=== PATIENT | male | born 1935 ===

== ENCOUNTER 2018-05-23 10:27 | Emergency (ER) | payer OTHER ==
--- NOTE | 2018-05-23 10:58 | ED PDOC ---
Arrival/HPI - General Time Seen by Provider: 05/23/18 10:41 Historian: Patient, Family - History of Present Illness Narrative History of Present Illness (Text): 05/23/18 10:50 82 year old male, whose PMH is HTN, HCL, Thyroid Disease, (medications include a water pill), who presents to the emergency department complaining of b/l hip and back side of head pain s/p mechanical fall x2. Family member reports patient uses walker for assistance and tripped while on the street one week ago , injuring the back of his head. The second time patient fell was one day ago, also a mechanical fall, also injuring the back of his head. Patient states s/p fall he felt mildly dizzy and weak, which has resolved. Currently he has no pain. Patient denies LOC, chest pain, rib pain, shortness of breath, nausea, vomiting, diarrhea, abdominal pain, dysuria, fever, or other complaints. PMD: Dr. Solo Time/Duration: 1 week Symptom Onset: Sudden Symptom Course: Unchanged Context: Tripped Past Medical History - Provider Review Nursing Documentation Reviewed: Yes Family/Social History - Physician Review Nursing Documentation Reviewed: Yes Family/Social History: Unknown Family HX Allergies/Home Meds Allergies/Adverse Reactions: Allergies No Known Allergies Allergy (Verified 05/23/18 10:40) Home Medications: Home Meds Medication Instructions Recorded Confirmed Acetaminophen [Non-Aspirin Pain 500 mg PO BID 05/23/18 05/23/18 Relief] Aspirin [Adult Low Dose Aspirin EC] 81 mg PO DAILY 05/23/18 05/23/18 Carvedilol [Coreg] 12.5 mg PO BID 05/23/18 05/23/18 Furosemide [Lasix] 40 mg PO DAILY 05/23/18 05/23/18 Glimepiride [amaRYL] 4 mg PO QAM 05/23/18 05/23/18 Levothyroxine [Synthroid] 25 mcg PO DAILY 05/23/18 05/23/18 Nateglinide [Starlix] 120 mg PO BID 05/23/18 05/23/18 Ramipril [Altace] 10 mg PO DAILY 05/23/18 05/23/18 Simvastatin 10 mg PO DAILY 05/23/18 05/23/18 Review of Systems - Review of Systems Constitutional: absent: Fevers ENT: absent: Sinus Congestion Respiratory: absent: SOB Cardiovascular: absent: Chest Pain Gastrointestinal: absent: Abdominal Pain Genitourinary Male: absent: Frequency Musculoskeletal: Back Pain (lower back ), Other (b/l hip pain ) Skin: absent: Rash Neurological: Headache, Dizziness Endocrine: absent: Diaphoresis Physical Exam Vital Signs Temp Pulse Resp BP Pulse Ox 05/23/18 13:22 67 22 96 05/23/18 10:40 98.1 F 84 24 154/92 H 97 Temperature: Afebrile Blood Pressure: Normal Pulse: Regular Respiratory Rate: Normal Appearance: Positive for: Well-Appearing, Non-Toxic, Comfortable Pain Distress: None Mental Status: Positive for: Alert and Oriented X 3 - Systems Exam Head: Present: Atraumatic, Normocephalic Pupils: Present: PERRL Extroacular Muscles: Present: EOMI Conjunctiva: Present: Normal Mouth: Present: Moist Mucous Membranes Neck: Present: Normal Range of Motion. No: MIDLINE TENDERNESS, Paraspinal Tenderness Respiratory/Chest: Present: Clear to Auscultation, Good Air Exchange. No: Respiratory Distress, Accessory Muscle Use Cardiovascular: Present: Regular Rate and Rhythm, Normal S1, S2. No: Murmurs Abdomen: Present: Normal Bowel Sounds. No: Tenderness, Distention, Peritoneal Signs, Rebound, Guarding Back: Present: Paraspinal Tenderness (lower lumbar paraspinal tenderness). No: CVA Tenderness, Midline Tenderness, Pain with Leg Raise Lower Extremity: Present: Normal Inspection, NORMAL PULSES, Normal ROM, Neurovascularly Intact, Capillary Refill < 2 s, Other (good hip rotation). No: Edema, Cyanosis, Tenderness, Swelling, Erythema, Deformity Neurological: Present: GCS=15, CN II-XII Intact, Speech Normal, Motor Func Grossly Intact, Normal Sensory Function, Normal Cerebellar Funct Skin: Present: Warm, Dry, Normal Color. No: Rashes Psychiatric: Present: Alert, Oriented x 3, Normal Insight, Normal Concentration Medical Decision Making ED Course and Treatment: 05/23/18 Impression: 82 year old male with lower lumbar paraspinal tenderness complaining of left sided hip pain and head trauma s/p mechanical fall. Differential Diagnosis included but are not limited to: Mechanical fall w/ head injury Plan: -- CT head -- LS spine x-ray -- Pelvis x-ray -- Tylenol -- Reassess and disposition Progress Notes: 05/23/18 12:10 Creator: Jimbo Mccormack Lumbar Spine x-ray Impressions: Severe degenration at L1-2 and L3-4 Pelvis x-ray: Impressions: Unremarkable radiographs of the pelvis. 05/23/18 12:15 CT head Impressions: No acute disease 05/23/18 13:[address] are with no fracture or ICH. Patient is comfortable and has no pain. He is able to walk with walker at baseline. Case discussed with patient and his family. He will go home and f/u with his PMD. He was advised to return to the ED if symptoms worsen or any other concern. - RAD Interpretation Radiology Orders: 05/23/18 10:48 HEAD W/O CONTRAST [CT] Stat LS SPINE WITH OBL > 18 YRS OLD [RAD] Stat PELVIS ONE VIEW [RAD] Stat Adding Machine Mechanic: Radiologist - Medication Orders Current Medication Orders: Discontinued Medications Acetaminophen (Tylenol 325mg Tab) 650 mg PO STAT STA Stop: 05/23/18 10:50 - Scribe Statement The provider has reviewed the documentation as recorded by the Anilibe Sara Marte Provider Scribe Attestation: All medical record entries made by the Scribe were at my direction and personally dictated by me. I have reviewed the chart and agree that the record accurately reflects my personal performance of the history, physical exam, medical decision making, and the department course for this patient. I have also personally directed, reviewed, and agree with the discharge instructions and disposition. Disposition/Present on Arrival - Present on Arrival Any Indicators Present on Arrival: No - Disposition Have Diagnosis and Disposition been Completed?: Yes Diagnosis: Fall, Head injury, Hip pain, bilateral Disposition: HOME/ ROUTINE Disposition Time: 13:22 Patient Plan: Discharge Condition: IMPROVED Discharge Instructions (ExitCare): Closed Head Injury Additional Instructions: STEPHANI VENCES, thank you for letting us take care of you today. Your provider was Bennie Bruno DO and you were treated for Mechanical Fall, Hip Pain , Head Injury. The emergency medical care you received today was directed at your acute symptoms. If you were prescribed any medication, please fill it and take as directed. It may take several days for your symptoms to resolve. Return to the Emergency Department if your symptoms worsen, do not improve, or if you have any other problems. Please contact your doctor or call one of the physicians/clinics you have been referred to that are listed on the Patient Visit Information form that is included in your discharge packet. Bring any paperwork you were given at discharge with you along with any medications you are taking to your follow up visit. Our treatment cannot replace ongoing medical care by a primary care provider outside of the emergency department. Thank you for allowing the [facility] team to be part of your care today. If you had an X-Ray or CT scan: A Radiologist will review the ED reading if any change in treatment is needed we will contact you. If you had a blood, urine, or wound culture: It will take several days for the results, if any change in treatment is needed we will contact you. If you had an STI test: It will take 48 hours for the results. Please call after 1 week if you have not heard back. Referrals: Non [facility] Provider, [Non-Staff] - Follow up with primary Forms: [employer] (Romansh)
--- NOTE | 2018-05-23 12:07 | RAD ---
Date of service: 05/23/2018 PROCEDURE: Radiographs of the pelvis. HISTORY: fall r/o fx COMPARISON: None. FINDINGS: BONES: Pelvic Bones: Unremarkable. Hips: Grossly unremarkable. JOINTS: Sacroiliac Joints: Unremarkable. Pubic Symphysis: Unremarkable. OTHER FINDINGS: None. IMPRESSION: Unremarkable radiographs of the pelvis.
--- NOTE | 2018-05-23 12:08 | RAD ---
Date of service: 05/23/2018 PROCEDURE: Radiographs of the Lumbar Spine. HISTORY: fall r/o fx COMPARISON: No prior. FINDINGS: BONES: Normal alignment. No listhesis. No fracture. DISC SPACES: Severe disc degeneration at L1-2 and L3-4 OTHER FINDINGS: None. 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
--- NOTE | 2018-05-23 12:14 | CT ---
Date of service: 05/23/2018 PROCEDURE: CT HEAD WITHOUT CONTRAST. HISTORY: head injury r/o ICH COMPARISON: None available. TECHNIQUE: Axial computed tomography images were obtained through the head/brain without intravenous contrast. Radiation dose: Total exam DLP = 889 mGy-cm. This CT exam was performed using one or more of the following dose reduction techniques: Automated exposure control, adjustment of the mA and/or kV according to patient size, and/or use of iterative reconstruction technique. FINDINGS: HEMORRHAGE: No intracranial hemorrhage. BRAIN: No mass effect or edema. No atrophy or chronic microvascular ischemic changes. VENTRICLES: Unremarkable. No hydrocephalus. CALVARIUM: Unremarkable. PARANASAL SINUSES: Unremarkable as visualized. No significant inflammatory changes. MASTOID AIR CELLS: Unremarkable as visualized. No inflammatory changes. OTHER FINDINGS: None. IMPRESSION: No acute findings
[2018-05-23 13:16] VITALS: BP 154/92; TEMP 98.1
[2018-05-23 13:23] VITALS: PULSE 67; RESP 22; O2SAT 96
== END 2018-05-23 13:22 | disposition home or self-care (01) ==
LOC: ED 10:27
DX: S09.90XA Unspecified injury of head, initial encounter (principal); W19.XXXA Unspecified fall, initial encounter; I10 Essential (primary) hypertension; M25.552 Pain in left hip; M25.551 Pain in right hip

== ENCOUNTER 2018-08-09 08:54 | Emergency (ER) | payer OTHER ==
[2018-08-09 09:19] VITALS: RESP 18; O2SAT 99
--- NOTE | 2018-08-09 09:30 | ED PDOC ---
Arrival/HPI - General Chief Complaint: Male Genitourinary Time Seen by Provider: 08/09/18 09:16 Historian: Patient, Family (Nephew) - History of Present Illness Time/Duration: Other (3 months) Symptom Onset: Gradual Symptom Course: Unchanged Quality: Aching Severity Level: Mild Activities at Onset: Rest Associated Symptoms (Text): 08/09/18 09:27 Nephew reports a 3 month history of right-sided abdominal pain with urinary frequency and urgency. He was seen at another hospital in [place] for similar complaints and the nephew is not aware of the diagnosis. No nausea or vomiting or diarrhea. No hematuria. No back pain. No fever or chills. No injury or trauma. Past Medical History - Cardiac Hx Cardiac Disorders: Yes Hx NM: Yes Hx Hypertension: Yes - Pulmonary Hx Respiratory Disorders: No - Neurological Hx Neurological Disorder: No - HEENT Hx HEENT Disorder: Yes Hx Cataracts: Yes - Renal Hx Renal Disorder: No - Endocrine/Metabolic Hx Endocrine Disorders: Yes Hx Diabetes Mellitus Type 2: Yes Hx Hypothyroidism: Yes - Hematological/Oncological Hx Blood Disorders: No - Integumentary Hx Dermatological Disorder: No - Musculoskeletal/Rheumatological Hx Musculoskeletal Disorders: No - Gastrointestinal Hx Gastrointestinal Disorders: No - Genitourinary/Gynecological Hx Genitourinary Disorders: No - Psychiatric Hx Psychophysiologic Disorder: No Hx Substance Use: No - Surgical History Hx Open Heart Surgery: Yes Family/Social History - Physician Review Nursing Documentation Reviewed: Yes Family/Social History: Unknown Family HX Smoking Status: Never Smoked Hx Alcohol Use: No Hx Substance Use: No Allergies/Home Meds Allergies/Adverse Reactions: Allergies No Known Allergies Allergy (Verified 08/09/18 09:18) Home Medications: Home Meds Medication Instructions Recorded Confirmed Aspirin [Adult Low Dose Aspirin EC] 81 mg PO DAILY 05/23/18 08/09/18 Carvedilol [Coreg] 12.5 mg PO BID 05/23/18 08/09/18 Furosemide [Lasix] 40 mg PO DAILY 05/23/18 08/09/18 Glimepiride [amaRYL] 4 mg PO QAM 05/23/18 08/09/18 Levothyroxine [Synthroid] 25 mcg PO DAILY 05/23/18 08/09/18 Nateglinide [Starlix] 120 mg PO BID 05/23/18 08/09/18 Ramipril [Altace] 10 mg PO DAILY 05/23/18 08/09/18 Simvastatin 10 mg PO DAILY 05/23/18 08/09/18 Review of Systems - Physician Review All systems were reviewed & negative as marked: Yes - Review of Systems Constitutional: Fatigue. absent: Fevers Respiratory: absent: SOB, Cough, Wheezing Cardiovascular: absent: Chest Pain, Palpitations, Syncope Gastrointestinal: Abdominal Pain, Anorexia. absent: Constipation, Diarrhea, Nausea, Vomiting Genitourinary Male: Dysuria, Frequency. absent: Hematuria Musculoskeletal: absent: Back Pain Neurological: absent: Headache, Dizziness, Focal Weakness Physical Exam Vital Signs Temp Pulse Resp BP Pulse Ox 08/09/18 09:15 98.1 F 69 18 153/87 H 99 Temperature: Afebrile Blood Pressure: Hypertensive Pulse: Regular Respiratory Rate: Normal Appearance: Positive for: Well-Appearing, Non-Toxic, Comfortable, Other (pale) Pain Distress: None Mental Status: Positive for: other (awake and alert) - Systems Exam Head: Present: Atraumatic, Normocephalic Pupils: Present: PERRL Extroacular Muscles: Present: EOMI Conjunctiva: Present: Normal Mouth: Present: Moist Mucous Membranes Pharnyx: No: ERYTHEMA, EXUDATE, TONSILS ENLARGED Neck: Present: Normal Range of Motion Respiratory/Chest: Present: Clear to Auscultation, Good Air Exchange, Decreased Breath Sounds. No: Respiratory Distress, Accessory Muscle Use Cardiovascular: Present: Regular Rate and Rhythm, Normal S1, S2. No: Murmurs Abdomen: Present: Tenderness (+/- right lower quadrant tenderness). No: Distention, Peritoneal Signs, Rebound, Guarding Genitourinary Male: Present: Normal External Genitalia Back: Present: Normal Inspection. No: CVA Tenderness, Midline Tenderness, Paraspinal Tenderness Upper Extremity: Present: Normal Inspection. No: Cyanosis, Edema Lower Extremity: Present: Normal Inspection. No: Edema Neurological: Present: GCS=15, CN II-XII Intact, Speech Normal, Motor Func Grossly Intact Skin: Present: Warm, Dry, Pale. No: Rashes Psychiatric: Present: Alert, Oriented x 3, Normal Insight, Normal Concentration Medical Decision Making ED Course and Treatment: 08/09/18 11:25 EKG shows normal sinus rhythm with a sinus bradycardia rate approximately 55 with PACs, LVH, nonspecific intraventricular conduction delay and nonspecific ST and T-wave changes laterally PROCEDURE: CT Abdomen and Pelvis without intravenous contrast Dictator : Lex Connor MD Report Date : 08/09/2018 12:07:13 IMPRESSION: Cholelithiasis without CT evidence of acute cholecystitis. Additional benign and/or incidental findings described above. Findings in the spinal canal which would benefit from additional clinical information and possible elective follow-up. 08/09/18 12:15 Discussed in detail with the patient and nephew. Will provide a primary caregiver in this area, as he is from [place]. No acute findings on his workup. Follow up in the ER as needed. - RAD Interpretation Radiology Orders: 08/09/18 09:25 ABD & PELVIS W/O PO OR IV CONT [CT] Stat CT scan of the abdomen and pelvis is read by the radiologist is positive for cholelithiasis without cholecystitis and a right inguinal hernia. No acute findings. Special Forces Specialist: Radiologist Disposition/Present on Arrival - Present on Arrival Any Indicators Present on Arrival: No History of DVT/PE: No History of Uncontrolled Diabetes: No Urinary Catheter: No History of Decub. Ulcer: No History Surgical Site Infection Following: None - Disposition Have Diagnosis and Disposition been Completed?: Yes Diagnosis: Dysuria, Abdominal pain, Cholelithiasis, Right inguinal hernia Disposition: HOME/ ROUTINE Disposition Time: 12:17 Patient Plan: Discharge Condition: GOOD Discharge Instructions (ExitCare): Inguinal and Femoral (Groin) Hernias, Chronic Pain (DC), Dysuria, Adult (DC), Gallstones Prescriptions: Tramadol HCl [Ultram] 50 mg PO Q6 PRN #10 tab PRN Reason: Pain Referrals: Lex Willams DO [Staff Provider] - Follow up with primary Forms: [employer] (Lao)
[2018-08-09 09:56] LABS: EOS # 0.1 (0.0-0.7); GRAN # 5.05 (1.4-6.5); GRAN % 80.2 % (50.0-68.0); HEMOGLOBIN 14.1 g/dL (14.0-18.0); LYMPH # 0.7 (1.2-3.4); LYMPH % 11.3 % (22.0-35.0); MEAN CELL VOLUME 97.7 fl (80.0-105.0); MEAN CORPUSCULAR HEMOGLOBIN 32.5 pg (25.0-35.0); MEAN CORPUSCULAR HGB CONC 33.3 g/dl (31.0-37.0); MEAN PLATELET VOLUME 10.2 fl (7.0-11.0); MONO # 0.5 (0.1-0.6); MONO % 7.5 % (1.0-6.0); RBC 4.34 10^6/uL (3.5-6.1); RED CELL DISTRIBUTION WIDTH 13.2 % (11.5-14.5); WHITE BLOOD COUNT 6.3 10^3/ul (4.5-11.0)
[2018-08-09 09:57] LABS: URINE BILIRUBIN NEGATIVE (NEGATIVE); URINE BLOOD NEGATIVE (NEGATIVE); URINE GLUCOSE (UA) 100 mg/dL (NEGATIVE); URINE LEUKOCYTE ESTERASE TRACE Leu/uL (NEGATIVE); URINE PROTEIN TRACE mg/dL (<30 mg/dL)
[2018-08-09 09:58] LABS: URINE APPEARANCE CLEAR (CLEAR); URINE COLOR YELLOW (YELLOW)
[2018-08-09 10:02] LABS: URINE BACTERIA FEW (NEG); URINE RBC 0 - 2 /hpf (0-2)
[2018-08-09 10:23] LABS: ALB/GLOB RATIO 1.4 (1.1-1.8); ALBUMIN 3.8 g/dL (3.0-4.8); ALT/SGPT 35 U/L (7-56); AMYLASE 67 U/L (35-125); AST/SGOT 29 U/L (17-59); BLOOD UREA NITROGEN 24 mg/dL (7-21); CALCIUM 9.3 mg/dL (8.4-10.5); GFR NON-AFRICAN AMERICAN > 60; LIPASE 100 U/L (23-300)
[2018-08-09 10:34] LABS: TROPONIN I 0.04 ng/mL
--- NOTE | 2018-08-09 12:08 | CT ---
Date of service: 08/09/2018 PROCEDURE: CT Abdomen and Pelvis without intravenous contrast HISTORY: right sided pain COMPARISON: None. TECHNIQUE: Unenhanced. Neither IV nor oral contrast administered Radiation dose: Total exam DLP = 338.56 mGy-cm. This CT exam was performed using one or more of the following dose reduction techniques: Automated exposure control, adjustment of the mA and/or kV according to patient size, and/or use of iterative reconstruction technique. FINDINGS: LOWER THORAX: Trace bilateral pleural effusions. LIVER: Unremarkable. No gross lesion or ductal dilatation. GALLBLADDER AND BILE DUCTS: Cholelithiasis without CT evidence of acute cholecystitis. PANCREAS: Unremarkable. No gross lesion or ductal dilatation. SPLEEN: Unremarkable. ADRENALS: Unremarkable. No mass. KIDNEYS AND URETERS: Unremarkable. No hydronephrosis. No solid mass. VASCULATURE: Unremarkable. No aortic aneurysm. BOWEL: Unremarkable. No obstruction. No gross mural thickening. APPENDIX: No abnormalities to suggest acute appendicitis. No right lower quadrant inflammatory processes identified. PERITONEUM: Unremarkable. No free fluid. No free air. LYMPH NODES: Unremarkable. No enlarged lymph nodes. BLADDER: Bladder wall thickening likely relates to underfilling rather than cystitis. REPRODUCTIVE: Unremarkable. BONES: No acute fracture. Intradural calcifications at the level of lower lumbar and upper sacral region. The etiology, significance is uncertain. These findings are usually seen in the setting parathyroid or renal disease common nephrogenic fibrosis. This sequela of prior hemorrhage or trauma could also assume this appearance. Elective follow-up recommended. OTHER FINDINGS: Right inguinal hernia containing distal small bowel and possibly cecum. IMPRESSION: Cholelithiasis without CT evidence of acute cholecystitis. Additional benign and/or incidental findings described above. Findings in the spinal canal which would benefit from additional clinical information and possible elective follow-up.
[2018-08-09 12:37] VITALS: BP 140/80; PULSE 71; TEMP 98
--- NOTE | 2018-08-10 08:53 | CARD ---
APPROVED REPORT Date of service: 08/09/2018 EKG Measurement Heart [id number] <Conclusion> Sinus bradycardia with premature supraventricular complexes Incomplete left bundle branch block Left ventricular hypertrophy with repolarization abnormality STTW changes c/w ischemia
== END 2018-08-09 12:37 | disposition home or self-care (01) ==
LOC: ED 08:54
DX: R30.0 Dysuria (principal); K80.20 Calculus of gallbladder without cholecystitis without obstruction; K40.90 Unilateral inguinal hernia, without obstruction or gangrene, not specified as recurrent; R10.9 Unspecified abdominal pain; I10 Essential (primary) hypertension; I25.2 Old myocardial infarction; E11.9 Type 2 diabetes mellitus without complications

== ENCOUNTER 2018-12-22 20:07 | Inpatient (IN) | payer MEDICARE, OTHER ==
[2018-12-22 20:46] LABS: VENOUS BLOOD GAS BASE EXCESS 1.3 mmol/L (0.0-2.0); VENOUS BLOOD GAS PO2 18 mm/Hg (30-55); VENOUS BLOOD PH 7.37 (7.32-7.43)
[2018-12-22 20:54] LABS: BASO # 0.01 K/mm3 (0.0-2.0); BASO % 0.2 % (0.0-3.0); EOS # 0.1 (0.0-0.7); EOS % 2.4 % (1.5-5.0); HEMOGLOBIN 13.7 g/dL (14.0-18.0); LYMPH # 0.6 (1.2-3.4); LYMPH % 11.2 % (22.0-35.0); MEAN CELL VOLUME 97.2 fl (80.0-105.0); MEAN CORPUSCULAR HEMOGLOBIN 31.8 pg (25.0-35.0); MEAN CORPUSCULAR HGB CONC 32.7 g/dl (31.0-37.0); MEAN PLATELET VOLUME 9.9 fl (7.0-11.0); MONO # 0.5 (0.1-0.6); MONO % 8.4 % (1.0-6.0); RBC 4.31 10^6/uL (3.5-6.1); RED CELL DISTRIBUTION WIDTH 13.7 % (11.5-14.5); WHITE BLOOD COUNT 5.3 10^3/uL (4.5-11.0)
[2018-12-22 20:59] LABS: ALB/GLOB RATIO 1.3 (1.1-1.8); ALBUMIN 3.9 g/dL (3.0-4.8); AST/SGOT 29 U/L (17-59); BLOOD UREA NITROGEN 27 mg/dL (7-21); CALCIUM 9.3 mg/dL (8.4-10.5); GFR NON-AFRICAN AMERICAN 52; INR 1.52; PARTIAL THROMBOPLASTIN TIME 32.2 Seconds (26.9-38.3); PROTHROMBIN TIME 16.9 SECONDS (9.4-12.5)
[2018-12-22 21:03] LABS: ALT/SGPT < 6 U/L (7-56)
--- NOTE | 2018-12-22 21:12 | ED PDOC ---
Arrival/HPI - General Chief Complaint: Shortness Of Breath Time Seen by Provider: 12/22/18 20:11 Historian: Patient - History of Present Illness Narrative History of Present Illness (Text): 12/22/18 20:53 83 year old male, whose past medical history includes asthma, hypertension, hypercholesterolemia, thyroid Disease, and non-insulin dependent diabetes, presents to the emergency department complaining of shortness of breath, for 3 days. The patient is accompanied by his grandson, who explains that patient has no PMD in the area, and is mostly residing in [place]. He states that patient has a hernia, with no surgical intervention. Patient states he has no pain, just feels ill and short of breath. Patient denies any chest pain, fevers, chills, headache, dizziness, abdominal pain, nausea, vomiting, diarrhea, back pain, neck pain, or any other complaint. Time/Duration: < week (3 days) Symptom Onset: Gradual Symptom Course: Unchanged Quality: Unable to Describe Severity Level: Moderate Activities at Onset: Rest Context: Home Past Medical History - Provider Review Nursing Documentation Reviewed: Yes - Infectious Disease Hx of Infectious Diseases: None - Cardiac Hx Cardiac Disorders: Yes Hx LA: Yes Hx Hypertension: Yes - Pulmonary Hx Respiratory Disorders: No - Neurological Hx Neurological Disorder: No - HEENT Hx HEENT Disorder: Yes Hx Cataracts: Yes - Renal Hx Renal Disorder: No - Endocrine/Metabolic Hx Endocrine Disorders: Yes Hx Diabetes Mellitus Type 2: Yes Hx Hypothyroidism: Yes - Hematological/Oncological Hx Blood Disorders: No - Integumentary Hx Dermatological Disorder: No - Musculoskeletal/Rheumatological Hx Musculoskeletal Disorders: No - Gastrointestinal Hx Gastrointestinal Disorders: No - Genitourinary/Gynecological Hx Genitourinary Disorders: No - Psychiatric Hx Psychophysiologic Disorder: No Hx Substance Use: No - Surgical History Hx Open Heart Surgery: Yes Family/Social History - Physician Review Nursing Documentation Reviewed: Yes Family/Social History: No Known Family HX Smoking Status: Never Smoked Hx Alcohol Use: No Hx Substance Use: No Allergies/Home Meds Allergies/Adverse Reactions: Allergies No Known Allergies Allergy (Verified 08/09/18 09:18) Home Medications: Home Meds Medication Instructions Recorded Confirmed Aspirin [Adult Low Dose Aspirin EC] 81 mg PO DAILY 05/23/18 12/22/18 Carvedilol [Coreg] 12.5 mg PO BID 05/23/18 12/22/18 Furosemide [Lasix] 40 mg PO DAILY 05/23/18 12/22/18 Glimepiride [amaRYL] 4 mg PO QAM 05/23/18 12/22/18 Levothyroxine [Synthroid] 25 mcg PO DAILY 05/23/18 12/22/18 Nateglinide [Starlix] 120 mg PO BID 05/23/18 12/22/18 RX: Ramipril [Altace] 10 mg PO DAILY 05/23/18 12/22/18 RX: Simvastatin 10 mg PO DAILY 05/23/18 12/22/18 Review of Systems - Physician Review All systems were reviewed & negative as marked: Yes - Review of Systems Constitutional: absent: Fevers, Night Sweats Respiratory: SOB Cardiovascular: absent: Chest Pain Gastrointestinal: absent: Abdominal Pain, Diarrhea, Nausea, Vomiting Musculoskeletal: absent: Back Pain, Neck Pain Neurological: absent: Headache, Dizziness Physical Exam Vital Signs Reviewed: Yes Vital Signs Pulse Resp BP Pulse Ox 12/22/18 20:21 67 18 126/65 90 L Blood Pressure: Normal Pulse: Regular Respiratory Rate: Normal Appearance: Positive for: Well-Appearing, Non-Toxic, Comfortable Pain Distress: None Mental Status: Positive for: Alert and Oriented X 3 - Systems Exam Head: Present: Atraumatic, Normocephalic Pupils: Present: PERRL Extroacular Muscles: Present: EOMI Conjunctiva: Present: Normal Mouth: Present: Moist Mucous Membranes Neck: Present: Normal Range of Motion Respiratory/Chest: Present: Clear to Auscultation, Good Air Exchange. No: Respiratory Distress, Accessory Muscle Use Cardiovascular: Present: Regular Rate and Rhythm, Normal S1, S2. No: Murmurs Abdomen: Present: Tenderness (LLQ tenderness), Distention. No: Rebound, Guarding Back: Present: Normal Inspection Upper Extremity: Present: Normal Inspection. No: Cyanosis, Edema Lower Extremity: Present: Edema (Piting edema) Neurological: Present: GCS=15, Speech Normal Skin: Present: Warm, Dry, Normal Color. No: Rashes Psychiatric: Present: Alert, Oriented x 3, Normal Insight, Normal Concentration Medical Decision Making ED Course and Treatment: 12/22/18 21:21 Impression: 83 year old male presents with shortness of breath Plan: -- VBG --Labs -- EKG -- Chest X-ray -- Urinalysis --Aspirin --Lasix -- Reassess and disposition Prior Visits: Notes and results from previous visits were reviewed. Progress Notes: 12/22/18 21:37 Labs reviewed with elevated troponin of 0.46 and BNP of 13,700. Rectal aspirin ordered. 12/22/18 21:47 Spoke to medical office administrator. Page placed to Dr. Nani Charles(house staff). Lasix ordered. - Lab Interpretations Lab Results: pO2 18 mm/Hg (30-55) L 12/22/18 20:35 VBG pH 7.37 (7.32-7.43) 12/22/18 20:35 VBG pCO2 47.0 (40-60) 12/22/18 20:35 VBG HCO3 27.2 mmol/l (21-28) 12/22/18 20:35 VBG Total CO2 28.6 mmol.L (22-28) H 12/22/18 20:35 VBG O2 Sat (Calc) 35.0 % (40-65) L 12/22/18 20:35 VBG Base Excess 1.3 mmol/L (0.0-2.0) 12/22/18 20:35 VBG Potassium 3.6 mmol/L (3.6-5.2) 12/22/18 20:35 Sodium 140.0 mmol/L (132-148) 12/22/18 20:35 Chloride 105.0 mmol/L (98-107) 12/22/18 20:35 Glucose 227 mg/dl (75-110) H 12/22/18 20:35 Lactate 3.3 mmol/L (0.7-2.1) H 12/22/18 20:35 FiO2 21.0 % 12/22/18 20:35 Crit Value Called To Eleni correa 12/22/18 20:35 Crit Value Called By Ronnie 12/22/18 20:35 Blood Gas Notified Time 204512/22/18 20:35 12/22/18 20:41 12/22/18 20:41 Lab Results 12/22/18 20:41: Sodium 139, Chloride 103, Potassium 4.0, Carbon Dioxide 27, Anion Gap 13, BUN 27 H, Creatinine 1.3, Est GFR ( Amer) > 60, Est GFR (Non-Af Amer) 52, Random Glucose 221 H, Calcium 9.3, Magnesium 2.0, Total Bilirubin 2.0 H, AST 29, ALT < 6 L, Alkaline Phosphatase 68, Troponin I 0.46 H* D, NT-Pro-B Natriuret Pep 80652 H, Total Protein 6.8, Albumin 3.9, Globulin 3.0, Albumin/Globulin Ratio 1.3 12/22/18 20:41: PT 16.9 H, INR 1.52, APTT 32.2 12/22/18 20:41: WBC 5.3, RBC 4.31, Hgb 13.7 L, Hct 41.9 L, MCV 97.2, MCH 31.8, MCHC 32.7, RDW 13.7, Plt Count 175, MPV 9.9, Neut % (Auto) 77.8 H, Lymph % (Auto) 11.2 L, [place] % (Auto) 8.4 H, Eos % (Auto) 2.4, Baso % (Auto) 0.2, Lymph # (Auto) 0.6 L, [place] # (Auto) 0.5, Eos # (Auto) 0.1, Baso # (Auto) 0.01, Absolute Neuts (auto) 4.15 12/22/18 20:35: pO2 18 L, VBG pH 7.37, VBG pCO2 47.0, VBG HCO3 27.2, VBG Total CO2 28.6 H, VBG O2 Sat (Calc) 35.0 L, VBG Base Excess 1.3, VBG Potassium 3.6, Sodium 140.0, Chloride 105.0, Glucose 227 H, Lactate 3.3 H, FiO2 21.0, Crit Value Called To Eleni correa, Crit Value Called By Ronnie, Blood Gas Notified Time 2045, Venous Blood Potassium 3.6 I have reviewed the lab results: Yes - RAD Interpretation Radiology Orders: 12/22/18 20:22 CHEST PORTABLE [RAD] Stat - EKG Interpretation EKG Interpretation (Text): 12/22/18 21:39 NSR @ 68bpm LVH w/ inverted T waves in V4-V6 LBBB Prolonged QT interval Interpreted by ED Physician: Yes Type: 12 lead EKG - Medication Orders Current Medication Orders: 12/26/18 07:46 Acetaminophen (Tylenol 325mg Tab) 650 mg PO Q6 PRN PRN Reason: TEMP>=99.5F Acetaminophen (Tylenol 650 Mg Supp) 650 mg RC Q6H PRN PRN Reason: TEMP>=99.5F Acetylcysteine (Acetylcysteine 20%) 4 ml IH Q8 [facility] Last Admin: 12/26/18 07:32 Dose: Not Given Non-Admin Reason: not available Atorvastatin Calcium (Lipitor) 40 mg PO DIN [facility] Last Admin: 12/25/18 16:50 Dose: Not Given Non-Admin Reason: bleeding Carvedilol (Coreg) 12.5 mg PO BID [facility] Last Admin: 12/25/18 11:11 Dose: 12.5 mg MAR Pulse and Blood Pressure Document 12/25/18 11:11 ALFREDA (Rec: 12/25/18 11:12 ALFREDA [id number]) Pulse Pulse Rate (60-90 beats/min) 65 Dextrose (Dextrose 50% Inj) 0 ml IV STAT PRN; Protocol PRN Reason: Hypoglycemia Protocol Last Admin: 12/25/18 21:52 Dose: 50 ml eMAR Start Stop Document 12/25/18 21:52 MHA (Rec: 12/25/18 21:53 MHA [id number]) Intravenous Solution Start Date 12/25/18 Start Time 21:53 Docusate Sodium (Colace) 100 mg PO TID [facility] Last Admin: 12/25/18 16:43 Dose: Not Given Non-Admin Reason: bleeding Last Bowel Movement Document 12/25/18 16:43 ALFREDA (Rec: 12/25/18 16:44 ALFREDA [id number]) Last Bowel Movement Last Bowel Movement 12/25/18 Famotidine (Pepcid) 40 mg PO HS [facility] Last Admin: 12/25/18 21:36 Dose: 40 mg Furosemide (Lasix) 40 mg IVP DAILY [facility] Last Admin: 12/25/18 11:12 Dose: 40 mg MAR Blood Pressure Document 12/25/18 11:12 ALFREDA (Rec: 12/25/18 11:13 ALFREDA [id number]) Blood Pressure Blood Pressure (100/60-150/90 mm Hg) 138/68 IVP Administration Document 12/25/18 11:12 ALFREDA (Rec: 12/25/18 11:13 ALFREDA [id number]) Charges for Administration # of IVP Administrations 7 Doxycycline Hyclate 100 mg/ (Sodium Chloride) 100 mls @ 100 mls/hr IVPB Q12 [facility]; Protocol Last Admin: 12/25/18 21:36 Dose: 100 mls/hr eMAR Start Stop Document 12/25/18 21:36 MHA (Rec: 12/25/18 21:37 MHA [id number]) Intravenous Solution Start Date 12/25/18 Start Time 21:36 End Date 12/25/18 End time 22:36 Total Infusion Time 60 Ceftriaxone Sodium (Rocephin 1 Gram Ivpb) 1 gm in 100 mls @ 100 mls/hr IVPB DAILY [facility]; Protocol Last Admin: 12/25/18 11:25 Dose: 100 mls/hr eMAR Start Stop Document 12/25/18 11:25 ALFREDA (Rec: 12/25/18 11:26 ALFREDA [id number]) Intravenous Solution Start Date 12/25/18 Start Time 11:25 End Date 12/25/18 End time 12:25 Total Infusion Time 60 Dextrose (Dextrose 5% In Water 1000 Ml) 1,000 mls @ 0 mls/hr IV .Q0M PRN; Protocol PRN Reason: Hypoglycemia Protocol Metronidazole (Flagyl) 500 mg in 100 mls @ 100 mls/hr IVPB Q8 [facility]; Protocol Last Admin: 12/26/18 05:20 Dose: 100 mls/hr eMAR Start Stop Document 12/26/18 05:20 MHA (Rec: 12/26/18 05:21 MHA [id number]) Intravenous Solution Start Date 12/26/18 Start Time 05:21 End Date 12/26/18 End time 06:21 Total Infusion Time 60 Milrinone Lactate/Dextrose (Primacor 20mg/100ml D5w) 100 mls @ 8.93 mls/hr IV .[id number] PRN; Protocol PRN Reason: TITRATE PER MD ORDER Last Admin: 12/26/18 05:21 Dose: 0.375 mcg/kg/min, 8.93 mls/hr eMAR Start Stop Document 12/26/18 05:21 MHA (Rec: 12/26/18 05:22 MHA [id number]) Intravenous Solution Start Date 12/26/18 Start Time 05:00 Titration Intervention Document 12/26/18 05:21 MHA (Rec: 12/26/18 05:22 [id number] Titration Intake Cumulative Intake (Rx) 200 Waste Amount 0 Container Volume 100 Titration Dosing Titration Dose 0.375 IV Rate 8.93 Intake/Decrease Started/Running Cumulative Dose 40 Insulin Human Regular (Humulin R Med) 0 units SC ACHS [facility]; Protocol Last Admin: 12/25/18 21:46 Dose: Not Given Non-Admin Reason: Blood Sugar Parameter MAR Blood Glucose Document 12/25/18 21:46 [facility] (Rec: 12/25/18 21:46 [place] [id number]) Blood Glucose Finger Stick Blood Glucose (70-120) 57 Levalbuterol HCl (Xopenex) 0.63 mg IH [id number] PRN PRN Reason: Shortness of Breath Levalbuterol HCl (Xopenex) 0.63 mg IH Q8 [facility] Last Admin: 12/26/18 07:32 Dose: Not Given Non-Admin Reason: not available Levothyroxine Sodium (Synthroid) 25 mcg PO 0600 [facility] Last Admin: 12/26/18 05:23 Dose: 25 mcg Magnesium Oxide (Mag-Ox) 400 mg PO BID [facility] Last Admin: 12/25/18 17:11 Dose: 400 mg Ondansetron HCl (Zofran Inj) 4 mg IVP Q4H PRN PRN Reason: Nausea/Vomiting Pantoprazole Sodium (Protonix Inj) 40 mg IVP Q12 [facility] Last Admin: 12/25/18 21:36 Dose: 40 mg IVP Administration Document 12/25/18 21:36 [facility] (Rec: 12/25/18 21:36 [id number] Charges for Administration # of IVP Administrations 1 Potassium Chloride (Klor-Con 10) 10 meq PO BRK [facility] Ramipril (Altace) 10 mg PO DAILY [facility] Last Admin: 12/25/18 11:32 Dose: 10 mg Tramadol HCl (Ultram) 50 mg PO Q6 PRN PRN Reason: Pain, moderate (4-7) Discontinued Medications Aspirin (Aspirin Supp) 300 mg STAT STA Stop: 12/22/18 21:36 Last Admin: 12/22/18 22:04 Dose: 300 mg Aspirin (Ecotrin) 81 mg PO DAILY [facility] Last Admin: 12/24/18 09:54 Dose: 81 mg Bisacodyl (Dulcolax) 10 mg RC ONCE ONE Stop: 12/23/18 10:34 Last Admin: 12/23/18 11:26 Dose: 10 mg Clopidogrel Bisulfate (Plavix) 300 mg PO STAT STA Stop: 12/22/18 23:28 Last Admin: 12/23/18 03:32 Dose: 300 mg Clopidogrel Bisulfate (Plavix) 75 mg PO DAILY [facility] Last Admin: 12/24/18 09:55 Dose: 75 mg Clopidogrel Bisulfate (Plavix) 300 mg PO STAT STA Stop: 12/23/18 12:14 Last Admin: 12/23/18 14:01 Dose: 300 mg Dextrose (Dextrose 50% Inj) 50 ml IVP ONCE ONE Stop: 12/25/18 21:51 Furosemide (Lasix) 40 mg IVP STAT STA Stop: 12/22/18 22:42 Last Admin: 12/22/18 22:49 Dose: 40 mg MAR Blood Pressure Document 12/22/18 22:49 CNR (Rec: 12/22/18 22:50 CNR [id number]) Blood Pressure Blood Pressure (100/60-150/90 mm Hg) 130/81 IVP Administration Document 12/22/18 22:49 CNR (Rec: 12/22/18 22:50 CNR [id number]) Charges for Administration # of IVP Administrations 1 Furosemide (Lasix) 40 mg IVP BID [facility] Last Admin: 12/24/18 09:55 Dose: 40 mg MAR Blood Pressure Document 12/24/18 09:55 LMN (Rec: 12/24/18 09:55 LMN [facility]-[id number]) Blood Pressure Blood Pressure (100/60-150/90 mm Hg) 119/69 IVP Administration Document 12/24/18 09:55 LMN (Rec: 12/24/18 09:55 LMN [id number]) Charges for Administration # of IVP Administrations 1 Furosemide (Lasix) 20 mg IVP ONCE ONE Stop: 12/25/18 19:05 Last Admin: 12/25/18 20:23 Dose: 20 mg MAR Blood Pressure Document 12/25/18 20:23 MHA (Rec: 12/25/18 20:33 [facility] [id number]) Blood Pressure Blood Pressure (100/60-150/90 mm Hg) 123/72 IVP Administration Document 12/25/18 20:23 MHA (Rec: 12/25/18 20:33 [facility] [id number]) Charges for Administration # of IVP Administrations 1 Heparin Sodium/Sodium Chloride (Heparin 42755 Units/250ml 1/2 Normal Saline) 25,000 units in 250 mls @ 9.525 mls/hr IV .Q24H [facility]; Protocol Last Admin: 12/23/18 03:28 Dose: 12 units/kg/hr, 9.525 mls/hr eMAR Start Stop Document 12/23/18 03:28 CDE (Rec: 12/23/18 03:31 CDE [facility]-[id number]) Intravenous Solution Start Date 12/23/18 Start Time 03:31 Titration Intervention Document 12/23/18 03:28 CDE (Rec: 12/23/18 03:31 CDE [facility]-[id number]) Titration Intake Waste Amount 0 Container Volume 250 Titration Dosing Titration Dose 12 IV Rate 9.525 Intake/Decrease Started Sodium Chloride (Sodium Chloride 0.9%) 1,000 mls @ 75 mls/hr IV .[id number] STA Stop: 12/24/18 01:40 Last Admin: 12/23/18 15:51 Dose: 75 mls/hr eMAR Start Stop Document 12/23/18 15:51 DC (Rec: 12/23/18 15:52 DC [facility]-[id number]) Intravenous Solution Start Date 12/23/18 Start Time 15:51 Sodium Chloride (Sodium Chloride 0.9%) 1,000 mls @ 100 mls/hr IV .Q10H [facility] Stop: 12/24/18 18:00 Last Admin: 12/24/18 14:55 Dose: 100 mls/hr eMAR Start Stop Document 12/24/18 14:55 LMN (Rec: 12/24/18 15:56 LMN [id number]) Intravenous Solution Start Date 12/24/18 Start Time 14:55 Magnesium Sulfate (Magnesium Sulfate 2 Gm/50 Ml Water) 2 gm in 50 mls @ 50 mls/hr IVPB ONCE ONE Stop: 12/25/18 09:00 Last Admin: 12/25/18 14:12 Dose: 50 mls/hr eMAR Start Stop Document 12/25/18 14:12 ALFREDA (Rec: 12/25/18 17:13 ALFREDA [id number]) Intravenous Solution Start Date 12/25/18 Start Time 14:05 End Date 12/25/18 End time 15:05 Total Infusion Time 60 Potassium Chloride (Potassium Chloride 10 Meq/100 Ml) 10 meq in 100 mls @ 50 mls/hr IVPB Q2H [facility] Stop: 12/25/18 16:14 Last Admin: 12/25/18 16:58 Dose: 50 mls/hr eMAR Start Stop Document 12/25/18 16:58 ALFREDA (Rec: 12/25/18 16:58 ALFREDA [id number]) Intravenous Solution Start Date 12/25/18 Start Time 16:58 End Date 12/25/18 End time 17:55 Total Infusion Time 57 Magnesium Sulfate (Magnesium Sulfate 2 Gm/50 Ml Water) 2 gm in 50 mls @ 50 mls/hr IVPB ONCE ONE Stop: 12/25/18 10:59 Phytonadione 10 mg/ Sodium (Chloride) 51 mls @ 100 mls/hr IV ONCE ONE Stop: 12/25/18 10:01 Last Admin: 12/25/18 12:14 Dose: 100 mls/hr eMAR Start Stop Document 12/25/18 12:14 ALFREDA (Rec: 12/25/18 12:14 ALFREDA [id number]) Intravenous Solution Start Date 12/25/18 Start Time 12:14 End Date 12/25/18 End time 13:15 Total Infusion Time 61 Magnesium Citrate (Citrate Of Mag) 300 ml PO ONCE ONE Stop: 12/25/18 16:01 Last Admin: 12/25/18 17:00 Dose: 300 ml Re-Assess: DANE Preperation Tolerance Document 12/25/18 21:00 MHA (Rec: 12/26/18 05:20 [facility] [id number]) Is this medication being administered in Yes preparation for a colonoscopy procedure ? Was the patient able to tolerate the Yes dose ordered? RICH/ notified that patient was unable N/A to tolerate: Milrinone Lactate/Dextrose (Primacor 1mg/Ml Inj (10ml)) 4 mg 0.05 mg/kg (4 mg) IVP ONCE ONE Stop: 12/24/18 14:34 Last Admin: 12/24/18 15:42 Dose: 4 mg IVP Administration Document 12/24/18 15:42 LMN (Rec: 12/24/18 15:42 LMN [id number]) Charges for Administration # of IVP Administrations 1 Polyethylene Glycol (Miralax) 17 gm PO ONCE ONE Stop: 12/23/18 10:34 Last Admin: 12/23/18 12:22 Dose: 17 gm Potassium Chloride (K-Dur 20 Meq Er Tab) 40 meq PO BID [facility] Stop: 12/23/18 18:01 Last Admin: 12/23/18 17:48 Dose: 40 meq - Scribe Statement The provider has reviewed the documentation as recorded by the Pebbles Brower Provider Scribe Attestation: All medical record entries made by the Aniliblowell were at my direction and personally dictated by me. I have reviewed the chart and agree that the record accurately reflects my personal performance of the history, physical exam, medical decision making, and the department course for this patient. I have also personally directed, reviewed, and agree with the discharge instructions and disposition. Disposition/Present on Arrival - Present on Arrival Any Indicators Present on Arrival: No History of DVT/PE: No History of Uncontrolled Diabetes: No Urinary Catheter: No History of Decub. Ulcer: No History Surgical Site Infection Following: None - Disposition Have Diagnosis and Disposition been Completed?: Yes Diagnosis: NSTEMI (non-ST elevated myocardial infarction), CHF (congestive heart failure) Disposition: HOSPITALIZED Disposition Time: 21:47 Patient Plan: Admission, Telemetry Patient Problems: Current Active Problems Problem Status Onset CHF (congestive heart failure) Acute NSTEMI (non-ST elevated myocardial infarction) Acute Condition: GUARDED
[2018-12-22 21:23] LABS: B-TYPE NATRIURETIC PEPTIDE 13700 pg/mL (0-450); TROPONIN I 0.46 ng/mL
--- NOTE | 2018-12-22 22:08 | CP.PCM.HP ---
History of Present Illness - History of Present Illness History of Present Illness: Resident H&P for Hospitalist Service Patient is an 83 year old male with past medical history of HTN, CAD s/p CABG, T2DM, hyperlipidemia, asthma presenting with chief complaint of chest pain and shortness of breath which began about 3 days ago. Chest pain is localized to the left anterior chest wall and described as a sharp sensation that is reproducible with palpation. Patient had associated nausea, vomiting, and diaphoresis prior to the onset of chest pain. Patient has not followed up with a primary medical doctor in the past few years. Patient's nephew at bedsides states that he helps take care of the patient at home. Admits to constipation. Denies fevers, chills, diarrhea, dysuria. PMH: HTN, CAD, T2DM, hyperlipidemia, asthma PSH: CABG (1989) SHx: denies alcohol, tobacco, illicit drug use FHx: denies Allergies: NKDA PMD: none Present on Admission - Present on Admission Any Indicators Present on Admission: No Review of Systems - Review of Systems All systems: reviewed and no additional remarkable complaints except (as stated in HPI) Past Patient History - Infectious Disease Hx of Infectious Diseases: None - Past Social History Smoking Status: Never Smoked - CARDIAC Hx Cardiac Disorders: Yes Hx Heart Attack: Yes Hx Hypertension: Yes - PULMONARY Hx Respiratory Disorders: No - NEUROLOGICAL Hx Neurological Disorder: No - HEENT Hx HEENT Problems: Yes Hx Cataracts: Yes - RENAL Hx Chronic Kidney Disease: No - ENDOCRINE/METABOLIC Hx Endocrine Disorders: Yes Hx Diabetes Mellitus Type 2: Yes Hx Hypothyroidism: Yes - HEMATOLOGICAL/ONCOLOGICAL Hx Blood Disorders: No - INTEGUMENTARY Hx Dermatological Problems: No - MUSCULOSKELETAL/RHEUMATOLOGICAL Hx Musculoskeletal Disorders: No - GASTROINTESTINAL Hx Gastrointestinal Disorders: No - GENITOURINARY/GYNECOLOGICAL Hx Genitourinary Disorders: No - PSYCHIATRIC Hx Psychophysiologic Disorder: No Hx Substance Use: No - SURGICAL HISTORY Hx Open Heart Surgery: Yes Meds Allergies/Adverse Reactions: Allergies Allergy/AdvReac Type Severity Reaction Status Date / Time No Known Allergies Allergy Verified 08/09/18 09:18 Physical Exam - Constitutional Appears: Non-toxic, No Acute Distress - Head Exam Head Exam: ATRAUMATIC, NORMOCEPHALIC - Eye Exam Eye Exam: EOMI, Normal appearance, PERRL - ENT Exam ENT Exam: Mucous Membranes Moist - Neck Exam Neck exam: Negative for: Lymphadenopathy - Respiratory Exam Respiratory Exam: Chest Wall Tenderness, Decreased Breath Sounds (on the left), Rales. absent: Accessory Muscle Use, Rhonchi, Wheezes, Respiratory Distress - Cardiovascular Exam Cardiovascular Exam: REGULAR RHYTHM, JVD, +S1, +S2. absent: Systolic Murmur - GI/Abdominal Exam GI & Abdominal Exam: Soft, Tenderness. absent: Distended, Firm, Guarding, Re bound, Rigid - Extremities Exam Extremities exam: Positive for: normal capillary refill, pedal pulses present. Negative for: tenderness Additional comments: +2 pitting edema on RLE +1 pitting edema on LLE - Neurological Exam Neurological exam: Alert, CN II-XII Intact, Oriented x3 - Skin Skin Exam: Dry, Intact Results - Vital Signs Recent Vital Signs: Last Vital Signs Temp Pulse 67 12/22/18 20:21 Resp 18 12/22/18 20:21 BP 126/65 12/22/18 20:21 Pulse Ox 90 L 12/22/18 20:21 - Labs Result Diagrams: 12/23/18 00:45 12/23/18 00:45 Labs: Laboratory Results - last 24 hr 12/22/18 12/22/18 12/22/18 20:35 20:41 20:41 WBC 5.3 RBC 4.31 Hgb 13.7 L Hct 41.9 L MCV 97.2 MCH 31.8 MCHC 32.7 RDW 13.7 Plt Count 175 MPV 9.9 Neut % (Auto) 77.8 H Lymph % (Auto) 11.2 L [place] % (Auto) 8.4 H Eos % (Auto) 2.4 Baso % (Auto) 0.2 Lymph # (Auto) 0.6 L [place] # (Auto) 0.5 Eos # (Auto) 0.1 Baso # (Auto) 0.01 Absolute Neuts (auto) 4.15 PT 16.9 H INR 1.52 APTT 32.2 pO2 18 L VBG pH 7.37 VBG pCO2 47.0 VBG HCO3 27.2 VBG Total CO2 28.6 H VBG O2 Sat (Calc) 35.0 L VBG Base Excess 1.3 VBG Potassium 3.6 Sodium 140.0 Chloride 105.0 Glucose 227 H Lactate 3.3 H FiO2 21.0 Crit Value Called To Rn rachell sunny Crit Value Called By Jj Blood Gas Notified Time 2045 Potassium Carbon Dioxide Anion Gap BUN Creatinine Est GFR ( Amer) Est GFR (Non-Af Amer) Random Glucose Calcium Magnesium Total Bilirubin AST ALT Alkaline Phosphatase Troponin I NT-Pro-B Natriuret Pep Total Protein Albumin Globulin Albumin/Globulin Ratio Venous Blood Potassium 3.6 12/22/18 20:41 WBC RBC Hgb Hct MCV MCH MCHC RDW Plt Count MPV Neut % (Auto) Lymph % (Auto) [place] % (Auto) Eos % (Auto) Baso % (Auto) Lymph # (Auto) [place] # (Auto) Eos # (Auto) Baso # (Auto) Absolute Neuts (auto) PT INR APTT pO2 VBG pH VBG pCO2 VBG HCO3 VBG Total CO2 VBG O2 Sat (Calc) VBG Base Excess VBG Potassium Sodium 139 Chloride 103 Glucose Lactate FiO2 Crit Value Called To Crit Value Called By Blood Gas Notified Time Potassium 4.0 Carbon Dioxide 27 Anion Gap 13 BUN 27 H Creatinine 1.3 Est GFR ( Amer) > 60 Est GFR (Non-Af Amer) 52 Random Glucose 221 H Calcium 9.3 Magnesium 2.0 Total Bilirubin 2.0 H AST 29 ALT < 6 L Alkaline Phosphatase 68 Troponin I 0.46 H* D NT-Pro-B Natriuret Pep 28155 H Total Protein 6.8 Albumin 3.9 Globulin 3.0 Albumin/Globulin Ratio 1.3 Venous Blood Potassium Assessment & Plan - Assessment and Plan (Free Text) Assessment: Patient is an 83 year old male with past medical history of HTN, CAD s/p CABG, T2DM, hyperlipidemia, asthma presenting with NSTEMI. Plan: NSTEMI - Troponin 0.46 - Aspirin 300 mg given - Cardiology consulted. Appreciate recs. - Troponins - EKG in AM - TSH, lipid panel - Aspirin 81 mg PO daily - Lipitor 40 mg PO daily - continue home Coreg - Plavix 75 mg PO daily - Ramipril 10 mg PO daily - Lasix 40 mg IVP BID - Heparin drip Shortness of breath - BNP elevated - followup ECHO - Xopenex PRN Abdominal pain - followup CT abd/pelvis - afebrile, no leukocytosis T2DM - Hgba1c - ISS, Accuchecks Hypothyroidism - continue home Synthroid Case discussed with Dr. Melvin Estrada PGY-1 - Date & Time Date: 12/23/18 Time: 22:08
[2018-12-22 23:17] LABS: URINE BILIRUBIN NEGATIVE (NEGATIVE); URINE BLOOD NEGATIVE (NEGATIVE); URINE GLUCOSE (UA) NEGATIVE (NEGATIVE); URINE LEUKOCYTE ESTERASE TRACE Leu/uL (NEGATIVE); URINE PROTEIN NEGATIVE mg/dL (<30 mg/dL)
[2018-12-22 23:21] LABS: URINE APPEARANCE CLEAR (CLEAR); URINE COLOR YELLOW (YELLOW)
[2018-12-22] MEDS ORDERED: Levalbuterol 0.63 MG/3 ML Inhal Soln UD IH PRN (23:24)
[2018-12-22] MEDS ORDERED: Heparin25000 units/250ml 1/2NS 25,000 UNITS/250 ML BAG IV SCH (23:30)
[2018-12-22 23:31] LABS: URINE EPITHELIAL CELLS 0 - 2 /hpf (0-5); URINE RBC 0 - 2 /hpf (0-2); URINE WBC 0 - 2 /hpf (0-6)
[2018-12-23 00:11] LABS: ARTERIAL BLOOD GAS HCO3 25.3 mmol/L (21-28); ARTERIAL BLOOD GAS O2 SAT 99.1 % (95-98); ARTERIAL BLOOD GAS PCO2 39 mm/Hg (35-45); ARTERIAL BLOOD GAS PH 7.42 (7.35-7.45); ARTERIAL BLOOD GAS TCO2 26.5 mmol.L (22-28)
[2018-12-23 01:05] LABS: BASO # 0.01 K/mm3 (0.0-2.0); BASO % 0.2 % (0.0-3.0); EOS # 0.1 (0.0-0.7); EOS % 1.4 % (1.5-5.0); HEMOGLOBIN 14.4 g/dL (14.0-18.0); LYMPH # 0.7 (1.2-3.4); LYMPH % 15.8 % (22.0-35.0); MEAN CELL VOLUME 96.6 fl (80.0-105.0); MEAN CORPUSCULAR HEMOGLOBIN 32.2 pg (25.0-35.0); MEAN CORPUSCULAR HGB CONC 33.3 g/dl (31.0-37.0); MONO # 0.4 (0.1-0.6); MONO % 8.4 % (1.0-6.0); RBC 4.47 10^6/uL (3.5-6.1); RED CELL DISTRIBUTION WIDTH 13.5 % (11.5-14.5); WHITE BLOOD COUNT 4.3 10^3/uL (4.5-11.0)
[2018-12-23 01:35] LABS: ALB/GLOB RATIO 1.2 (1.1-1.8); ALBUMIN 3.7 g/dL (3.0-4.8); ALT/SGPT 12 U/L (7-56); AST/SGOT 25 U/L (17-59); BLOOD UREA NITROGEN 27 mg/dL (7-21); CALCIUM 9.1 mg/dL (8.4-10.5); GFR NON-AFRICAN AMERICAN 58
[2018-12-23 01:37] LABS: VENOUS BLOOD GAS PO2 36 mm/Hg (30-55); VENOUS BLOOD PH 7.36 (7.32-7.43)
[2018-12-23 02:50] LABS: TROPONIN I 0.41 ng/mL
[2018-12-23] MEDS: Levothyroxine 25 MCG TAB PO SCH (06:08)
[2018-12-23 07:08] LABS: VENOUS BLOOD GAS BASE EXCESS 2.8 mmol/L (0.0-2.0); VENOUS BLOOD GAS PO2 36 mm/Hg (30-55); VENOUS BLOOD PH 7.39 (7.32-7.43)
[2018-12-23 07:47] LABS: TROPONIN I 0.35 ng/mL
[2018-12-23] MEDS: Insulin Reg-MEDIUM-Coverage SC SCH ×4 (08:26→21:40)
--- NOTE | 2018-12-23 08:28 | RAD ---
Date of service: 12/22/2018 HISTORY: shortness of breath COMPARISON: No prior. FINDINGS: LUNGS: There is an infiltrate at the left lung base which obscures the diaphragm. PLEURA: No significant pleural effusion identified, no pneumothorax apparent. CARDIOVASCULAR: Aortic calcification and tortuosity Moderate cardiomegaly no pulmonary vascular congestion. OSSEOUS STRUCTURES: No significant abnormalities. VISUALIZED UPPER ABDOMEN: Normal. OTHER FINDINGS: None. IMPRESSION: There is an infiltrate at the left lung base which obscures the diaphragm
--- NOTE | 2018-12-23 08:30 | CT ---
Date of service: 12/23/2018 PROCEDURE: CT HEAD WITHOUT CONTRAST. HISTORY: ams COMPARISON: None available. TECHNIQUE: Axial computed tomography images were obtained through the head/brain without intravenous contrast. Radiation dose: Total exam DLP = 986.7 mGy-cm. This CT exam was performed using one or more of the following dose reduction techniques: Automated exposure control, adjustment of the mA and/or kV according to patient size, and/or use of iterative reconstruction technique. Examination technically limited due to patient's inability to fully cooperate. FINDINGS: HEMORRHAGE: No intracranial hemorrhage. BRAIN: No mass effect or edema. Mild diffuse age-appropriate atrophy. Mild to moderate periventricular white matter lucency consistent with microvascular white matter ischemic change. No evidence of acute infarct. VENTRICLES: Unremarkable. No hydrocephalus. CALVARIUM: Unremarkable. PARANASAL SINUSES: Unremarkable as visualized. No significant inflammatory changes. MASTOID AIR CELLS: Unremarkable as visualized. No inflammatory changes. OTHER FINDINGS: None. IMPRESSION: No intracranial mass, hemorrhage or evidence of acute infarct. Age related atrophy and chronic white matter ischemic change. The preliminary findings for this examination were reported by [facility] at 1:34 a.m. on 12/23/2018. There is concurrence of this report with the preliminary findings.
[2018-12-23 09:20] LABS: BASO # 0.01 K/mm3 (0.0-2.0); BASO % 0.2 % (0.0-3.0); EOS # 0.2 (0.0-0.7); EOS % 3.6 % (1.5-5.0); HEMOGLOBIN 14.6 g/dL (14.0-18.0); LYMPH % 24.2 % (22.0-35.0); MEAN CELL VOLUME 97.2 fl (80.0-105.0); MEAN CORPUSCULAR HEMOGLOBIN 31.5 pg (25.0-35.0); MEAN CORPUSCULAR HGB CONC 32.4 g/dl (31.0-37.0); MEAN PLATELET VOLUME 10.4 fl (7.0-11.0); MONO # 0.3 (0.1-0.6); MONO % 6.5 % (1.0-6.0); RBC 4.63 10^6/uL (3.5-6.1); RED CELL DISTRIBUTION WIDTH 13.6 % (11.5-14.5); WHITE BLOOD COUNT 4.2 10^3/uL (4.5-11.0)
[2018-12-23 09:43] LABS: ALB/GLOB RATIO 1.2 (1.1-1.8); ALBUMIN 3.8 g/dL (3.0-4.8); ALT/SGPT 17 U/L (7-56); AST/SGOT 28 U/L (17-59); BLOOD UREA NITROGEN 27 mg/dL (7-21); CALCIUM 9.2 mg/dL (8.4-10.5); GFR NON-AFRICAN AMERICAN 58
[2018-12-23] MEDS ORDERED: Non Formulary Medication (Simvastatin [Simvastatin] 10 MG) PO SCH (10:00)
--- NOTE | 2018-12-23 10:13 | CT ---
Date of service: 12/23/2018 PROCEDURE: CT Abdomen and Pelvis without intravenous contrast HISTORY: abd tenderness COMPARISON: 08/09/2018 TECHNIQUE: Without contrast.. Contrast dose: Radiation dose: Total exam DLP = 492.32 mGy-cm. This CT exam was performed using one or more of the following dose reduction techniques: Automated exposure control, adjustment of the mA and/or kV according to patient size, and/or use of iterative reconstruction technique. FINDINGS: LOWER THORAX: Moderate bilateral pleural effusions left greater than right. Moderate cardiomegaly. There is coronary artery calcification and aortic calcification. LIVER: Unremarkable. No gross lesion or ductal dilatation. GALLBLADDER AND BILE DUCTS: Unremarkable. PANCREAS: Unremarkable. No gross lesion or ductal dilatation. SPLEEN: Unremarkable. ADRENALS: Unremarkable. No mass. KIDNEYS AND URETERS: Unremarkable. No hydronephrosis. No solid mass. VASCULATURE: Unremarkable. No aortic aneurysm. BOWEL: Unremarkable. No obstruction. No gross mural thickening. There is a right-sided inguinal hernia the contains a loop of bowel. This measures 3.4 x 5.2 cm there is no associated obstruction APPENDIX: Unremarkable. Normal appendix. PERITONEUM: Unremarkable. No free fluid. No free air. LYMPH NODES: Unremarkable. No enlarged lymph nodes. BLADDER: Unremarkable. REPRODUCTIVE: The prostate is enlarged and partially calcified BONES: No acute fracture. There is calcification within the spinal canal at the L5-S1 level. OTHER FINDINGS: The report concurs with the preliminary [facility] report IMPRESSION: There is a right-sided inguinal hernia that contains a loop of bowel. This measures 3.4 x 5.2 cm. There is no associated obstruction
--- NOTE | 2018-12-23 10:19 | CARD ---
APPROVED REPORT Date of service: 12/22/2018 EKG Measurement Heart [id number] <Conclusion> Normal sinus rhythm Left ventricular hypertrophy with QRS widening and repolarization abnormality Prolonged QT Abnormal ECG
--- NOTE | 2018-12-23 10:28 | CP.PCM.CON ---
History of Present Illness - History of Present Illness History of Present Illness: Kenji Faulkner, PGY-[address] Watt Mr. Alfaro is a pleasant, Mohawk-speaking 83 year old male with past medical history of HTN, CAD s/p CABG in 1989 on DAPT, T2DM controlled on oral medications, hyperlipidemia, and asthma who presented overnight with chief complaint of chest pain and shortness of breath. 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 Chest pain is localized to the left anterior chest wall and described as a sharp sensation that is reproducible with palpation. Patient has experienced associated nausea, vomiting, and diaphoresis that began on Saturday. Patient admits to constipation, with last bowel movement 6 days ago producing 1 small fecal ball. Patient has had urge to defecate since but states that it feels tight. Patient currently tolerating diet, having just finished his breakfast without feeling nauseous. Patient further denies fevers, chills, nausea, vomiting, dysuria, melena, hematochezia. Patient has not followed up with a primary medical doctor in the past few years, as he has traveled from [place]. In the ED, patient received a CT abdomen/pelvis to r/o obstruction. PMH: HTN, CAD, T2DM, hyperlipidemia, asthma PSH: CABG (1989) SHx: denies alcohol, tobacco, illicit drug use FHx: denies Allergies: NKDA PMD: none, although transitioning to be under Dr. Dorsey's service Review of Systems - Review of Systems Review of Systems: 12 point ROS completed and negative except as described in HPI. Past Patient History - Infectious Disease Hx of Infectious Diseases: None - Past Social History Smoking Status: Never Smoked - CARDIAC Hx Cardiac Disorders: Yes Hx Heart Attack: Yes Hx Hypertension: Yes - PULMONARY Hx Respiratory Disorders: No - NEUROLOGICAL Hx Neurological Disorder: No - HEENT Hx HEENT Problems: Yes Hx Cataracts: Yes - RENAL Hx Chronic Kidney Disease: No - ENDOCRINE/METABOLIC Hx Endocrine Disorders: Yes Hx Diabetes Mellitus Type 2: Yes Hx Hypothyroidism: Yes - HEMATOLOGICAL/ONCOLOGICAL Hx Blood Disorders: No - INTEGUMENTARY Hx Dermatological Problems: No - MUSCULOSKELETAL/RHEUMATOLOGICAL Hx Musculoskeletal Disorders: No - GASTROINTESTINAL Hx Gastrointestinal Disorders: No - GENITOURINARY/GYNECOLOGICAL Hx Genitourinary Disorders: No - PSYCHIATRIC Hx Psychophysiologic Disorder: No Hx Substance Use: No - SURGICAL HISTORY Hx Open Heart Surgery: Yes Meds Allergies/Adverse Reactions: Allergies Allergy/AdvReac Type Severity Reaction Status Date / Time No Known Allergies Allergy Verified 08/09/18 09:18 - Medications Medications: Current Medications Acetylcysteine (Acetylcysteine 20%) 4 ml IH Q8 [facility] Aspirin (Ecotrin) 81 mg PO DAILY [facility] Atorvastatin Calcium (Lipitor) 40 mg PO DIN [facility] Carvedilol (Coreg) 12.5 mg PO BID [facility] Clopidogrel Bisulfate (Plavix) 75 mg PO DAILY [facility] Famotidine (Pepcid) 40 mg PO HS [facility] Furosemide (Lasix) 40 mg IVP BID [facility] Heparin Sodium/Sodium Chloride (Heparin 19710 Units/250ml 1/2 Normal Saline) 25,000 units in 250 mls @ 9.525 mls/hr IV .Q24H [facility]; Protocol Last Admin: 12/23/18 03:28 Dose: 12 units/kg/hr, 9.525 mls/hr Doxycycline Hyclate 100 mg/ (Sodium Chloride) 100 mls @ 100 mls/hr IVPB Q12 [facility]; Protocol Ceftriaxone Sodium (Rocephin 1 Gram Ivpb) 1 gm in 100 mls @ 100 mls/hr IVPB DAILY [facility]; Protocol Insulin Human Regular (Humulin R Med) 0 units SC ACHS [facility]; Protocol Last Admin: 12/23/18 08:26 Dose: Not Given Levalbuterol HCl (Xopenex) 0.63 mg IH [id number] PRN PRN Reason: Shortness of Breath Levalbuterol HCl (Xopenex) 0.63 mg IH Q8 [facility] Levothyroxine Sodium (Synthroid) 25 mcg PO 0600 [facility] Last Admin: 12/23/18 06:08 Dose: 25 mcg Potassium Chloride (K-Dur 20 Meq Er Tab) 40 meq PO BID [facility] Stop: 12/23/18 18:01 Ramipril (Altace) 10 mg PO DAILY [facility] Tramadol HCl (Ultram) 50 mg PO Q6 PRN PRN Reason: Pain, moderate (4-7) Physical Exam - Additional Findings Additional findings: - Constitutional Appears: Non-toxic, No Acute Distress - Head Exam Head Exam: ATRAUMATIC, NORMOCEPHALIC - Eye Exam Eye Exam: EOMI, Normal appearance, PERRL - ENT Exam ENT Exam: Mucous Membranes Moist - Neck Exam Neck exam: Negative for: Lymphadenopathy - Respiratory Exam Respiratory Exam: Chest Wall Tenderness, Decreased Breath Sounds (on the left), Rales. absent: Accessory Muscle Use, Rhonchi, Wheezes, Respiratory Distress - Cardiovascular Exam Cardiovascular Exam: REGULAR RHYTHM, JVD, +S1, +S2. absent: Systolic Murmur - GI/Abdominal Exam GI & Abdominal Exam: Soft, Tenderness. absent: Distended, Firm, Guarding, Rebound, Rigid Indirect inguinal hernia, nontender, reduced, nonbulging clinically - Extremities Exam Extremities exam: Positive for: normal capillary refill, pedal pulses present. Negative for: tenderness Additional comments: +1 pitting edema on LE b/l - Neurological Exam Neurological exam: Alert, CN II-XII Intact, Oriented x3 - Skin Skin Exam: Dry, Intact Results - Vital Signs Recent Vital Signs: Last Vital Signs Temp 98.4 F 12/23/18 06:00 Pulse 70 12/23/18 06:00 Resp 20 12/23/18 06:00 BP 157/93 H 12/23/18 06:00 Pulse Ox 95 12/23/18 06:00 - Labs Result Diagrams: 12/23/18 09:10 12/23/18 09:10 Labs: Laboratory Results - last 24 hr 12/22/18 12/22/18 12/22/18 20:35 20:41 20:41 WBC 5.3 RBC 4.31 Hgb 13.7 L Hct 41.9 L MCV 97.2 MCH 31.8 MCHC 32.7 RDW 13.7 Plt Count 175 MPV 9.9 Neut % (Auto) 77.8 H Lymph % (Auto) 11.2 L [place] % (Auto) 8.4 H Eos % (Auto) 2.4 Baso % (Auto) 0.2 Lymph # (Auto) 0.6 L [place] # (Auto) 0.5 Eos # (Auto) 0.1 Baso # (Auto) 0.01 Absolute Neuts (auto) 4.15 PT 16.9 H INR 1.52 APTT 32.2 pCO2 pO2 18 L HCO3 ABG pH ABG Total CO2 ABG O2 Saturation ABG Base Excess ABG Potassium VBG pH 7.37 VBG pCO2 47.0 VBG HCO3 27.2 VBG Total CO2 28.6 H VBG O2 Sat (Calc) 35.0 L VBG Base Excess 1.3 VBG Potassium 3.6 Sodium 140.0 Chloride 105.0 Glucose 227 H Lactate 3.3 H FiO2 21.0 Crit Value Called To Eleni correa Crit Value Called By Ronnie Blood Gas Notified Time 2045 Potassium Carbon Dioxide Anion Gap BUN Creatinine Est GFR ( Amer) Est GFR (Non-Af Amer) POC Glucose (mg/dL) Random Glucose Calcium Phosphorus Magnesium Total Bilirubin AST ALT Alkaline Phosphatase Troponin I NT-Pro-B Natriuret Pep Total Protein Albumin Globulin Albumin/Globulin Ratio Triglycerides Cholesterol LDL Cholesterol Direct HDL Cholesterol TSH 3rd Generation Arterial Blood Potassium Venous Blood Potassium 3.6 Urine Color Urine Appearance Urine pH Ur Specific [place] Urine Protein Urine Glucose (UA) Urine Ketones Urine Blood Urine Nitrate Urine Bilirubin Urine Urobilinogen Ur Leukocyte Esterase Urine RBC Urine WBC Ur Epithelial Cells Urine Bacteria 12/22/18 12/22/18 12/22/18 20:41 23:04 23:59 WBC RBC Hgb Hct MCV MCH MCHC RDW Plt Count MPV Neut % (Auto) Lymph % (Auto) [place] % (Auto) Eos % (Auto) Baso % (Auto) Lymph # (Auto) [place] # (Auto) Eos # (Auto) Baso # (Auto) Absolute Neuts (auto) PT INR APTT pCO2 39 pO2 97.0 HCO3 25.3 ABG pH 7.42 ABG Total CO2 26.5 ABG O2 Saturation 99.1 H ABG Base Excess 0.8 ABG Potassium 2.6 L VBG pH VBG pCO2 VBG HCO3 VBG Total CO2 VBG O2 Sat (Calc) VBG Base Excess VBG Potassium Sodium 139 142.0 Chloride 103 110.0 H Glucose 157 H Lactate 1.0 FiO2 28.0 Crit Value Called To Crit Value Called By Blood Gas Notified Time Potassium 4.0 Carbon Dioxide 27 Anion Gap 13 BUN 27 H Creatinine 1.3 Est GFR ( Amer) > 60 Est GFR (Non-Af Amer) 52 POC Glucose (mg/dL) Random Glucose 221 H Calcium 9.3 Phosphorus Magnesium 2.0 Total Bilirubin 2.0 H AST 29 ALT < 6 L Alkaline Phosphatase 68 Troponin I 0.46 H* D NT-Pro-B Natriuret Pep 00610 H Total Protein 6.8 Albumin 3.9 Globulin 3.0 Albumin/Globulin Ratio 1.3 Triglycerides Cholesterol LDL Cholesterol Direct HDL Cholesterol TSH 3rd Generation Arterial Blood Potassium 2.6 L Venous Blood Potassium Urine Color Yellow Urine Appearance Clear Urine pH 6.0 Ur Specific [place] 1.020 Urine Protein Negative Urine Glucose (UA) Negative Urine Ketones Negative Urine Blood Negative Urine Nitrate Negative Urine Bilirubin Negative Urine Urobilinogen 1.0 H Ur Leukocyte Esterase Trace H Urine RBC 0 - 2 Urine WBC 0 - 2 Ur Epithelial Cells 0 - 2 Urine Bacteria None 12/23/18 12/23/18 12/23/18 00:45 00:45 00:45 WBC 4.3 L RBC 4.47 Hgb 14.4 Hct 43.2 MCV 96.6 MCH 32.2 MCHC 33.3 RDW 13.5 Plt Count 148 MPV 10.0 Neut % (Auto) 74.2 H Lymph % (Auto) 15.8 L [place] % (Auto) 8.4 H Eos % (Auto) 1.4 L Baso % (Auto) 0.2 Lymph # (Auto) 0.7 L [place] # (Auto) 0.4 Eos # (Auto) 0.1 Baso # (Auto) 0.01 Absolute Neuts (auto) 3.19 PT INR APTT pCO2 pO2 36 HCO3 ABG pH ABG Total CO2 ABG O2 Saturation ABG Base Excess ABG Potassium VBG pH 7.36 VBG pCO2 48.0 VBG HCO3 27.1 VBG Total CO2 28.6 H VBG O2 Sat (Calc) 71.1 H VBG Base Excess 1.0 VBG Potassium 3.2 L Sodium 140 141.0 Chloride 104 104.0 Glucose 163 H Lactate 2.3 H FiO2 21.0 Crit Value Called To Kamila benavides rn 2rso Crit Value Called By [facility] Blood Gas Notified Time 137 Potassium 3.2 L Carbon Dioxide 26 Anion Gap 13 BUN 27 H Creatinine 1.2 Est GFR ( Amer) > 60 Est GFR (Non-Af Amer) 58 POC Glucose (mg/dL) Random Glucose 162 H Calcium 9.1 Phosphorus 3.7 Magnesium 2.0 Total Bilirubin 1.6 H AST 25 ALT 12 Alkaline Phosphatase 65 Troponin I 0.41 H* NT-Pro-B Natriuret Pep Total Protein 6.7 Albumin 3.7 Globulin 3.0 Albumin/Globulin Ratio 1.2 Triglycerides Cholesterol LDL Cholesterol Direct HDL Cholesterol TSH 3rd Generation Arterial Blood Potassium Venous Blood Potassium 3.2 L Urine Color Urine Appearance Urine pH Ur Specific [place] Urine Protein Urine Glucose (UA) Urine Ketones Urine Blood Urine Nitrate Urine Bilirubin Urine Urobilinogen Ur Leukocyte Esterase Urine RBC Urine WBC Ur Epithelial Cells Urine Bacteria 12/23/18 12/23/18 12/23/18 06:50 06:50 06:50 WBC RBC Hgb Hct MCV MCH MCHC RDW Plt Count MPV Neut % (Auto) Lymph % (Auto) [place] % (Auto) Eos % (Auto) Baso % (Auto) Lymph # (Auto) [place] # (Auto) Eos # (Auto) Baso # (Auto) Absolute Neuts (auto) PT INR APTT pCO2 pO2 36 HCO3 ABG pH ABG Total CO2 ABG O2 Saturation ABG Base Excess ABG Potassium VBG pH 7.39 VBG pCO2 47.0 VBG HCO3 28.5 H VBG Total CO2 29.9 H VBG O2 Sat (Calc) 72.5 H VBG Base Excess 2.8 H VBG Potassium 2.9 L Sodium 142.0 Chloride 105.0 Glucose 130 H Lactate 2.2 H FiO2 21.0 Crit Value Called To Betsy Crit Value Called By Ab Blood Gas Notified Time 708 Potassium Carbon Dioxide Anion Gap BUN Creatinine Est GFR ( Amer) Est GFR (Non-Af Amer) POC Glucose (mg/dL) Random Glucose Calcium Phosphorus Magnesium Total Bilirubin AST ALT Alkaline Phosphatase Troponin I 0.35 H* NT-Pro-B Natriuret Pep Total Protein Albumin Globulin Albumin/Globulin Ratio Triglycerides 69 Cholesterol 93 L LDL Cholesterol Direct 49 HDL Cholesterol 33 TSH 3rd Generation 3.04 Arterial Blood Potassium Venous Blood Potassium 2.9 L Urine Color Urine Appearance Urine pH Ur Specific [place] Urine Protein Urine Glucose (UA) Urine Ketones Urine Blood Urine Nitrate Urine Bilirubin Urine Urobilinogen Ur Leukocyte Esterase Urine RBC Urine WBC Ur Epithelial Cells Urine Bacteria 12/23/18 12/23/18 12/23/18 07:23 09:10 09:10 WBC 4.2 L RBC 4.63 Hgb 14.6 Hct 45.0 MCV 97.2 MCH 31.5 MCHC 32.4 RDW 13.6 Plt Count 161 MPV 10.4 Neut % (Auto) 65.5 Lymph % (Auto) 24.2 [place] % (Auto) 6.5 H Eos % (Auto) 3.6 Baso % (Auto) 0.2 Lymph # (Auto) 1.0 L [place] # (Auto) 0.3 Eos # (Auto) 0.2 Baso # (Auto) 0.01 Absolute Neuts (auto) 2.73 PT INR APTT pCO2 pO2 HCO3 ABG pH ABG Total CO2 ABG O2 Saturation ABG Base Excess ABG Potassium VBG pH VBG pCO2 VBG HCO3 VBG Total CO2 VBG O2 Sat (Calc) VBG Base Excess VBG Potassium Sodium 142 Chloride 105 Glucose Lactate FiO2 Crit Value Called To Crit Value Called By Blood Gas Notified Time Potassium 3.2 L Carbon Dioxide 28 Anion Gap 13 BUN 27 H Creatinine 1.2 Est GFR ( Amer) > 60 Est GFR (Non-Af Amer) 58 POC Glucose (mg/dL) 118 H Random Glucose 115 H Calcium 9.2 Phosphorus Magnesium 2.1 Total Bilirubin 1.7 H AST 28 ALT 17 Alkaline Phosphatase 68 Troponin I NT-Pro-B Natriuret Pep Total Protein 6.9 Albumin 3.8 Globulin 3.2 Albumin/Globulin Ratio 1.2 Triglycerides Cholesterol LDL Cholesterol Direct HDL Cholesterol TSH 3rd Generation Arterial Blood Potassium Venous Blood Potassium Urine Color Urine Appearance Urine pH Ur Specific [place] Urine Protein Urine Glucose (UA) Urine Ketones Urine Blood Urine Nitrate Urine Bilirubin Urine Urobilinogen Ur Leukocyte Esterase Urine RBC Urine WBC Ur Epithelial Cells Urine Bacteria Assessment & Plan - Assessment and Plan (Free Text) Assessment: 83 M with PMHx CAD s/p CABG 1989, asthma, who presented with NSTEMI. Presently, doubt small bowel obstruction in light of tolerance of diet. 12/23/18 CT abd/pelvis: There is a right-sided inguinal hernia that contains a l oop of bowel. This measures 3.4 x 5.2 cm. There is no associated obstruction. Plan: For likely constipation, Miralax with food. Stool softeners - Colace TID, Dulcolax suppository No evidence of obstruction or bowel incarceration, not a surgical candidate at this time Will continue to follow as needed. Further recs per Dr. Shukri Faulkner, PGY-1
[2018-12-23] MEDS ORDERED: POLYETHYLENE GLYCOL 3350 17 GM/Dose PACKET PO ONE (10:33)
[2018-12-23 10:44] LABS: VENOUS BLOOD GAS BASE EXCESS 3.5 mmol/L (0.0-2.0); VENOUS BLOOD GAS PO2 155 mm/Hg (30-55); VENOUS BLOOD PH 7.45 (7.32-7.43)
[2018-12-23] MEDS: Potassium Chloride 20 mEq ER Tab PO SCH ×2 (11:24→17:48)
[2018-12-23] MEDS ORDERED: Insulin Reg-LOW-Coverage SC SCH (11:30)
[2018-12-23] MEDS: Levalbuterol 0.63 MG/3 ML Inhal Soln UD IH SCH ×3 (11:40→21:35)
[2018-12-23] MEDS: Acetylcysteine 20% Inhal Soln (4ml) IH SCH ×3 (11:40→22:26)
[2018-12-23] MEDS ORDERED: Sodium Chloride 0.9% 1,000 ML IV STA (12:21)
[2018-12-23] MEDS: cefTRIAXone 1 gm 1 GM/100 ML BAG IVPB SCH (12:22)
--- NOTE | 2018-12-23 12:44 | CP.PCM.PCO ---
Physician Communication Note - Physician Communication Note Physician Communication Note: NSTEMI hep drip, LLL infilt. antibiotic, pleural eff L>R, diurese,echo pend
--- NOTE | 2018-12-23 13:04 | CP.PCM.PN ---
Subjective - Date & Time of Evaluation Date of Evaluation: 12/23/18 Time of Evaluation: 12:58 - Subjective Subjective: PGY-[address] Dorsey No more chest pain. Cough when eating. No sick contact. No acute complaint per 12-pt ros Objective - Vital Signs/Intake and Output Vital Signs (last 24 hours): Temp Pulse Resp BP Pulse Ox 98.4 F 62 20 135/87 95 12/23/18 06:00 12/23/18 12:25 12/23/18 06:00 12/23/18 12:25 12/23/18 06:00 Intake and Output: 12/23/18 12/23/18 06:59 18:59 Intake Total 1000 Output Total 1001 Balance -1 - Medications Medications: Current Medications Acetaminophen (Tylenol 325mg Tab) 650 mg PO Q6 PRN PRN Reason: TEMP>=99.5F Acetaminophen (Tylenol 650 Mg Supp) 650 mg RC Q6H PRN PRN Reason: TEMP>=99.5F Acetylcysteine (Acetylcysteine 20%) 4 ml IH Q8 [facility] Last Admin: 12/23/18 11:40 Dose: 4 ml Aspirin (Ecotrin) 81 mg PO DAILY [facility] Last Admin: 12/23/18 11:23 Dose: 81 mg Atorvastatin Calcium (Lipitor) 40 mg PO DIN [facility] Carvedilol (Coreg) 12.5 mg PO BID [facility] Last Admin: 12/23/18 12:25 Dose: 12.5 mg Clopidogrel Bisulfate (Plavix) 75 mg PO DAILY [facility] Last Admin: 12/23/18 12:25 Dose: Not Given Dextrose (Dextrose 50% Inj) 0 ml IV STAT PRN; Protocol PRN Reason: Hypoglycemia Protocol Docusate Sodium (Colace) 100 mg PO TID [facility] Famotidine (Pepcid) 40 mg PO HS [facility] Furosemide (Lasix) 40 mg IVP BID [facility] Last Admin: 12/23/18 12:23 Dose: 40 mg Heparin Sodium/Sodium Chloride (Heparin 72732 Units/250ml 1/2 Normal Saline) 25,000 units in 250 mls @ 9.525 mls/hr IV .Q24H [facility]; Protocol Last Admin: 12/23/18 03:28 Dose: 12 units/kg/hr, 9.525 mls/hr Doxycycline Hyclate 100 mg/ (Sodium Chloride) 100 mls @ 100 mls/hr IVPB Q12 [facility]; Protocol Ceftriaxone Sodium (Rocephin 1 Gram Ivpb) 1 gm in 100 mls @ 100 mls/hr IVPB DAILY [facility]; Protocol Last Admin: 12/23/18 12:22 Dose: 100 mls/hr Dextrose (Dextrose 5% In Water 1000 Ml) 1,000 mls @ 0 mls/hr IV .Q0M PRN; Protocol PRN Reason: Hypoglycemia Protocol Sodium Chloride (Sodium Chloride 0.9%) 1,000 mls @ 75 mls/hr IV .[id number] [facility] Stop: 12/24/18 01:40 Insulin Human Regular (Humulin R Med) 0 units SC ACHS [facility]; Protocol Last Admin: 12/23/18 08:26 Dose: Not Given Levalbuterol HCl (Xopenex) 0.63 mg IH [id number] PRN PRN Reason: Shortness of Breath Levalbuterol HCl (Xopenex) 0.63 mg IH Q8 [facility] Last Admin: 12/23/18 11:40 Dose: 0.63 mg Levothyroxine Sodium (Synthroid) 25 mcg PO 0600 [facility] Last Admin: 12/23/18 06:08 Dose: 25 mcg Ondansetron HCl (Zofran Inj) 4 mg IVP Q4H PRN PRN Reason: Nausea/Vomiting Potassium Chloride (K-Dur 20 Meq Er Tab) 40 meq PO BID [facility] Stop: 12/23/18 18:01 Last Admin: 12/23/18 11:24 Dose: 40 meq Ramipril (Altace) 10 mg PO DAILY [facility] Last Admin: 12/23/18 11:24 Dose: 10 mg Tramadol HCl (Ultram) 50 mg PO Q6 PRN PRN Reason: Pain, moderate (4-7) - Labs Labs: 12/23/18 09:10 12/23/18 09:10 PT 16.9 SECONDS (9.4-12.5) H 12/22/18 20:41 INR 1.52 12/22/18 20:41 APTT 70.0 Seconds (26.9-38.3) H 12/23/18 10:30 - Constitutional Appears: No Acute Distress - Head Exam Head Exam: ATRAUMATIC, NORMAL INSPECTION, NORMOCEPHALIC - Eye Exam Eye Exam: EOMI, Normal appearance, PERRL Pupil Exam: NORMAL ACCOMODATION - ENT Exam ENT Exam: Mucous Membranes Dry - Neck Exam Additional comments: supple - Respiratory Exam Respiratory Exam: Decreased Breath Sounds (b/l lung bases), Clear to Ausculation Bilateral. absent: Rales, Rhonchi, Wheezes - Cardiovascular Exam Cardiovascular Exam: REGULAR RHYTHM, +S1, +S2. absent: Murmur - GI/Abdominal Exam GI & Abdominal Exam: Soft, Normal Bowel Sounds. absent: Guarding, Rigid, Tenderness, Rebound - Extremities Exam Extremities Exam: Normal Capillary Refill, Pedal Edema (slight) - Neurological Exam Neurological Exam: Alert, Awake, Oriented x3 Neuro motor strength exam: Left Upper Extremity: 5, Right Upper Extremity: 5, Left Lower Extremity: 5, Right Lower Extremity: 5 - Psychiatric Exam Psychiatric exam: Normal Affect, Normal Mood - Skin Skin Exam: Dry, Warm Assessment and Plan - Assessment and Plan (Free Text) Plan: Mr Alfaro, 83M, with PMHx CAD s/p CABG in 1989 on ASA/Plavix, HTN/HLD, DM2, asthma c/o Chest pain onset at rest associated with nausea, vomiting, diaphoresis. Last bowel movement 6 days ago. He was found to have NSTEMI NSTEMI Chest Pain - Cardiac cath tomorrow 12pm - trops 0.46, 0.41, 0.35, 0.37 - heparin gtt - ASA/Plavix/lipitor/coreg/ramipril. zofran prn - NS@75 per cardio CHF acute on chronic Pleural effusion - lasix 40 iv bid [ ] Echo CAP vs Aspiration pnemonitis Hx Asthma - Procalc is low 0.06 - Rocephin, doxy, flagyl (day 1) - Mucomyst/Xopenex [facility] [ ] CT chest Dysphagia - [ ] swallow study/barium swallow. Aspiration precaution. pepsid DM, A1C 7.1 - ISSS hypothyrodism - synthroid Constipation - Colace TID, Dulcolax suppository. Surgery had ruled out obstruction or bowel incarceration. no plan for surgery Pain - tramadol PRN Imagin12/23/18 CT abd/pelvis: There is a right-sided inguinal hernia that contains a loop of bowel. This measures 3.4 x 5.2 cm. There is no associated obstruction. POA: Mr Jia Lugo [phone] s/r/d/w Dr Dorsey
[2018-12-23 14:07] LABS: URINE BILIRUBIN NEGATIVE (NEGATIVE); URINE BLOOD LARGE (NEGATIVE); URINE GLUCOSE (UA) NEGATIVE (NEGATIVE); URINE LEUKOCYTE ESTERASE NEGATIVE Leu/uL (NEGATIVE); URINE PROTEIN NEGATIVE mg/dL (<30 mg/dL)
[2018-12-23 14:20] LABS: URINE APPEARANCE CLEAR (CLEAR); URINE COLOR YELLOW (YELLOW)
[2018-12-23 14:45] LABS: URINE BACTERIA FEW /hpf; URINE WBC 0 - 2 /hpf (0-6)
--- NOTE | 2018-12-23 15:05 | CON ---
DATE OF CONSULTATION: 12/23/2018 CARDIOLOGY CONSULTATION HISTORY: The patient is an 83-year-old male who is from [place], who presents with several days of progressive angina. The patient had bypass surgery 35 years ago. He apparently suffers from hypertension, diabetes mellitus and hypercholesterolemia. Workup for his heart is unknown. He denies shortness of breath. SOCIAL HISTORY: The patient does not smoke now. REVIEW OF SYSTEMS: He is free of bleeding history and/or history of peptic ulcer disease. He is on aspirin daily. PHYSICAL EXAMINATION: VITAL SIGNS: Blood pressure is 157/93, the heart rate is in the 70s, atrial fibrillation. NECK: Negative JVD. LUNGS: Without rales. CARDIAC: Heart rate S1, S2. EXTREMITIES: Without edema. EKG is atrial fibrillation with nonspecific ST-T changes. Troponins of 0.37. BUN and creatinine are 27 and 1.2, potassium is 3.2. The hemoglobin is 14.6. IMPRESSION: 1. Non-ST elevation myocardial infarction 2. Unstable angina. 3. History of coronary bypass surgery. 4. Coronary artery disease. 5. Anemia. 6. Diabetes mellitus. 7. Hypercholesterolemia. 8. Hypertension. PLAN: Given these findings, we will start the patient on aspirin. We will give a loading dose of Plavix 300 mg today. IV heparin has already been started. I have discussed cardiac catheterization with the patient and his family in detail. They understand and agree. We will schedule for catheterization in the morning. Curtis Mckeon MD
--- NOTE | 2018-12-23 15:20 | CT ---
Date of service: 12/23/2018 PROCEDURE: CT Chest without contrast HISTORY: suspected aspiration pneumonitis, ? pneumonia COMPARISON: None available. TECHNIQUE: Contiguous axial images were obtained through the chest without intravenous contrast enhancement. Sagittal and coronal reconstructions were performed. Radiation dose: Total exam DLP = 275.87 mGy-cm. This CT exam was performed using one or more of the following dose reduction techniques: Automated exposure control, adjustment of the mA and/or kV according to patient size, and/or use of iterative reconstruction technique. FINDINGS: LUNGS: Patchy infiltrate in the anterior left upper lobe. Focal consolidation at the left lung base adjacent to the effusion MEDIASTINUM: Unremarkable thoracic aorta. No aneurysm. Mild cardiomegaly. Coronary artery calcification main pulmonary artery unremarkable. No vascular congestion. No lymphadenopathy. Aortic calcification PLEURA: Moderate size left pleural effusion. Small right effusion. BONES: Degenerative changes with ossification of the anterior longitudinal ligament. No evidence of compression fracture UPPER ABDOMEN: Grossly unremarkable. OTHER FINDINGS: None. IMPRESSION: Patchy infiltrate in the anterior left upper lobe. Focal consolidation at the left lung base adjacent to the effusion. Moderate size left pleural effusion. Small right effusion
[2018-12-23] MEDS: metroNIDAZOLE IV 500 mg/100 ml 500 MG/100 ML BAG IVPB SCH (22:48)
--- NOTE | 2018-12-23 23:34 | PN ---
DATE: 12/23/2018 SUBJECTIVE: The patient is now transferred under my service. The patient was admitted to hospitalist service by mistake. I was it communications manager yesterday for medical service, but the patient was admitted by hospitalist service and the patient is now transferred to my service. The patient is seen and examined with the patient's nephew Shena, at bedside. The patient is seen and examined in room 277, bed 2. The patient is lying in the bed. The patient appears to be alert, awake, responsive. At present, the patient does not appear to be any distress. The patient's ER evaluation, triage notes, physician notes, history and physical examination, ER evaluation, diagnostic test reviewed. PHYSICAL EXAMINATION GENERAL: The patient is seen sitting up in the bed. VITAL SIGNS: T-max 98.4. Telemetry shows sinus rhythm, PAC, PVCs. Heart rate 62, 64, 55, blood pressure in the last 12 to 24 hours 118/69, 135/87, 157/93, 131/89, 130/81, respiration 20, O2 sat is averaging around mid to high 90s to 100%. INTAKE AND OUTPUT: Intake is 1000 mL and output is 1001 mL. HEENT: Head is normocephalic, atraumatic. HEENT examination shows pink conjunctivae. Anicteric sclerae. No oropharyngeal lesion. Pinkish pale conjunctivae. NECK: No neck rigidity. Questionable soft carotid bruit. CHEST: Kyphosis. LUNGS: Shows positive rhonchi, creps bilaterally with decreased breath sound at the bases. CARDIOVASCULAR: S1, S2, regular rhythm. Positive systolic murmur at left sternal border, right second intercostal space, left second intercostal space. ABDOMEN: Soft. Positive bowel sounds. Unable to appreciate any organomegaly. GENITALIA: Male. RECTAL: Deferred. EXTREMITY: Shows positive pitting edema of the lower extremity, right more than the left. MUSCULOSKELETAL: Shows a body mass index of 25. NEUROLOGIC: The patient is alert, awake, responsive. He is able to move upper and lower extremity without assistance. Gait examination is not tested. PSYCHIATRIC: Negative for anxiety, depression. Negative for auditory or visual hallucination. Negative for suicidal or homicidal ideation. DIAGNOSTICS: On 12/23/2018, WBC count is 4.2 and 4.3, hemoglobin/hematocrit 14.4, 43.2 and 14.6, 45.0, platelet 161, 148, 175. Granulocytes 77% segs. PTT 79. Patient had a VBG done. Initial lactate was 3.3 down to 2.3, down to 2.2, down to 1.2. Troponin is abnormal and elevated, peak troponin is 0.46 down to 0.33. Hemoglobin A1c 7.1. Potassium 3.2, BUN 27, creatinine 1.2. Vitamin D 28. Urinalysis, large blood, few bacteria. Legionella negative. Influenza titer negative. The patient had a CT of the chest, CT head, CT abdomen, pelvis reviewed. IMPRESSION: 1. Acute non-ST elevation myocardial infarction with elevated troponin. 2. Uncontrolled noninsulin-requiring diabetes mellitus with hyperglycemia and hemoglobin A1c of 7.1. 3. Hypovitaminosis D. 4. Congestive heart failure. 5. History of hypertension, history of coronary artery disease, history of coronary artery bypass graft. 6. Chest pain. 7. Shortness of breath. 8. Congestive heart failure whether systolic, diastolic unclear. 9. Abdominal pain. 10. Hypothyroidism. 11. Leukopenia. 12. Granulocytosis. 13. Lactic acidosis. 14. Hypokalemia. 15. Uncontrolled non-insulin requiring diabetes mellitus with hemoglobin A1c of 7.1. 16. Microscopic hematuria. 17. Pyuria, bacteriuria. 18. Gait dysfunction. 19. Deconditioning. 20. Multilobar left upper and left lower lobe pneumonia and community-acquired pneumonia. 21. Cardiomegaly. 22. Coronary artery calcification. 23. Moderate left pleural effusion and small right pleural effusion. 24. 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 25. Bilateral lower extremity venous stasis. 26. Unstable angina. 27. Constipation with fecal stasis. 28. Moderate bilateral pleural effusion. 29. Right inguinal hernia with a small bowel loop. 30. L5, S1 calcification within the spinal canal. 31. 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 32. Left ventricular hypertrophy with ST-T changes. 33. Multilobar left upper and lower lobe pneumonia. 34. Questionable aspiration pneumonia versus with possible oropharyngeal dysphagia. PLAN: At this time, the patient has been ordered serial labs. The patient is to be continued on nebulizer treatment with Mucomyst. The patient is to be continued on Altace 10 mg, aspirin, Colace, Coreg 12.5 twice a day, doxycycline 100 mg IV every 12, aspirin 81 daily, Flagyl 500 IV every 8, heparin drip has been ordered by Cardiology. The patient has been scheduled for cardiac catheterization today. Cardiology has already discussed the patient's condition with the patient's next of kin and power of real estate attorney. The patient is to be continued on IV heparin drip, insulin sliding scale coverage, Lasix 40 IV twice a day, Lipitor 40 mg daily MiraLax 17 g once, Pepcid 40 mg at bedtime. In addition, the patient received Plavix. The patient received Plavix, aspirin, Flagyl, Lipitor 40 daily, Pepcid 40 mg daily, Plavix. The patient received the loading dose of Plavix 300. The patient is on Rocephin 1 g IV daily. The patient is on Tylenol p.r.n., Ultram 50 every 6, p.r.n., Xopenex nebulizer, Zofran 4 mg IV every 4 p.r.n.. The patient's further management will be dependent upon the patient's clinical condition, hemodynamic status and as per the patient response to therapeutic intervention, as per the patient's diagnostic test results, and as per recommendation by all the physician involved in the care of the patient. The patient's condition, diagnosis, need for further diagnostic therapeutic intervention, need for further evaluation by multiple subspecialty was discussed and explained to the patient's next of kin 1 who is the power of real estate attorney. Dictated and electronically signed, not read. Jameson Dorsey MD
[2018-12-24 05:25] LABS: FRUCTOSAMINE 290 umol/L (190-270)
[2018-12-24] MEDS: metroNIDAZOLE IV 500 mg/100 ml 500 MG/100 ML BAG IVPB SCH ×2 (05:35→18:29)
[2018-12-24] MEDS: Levothyroxine 25 MCG TAB PO SCH (05:36)
[2018-12-24] MEDS: Acetylcysteine 20% Inhal Soln (4ml) IH SCH ×2 (07:15→13:51)
[2018-12-24] MEDS: Levalbuterol 0.63 MG/3 ML Inhal Soln UD IH SCH ×2 (07:16→13:51)
[2018-12-24 08:32] LABS: BASO # 0.01 K/mm3 (0.0-2.0); BASO % 0.2 % (0.0-3.0); EOS # 0.2 (0.0-0.7); EOS % 4.1 % (1.5-5.0); HEMOGLOBIN 13.3 g/dL (14.0-18.0); LYMPH # 0.9 (1.2-3.4); LYMPH % 19.6 % (22.0-35.0); MEAN CELL VOLUME 96.5 fl (80.0-105.0); MEAN CORPUSCULAR HEMOGLOBIN 31.1 pg (25.0-35.0); MEAN CORPUSCULAR HGB CONC 32.3 g/dl (31.0-37.0); MEAN PLATELET VOLUME 9.9 fl (7.0-11.0); MONO # 0.4 (0.1-0.6); MONO % 8.9 % (1.0-6.0); RBC 4.27 10^6/uL (3.5-6.1); RED CELL DISTRIBUTION WIDTH 13.8 % (11.5-14.5); WHITE BLOOD COUNT 4.6 10^3/uL (4.5-11.0)
[2018-12-24 08:40] LABS: ALB/GLOB RATIO 1.2 (1.1-1.8); ALBUMIN 3.3 g/dL (3.0-4.8); ALT/SGPT 17 U/L (7-56); AST/SGOT 20 U/L (17-59); BLOOD UREA NITROGEN 26 mg/dL (7-21); CALCIUM 8.7 mg/dL (8.4-10.5); GFR NON-AFRICAN AMERICAN 58
--- NOTE | 2018-12-24 08:56 | CP.PCM.PN ---
Subjective - Date & Time of Evaluation Date of Evaluation: 12/24/18 Time of Evaluation: 08:54 - Subjective Subjective: PGY-[address] Willian Neal IV site ozzing. RN reported a drop of dark-red urine on diaper No dizziness, palpitation, CP, SOB, nausea, vomiting. No acute complaint per 12 pt ROS. (+) BM Objective - Vital Signs/Intake and Output Vital Signs (last 24 hours): Temp Pulse Resp BP Pulse Ox 97.8 F 61 20 117/58 L 95 12/24/18 05:46 12/24/18 05:46 12/24/18 05:46 12/24/18 05:46 12/24/18 05:46 Intake and Output: 12/24/18 12/24/18 06:59 18:59 Intake Total 1014 Output Total 1000 Balance 14 - Medications Medications: Current Medications Acetaminophen (Tylenol 325mg Tab) 650 mg PO Q6 PRN PRN Reason: TEMP>=99.5F Acetaminophen (Tylenol 650 Mg Supp) 650 mg RC Q6H PRN PRN Reason: TEMP>=99.5F Acetylcysteine (Acetylcysteine 20%) 4 ml IH Q8 [facility] Last Admin: 12/24/18 07:15 Dose: 4 ml Aspirin (Ecotrin) 81 mg PO DAILY [facility] Last Admin: 12/23/18 11:23 Dose: 81 mg Atorvastatin Calcium (Lipitor) 40 mg PO DIN [facility] Last Admin: 12/23/18 17:49 Dose: 40 mg Carvedilol (Coreg) 12.5 mg PO BID [facility] Last Admin: 12/23/18 17:48 Dose: 12.5 mg Clopidogrel Bisulfate (Plavix) 75 mg PO DAILY [facility] Last Admin: 12/23/18 12:25 Dose: Not Given Dextrose (Dextrose 50% Inj) 0 ml IV STAT PRN; Protocol PRN Reason: Hypoglycemia Protocol Docusate Sodium (Colace) 100 mg PO TID [facility] Last Admin: 12/23/18 19:03 Dose: 100 mg Famotidine (Pepcid) 40 mg PO HS [facility] Last Admin: 12/23/18 22:49 Dose: Not Given Furosemide (Lasix) 40 mg IVP BID [facility] Last Admin: 12/23/18 17:47 Dose: 40 mg Heparin Sodium/Sodium Chloride (Heparin 14730 Units/250ml 1/2 Normal Saline) 25,000 units in 250 mls @ 9.525 mls/hr IV .Q24H [facility]; Protocol Last Admin: 12/23/18 03:28 Dose: 12 units/kg/hr, 9.525 mls/hr Doxycycline Hyclate 100 mg/ (Sodium Chloride) 100 mls @ 100 mls/hr IVPB Q12 [facility]; Protocol Last Admin: 12/23/18 22:48 Dose: 100 mls/hr Ceftriaxone Sodium (Rocephin 1 Gram Ivpb) 1 gm in 100 mls @ 100 mls/hr IVPB DAILY [facility]; Protocol Last Admin: 12/23/18 12:22 Dose: 100 mls/hr Dextrose (Dextrose 5% In Water 1000 Ml) 1,000 mls @ 0 mls/hr IV .Q0M PRN; Protocol PRN Reason: Hypoglycemia Protocol Metronidazole (Flagyl) 500 mg in 100 mls @ 100 mls/hr IVPB Q8 [facility]; Protocol Last Admin: 12/24/18 05:35 Dose: 100 mls/hr Insulin Human Regular (Humulin R Med) 0 units SC ACHS [facility]; Protocol Last Admin: 12/23/18 21:40 Dose: Not Given Levalbuterol HCl (Xopenex) 0.63 mg IH [id number] PRN PRN Reason: Shortness of Breath Levalbuterol HCl (Xopenex) 0.63 mg IH Q8 [facility] Last Admin: 12/24/18 07:16 Dose: 0.63 mg Levothyroxine Sodium (Synthroid) 25 mcg PO 0600 [facility] Last Admin: 12/24/18 05:36 Dose: 25 mcg Ondansetron HCl (Zofran Inj) 4 mg IVP Q4H PRN PRN Reason: Nausea/Vomiting Ramipril (Altace) 10 mg PO DAILY [facility] Last Admin: 12/23/18 11:24 Dose: 10 mg Tramadol HCl (Ultram) 50 mg PO Q6 PRN PRN Reason: Pain, moderate (4-7) - Labs Labs: 12/24/18 08:15 12/24/18 08:15 PT 16.9 SECONDS (9.4-12.5) H 12/22/18 20:41 INR 1.52 12/22/18 20:41 APTT 79.7 Seconds (26.9-38.3) H 12/23/18 16:22 - Constitutional Appears: No Acute Distress - Head Exam Head Exam: ATRAUMATIC, NORMAL INSPECTION, NORMOCEPHALIC - Eye Exam Eye Exam: EOMI, Normal appearance, PERRL. absent: Scleral icterus Pupil Exam: NORMAL ACCOMODATION - ENT Exam ENT Exam: Mucous Membranes Moist - Neck Exam Additional comments: supple - Respiratory Exam Respiratory Exam: Decreased Breath Sounds (JAGDISH), Rhonchi, NORMAL BREATHING PA TTERN. absent: Rales, Wheezes - Cardiovascular Exam Cardiovascular Exam: REGULAR RHYTHM, +S1, +S2 - GI/Abdominal Exam GI & Abdominal Exam: Soft, Normal Bowel Sounds. absent: Guarding, Rigid, Tenderness Additional comments: (+) suprapubic tenderness - Extremities Exam Extremities Exam: Normal Capillary Refill. absent: Calf Tenderness, Pedal Edema - Back Exam Back Exam: absent: CVA tenderness (L), CVA tenderness (R) - Neurological Exam Neurological Exam: Alert, Awake, Oriented x3 - Psychiatric Exam Psychiatric exam: Normal Affect, Normal Mood - Skin Skin Exam: Normal Color Assessment and Plan - Assessment and Plan (Free Text) Plan: Mr Alfaro, 83M, with PMHx CAD s/p CABG in 1989 on ASA/Plavix, HTN/HLD, DM2 (A1C 7.1), asthma c/o Chest pain onset at rest associated with nausea, vomiting, diaphoresis. Last bowel movement 6 days ago. He was found to have NSTEMI. Cath today revealed EF 20-25. Triple vessel disease (1) HANDY to LAD patent. (2) L Cir closed (3) RCA 99% block (4) bypass graft to RCA close. He receive PCI with 3 bare metal stent in RCA and started milrinone gtt. NSTEMI, Unstable angina Chest Pain - resolved Triple vessel disease s/p CABG, s/p PCI with 3 bare metal stents - ASA/Plavix/lipitor/coreg/ramipril. zofran prn - Milrinone gtt [ ] If senior living milrinone, need access CHF acute on chronic Pleural effusion b/l (L > R) Hx CABG - lasix 40 iv bid. [ ] Will plan to decrease lasix to 40 daily pending CXR and BNP [ ] CXR to eval pleural effusion Aspiration pnemonitis vs CAP Hx Asthma - Procalc is low 0.06 - Rocephin, doxy, flagyl (day 1) - Mucomyst/Xopenex [facility] Had ruled out UTI - Antibiotics covers possible UTI; urine cx negative Constipation - Colace TID, Dulcolax suppository. Surgery had ruled out obstruction or bowel incarceration. no plan for surgery Dysphagia - [ ] swallow study/barium swallow. Aspiration precaution. pepsid Anemia - stable. work up outpatient DM, A1C 7.1 - ISSS hypothyrodism - synthroid Pain - tramadol PRN Imaging: CT abd/pelvis (12/23): There is a right-sided inguinal hernia that contains a loop of bowel. This measures 3.4 x 5.2 cm. There is no associated obstruction. CT chest (12/23): JAGDISH infiltrate, patchy POA: Mr Shoemaker Jia Cuadra [phone] Dispo: [ ] PT eval s/r/d/w Dr Dorsey
[2018-12-24] MEDS: Insulin Reg-MEDIUM-Coverage SC SCH ×4 (09:54→21:35)
[2018-12-24] MEDS: cefTRIAXone 1 gm 1 GM/100 ML BAG IVPB SCH ×3 (09:55→20:25)
--- NOTE | 2018-12-24 10:02 | CARD ---
APPROVED REPORT Date of service: 12/24/2018 EKG Measurement Heart [id number] [place] [id number] <Conclusion> Sinus bradycardia Baseline artifact Left ventricular hypertrophy with QRS widening ST & T wave abnormality, consider lateral ischemia Abnormal ECG
--- NOTE | 2018-12-24 10:46 | CP.PCM.PN ---
Subjective - Date & Time of Evaluation Date of Evaluation: 12/24/18 Time of Evaluation: 10:42 - Subjective Subjective: Surgery Progress Note for Dr. Watt's service S/E at bedside. Nephew at bedside. Patient had bowel movement as per nephew. No acute complaints from patient. For cardiac cath with primary medical team today. Objective - Vital Signs/Intake and Output Vital Signs (last 24 hours): Temp Pulse Resp BP Pulse Ox 97.8 F 56 L 20 119/69 95 12/24/18 05:46 12/24/18 09:46 12/24/18 05:46 12/24/18 09:55 12/24/18 05:46 Intake and Output: 12/24/18 12/24/18 06:59 18:59 Intake Total 1014 Output Total 1000 Balance 14 - Medications Medications: Current Medications Acetaminophen (Tylenol 325mg Tab) 650 mg PO Q6 PRN PRN Reason: TEMP>=99.5F Acetaminophen (Tylenol 650 Mg Supp) 650 mg RC Q6H PRN PRN Reason: TEMP>=99.5F Acetylcysteine (Acetylcysteine 20%) 4 ml IH Q8 [facility] Last Admin: 12/24/18 07:15 Dose: 4 ml Aspirin (Ecotrin) 81 mg PO DAILY [facility] Last Admin: 12/24/18 09:54 Dose: 81 mg Atorvastatin Calcium (Lipitor) 40 mg PO DIN [facility] Last Admin: 12/23/18 17:49 Dose: 40 mg Carvedilol (Coreg) 12.5 mg PO BID [facility] Last Admin: 12/24/18 09:46 Dose: 12.5 mg Clopidogrel Bisulfate (Plavix) 75 mg PO DAILY [facility] Last Admin: 12/24/18 09:55 Dose: 75 mg Dextrose (Dextrose 50% Inj) 0 ml IV STAT PRN; Protocol PRN Reason: Hypoglycemia Protocol Docusate Sodium (Colace) 100 mg PO TID [facility] Last Admin: 12/24/18 09:46 Dose: 100 mg Famotidine (Pepcid) 40 mg PO HS [facility] Last Admin: 12/23/18 22:49 Dose: Not Given Furosemide (Lasix) 40 mg IVP BID [facility] Last Admin: 12/24/18 09:55 Dose: 40 mg Heparin Sodium/Sodium Chloride (Heparin 13174 Units/250ml 1/2 Normal Saline) 25,000 units in 250 mls @ 9.525 mls/hr IV .Q24H [facility]; Protocol Last Admin: 12/23/18 03:28 Dose: 12 units/kg/hr, 9.525 mls/hr Doxycycline Hyclate 100 mg/ (Sodium Chloride) 100 mls @ 100 mls/hr IVPB Q12 [facility]; Protocol Last Admin: 12/24/18 09:56 Dose: 100 mls/hr Ceftriaxone Sodium (Rocephin 1 Gram Ivpb) 1 gm in 100 mls @ 100 mls/hr IVPB DAILY [facility]; Protocol Last Admin: 12/24/18 09:55 Dose: 100 mls/hr Dextrose (Dextrose 5% In Water 1000 Ml) 1,000 mls @ 0 mls/hr IV .Q0M PRN; Protocol PRN Reason: Hypoglycemia Protocol Metronidazole (Flagyl) 500 mg in 100 mls @ 100 mls/hr IVPB Q8 [facility]; Protocol Last Admin: 12/24/18 05:35 Dose: 100 mls/hr Insulin Human Regular (Humulin R Med) 0 units SC ACHS [facility]; Protocol Last Admin: 12/24/18 09:54 Dose: Not Given Levalbuterol HCl (Xopenex) 0.63 mg IH [id number] PRN PRN Reason: Shortness of Breath Levalbuterol HCl (Xopenex) 0.63 mg IH Q8 [facility] Last Admin: 12/24/18 07:16 Dose: 0.63 mg Levothyroxine Sodium (Synthroid) 25 mcg PO 0600 [facility] Last Admin: 12/24/18 05:36 Dose: 25 mcg Ondansetron HCl (Zofran Inj) 4 mg IVP Q4H PRN PRN Reason: Nausea/Vomiting Ramipril (Altace) 10 mg PO DAILY [facility] Last Admin: 12/24/18 09:46 Dose: 10 mg Tramadol HCl (Ultram) 50 mg PO Q6 PRN PRN Reason: Pain, moderate (4-7) - Labs Labs: 12/24/18 08:15 12/24/18 08:15 PT 16.9 SECONDS (9.4-12.5) H 12/22/18 20:41 INR 1.52 12/22/18 20:41 APTT 79.7 Seconds (26.9-38.3) H 12/23/18 16:22 - Additional Findings Additional findings: - Constitutional Appears: Non-toxic, No Acute Distress - Head Exam Head Exam: ATRAUMATIC, NORMOCEPHALIC - Eye Exam Eye Exam: EOMI, Normal appearance, PERRL - ENT Exam ENT Exam: Mucous Membranes Moist - Neck Exam Neck exam: Negative for: Lymphadenopathy - Respiratory Exam Respiratory Exam: Decreased Breath Sounds (on the left), Rales. absent: Accessory Muscle Use, Rhonchi, Wheezes, Respiratory Distress - Cardiovascular Exam Cardiovascular Exam: REGULAR RHYTHM, +S1, +S2. absent: Systolic Murmur - GI/Abdominal Exam GI & Abdominal Exam: Soft, Tenderness. absent: Distended, Firm, Guarding, Rebound, Rigid Indirect inguinal hernia, nontender, reduced, nonbulging clinically - Extremities Exam Extremities exam: Positive for: normal capillary refill, pedal pulses present. Negative for: tenderness Additional comments: +1 pitting edema on LE b/l - Neurological Exam Neurological exam: Alert, CN II-XII Intact, Oriented x3 - Skin Skin Exam: Dry, Intact, noted midline incision on chest wall Assessment and Plan - Assessment and Plan (Free Text) Assessment: 83 M with PMHx CAD s/p CABG 1989, asthma, who presented with NSTEMI. Presently, doubt small bowel obstruction in light of tolerance of diet. 12/23/18 CT abd/pelvis: There is a right-sided inguinal hernia that contains a loop of bowel. This measures 3.4 x 5.2 cm. There is no associated obstruction. Plan: Vomiting likely related to NSTEMI No episodes since yesterday at 8 AM; patient tolerateing oral intake No evidence of obstruction or bowel incarceration, not a surgical candidate at this time likely constipated, had bowel movement today as per nephew s/p colace tid, miralax and dulcolax suppository Will continue to follow as needed. Further recs per Dr. Shukri Guidry PGY-1
[2018-12-24] MEDS ORDERED: Lidocaine 2% Inj (20ml) ONE (13:09)
[2018-12-24] MEDS ORDERED: Iodixanol 320 MG/ML 100 ML BOTTLE IV ONE (13:10)
[2018-12-24] MEDS ORDERED: Iohexol 350mgl/ml 50 ML ONE (13:10)
[2018-12-24] MEDS ORDERED: Nitroglycerin 50mg in D5W 0 MG/0 ML BOTTLE IV ONE (13:10)
[2018-12-24] MEDS ORDERED: Iodixanol 320 MG/ML 200 ML BOTTLE IV ONE (13:10)
[2018-12-24] MEDS ORDERED: Midazolam 2 MG/2 ML VIAL ONE ×2 (13:23→13:30)
[2018-12-24] MEDS ORDERED: Primacor 1 mg/ml Inj (10 ml) IVP ONE (14:33)
--- NOTE | 2018-12-24 14:36 | CP.PCM.PCO ---
Physician Communication Note - Physician Communication Note Physician Communication Note: decreased EF milrinone initiated as per cardiology
[2018-12-24] MEDS ORDERED: Sodium Chloride 0.9% 1,000 ML IV SCH (14:45)
[2018-12-24] MEDS: Milrinone 20mg/100ml D5W 100 ML IV PRN (15:44)
--- NOTE | 2018-12-24 18:37 | CARDCATH ---
PROCEDURE DATE: 12/24/2018 CARDIAC CATHETERIZATION HISTORY: The patient is an 83-year-old male who presents with progressive angina and lethargy. According to the patient's nephew, the patient had coronary bypass surgery remotely in which nobody is clear when that was done. He has not been followed by a lithographic etcher, the patient is from [place]. Because of this, as well as his progressive anginal symptoms as well as elevated troponins consistent with a non-STEMI, a cardiac catheterization was recommended. PROCEDURE: Left heart catheterization with coronary arteriography, left ventriculogram, supra-aortic valvular injection, left internal mammary artery angiogram, saphenous vein graft angiogram followed by percutaneous transluminal coronary angioplasty and stent of a diffusely diseased right coronary artery was performed. I performed moderate sedation, which included the presence of an independent trained observer that assisted in monitoring the patient's level of consciousness and physiologic status. After administration of Versed and fentanyl, my intra service time was 45 minutes. The right femoral artery was cannulated with 6-Upper Sorbian sheath. There were no complications. The findings on catheterization revealed a left ventricle that was diffusely dilated and diffusely hypokinetic with an estimated ejection fraction of 25%. The findings on catheterization revealed a right dominant circulation. The RCA revealed diffuse 70% to 80% stenosis in the proximal portion of the RCA extending into the midportion. In addition, there was a discrete area of 99% stenosis in the mid RCA. The PDA was diffusely diseased with a long critical 80% to 90% stenosis. The left main artery revealed intimal irregularities without critical lesions. The LAD was occluded in its proximal portion. The circumflex artery was subtotally occluded in its proximal portion. The HANDY to the LAD was found to be patent and provided good antegrade flow to the mid and distal LAD. In the midportion of the LAD after the anastomotic site, there was diffuse atherosclerosis with a long 50% to 60% stenosis noted. The saphenous vein graft to the RCA was occluded. No other saphenous vein grafts could be found on supra-aortic valvular injection. The patient was started on intravenous Angiomax on the fluoroscopic guide, the guiding catheter was placed in the ostium of the RCA. An 0.014 ATW wire was used to cross all the critical lesions. A 2.5 balloon was utilized to predilate the discrete 90% stenosis as well as the proximal RCA and mid lesions. This was followed by implantation of three bare-metal stents in the mid RCA and proximal RCA. The last stent with a 4.0 stent that covered the proximal portion of the RCA. Repeat coronary arteriography revealed an excellent result with no residual stenosis and ANGEL-3 flow. Angio-Seal was used to close the femoral artery site. The patient tolerated the procedure well. In summary, the procedure was successful PTCA and stent of multiple lesions in the RCA using bare-metal stents. Cardiac catheterization revealed severe triple-vessel CAD. Patent HANDY to the LAD including disease in the LAD distal to the HANDY. Occluded SVG to the RCA. An occluded circumflex artery. As well as an abnormal LV with an EF of 25%. Given these findings, the patient will go back to the recovery area on aspirin and Plavix. We will start the patient on intravenous Primacor to help his low cardiac output symptoms as well as CHF symptoms. Curtis Mckeon MD
[2018-12-24 21:51] LABS: EOS # 0.1 (0.0-0.7); EOS % 2.3 % (1.5-5.0); HEMOGLOBIN 11.5 g/dL (14.0-18.0); LYMPH # 0.5 (1.2-3.4); LYMPH % 11.4 % (22.0-35.0); MEAN CELL VOLUME 95.9 fl (80.0-105.0); MEAN CORPUSCULAR HEMOGLOBIN 31.8 pg (25.0-35.0); MEAN CORPUSCULAR HGB CONC 33.1 g/dl (31.0-37.0); MEAN PLATELET VOLUME 9.4 fl (7.0-11.0); MONO # 0.3 (0.1-0.6); MONO % 6.6 % (1.0-6.0); RBC 3.62 10^6/uL (3.5-6.1); RED CELL DISTRIBUTION WIDTH 13.5 % (11.5-14.5); WHITE BLOOD COUNT 4.4 10^3/uL (4.5-11.0)
[2018-12-24 22:00] LABS: INR 1.55; PARTIAL THROMBOPLASTIN TIME 37.8 Seconds (26.9-38.3); PROTHROMBIN TIME 17.2 SECONDS (9.4-12.5)
--- NOTE | 2018-12-24 22:12 | PN ---
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 The patient is sitting up in the stretcher. The patient does not appear to be in any distress. The patient is alert, awake, responsive. The patient denies any chest pain or shortness of breath today. Overnight, nurse's notes were reviewed. The patient slept well. PHYSICAL EXAMINATION: VITAL SIGNS: T-max 97.8. Telemetry shows sinus rhythm, sinus bradycardia, PACs, PVCs. Blood pressure in the last 24 hours 118/69, 117/58, 119/69, 107/64, 128/57. Respiration is 28. O2 sat is 95% to 97%. HEAD: Normocephalic, atraumatic. HEENT: Shows pinkish conjunctivae. Anicteric sclerae. No oropharyngeal lesion. NECK: No neck rigidity. CHEST: Kyphosis. LUNGS: Show decreased breath sounds, left more than right. Positive rhonchi, left more than the right. CARDIOVASCULAR: S1 and S2. Regular rhythm. Questionable soft systolic murmur in left sternal border, right second intercostal space, left second intercostal space. ABDOMEN: Soft. Positive bowel sounds. GENITALIA: Male. RECTAL: Deferred. EXTREMITIES: Show almost complete resolution of the pitting edema and the swelling. MUSCULOSKELETAL: Shows a body mass index of 25.1. CENTRAL NERVOUS SYSTEM: Cranial nerves II through XII limited. Gait examination is not tested. DIAGNOSTIC DATA: On 12/24/2018, WBC of 4.6, hemoglobin and hematocrit of 13.3 and 41.2, and platelet 156. Sodium 141, potassium 3.8, chloride 106, CO2 of 28, anion gap 10, BUN has been 26 to 27, creatinine 1.2, GFR greater than 60, glucose 134, fructosamine 290, and hemoglobin A1c is 7.1. LFTs are normal. ProBNP is down from 13,700 to 5050. Peak troponin is 0.46 down to 0.33. Vitamin D 25-hydroxy is 28. TSH is 3.04. Lipid panel is within normal limit. HIV, influenza, and Legionella serologies are all negative. The patient underwent a cardiac catheterization. IMPRESSION AND PLAN: 1. Acute non-ST elevation myocardial infarction with elevated troponin. 2. Dilated ischemic cardiomyopathy with left ventricular ejection fraction of 25% to 29%. 3. Left internal mammary artery to left anterior descending artery patent. 4. Left circumflex occluded. 5. A 99% stenosis of the right coronary artery. 6. Bypass graft to right coronary artery is occluded. 7. Status post angioplasty and bare-metal stent placement of the right coronary artery. 8. Hypertension. 9. Episodic sinus bradycardia. 10. Transient hypoxemia. 11. Leukopenia and anemia. 12. Transient granulocytosis. 13. Lactic acidosis (resolved). 14. Prerenal kidney injury. 15. Uncontrolled non-insulin requiring diabetes mellitus with hemoglobin A1c of 7.1 and fructosamine of 290. 16. Hyperbilirubinemia. 17. Hypovitaminosis D. 18. Hypokalemia. 19. Hyperglycemia. 20. Microscopic hematuria, pyuria, bacteriuria. 21. Left upper lobe and left lower lobe pneumonia and consolidation. 22. Cardiomegaly. 23. Coronary artery calcification and aortic calcification. 24. Moderate left pleural effusion and small right pleural effusion. 25. 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 26. History of coronary artery disease and coronary artery bypass graft. 27. Gait dysfunction. 28. Deconditioning. 29. History of hypothyroidism. 30. Bilateral moderate pleural effusion. 31. Bibasilar airspace atelectasis. 32. Hiatal hernia. 33. Prostatomegaly with prostatic calcification. 34. Urinary bladder wall thickening. 35. Non-incarcerated cecum in the right inguinal hernia. 36. Colonic ileus. 37. Cholelithiasis. 38. Diffuse spondylosis. 39. Cerebral and cerebellar cortical atrophy and ventriculomegaly. 40. Chronic microvascular ischemic disease of the brain. 41. Multilobar healthcare-associated versus community-acquired pneumonia. 42. Right-sided inguinal hernia with bowel loop. 43. L5-S1 spinal canal calcification. 44. Left ventricular hypertrophy. 45. Lateral wall ischemic changes. 46. Pulmonary hypertension with tricuspid regurgitation and right ventricular systolic pressure of 70 mmHg. 47. Unstable angina, acute non-ST elevation myocardial infarction with elevated troponin and acute coronary syndrome. 48. Questionable aspiration pneumonia. 49. Constipation. 50. Questionable oropharyngeal dysphagia. 51. Questionable early sacral decubitus ulceration with erythema. 52. Episodic disorientation. Plan at this time, the patient has been ordered repeat labs for the morning. The patient's blood and urine cultures are negative. Current consultation, Cardiology. Next referral to diabetic education and TCU evaluation ordered. Mucomyst 20% 4 mL every 8 hours, Altace 10 mg daily, Colace 100 mg three times a day, Coreg 12.5 mg twice a day, doxycycline 100 mg IV every 12 hours, Ecotrin 81 mg daily, Flagyl 500 mg IV every 8 hours, regular insulin medium-dose sliding scale coverage, Lasix decreased to 40 mg IV daily, Lipitor 40 mg daily, MiraLax 17 g was given once, Pepcid 40 mg at bedtime, Plavix 75 mg daily, IV milrinone drip at 0.375 mcg/kg per minute, Rocephin 1 g IV daily, Synthroid 25 mcg p.o. daily, Tylenol p.o. or suppository every 6 hours p.r.n., Ultram 50 mg every 6 hours p.r.n., Xopenex 0.63 mg every 6 hours p.r.n. and every 8 hours [id number], Zofran 4 mg IV every 4 hours p.r.n. The patient is being on chest PT, incentive spirometer, oxygen 2 L. Repeat EKG ordered for the morning. Liquid diet ordered. At this time, the patient has been ordered repeat chest x-ray. Bedrest. Post cardiac catheterization. Occupational therapy and physical therapy will start tomorrow after the patient has been cleared by Cardiology post cardiac catheterization. Dictated and electronically signed, not read. Jameson Dorsey MD
[2018-12-25] MEDS: Levalbuterol 0.63 MG/3 ML Inhal Soln UD IH SCH ×3 (00:30→21:03)
[2018-12-25] MEDS: Acetylcysteine 20% Inhal Soln (4ml) IH SCH ×3 (00:30→21:03)
[2018-12-25] MEDS: metroNIDAZOLE IV 500 mg/100 ml 500 MG/100 ML BAG IVPB SCH ×4 (00:46→21:35)
[2018-12-25] MEDS: Milrinone 20mg/100ml D5W 100 ML IV PRN (03:12)
[2018-12-25] MEDS: Levothyroxine 25 MCG TAB PO SCH (05:13)
[2018-12-25] MEDS: Insulin Reg-MEDIUM-Coverage SC SCH ×4 (07:30→21:46)
[2018-12-25 07:34] LABS: BASO # 0.01 K/mm3 (0.0-2.0); BASO % 0.2 % (0.0-3.0); EOS # 0.1 (0.0-0.7); EOS % 2.5 % (1.5-5.0); HEMOGLOBIN 11.8 g/dL (14.0-18.0); LYMPH # 0.5 (1.2-3.4); LYMPH % 10.8 % (22.0-35.0); MEAN CELL VOLUME 95.9 fl (80.0-105.0); MEAN CORPUSCULAR HEMOGLOBIN 31.9 pg (25.0-35.0); MEAN CORPUSCULAR HGB CONC 33.2 g/dl (31.0-37.0); MONO # 0.3 (0.1-0.6); MONO % 7.1 % (1.0-6.0); RBC 3.7 10^6/uL (3.5-6.1); RED CELL DISTRIBUTION WIDTH 13.6 % (11.5-14.5); WHITE BLOOD COUNT 4.8 10^3/uL (4.5-11.0)
[2018-12-25 07:52] LABS: ALB/GLOB RATIO 1.1 (1.1-1.8); ALBUMIN 2.9 g/dL (3.0-4.8); ALT/SGPT 21 U/L (7-56); AST/SGOT 26 U/L (17-59); BILIRUBIN,DIRECT 0.5 mg/dL (0.0-0.4); BLOOD UREA NITROGEN 23 mg/dL (7-21); CALCIUM 8.4 mg/dL (8.4-10.5); GFR NON-AFRICAN AMERICAN > 60
[2018-12-25 07:55] LABS: B-TYPE NATRIURETIC PEPTIDE 3320 pg/mL (0-450)
--- NOTE | 2018-12-25 08:04 | CP.PCM.PCO ---
Physician Communication Note - Physician Communication Note Physician Communication Note: s/p cardiac stent x 3, EF 20-25% milrinone, GIB GI rec, continue antibiotic
--- NOTE | 2018-12-25 08:14 | CARD ---
APPROVED REPORT Date of service: 12/24/2018 EKG Measurement Heart [id number] <Conclusion> Sinus bradycardia Left ventricular hypertrophy with QRS widening T wave abnormality, consider lateral ischemia Prolonged QT Abnormal ECG
--- NOTE | 2018-12-25 09:11 | CARD ---
APPROVED REPORT Date of service: 12/24/2018 EXAM: Two-dimensional and M-mode echocardiogram with Doppler and color Doppler. INDICATION ACUTE CHF,NSTEMI 2D DIMENSIONS Left Atrium (2D)5.2 (1.6-4.0cm)IVSd1.3 (0.7-1.1cm) LVDd5.2 (3.9-5.9cm)PWd1.2 (0.7-1.1cm) LVDs4.6 (2.5-4.0cm)FS (%) 10.7 % LVEF (%)23.4 (>50%) M-Mode DIMENSIONS Aortic Root4.00 (2.2-3.7cm)Aortic Cusp Exc.1.80 (1.5-2.0cm) Aortic Valve AoV Peak Hjljxwqk873.0cm/Mark Peak GR.9mmHgAI P 1/2 Urqh124in Mitral Valve MV E Twyvvkfa18.4cm/sMV A Ejgotrqd86.0cm/sE/A ratio2.4 TDI E/Lateral E'0.0E/Medial E'0.0 Pulmonary Valve PV Peak Xmsqotrd64.4cm/sPV Peak Grad.1mmHg Tricuspid Valve TR Peak Qswenvlm235fd/sRAP [id number] Peak Gr.60mmHg [id number] LEFT VENTRICLE The left ventricle is normal size. There is mild concentric left ventricular hypertrophy. The ejection fraction is severely impaired. There is global hypokinesis of the left ventricle. RIGHT VENTRICLE The right ventricle is mildly dilated. ATRIA The left atrium is severely dilated. The right atrium is severely dilated. AORTIC VALVE The aortic valve is mildly sclerotic. There is moderate aortic regurgitation. There is no aortic valvular stenosis. MITRAL VALVE The reduced mitral leaflet separation suggests decreased flow through the mitral valve and poor cardiac output. The mitral valve is mildly thickened. Mitral regurgitation is severe. TRICUSPID VALVE The tricuspid valve is normal in structure. There is severe tricuspid regurgitation. There is severe pulmonary hypertension. PULMONIC VALVE The pulmonary valve is normal in structure. There is mild pulmonic valvular regurgitation. GREAT VESSELS The aortic root is normal in size. Dilated IVC with poor inspiration collapse is consistent with elevated right atrial pressure. PERICARDIAL EFFUSION There is large left pleural effusion. There is no pericardial effusion. <Conclusion> Four chamber enlargement. Severe LV systolic dysfunction with global hypokinesis. Mild concentric LVH. Moderate AI. Severe MR. Severe TR. Severe pulmonary HTN. Left pleural effusion present.
[2018-12-25] MEDS ORDERED: Phytonadione 10 MG in Sodium Chloride 0.9% 50 ML IV ONE (09:31)
[2018-12-25 09:35] LABS: BASO # 0.01 K/mm3 (0.0-2.0); BASO % 0.2 % (0.0-3.0); EOS # 0.1 (0.0-0.7); EOS % 2.3 % (1.5-5.0); HEMOGLOBIN 11.4 g/dL (14.0-18.0); LYMPH # 0.5 (1.2-3.4); LYMPH % 9.9 % (22.0-35.0); MEAN CELL VOLUME 95.3 fl (80.0-105.0); MEAN CORPUSCULAR HEMOGLOBIN 31.8 pg (25.0-35.0); MEAN CORPUSCULAR HGB CONC 33.3 g/dl (31.0-37.0); MEAN PLATELET VOLUME 9.8 fl (7.0-11.0); MONO # 0.5 (0.1-0.6); MONO % 9.9 % (1.0-6.0); RBC 3.59 10^6/uL (3.5-6.1); RED CELL DISTRIBUTION WIDTH 13.3 % (11.5-14.5); WHITE BLOOD COUNT 4.7 10^3/uL (4.5-11.0)
[2018-12-25] MEDS ORDERED: Magnesium Sulfate 2 gm/50 ml 2 GM/50 ML BAG IVPB ONE (10:00)
--- NOTE | 2018-12-25 10:07 | CON ---
DATE OF CONSULTATION: 12/25/2018 GASTROENTEROLOGY CONSULTATION REQUESTING PHYSICIAN: Dr. Jameson Dorsey. REASON FOR CONSULTATION: I have been asked to see this 83-year-old male with a history of coronary artery disease status post coronary artery bypass surgery, hypertension, diabetes mellitus, hyperlipidemia, asthma, who comes to the hospital with chest pain and shortness of breath. This was associated with nausea, vomiting and diaphoresis. Routine blood work in the emergency room showed the patient to have elevated troponins. The patient underwent a cardiac catheterization yesterday, which revealed a critical RCA lesion with subsequent bare metal stent placement. I have been asked to see this patient for rectal bleeding, which began yesterday, but bleeding scan shows activity in the pelvic area. He denies any abdominal pain or currently with hematemesis, nausea, vomiting. PAST MEDICAL HISTORY: As above. Again, he has a history of coronary artery disease, hypertension, type 2 diabetes mellitus, hyperlipidemia, asthma. PAST SURGICAL HISTORY: Coronary artery bypass surgery. SOCIAL HISTORY: Denies cigarette smoking or alcohol use. FAMILY HISTORY: Noncontributory. REVIEW OF SYSTEMS: Fourteen-point review of systems is notable for rectal bleeding. MEDICATIONS AT HOME: Include tramadol, simvastatin, Starlix, ramipril, Synthroid, glimepiride, Lasix, Plavix and baby aspirin. PHYSICAL EXAMINATION: GENERAL: Elderly male, lying in bed, in no acute distress. VITAL SIGNS: Reveal a temperature of 97.8, blood pressure of 146/74, heart rate is 67. HEENT: Revealed sclerae to be white. Conjunctivae pink. NECK: Supple. CHEST: Lungs are clear. CARDIAC: Heart exam reveals a regular rate and rhythm. ABDOMEN: Soft, nontender. He has a right inguinal hernia. EXTREMITIES: Showed no edema. LABORATORY DATA: Revealed white blood cell count 4.8, hemoglobin 11.8 which has been stable over the last 24 hours. Chemistries reveal a potassium of 3.4, chloride of 109, BUN 23, creatinine 1. BNP 3320. PT/INR reveal 17.2 and 1.55 with a PTT of 37.8. IMPRESSION: An 83-year-old male with recent acute on [id number]-smjmxvkdi myocardial infarction, status post cardiac catheterization with placement of a bare-metal stent in his right coronary artery now with lower gastrointestinal bleeding. Bleeding scan shows activity in the pelvis. RECOMMENDATIONS: 1. We will hold aspirin and Plavix for now. 2. Give vitamin K to correct coagulopathy. 3. Follow serial hematocrits. 4. I will schedule the patient for a colonoscopy for the morning. Aguilar Ortega MD MTDD
--- NOTE | 2018-12-25 10:33 | CP.PCM.CON ---
<Harshil Saxena - Last Filed: 12/25/18 10:21> History of Present Illness - History of Present Illness History of Present Illness: ICU Consult Note for Dr. Ontiveros Reason for Consultation: GI Bleed Patient is an 83 yo M with PMH of HTN, CAD s/p CABG, T2DM, HLD, and asthma presented to [facility] originally with CP and dyspnea on exertion. Patient was found to have an NSTEMI and underwent cardiac catherization which revealed severe triple vessel diseas with placement of three bare-metal stent placed in the mid- and proximal RCA. Patient's EF during catherization of 20-25%. Patient was started on dual antiplatelet therapy and milrinone after catherization. ICU was consulted due to rectal bleeding noted by nurse this morning. Currently, the patient is awake, alert and oriented x3. Patient is hemodynamically stable and denies CP, SOB, n/v/d, abdominal pain, fever, chills, AKHTAR, fatigue, or dizziness. PMH: HTN, CAD, T2DM, hyperlipidemia, asthma PSH: CABG (1989) SHx: denies alcohol, tobacco, illicit drug use FHx: denies Allergies: NKDA PMD: none Review of Systems - Review of Systems All systems: reviewed and no additional remarkable complaints except (12 point ROS reviewed and is negative other than what is stated in HPI.) Past Patient History - Infectious Disease Hx of Infectious Diseases: None - Past Social History Smoking Status: Never Smoked - CARDIAC Hx Cardiac Disorders: Yes Hx Heart Attack: Yes Hx Hypertension: Yes - PULMONARY Hx Respiratory Disorders: No - NEUROLOGICAL Hx Neurological Disorder: No - HEENT Hx HEENT Problems: Yes Hx Cataracts: Yes - RENAL Hx Chronic Kidney Disease: No - ENDOCRINE/METABOLIC Hx Endocrine Disorders: Yes Hx Diabetes Mellitus Type 2: Yes Hx Hypothyroidism: Yes - HEMATOLOGICAL/ONCOLOGICAL Hx Blood Disorders: No - INTEGUMENTARY Hx Dermatological Problems: No - MUSCULOSKELETAL/RHEUMATOLOGICAL Hx Musculoskeletal Disorders: No - GASTROINTESTINAL Hx Gastrointestinal Disorders: No - GENITOURINARY/GYNECOLOGICAL Hx Genitourinary Disorders: No - PSYCHIATRIC Hx Psychophysiologic Disorder: No Hx Substance Use: No - SURGICAL HISTORY Hx Open Heart Surgery: Yes Meds Allergies/Adverse Reactions: Allergies Allergy/AdvReac Type Severity Reaction Status Date / Time No Known Allergies Allergy Verified 08/09/18 09:18 - Medications Medications: Current Medications Acetaminophen (Tylenol 325mg Tab) 650 mg PO Q6 PRN PRN Reason: TEMP>=99.5F Acetaminophen (Tylenol 650 Mg Supp) 650 mg RC Q6H PRN PRN Reason: TEMP>=99.5F Acetylcysteine (Acetylcysteine 20%) 4 ml IH Q8 [facility] Last Admin: 12/25/18 08:21 Dose: 4 ml Atorvastatin Calcium (Lipitor) 40 mg PO DIN [facility] Last Admin: 12/24/18 16:15 Dose: Not Given Carvedilol (Coreg) 12.5 mg PO BID [facility] Last Admin: 12/24/18 17:35 Dose: Not Given Dextrose (Dextrose 50% Inj) 0 ml IV STAT PRN; Protocol PRN Reason: Hypoglycemia Protocol Docusate Sodium (Colace) 100 mg PO TID [facility] Last Admin: 12/24/18 17:35 Dose: Not Given Famotidine (Pepcid) 40 mg PO HS [facility] Last Admin: 12/25/18 00:46 Dose: 40 mg Furosemide (Lasix) 40 mg IVP DAILY [facility] Doxycycline Hyclate 100 mg/ (Sodium Chloride) 100 mls @ 100 mls/hr IVPB Q12 [facility]; Protocol Last Admin: 12/25/18 00:45 Dose: 100 mls/hr Ceftriaxone Sodium (Rocephin 1 Gram Ivpb) 1 gm in 100 mls @ 100 mls/hr IVPB DAILY [facility]; Protocol Last Admin: 12/24/18 20:25 Dose: 100 mls/hr Dextrose (Dextrose 5% In Water 1000 Ml) 1,000 mls @ 0 mls/hr IV .Q0M PRN; Protocol PRN Reason: Hypoglycemia Protocol Metronidazole (Flagyl) 500 mg in 100 mls @ 100 mls/hr IVPB Q8 [facility]; Protocol Last Admin: 12/25/18 05:13 Dose: 100 mls/hr Milrinone Lactate/Dextrose (Primacor 20mg/100ml D5w) 100 mls @ 8.93 mls/hr IV .[id number] PRN; Protocol PRN Reason: TITRATE PER MD ORDER Last Admin: 12/25/18 03:12 Dose: 0.375 mcg/kg/min, 8.93 mls/hr Potassium Chloride (Potassium Chloride 10 Meq/100 Ml) 10 meq in 100 mls @ 50 mls/hr IVPB Q2H [facility] Stop: 12/25/18 12:14 Magnesium Sulfate (Magnesium Sulfate 2 Gm/50 Ml Water) 2 gm in 50 mls @ 50 mls/hr IVPB ONCE ONE Stop: 12/25/18 10:59 Potassium Chloride (Potassium Chloride 20 Meq/100 Ml) 20 meq in 100 mls @ 50 mls/hr IVPB ONCE ONE Stop: 12/25/18 12:59 Insulin Human Regular (Humulin R Med) 0 units SC ACHS [facility]; Protocol Last Admin: 12/25/18 07:30 Dose: Not Given Levalbuterol HCl (Xopenex) 0.63 mg IH [id number] PRN PRN Reason: Shortness of Breath Levalbuterol HCl (Xopenex) 0.63 mg IH Q8 [facility] Last Admin: 12/25/18 08:21 Dose: 0.63 mg Levothyroxine Sodium (Synthroid) 25 mcg PO 0600 [facility] Last Admin: 12/25/18 05:13 Dose: 25 mcg Magnesium Citrate (Citrate Of Mag) 300 ml PO ONCE ONE Stop: 12/25/18 16:01 Magnesium Oxide (Mag-Ox) 400 mg PO BID [facility] Ondansetron HCl (Zofran Inj) 4 mg IVP Q4H PRN PRN Reason: Nausea/Vomiting Pantoprazole Sodium (Protonix Inj) 40 mg IVP Q12 [facility] Potassium Chloride (Klor-Con 10) 10 meq PO BRK [facility] Ramipril (Altace) 10 mg PO DAILY [facility] Last Admin: 12/24/18 09:46 Dose: 10 mg Tramadol HCl (Ultram) 50 mg PO Q6 PRN PRN Reason: Pain, moderate (4-7) Physical Exam - Constitutional Appears: No Acute Distress - Head Exam Head Exam: NORMAL INSPECTION - Eye Exam Eye Exam: Normal appearance - ENT Exam ENT Exam: Mucous Membranes Moist - Respiratory Exam Respiratory Exam: Clear to Auscultation Bilateral. absent: Rales, Rhonchi, Wheezes - Cardiovascular Exam Cardiovascular Exam: RRR, +S1, +S2. absent: Diastolic murmur, Gallop, Rubs, Systolic Murmur - GI/Abdominal Exam GI & Abdominal Exam: Soft. absent: Distended, Guarding, Rigid, Tenderness - Rectal Exam Additional comments: bloody clots and slow ooze noted, no masses or lesions appreciated - Extremities Exam Extremities exam: Positive for: normal inspection - Back Exam Back exam: NORMAL INSPECTION - Neurological Exam Neurological exam: Alert, Oriented x3 - Skin Skin Exam: Normal Color, Warm Results - Vital Signs Recent Vital Signs: Last Vital Signs Temp 97.9 F 12/25/18 09:00 Pulse 68 12/25/18 09:00 Resp 18 12/25/18 09:00 BP 137/85 12/25/18 09:00 Pulse Ox 98 12/25/18 05:40 - Labs Result Diagrams: 12/25/18 09:25 12/25/18 07:25 Labs: Laboratory Results - last 24 hr 12/23/18 12/24/18 12/24/18 10:30 08:15 15:56 WBC RBC Hgb Hct MCV MCH MCHC RDW Plt Count MPV Neut % (Auto) Lymph % (Auto) [place] % (Auto) Eos % (Auto) Baso % (Auto) Lymph # (Auto) [place] # (Auto) Eos # (Auto) Baso # (Auto) Absolute Neuts (auto) PT INR APTT Sodium Potassium Chloride Carbon Dioxide Anion Gap BUN Creatinine Est GFR ( Amer) Est GFR (Non-Af Amer) POC Glucose (mg/dL) 213 H Random Glucose Uric Acid Calcium Phosphorus Magnesium Total Bilirubin Direct Bilirubin AST ALT Alkaline Phosphatase NT-Pro-B Natriuret Pep 5050 H Total Protein Albumin Globulin Albumin/Globulin Ratio HIV 1&2 Ag/Ab, 4th Gen Nonreactive Blood Type Blood Type Confirm Antibody Screen Crossmatch BBK History Checked 12/24/18 12/24/18 12/24/18 21:14 21:45 21:45 WBC 4.4 L RBC 3.62 Hgb 11.5 L Hct 34.7 L MCV 95.9 MCH 31.8 MCHC 33.1 RDW 13.5 Plt Count 128 MPV 9.4 Neut % (Auto) 79.7 H Lymph % (Auto) 11.4 L [place] % (Auto) 6.6 H Eos % (Auto) 2.3 Baso % (Auto) 0.0 Lymph # (Auto) 0.5 L [place] # (Auto) 0.3 Eos # (Auto) 0.1 Baso # (Auto) 0.00 Absolute Neuts (auto) 3.49 PT 17.2 H INR 1.55 APTT 37.8 Sodium Potassium Chloride Carbon Dioxide Anion Gap BUN Creatinine Est GFR ( Amer) Est GFR (Non-Af Amer) POC Glucose (mg/dL) 248 H Random Glucose Uric Acid Calcium Phosphorus Magnesium Total Bilirubin Direct Bilirubin AST ALT Alkaline Phosphatase NT-Pro-B Natriuret Pep Total Protein Albumin Globulin Albumin/Globulin Ratio HIV 1&2 Ag/Ab, 4th Gen Blood Type Blood Type Confirm Antibody Screen Crossmatch BBK History Checked 12/24/18 12/24/18 12/25/18 21:45 22:17 07:23 WBC RBC Hgb Hct MCV MCH MCHC RDW Plt Count MPV Neut % (Auto) Lymph % (Auto) [place] % (Auto) Eos % (Auto) Baso % (Auto) Lymph # (Auto) [place] # (Auto) Eos # (Auto) Baso # (Auto) Absolute Neuts (auto) PT INR APTT Sodium Potassium Chloride Carbon Dioxide Anion Gap BUN Creatinine Est GFR ( Amer) Est GFR (Non-Af Amer) POC Glucose (mg/dL) 183 H Random Glucose Uric Acid Calcium Phosphorus Magnesium Total Bilirubin Direct Bilirubin AST ALT Alkaline Phosphatase NT-Pro-B Natriuret Pep Total Protein Albumin Globulin Albumin/Globulin Ratio HIV 1&2 Ag/Ab, 4th Gen Blood Type B POSITIVE Blood Type Confirm B POSITIVE Antibody Screen Negative Crossmatch See Detail BBK History Checked No verified bt 12/25/18 12/25/18 12/25/18 07:25 07:25 09:25 WBC 4.8 4.7 RBC 3.70 3.59 Hgb 11.8 L 11.4 L Hct 35.5 L 34.2 L MCV 95.9 95.3 MCH 31.9 31.8 MCHC 33.2 33.3 RDW 13.6 13.3 Plt Count 148 147 MPV 10.0 9.8 Neut % (Auto) 79.4 H 77.7 H Lymph % (Auto) 10.8 L 9.9 L [place] % (Auto) 7.1 H 9.9 H Eos % (Auto) 2.5 2.3 Baso % (Auto) 0.2 0.2 Lymph # (Auto) 0.5 L 0.5 L [place] # (Auto) 0.3 0.5 Eos # (Auto) 0.1 0.1 Baso # (Auto) 0.01 0.01 Absolute Neuts (auto) 3.82 3.67 PT INR APTT Sodium 140 Potassium 3.4 L Chloride 109 H Carbon Dioxide 25 Anion Gap 10 BUN 23 H Creatinine 1.0 Est GFR ( Amer) > 60 Est GFR (Non-Af Amer) > 60 POC Glucose (mg/dL) Random Glucose 167 H Uric Acid 7.0 Calcium 8.4 Phosphorus 2.6 Magnesium 1.6 L Total Bilirubin 0.9 Direct Bilirubin 0.5 H AST 26 ALT 21 Alkaline Phosphatase 59 NT-Pro-B Natriuret Pep 3320 H Total Protein 5.5 L Albumin 2.9 L Globulin 2.6 Albumin/Globulin Ratio 1.1 HIV 1&2 Ag/Ab, 4th Gen Blood Type Blood Type Confirm Antibody Screen Crossmatch BBK History Checked Assessment & Plan - Assessment and Plan (Free Text) Assessment: 83 yo M with PMH of HTN, CAD s/p CABG, T2DM, HLD, and asthma admitted to [facility] for NSTEMI and underwent cardiac catherization with 3 BMS placed in the mid and proximal RCA. Patient is transferred to the ICU due to active GI bleed. Patient currently hemodynamically stable, will continue to monitor. Plan: Neuro - AOx3 - Maintain normothermia CV - EF noted to be 20-25% during cath - Milrinone gtt - Cont ACEi, BB, and statin - Hold DAPT due to GI bleed - Maintain MAP > 65 - Cardiology following Pulm - Maintain O2 sat > 92% GI - Bleeding scan report pending - Protonix BID - NPO - Bowel prep - GI consulted: plan for c-scope tomorrow Renal - Potassium and Magnesium repleted - Cont to monitor electrolytes replete as needed - Maintain euvolemia Heme - CBC q4h - Type and crossmatch - If Hgb continues to decrease will transfuse - Overall, recommend transfuse to maintain Hgb > 9 - Vitamin K per GI - Recheck INR in morning, goal INR < 1.5 for procedure ID - IV abx per primary Endo - ISS - Accuchecks - Maintain euglycemia Patient seen and discussed in detail with Dr. Ontiveros. Blayne Saxena, DO PGY2 <Aldo Ontiveros - Last Filed: 12/25/18 13:12> Meds - Medications Medications: Current Medications Acetaminophen (Tylenol 325mg Tab) 650 mg PO Q6 PRN PRN Reason: TEMP>=99.5F Acetaminophen (Tylenol 650 Mg Supp) 650 mg RC Q6H PRN PRN Reason: TEMP>=99.5F Acetylcysteine (Acetylcysteine 20%) 4 ml IH Q8 [facility] Last Admin: 12/25/18 08:21 Dose: 4 ml Atorvastatin Calcium (Lipitor) 40 mg PO DIN [facility] Last Admin: 12/24/18 16:15 Dose: Not Given Carvedilol (Coreg) 12.5 mg PO BID [facility] Last Admin: 12/25/18 11:11 Dose: 12.5 mg Dextrose (Dextrose 50% Inj) 0 ml IV STAT PRN; Protocol PRN Reason: Hypoglycemia Protocol Docusate Sodium (Colace) 100 mg PO TID [facility] Last Admin: 12/25/18 10:58 Dose: 100 mg Famotidine (Pepcid) 40 mg PO HS [facility] Last Admin: 12/25/18 00:46 Dose: 40 mg Furosemide (Lasix) 40 mg IVP DAILY [facility] Last Admin: 12/25/18 11:12 Dose: 40 mg Doxycycline Hyclate 100 mg/ (Sodium Chloride) 100 mls @ 100 mls/hr IVPB Q12 [facility]; Protocol Last Admin: 12/25/18 12:41 Dose: 100 mls/hr Ceftriaxone Sodium (Rocephin 1 Gram Ivpb) 1 gm in 100 mls @ 100 mls/hr IVPB DAILY [facility]; Protocol Last Admin: 12/25/18 11:25 Dose: 100 mls/hr Dextrose (Dextrose 5% In Water 1000 Ml) 1,000 mls @ 0 mls/hr IV .Q0M PRN; Protocol PRN Reason: Hypoglycemia Protocol Metronidazole (Flagyl) 500 mg in 100 mls @ 100 mls/hr IVPB Q8 [facility]; Protocol Last Admin: 12/25/18 05:13 Dose: 100 mls/hr Milrinone Lactate/Dextrose (Primacor 20mg/100ml D5w) 100 mls @ 8.93 mls/hr IV .[id number] PRN; Protocol PRN Reason: TITRATE PER MD ORDER Last Admin: 12/25/18 03:12 Dose: 0.375 mcg/kg/min, 8.93 mls/hr Potassium Chloride (Potassium Chloride 10 Meq/100 Ml) 10 meq in 100 mls @ 50 mls/hr IVPB Q2H [facility] Stop: 12/25/18 16:14 Last Admin: 12/25/18 12:54 Dose: 50 mls/hr Insulin Human Regular (Humulin R Med) 0 units SC ACHS [facility]; Protocol Last Admin: 12/25/18 07:30 Dose: Not Given Levalbuterol HCl (Xopenex) 0.63 mg IH [id number] PRN PRN Reason: Shortness of Breath Levalbuterol HCl (Xopenex) 0.63 mg IH Q8 [facility] Last Admin: 12/25/18 08:21 Dose: 0.63 mg Levothyroxine Sodium (Synthroid) 25 mcg PO 0600 [facility] Last Admin: 12/25/18 05:13 Dose: 25 mcg Magnesium Citrate (Citrate Of Mag) 300 ml PO ONCE ONE Stop: 12/25/18 16:01 Magnesium Oxide (Mag-Ox) 400 mg PO BID [facility] Last Admin: 12/25/18 10:58 Dose: 400 mg Ondansetron HCl (Zofran Inj) 4 mg IVP Q4H PRN PRN Reason: Nausea/Vomiting Pantoprazole Sodium (Protonix Inj) 40 mg IVP Q12 [facility] Last Admin: 12/25/18 11:24 Dose: 40 mg Potassium Chloride (Klor-Con 10) 10 meq PO BRK [facility] Ramipril (Altace) 10 mg PO DAILY [facility] Last Admin: 12/25/18 11:32 Dose: 10 mg Tramadol HCl (Ultram) 50 mg PO Q6 PRN PRN Reason: Pain, moderate (4-7) Results - Vital Signs Recent Vital Signs: Last Vital Signs Temp 97.9 F 12/25/18 09:00 Pulse 65 12/25/18 11:11 Resp 18 12/25/18 09:00 BP 138/68 12/25/18 11:12 Pulse Ox 98 12/25/18 05:40 - Labs Result Diagrams: 12/25/18 11:10 12/25/18 07:25 Labs: Laboratory Results - last 24 hr 12/24/18 12/24/18 12/24/18 08:15 15:56 21:14 WBC RBC Hgb Hct MCV MCH MCHC RDW Plt Count MPV Neut % (Auto) Lymph % (Auto) [place] % (Auto) Eos % (Auto) Baso % (Auto) Lymph # (Auto) [place] # (Auto) Eos # (Auto) Baso # (Auto) Absolute Neuts (auto) PT INR APTT Sodium Potassium Chloride Carbon Dioxide Anion Gap BUN Creatinine Est GFR ( Amer) Est GFR (Non-Af Amer) POC Glucose (mg/dL) 213 H 248 H Random Glucose Uric Acid Calcium Phosphorus Magnesium Total Bilirubin Direct Bilirubin AST ALT Alkaline Phosphatase NT-Pro-B Natriuret Pep 5050 H Total Protein Albumin Globulin Albumin/Globulin Ratio Blood Type Blood Type Confirm Antibody Screen Crossmatch BBK History Checked 12/24/18 12/24/18 12/24/18 21:45 21:45 21:45 WBC 4.4 L RBC 3.62 Hgb 11.5 L Hct 34.7 L MCV 95.9 MCH 31.8 MCHC 33.1 RDW 13.5 Plt Count 128 MPV 9.4 Neut % (Auto) 79.7 H Lymph % (Auto) 11.4 L [place] % (Auto) 6.6 H Eos % (Auto) 2.3 Baso % (Auto) 0.0 Lymph # (Auto) 0.5 L [place] # (Auto) 0.3 Eos # (Auto) 0.1 Baso # (Auto) 0.00 Absolute Neuts (auto) 3.49 PT 17.2 H INR 1.55 APTT 37.8 Sodium Potassium Chloride Carbon Dioxide Anion Gap BUN Creatinine Est GFR ( Amer) Est GFR (Non-Af Amer) POC Glucose (mg/dL) Random Glucose Uric Acid Calcium Phosphorus Magnesium Total Bilirubin Direct Bilirubin AST ALT Alkaline Phosphatase NT-Pro-B Natriuret Pep Total Protein Albumin Globulin Albumin/Globulin Ratio Blood Type B POSITIVE Blood Type Confirm Antibody Screen Negative Crossmatch See Detail BBK History Checked No verified bt 12/24/18 12/25/18 12/25/18 22:17 07:23 07:25 WBC RBC Hgb Hct MCV MCH MCHC RDW Plt Count MPV Neut % (Auto) Lymph % (Auto) [place] % (Auto) Eos % (Auto) Baso % (Auto) Lymph # (Auto) [place] # (Auto) Eos # (Auto) Baso # (Auto) Absolute Neuts (auto) PT INR APTT Sodium 140 Potassium 3.4 L Chloride 109 H Carbon Dioxide 25 Anion Gap 10 BUN 23 H Creatinine 1.0 Est GFR ( Amer) > 60 Est GFR (Non-Af Amer) > 60 POC Glucose (mg/dL) 183 H Random Glucose 167 H Uric Acid 7.0 Calcium 8.4 Phosphorus 2.6 Magnesium 1.6 L Total Bilirubin 0.9 Direct Bilirubin 0.5 H AST 26 ALT 21 Alkaline Phosphatase 59 NT-Pro-B Natriuret Pep 3320 H Total Protein 5.5 L Albumin 2.9 L Globulin 2.6 Albumin/Globulin Ratio 1.1 Blood Type Blood Type Confirm B POSITIVE Antibody Screen Crossmatch BBK History Checked 12/25/18 12/25/18 12/25/18 07:25 09:25 11:10 WBC 4.8 4.7 RBC 3.70 3.59 Hgb 11.8 L 11.4 L 10.9 L Hct 35.5 L 34.2 L 33.0 L MCV 95.9 95.3 MCH 31.9 31.8 MCHC 33.2 33.3 RDW 13.6 13.3 Plt Count 148 147 MPV 10.0 9.8 Neut % (Auto) 79.4 H 77.7 H Lymph % (Auto) 10.8 L 9.9 L [place] % (Auto) 7.1 H 9.9 H Eos % (Auto) 2.5 2.3 Baso % (Auto) 0.2 0.2 Lymph # (Auto) 0.5 L 0.5 L [place] # (Auto) 0.3 0.5 Eos # (Auto) 0.1 0.1 Baso # (Auto) 0.01 0.01 Absolute Neuts (auto) 3.82 3.67 PT INR APTT Sodium Potassium Chloride Carbon Dioxide Anion Gap BUN Creatinine Est GFR ( Amer) Est GFR (Non-Af Amer) POC Glucose (mg/dL) Random Glucose Uric Acid Calcium Phosphorus Magnesium Total Bilirubin Direct Bilirubin AST ALT Alkaline Phosphatase NT-Pro-B Natriuret Pep Total Protein Albumin Globulin Albumin/Globulin Ratio Blood Type Blood Type Confirm Antibody Screen Crossmatch BBK History Checked Assessment & Plan - Assessment and Plan (Free Text) Plan: Patient seen and examined on rounds with resident, agree with note with following additions/exceptions: Patient is 83yo male with PMHx HTN, CAD s/p CABG, T2DM, HLD, and asthma initially admitted with CP and dyspnea on exertion, found to have an NSTEMI and underwent cardiac catherization which revealed severe triple vessel diseas with placement of three bare-metal stent placed in the mid- and proximal RCA This morning had BRBPR, bleeding scan obtained. Currently afebrile, SBP 130s, HD stable, comfortable, sleeping, in NAD HH noted, 11.4-->10.9, HR 80s ASA, Plavix held GI consulted, Dr Villasenor Cardiology follow up CAD CABG s/p PCI DMII HLD Acute GIB, likely Lower Recommend: - supp o2 as needed, duonebs PRN - NO ID issues - Hold BP meds - Hold ASA, plavix , transfuse goal HH>9 - CBC q4hr - Follow up GI, plan for colonoscopy tomorrow - Follow up cardio, Dr Mckeon - Vit K, FFP as needed - maintain 2 large bore PIVs - PPI - DVT ppx, SCDs - Monitor in MICU Critical care time 35 minutes
--- NOTE | 2018-12-25 10:34 | CP.PCM.PN ---
Subjective - Date & Time of Evaluation Date of Evaluation: 12/25/18 Time of Evaluation: 10:13 - Subjective Subjective: Surgery Progress Note for Dr. Watt S/E at bedside. No acute complaints as per patient. As per nursing and primary team patient started to have bright red blood per rectum in diaper. Most recent diaper had notice blood clots and moderate amount of blood in diaper. Denies fevers, chills, abd pain, palpitations, n/v, constipation and dysuria. Objective - Vital Signs/Intake and Output Vital Signs (last 24 hours): Temp Pulse Resp BP Pulse Ox 97.9 F 68 18 137/85 98 12/25/18 09:00 12/25/18 09:00 12/25/18 09:00 12/25/18 09:00 12/25/18 05:40 Intake and Output: 12/25/18 12/25/18 06:59 18:59 Intake Total 1506 Balance 1506 - Medications Medications: Current Medications Acetaminophen (Tylenol 325mg Tab) 650 mg PO Q6 PRN PRN Reason: TEMP>=99.5F Acetaminophen (Tylenol 650 Mg Supp) 650 mg RC Q6H PRN PRN Reason: TEMP>=99.5F Acetylcysteine (Acetylcysteine 20%) 4 ml IH Q8 [facility] Last Admin: 12/25/18 08:21 Dose: 4 ml Atorvastatin Calcium (Lipitor) 40 mg PO DIN [facility] Last Admin: 12/24/18 16:15 Dose: Not Given Carvedilol (Coreg) 12.5 mg PO BID [facility] Last Admin: 12/24/18 17:35 Dose: Not Given Dextrose (Dextrose 50% Inj) 0 ml IV STAT PRN; Protocol PRN Reason: Hypoglycemia Protocol Docusate Sodium (Colace) 100 mg PO TID [facility] Last Admin: 12/24/18 17:35 Dose: Not Given Famotidine (Pepcid) 40 mg PO HS [facility] Last Admin: 12/25/18 00:46 Dose: 40 mg Furosemide (Lasix) 40 mg IVP DAILY [facility] Doxycycline Hyclate 100 mg/ (Sodium Chloride) 100 mls @ 100 mls/hr IVPB Q12 [facility]; Protocol Last Admin: 12/25/18 00:45 Dose: 100 mls/hr Ceftriaxone Sodium (Rocephin 1 Gram Ivpb) 1 gm in 100 mls @ 100 mls/hr IVPB DAILY [facility]; Protocol Last Admin: 12/24/18 20:25 Dose: 100 mls/hr Dextrose (Dextrose 5% In Water 1000 Ml) 1,000 mls @ 0 mls/hr IV .Q0M PRN; Protocol PRN Reason: Hypoglycemia Protocol Metronidazole (Flagyl) 500 mg in 100 mls @ 100 mls/hr IVPB Q8 [facility]; Protocol Last Admin: 12/25/18 05:13 Dose: 100 mls/hr Milrinone Lactate/Dextrose (Primacor 20mg/100ml D5w) 100 mls @ 8.93 mls/hr IV .[id number] PRN; Protocol PRN Reason: TITRATE PER MD ORDER Last Admin: 12/25/18 03:12 Dose: 0.375 mcg/kg/min, 8.93 mls/hr Potassium Chloride (Potassium Chloride 10 Meq/100 Ml) 10 meq in 100 mls @ 50 mls/hr IVPB Q2H [facility] Stop: 12/25/18 12:14 Magnesium Sulfate (Magnesium Sulfate 2 Gm/50 Ml Water) 2 gm in 50 mls @ 50 mls/hr IVPB ONCE ONE Stop: 12/25/18 10:59 Potassium Chloride (Potassium Chloride 20 Meq/100 Ml) 20 meq in 100 mls @ 50 mls/hr IVPB ONCE ONE Stop: 12/25/18 12:59 Insulin Human Regular (Humulin R Med) 0 units SC ACHS [facility]; Protocol Last Admin: 12/25/18 07:30 Dose: Not Given Levalbuterol HCl (Xopenex) 0.63 mg IH [id number] PRN PRN Reason: Shortness of Breath Levalbuterol HCl (Xopenex) 0.63 mg IH Q8 [facility] Last Admin: 12/25/18 08:21 Dose: 0.63 mg Levothyroxine Sodium (Synthroid) 25 mcg PO 0600 [facility] Last Admin: 12/25/18 05:13 Dose: 25 mcg Magnesium Citrate (Citrate Of Mag) 300 ml PO ONCE ONE Stop: 12/25/18 16:01 Magnesium Oxide (Mag-Ox) 400 mg PO BID [facility] Ondansetron HCl (Zofran Inj) 4 mg IVP Q4H PRN PRN Reason: Nausea/Vomiting Pantoprazole Sodium (Protonix Inj) 40 mg IVP Q12 [facility] Potassium Chloride (Klor-Con 10) 10 meq PO BRK [facility] Ramipril (Altace) 10 mg PO DAILY [facility] Last Admin: 12/24/18 09:46 Dose: 10 mg Tramadol HCl (Ultram) 50 mg PO Q6 PRN PRN Reason: Pain, moderate (4-7) - Labs Labs: 12/25/18 09:25 12/25/18 07:25 PT 17.2 SECONDS (9.4-12.5) H 12/24/18 21:45 INR 1.55 12/24/18 21:45 APTT 37.8 Seconds (26.9-38.3) 12/24/18 21:45 - Additional Findings Additional findings: - Constitutional Appears: Non-toxic, No Acute Distress - Head Exam Head Exam: ATRAUMATIC, NORMOCEPHALIC - Eye Exam Eye Exam: EOMI, Normal appearance, PERRL - ENT Exam ENT Exam: Mucous Membranes Moist - Neck Exam Neck exam: Negative for: Lymphadenopathy - Respiratory Exam Respiratory Exam: Decreased Breath Sounds (on the left), Rales. absent: Accessory Muscle Use, Rhonchi, Wheezes, Respiratory Distress - Cardiovascular Exam Cardiovascular Exam: REGULAR RHYTHM, +S1, +S2. absent: Systolic Murmur - GI/Abdominal Exam GI & Abdominal Exam: Soft, Tenderness. absent: Distended, Firm, Guarding, Rebound, Rigid Indirect inguinal hernia, nontender, reduced, nonbulging clinically - Extremities Exam Extremities exam: Positive for: normal capillary refill, pedal pulses present. Negative for: tenderness Additional comments: +1 pitting edema on LE b/l - Neurological Exam Neurological exam: Alert, CN II-XII Intact, Oriented x3 - Skin Skin Exam: Dry, Intact, noted midline incision on chest wall Assessment and Plan - Assessment and Plan (Free Text) Assessment: 83 M with PMHx CAD s/p CABG 1989, asthma, who presented with NSTEMI. Presently, doubt small bowel obstruction in light of tolerance of diet. 12/23/18 CT abd/pelvis: There is a right-sided inguinal hernia that contains a loop of bowel. This measures 3.4 x 5.2 cm. There is no associated obstruction. Re-evaluated patient for GI bleed. Transfer to ICU as per primary team. PLAN: Agree with Transfer to ICU Colonsocopy planned for 12/26 per GI team Patient VSS stable, no acute surgical intervention warranted currently On recent labs hgb stable; s/p cardiac cath on 12/24 with insertion of 3 bare metal stents (refer to EMR for full report) Continue IV protonix All other medical management as per ICU and primary team All further recs as per Dr. Watt PGY-1 Delma Guidry
[2018-12-25] MEDS: Magnesium Oxide 400 mg Tab UD PO SCH ×2 (10:58→17:11)
--- NOTE | 2018-12-25 11:08 | CP.PCM.PN ---
Subjective - Date & Time of Evaluation Date of Evaluation: 12/25/18 Time of Evaluation: 11:03 - Subjective Subjective: PGY-[address] Dorsey Pt has a daughter, pending brother to get more info. Require ativan x 1 last night. OFf Levo. Only on dubutamin and prexedex Objective - Vital Signs/Intake and Output Vital Signs (last 24 hours): Temp Pulse Resp BP Pulse Ox 97.9 F 68 18 137/85 98 12/25/18 09:00 12/25/18 09:00 12/25/18 09:00 12/25/18 09:00 12/25/18 05:40 Intake and Output: 12/25/18 12/25/18 06:59 18:59 Intake Total 1506 Balance 1506 - Medications Medications: Current Medications Acetaminophen (Tylenol 325mg Tab) 650 mg PO Q6 PRN PRN Reason: TEMP>=99.5F Acetaminophen (Tylenol 650 Mg Supp) 650 mg RC Q6H PRN PRN Reason: TEMP>=99.5F Acetylcysteine (Acetylcysteine 20%) 4 ml IH Q8 [facility] Last Admin: 12/25/18 08:21 Dose: 4 ml Atorvastatin Calcium (Lipitor) 40 mg PO DIN [facility] Last Admin: 12/24/18 16:15 Dose: Not Given Carvedilol (Coreg) 12.5 mg PO BID [facility] Last Admin: 12/24/18 17:35 Dose: Not Given Dextrose (Dextrose 50% Inj) 0 ml IV STAT PRN; Protocol PRN Reason: Hypoglycemia Protocol Docusate Sodium (Colace) 100 mg PO TID [facility] Last Admin: 12/24/18 17:35 Dose: Not Given Famotidine (Pepcid) 40 mg PO HS [facility] Last Admin: 12/25/18 00:46 Dose: 40 mg Furosemide (Lasix) 40 mg IVP DAILY [facility] Doxycycline Hyclate 100 mg/ (Sodium Chloride) 100 mls @ 100 mls/hr IVPB Q12 [facility]; Protocol Last Admin: 12/25/18 00:45 Dose: 100 mls/hr Ceftriaxone Sodium (Rocephin 1 Gram Ivpb) 1 gm in 100 mls @ 100 mls/hr IVPB DAILY [facility]; Protocol Last Admin: 12/24/18 20:25 Dose: 100 mls/hr Dextrose (Dextrose 5% In Water 1000 Ml) 1,000 mls @ 0 mls/hr IV .Q0M PRN; Protocol PRN Reason: Hypoglycemia Protocol Metronidazole (Flagyl) 500 mg in 100 mls @ 100 mls/hr IVPB Q8 [facility]; Protocol Last Admin: 12/25/18 05:13 Dose: 100 mls/hr Milrinone Lactate/Dextrose (Primacor 20mg/100ml D5w) 100 mls @ 8.93 mls/hr IV .[id number] PRN; Protocol PRN Reason: TITRATE PER MD ORDER Last Admin: 12/25/18 03:12 Dose: 0.375 mcg/kg/min, 8.93 mls/hr Potassium Chloride (Potassium Chloride 10 Meq/100 Ml) 10 meq in 100 mls @ 50 mls/hr IVPB Q2H [facility] Stop: 12/25/18 12:14 Potassium Chloride (Potassium Chloride 20 Meq/100 Ml) 20 meq in 100 mls @ 50 mls/hr IVPB ONCE ONE Stop: 12/25/18 12:59 Insulin Human Regular (Humulin R Med) 0 units SC ACHS [facility]; Protocol Last Admin: 12/25/18 07:30 Dose: Not Given Levalbuterol HCl (Xopenex) 0.63 mg IH [id number] PRN PRN Reason: Shortness of Breath Levalbuterol HCl (Xopenex) 0.63 mg IH Q8 [facility] Last Admin: 12/25/18 08:21 Dose: 0.63 mg Levothyroxine Sodium (Synthroid) 25 mcg PO 0600 [facility] Last Admin: 12/25/18 05:13 Dose: 25 mcg Magnesium Citrate (Citrate Of Mag) 300 ml PO ONCE ONE Stop: 12/25/18 16:01 Magnesium Oxide (Mag-Ox) 400 mg PO BID [facility] Ondansetron HCl (Zofran Inj) 4 mg IVP Q4H PRN PRN Reason: Nausea/Vomiting Pantoprazole Sodium (Protonix Inj) 40 mg IVP Q12 [facility] Potassium Chloride (Klor-Con 10) 10 meq PO BRK [facility] Ramipril (Altace) 10 mg PO DAILY [facility] Last Admin: 12/24/18 09:46 Dose: 10 mg Tramadol HCl (Ultram) 50 mg PO Q6 PRN PRN Reason: Pain, moderate (4-7) - Labs Labs: 12/25/18 09:25 12/25/18 07:25 PT 17.2 SECONDS (9.4-12.5) H 12/24/18 21:45 INR 1.55 12/24/18 21:45 APTT 37.8 Seconds (26.9-38.3) 12/24/18 21:45 - Constitutional Appears: Other (intubated) - Head Exam Head Exam: ATRAUMATIC, NORMAL INSPECTION, NORMOCEPHALIC - Eye Exam Eye Exam: EOMI, Normal appearance, PERRL. absent: Scleral icterus Pupil Exam: NORMAL ACCOMODATION - ENT Exam ENT Exam: Mucous Membranes Moist - Neck Exam Additional comments: No JVD - Respiratory Exam Respiratory Exam: Decreased Breath Sounds - Cardiovascular Exam Cardiovascular Exam: REGULAR RHYTHM, +S1, +S2 - GI/Abdominal Exam GI & Abdominal Exam: Soft, Hypoactive Bowel Sounds - Extremities Exam Extremities Exam: Pedal Edema - Neurological Exam Additional comments: intubated - Psychiatric Exam Psychiatric exam: Flat Affect - Skin Skin Exam: Dry, Warm Assessment and Plan - Assessment and Plan (Free Text) Plan: Mr Hernandez, 68M, with PMhx penicillin allergy, chronic back pain and vertebral disc disease admitted for b/l foot cellulitis r/o osteomyelitis and L thigh dec ubitus. During the hospital stay, he developes hypoxemic hypercapnic respiratory distress requiring high flow and BIPAP. He deveople acute CHF complicated by large b/l pleural effusion and suspected pneumonia with sepsis and high procalcitonin. He refused thoracentesis (12/22) He is upgrades to ICU on 11/01 for AMS with increased lethargy and low BP requirng levophed and dobutamin. He received thoracentesis by bedside (12/23) 1700cc drained from R side. He was intubated on 12/23 for Hypercapnic hypoxemic respiratory distress. He had oliguria from low BP, now U/O improves on pressor, but developed JERRY. His pulm status improves on lasix Hypercapnic hypoxemic respiratory distress, intubated day 3 - decreased FIO2 requirment to 60% Cardiogenic Shock dobutamin gtt - Septic vs cardiogenic. Had rule out obstructive from PE (negative CTA-chest) Possible Septic shock due to HAP with b/l foot cellulitis which grew MRSA. PLUS multiple decubitus ulcers - Linezolid/Merem (day 4) - Taper stress dose steroid - CAMILLA was only mildly abnormal at rest, possible PAD. - For sacral decubitus stage 3, L thigh, he is on santyl and local wound care. No osteomyelitis - pt refuses MRI to r/o osteomyelitis. - ESR 105 CHF, b/l pleural effusion large, s/p R thoracentesis (POD #2) RBBB (questionable new onset vs chronic) with prolong Qtc 496 - Echo (12/23): EF 50s (on pressor). RVSP 62. RV hypokinetic/dilated - Questionable RHF - Hold beta ernestina due to acute heart failure JERRY, likely ATN from hypoperfusion/low BP - strict i/o. trend cre/bun He is anemic with Hb 8.4 on 12/17. He got 1u pRBC, s/p 5 days of Fe IV Hyponatermia, mild, asymptomatci, s/p NS@50. Stop IVF for now due to deSat. For anxiety, he is on ativan PRN For tobacco addition, general counselor for cessation and he is on nicoderm dispo plan: PT recommends SNOW. [ ] Antibiotics. [ ] cytology from pleural effusion [ ] pending daughter contact. Now brother is main contact and consent s/r/d/w Dr Dorsey
[2018-12-25 11:17] LABS: HEMOGLOBIN 10.9 g/dL (14.0-18.0)
[2018-12-25] MEDS: Magnesium Sulfate 2 gm/50 ml 2 GM/50 ML BAG IVPB ONE ×3 (11:20→14:12)
[2018-12-25] MEDS: cefTRIAXone 1 gm 1 GM/100 ML BAG IVPB SCH (11:25)
--- NOTE | 2018-12-25 11:58 | NM ---
Date of service: 12/24/2018 PROCEDURE: Nuclear medicine gastrointestinal bleeding scan. HISTORY: rectal bleeding COMPARISON: None available. TECHNIQUE: 4ccof patient blood was withdrawn and mixed with 33.0 mCi of technetium ultra tagged. Images of the abdomen and pelvis were obtained in the anterior and posterior projection at 1 min intervals over a period of 45 min. FINDINGS: Extravasation of contrast was observed at the level of the rectosigmoid junction. Physiologic activity was seen in the heart, liver, spleen and blood vessels. IMPRESSION: Positive examination for active gastrointestinal bleeding. The origin of the bleeding is in the rectosigmoid region.
--- NOTE | 2018-12-25 12:18 | CP.PCM.PN ---
Objective - Vital Signs/Intake and Output Vital Signs (last 24 hours): Temp Pulse Resp BP Pulse Ox 97.9 F 65 18 138/68 98 12/25/18 09:00 12/25/18 11:11 12/25/18 09:00 12/25/18 11:12 12/25/18 05:40 Intake and Output: 12/25/18 12/25/18 06:59 18:59 Intake Total 1506 Balance 1506 - Medications Medications: Current Medications Acetaminophen (Tylenol 325mg Tab) 650 mg PO Q6 PRN PRN Reason: TEMP>=99.5F Acetaminophen (Tylenol 650 Mg Supp) 650 mg RC Q6H PRN PRN Reason: TEMP>=99.5F Acetylcysteine (Acetylcysteine 20%) 4 ml IH Q8 [facility] Last Admin: 12/25/18 08:21 Dose: 4 ml Atorvastatin Calcium (Lipitor) 40 mg PO DIN [facility] Last Admin: 12/24/18 16:15 Dose: Not Given Carvedilol (Coreg) 12.5 mg PO BID [facility] Last Admin: 12/25/18 11:11 Dose: 12.5 mg Dextrose (Dextrose 50% Inj) 0 ml IV STAT PRN; Protocol PRN Reason: Hypoglycemia Protocol Docusate Sodium (Colace) 100 mg PO TID [facility] Last Admin: 12/25/18 10:58 Dose: 100 mg Famotidine (Pepcid) 40 mg PO HS [facility] Last Admin: 12/25/18 00:46 Dose: 40 mg Furosemide (Lasix) 40 mg IVP DAILY [facility] Last Admin: 12/25/18 11:12 Dose: 40 mg Doxycycline Hyclate 100 mg/ (Sodium Chloride) 100 mls @ 100 mls/hr IVPB Q12 [facility]; Protocol Last Admin: 12/25/18 00:45 Dose: 100 mls/hr Ceftriaxone Sodium (Rocephin 1 Gram Ivpb) 1 gm in 100 mls @ 100 mls/hr IVPB DAILY [facility]; Protocol Last Admin: 12/25/18 11:25 Dose: 100 mls/hr Dextrose (Dextrose 5% In Water 1000 Ml) 1,000 mls @ 0 mls/hr IV .Q0M PRN; Protocol PRN Reason: Hypoglycemia Protocol Metronidazole (Flagyl) 500 mg in 100 mls @ 100 mls/hr IVPB Q8 [facility]; Protocol Last Admin: 12/25/18 05:13 Dose: 100 mls/hr Milrinone Lactate/Dextrose (Primacor 20mg/100ml D5w) 100 mls @ 8.93 mls/hr IV .[id number] PRN; Protocol PRN Reason: TITRATE PER MD ORDER Last Admin: 12/25/18 03:12 Dose: 0.375 mcg/kg/min, 8.93 mls/hr Potassium Chloride (Potassium Chloride 10 Meq/100 Ml) 10 meq in 100 mls @ 50 mls/hr IVPB Q2H [facility] Stop: 12/25/18 16:14 Last Admin: 12/25/18 10:56 Dose: 50 mls/hr Insulin Human Regular (Humulin R Med) 0 units SC ACHS [facility]; Protocol Last Admin: 12/25/18 07:30 Dose: Not Given Levalbuterol HCl (Xopenex) 0.63 mg IH [id number] PRN PRN Reason: Shortness of Breath Levalbuterol HCl (Xopenex) 0.63 mg IH Q8 [facility] Last Admin: 12/25/18 08:21 Dose: 0.63 mg Levothyroxine Sodium (Synthroid) 25 mcg PO 0600 [facility] Last Admin: 12/25/18 05:13 Dose: 25 mcg Magnesium Citrate (Citrate Of Mag) 300 ml PO ONCE ONE Stop: 12/25/18 16:01 Magnesium Oxide (Mag-Ox) 400 mg PO BID [facility] Last Admin: 12/25/18 10:58 Dose: 400 mg Ondansetron HCl (Zofran Inj) 4 mg IVP Q4H PRN PRN Reason: Nausea/Vomiting Pantoprazole Sodium (Protonix Inj) 40 mg IVP Q12 [facility] Last Admin: 12/25/18 11:24 Dose: 40 mg Potassium Chloride (Klor-Con 10) 10 meq PO BRK [facility] Ramipril (Altace) 10 mg PO DAILY [facility] Last Admin: 12/25/18 11:32 Dose: 10 mg Tramadol HCl (Ultram) 50 mg PO Q6 PRN PRN Reason: Pain, moderate (4-7) - Labs Labs: 12/25/18 11:10 12/25/18 07:25 PT 17.2 SECONDS (9.4-12.5) H 12/24/18 21:45 INR 1.55 12/24/18 21:45 APTT 37.8 Seconds (26.9-38.3) 12/24/18 21:45
--- NOTE | 2018-12-25 15:22 | PN ---
DATE: 12/25/2018 SUBJECTIVE: The patient is awake without complaints in bed. PHYSICAL EXAMINATION: VITAL SIGNS: Blood pressure 137/85, heart rates in the 60s. NECK: Negative JVD. LUNGS: Without rales. HEART: Reveals S1, S2. EXTREMITIES: Without edema. LABORATORY DATA: Hemoglobin is 11.4 this morning and 10.9 in the afternoon. BUN and creatinine is unremarkable. Glucose 167. IMPRESSION: 1. Status post percutaneous transluminal coronary angioplasty and stent of a critically stenosed right coronary artery with bare-metal stents. 2. Gastrointestinal bleed once the patient was placed on aspirin and Plavix. 3. 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 4. History of coronary bypass surgery. 5. Diabetes mellitus. Given these findings, aspirin and Plavix has been on hold. The patient scheduled for endoscopy tomorrow to see if we can identify the source of his bleeding. We will not give platelet transfusions at this time. We will give packed red blood cells if necessary. Curtis Mckeon MD
[2018-12-25] MEDS ORDERED: Magnesium Citrate Oral SOL (300 ml) PO ONE (16:00)
[2018-12-25 19:42] LABS: HEMOGLOBIN 12.1 g/dL (14.0-18.0)
--- NOTE | 2018-12-25 20:48 | PN ---
DATE: 12/25/2018 SUBJECTIVE: The patient is seen lying in the bed in room 277, bed 2. Overnight nurse's notes and events were reviewed. The patient had rectal bleeding early this morning. The patient underwent a stat bleeding scan, lab work were done. The bleeding scan shows active bleeding site in the rectosigmoid area. The patient is now at present examined in room 277, bed 2. At present, the patient does not have any rectal bleeding. PHYSICAL EXAMINATION: GENERAL: The patient is seen lying in the bed. VITAL SIGNS: T-max, the patient is afebrile. Telemetry shows sinus rhythm, heart rate 84, 76, 68, respirations 20, O2 sat in mid to high 90%, blood pressure is 128/78 and 130/84. HEENT: Head: Normocephalic, atraumatic. HEENT examination shows pinkish pale conjunctivae. Anicteric sclerae. No oropharyngeal lesion. NECK: No neck rigidity. CHEST: Shows median sternotomy surgical scar. LUNGS: Does not reveal any crackles, rales or wheezing. Questionable decreased breath sounds at the left base and positive rhonchi, left more than the right. CARDIOVASCULAR: S1, S2, regular rhythm. Questionable soft systolic murmur, left sternal border, right second intercostal space, left second intercostal space. ABDOMEN: Soft. Positive bowel sounds. GENITALIA: Male. RECTAL: Guaiac positive. EXTREMITIES: Shows no pitting edema, no calf tenderness, no swelling. The swelling and edema of the lower extremity has resolved. NEUROLOGIC: Gait examination, not tested. MUSCULOSKELETAL: As per the body mass index. DIAGNOSTIC DATA: Labs from today. The patient's baseline hemoglobin on admission was 13-14 g. A repeat hemoglobin this morning is 11.3 and 11.4, hematocrit 33. The patient's PT is slightly elevated at 17. Chemistry; CMP and LFTs were reviewed which show potassium was low at 3.2, magnesium was 1.6. The patient's bleeding scan report preliminary shows active bleeding from the rectosigmoid area. The patient has been consulted with Gastroenterology. IMPRESSION: 1. Lower gastrointestinal bleeding with positive bleeding scan showing active rectosigmoid bleeding. 2. Acute blood loss anemia with decreasing hemoglobin and hematocrit. 3. Mild coagulopathy with prothrombin time of 17.2. 4. Acute ifn-EC-oollsshfo myocardial function with elevated troponin. 5. Status post angioplasty and stent placement of right coronary artery with multiple bare-metal stents. 6. Congestive heart failure with elevated pro b-type natriuretic peptide. 7. Left sided multilobar pneumonia. 8. Anemia with decreasing hemoglobin and hematocrit secondary to acute blood loss anemia secondary to more gastrointestinal bleeding. 9. Hypokalemia. 10. Hypomagnesemia. 11. Ischemic dilated cardiomyopathy. 12. Systolic congestive heart failure with elevated pro b-type natriuretic peptide. 13. Hypothyroidism. 14. History of hypertension. PLAN: At this time while I finished examining the patient, the patient had a recurrent lower gastrointestinal bleeding with passing of bright red blood per rectum. At this time, a stat ICU consult was requested. The patient had a repeat lab work ordered again. GI was notified. Cardiology evaluation was requested right away. Lead Technical Writer consults were ordered. While all this was going on, the patient was evaluated by the clean up person. The patient has been accepted to ICU. The patient will be transferred to ICU for further management. Later on, I have seen the patient in ICU with the patient's next of kin, Navid at bedside. I have explained to the patient's next of kin and the family about the patient's condition, diagnosis, changes in the patient's clinical condition. All the above details and recommendation by all the physicians involved in the care of the patient were explained to the patient's family and the next of kin, Navid which he acknowledged and understood. All risks and consequences were explained to the patient's next of kin and the family at length. The patient will be continued on the therapeutic intervention as per the MAR of today. The patient may need packed red blood cell transfusion depending upon serial monitoring of the hemoglobin and hematocrit. The patient has been ordered potassium supplementation and magnesium supplementation. The patient will be continued on non-pharmacological DVT prophylaxis. The patient will be continued on high-dose proton pump inhibitor. The patient will be monitored in ICU until the patient is stabilized and the rectal bleeding has stopped. Depending upon the patient's GI evaluation, the patient may need colonoscopy and probably endoscopy. At present, the patient will be transferred and admitted to ICU. The patient's medications will be as per the MAR of today. The patient's Lasix is decreased to 40 mg IV daily. The patient is also started on maintenance potassium, 10 mEq K-Dur daily from tomorrow. The patient will be continued on non-pharmacological DVT prophylaxis and pharmacological GI prophylaxis. Time spent is more than 35 minutes. Dictated and electronically signed, not read. Jameson Dorsey MD
[2018-12-25] MEDS ORDERED: Dextrose 50% SYRINGE Inj (50 ml) IVP ONE (21:50)
[2018-12-25] MEDS: Dextrose 50% SYRINGE Inj (50 ml) IV PRN (21:52)
--- NOTE | 2018-12-26 00:05 | CP.PCM.PN ---
Subjective - Date & Time of Evaluation Date of Evaluation: 12/26/18 Time of Evaluation: 00:04 - Subjective Subjective: # 22 angiocath was inserted in left hand. Objective - Vital Signs/Intake and Output Vital Signs (last 24 hours): Temp Pulse Resp BP Pulse Ox 97.8 F 59 L 20 80/40 L 99 12/25/18 20:00 12/25/18 21:20 12/25/18 21:20 12/25/18 21:00 12/25/18 21:20 Intake and Output: 12/25/18 12/26/18 18:59 06:59 Intake Total 1875 Output Total 500 Balance 1375 - Medications Medications: Current Medications Acetaminophen (Tylenol 325mg Tab) 650 mg PO Q6 PRN PRN Reason: TEMP>=99.5F Acetaminophen (Tylenol 650 Mg Supp) 650 mg RC Q6H PRN PRN Reason: TEMP>=99.5F Acetylcysteine (Acetylcysteine 20%) 4 ml IH Q8 [facility] Last Admin: 12/25/18 21:03 Dose: 4 ml Atorvastatin Calcium (Lipitor) 40 mg PO DIN [facility] Last Admin: 12/25/18 16:50 Dose: Not Given Carvedilol (Coreg) 12.5 mg PO BID [facility] Last Admin: 12/25/18 11:11 Dose: 12.5 mg Dextrose (Dextrose 50% Inj) 0 ml IV STAT PRN; Protocol PRN Reason: Hypoglycemia Protocol Last Admin: 12/25/18 21:52 Dose: 50 ml Diltiazem HCl (Cardizem) 15 mg IVP ONCE ONE Stop: 12/26/18 00:05 Docusate Sodium (Colace) 100 mg PO TID [facility] Last Admin: 12/25/18 16:43 Dose: Not Given Famotidine (Pepcid) 40 mg PO HS [facility] Last Admin: 12/25/18 21:36 Dose: 40 mg Furosemide (Lasix) 40 mg IVP DAILY [facility] Last Admin: 12/25/18 11:12 Dose: 40 mg Doxycycline Hyclate 100 mg/ (Sodium Chloride) 100 mls @ 100 mls/hr IVPB Q12 [facility]; Protocol Last Admin: 12/25/18 21:36 Dose: 100 mls/hr Ceftriaxone Sodium (Rocephin 1 Gram Ivpb) 1 gm in 100 mls @ 100 mls/hr IVPB DAILY [facility]; Protocol Last Admin: 12/25/18 11:25 Dose: 100 mls/hr Dextrose (Dextrose 5% In Water 1000 Ml) 1,000 mls @ 0 mls/hr IV .Q0M PRN; Protocol PRN Reason: Hypoglycemia Protocol Metronidazole (Flagyl) 500 mg in 100 mls @ 100 mls/hr IVPB Q8 [facility]; Protocol Last Admin: 12/25/18 21:35 Dose: 100 mls/hr Milrinone Lactate/Dextrose (Primacor 20mg/100ml D5w) 100 mls @ 8.93 mls/hr IV .[id number] PRN; Protocol PRN Reason: TITRATE PER MD ORDER Last Titration: 12/25/18 14:28 Dose: 0.375 mcg/kg/min, 8.93 mls/hr Insulin Human Regular (Humulin R Med) 0 units SC ACHS [facility]; Protocol Last Admin: 12/25/18 21:46 Dose: Not Given Levalbuterol HCl (Xopenex) 0.63 mg IH [id number] PRN PRN Reason: Shortness of Breath Levalbuterol HCl (Xopenex) 0.63 mg IH Q8 [facility] Last Admin: 12/25/18 21:03 Dose: 0.63 mg Levothyroxine Sodium (Synthroid) 25 mcg PO 0600 [facility] Last Admin: 12/25/18 05:13 Dose: 25 mcg Magnesium Oxide (Mag-Ox) 400 mg PO BID [facility] Last Admin: 12/25/18 17:11 Dose: 400 mg Ondansetron HCl (Zofran Inj) 4 mg IVP Q4H PRN PRN Reason: Nausea/Vomiting Pantoprazole Sodium (Protonix Inj) 40 mg IVP Q12 [facility] Last Admin: 12/25/18 21:36 Dose: 40 mg Potassium Chloride (Klor-Con 10) 10 meq PO BRK [facility] Ramipril (Altace) 10 mg PO DAILY [facility] Last Admin: 12/25/18 11:32 Dose: 10 mg Tramadol HCl (Ultram) 50 mg PO Q6 PRN PRN Reason: Pain, moderate (4-7) - Labs Labs: 12/25/18 19:11 12/25/18 07:25 PT 17.2 SECONDS (9.4-12.5) H 12/24/18 21:45 INR 1.55 12/24/18 21:45 APTT 37.8 Seconds (26.9-38.3) 12/24/18 21:45
[2018-12-26] MEDS ORDERED: Morphine 2 mg/ml ISec IVP STA (00:07)
[2018-12-26 00:13] LABS: HEMOGLOBIN 11.6 g/dL (14.0-18.0)
[2018-12-26] MEDS: metroNIDAZOLE IV 500 mg/100 ml 500 MG/100 ML BAG IVPB SCH ×4 (05:20→21:14)
[2018-12-26] MEDS: Milrinone 20mg/100ml D5W 100 ML IV PRN (05:21)
[2018-12-26] MEDS: Levothyroxine 25 MCG TAB PO SCH (05:23)
[2018-12-26 06:51] LABS: BASO # 0.01 K/mm3 (0.0-2.0); BASO % 0.2 % (0.0-3.0); EOS # 0.2 (0.0-0.7); EOS % 4.6 % (1.5-5.0); HEMOGLOBIN 11.9 g/dL (14.0-18.0); LYMPH # 0.7 (1.2-3.4); LYMPH % 15.7 % (22.0-35.0); MEAN CORPUSCULAR HEMOGLOBIN 30.7 pg (25.0-35.0); MEAN CORPUSCULAR HGB CONC 33.1 g/dl (31.0-37.0); MONO # 0.4 (0.1-0.6); MONO % 8.3 % (1.0-6.0); RBC 3.87 10^6/uL (3.5-6.1); RED CELL DISTRIBUTION WIDTH 14.8 % (11.5-14.5); WHITE BLOOD COUNT 4.3 10^3/uL (4.5-11.0)
[2018-12-26 07:12] LABS: B-TYPE NATRIURETIC PEPTIDE 2330 pg/mL (0-450)
[2018-12-26 07:26] LABS: ALB/GLOB RATIO 1.1 (1.1-1.8); ALBUMIN 2.9 g/dL (3.0-4.8); ALT/SGPT 23 U/L (7-56); AST/SGOT 23 U/L (17-59); BILIRUBIN,DIRECT 0.4 mg/dL (0.0-0.4); BLOOD UREA NITROGEN 21 mg/dL (7-21); CALCIUM 8.4 mg/dL (8.4-10.5); GFR NON-AFRICAN AMERICAN 58
[2018-12-26] MEDS: Levalbuterol 0.63 MG/3 ML Inhal Soln UD IH SCH ×3 (07:32→21:14)
[2018-12-26] MEDS: Acetylcysteine 20% Inhal Soln (4ml) IH SCH ×3 (07:32→21:14)
[2018-12-26] MEDS ORDERED: Midazolam 2 MG/2 ML VIAL ONE (08:05)
--- NOTE | 2018-12-26 08:08 | CP.PCM.PN ---
Subjective - Date & Time of Evaluation Date of Evaluation: 12/26/18 Time of Evaluation: 08:05 - Subjective Subjective: Surgery Progress Note for Dr. Watt S/E at bedside with nephew in room. As per nursing pt had multiple dark loose stools, no bright red blood noted. Pending colonoscopy today. Denies abdominal pain, fevers, chills, chest pain, sob, n/v, constipation or diarrhea, and dysuria. Objective - Vital Signs/Intake and Output Vital Signs (last 24 hours): Temp Pulse Resp BP Pulse Ox 97.4 F L 64 14 135/79 100 12/26/18 04:00 12/26/18 05:40 12/26/18 05:40 12/26/18 05:01 12/26/18 05:40 Intake and Output: 12/26/18 12/26/18 06:59 18:59 Intake Total 390 Output Total 750 Balance -360 - Medications Medications: Current Medications Acetaminophen (Tylenol 325mg Tab) 650 mg PO Q6 PRN PRN Reason: TEMP>=99.5F Acetaminophen (Tylenol 650 Mg Supp) 650 mg RC Q6H PRN PRN Reason: TEMP>=99.5F Acetylcysteine (Acetylcysteine 20%) 4 ml IH Q8 [facility] Last Admin: 12/26/18 07:32 Dose: Not Given Atorvastatin Calcium (Lipitor) 40 mg PO DIN [facility] Last Admin: 12/25/18 16:50 Dose: Not Given Carvedilol (Coreg) 12.5 mg PO BID [facility] Last Admin: 12/25/18 11:11 Dose: 12.5 mg Dextrose (Dextrose 50% Inj) 0 ml IV STAT PRN; Protocol PRN Reason: Hypoglycemia Protocol Last Admin: 12/25/18 21:52 Dose: 50 ml Docusate Sodium (Colace) 100 mg PO TID [facility] Last Admin: 12/25/18 16:43 Dose: Not Given Famotidine (Pepcid) 40 mg PO HS [facility] Last Admin: 12/25/18 21:36 Dose: 40 mg Furosemide (Lasix) 40 mg IVP DAILY [facility] Last Admin: 12/25/18 11:12 Dose: 40 mg Doxycycline Hyclate 100 mg/ (Sodium Chloride) 100 mls @ 100 mls/hr IVPB Q12 [facility]; Protocol Last Admin: 12/25/18 21:36 Dose: 100 mls/hr Ceftriaxone Sodium (Rocephin 1 Gram Ivpb) 1 gm in 100 mls @ 100 mls/hr IVPB DAILY [facility]; Protocol Last Admin: 12/25/18 11:25 Dose: 100 mls/hr Dextrose (Dextrose 5% In Water 1000 Ml) 1,000 mls @ 0 mls/hr IV .Q0M PRN; Protocol PRN Reason: Hypoglycemia Protocol Metronidazole (Flagyl) 500 mg in 100 mls @ 100 mls/hr IVPB Q8 [facility]; Protocol Last Admin: 12/26/18 05:20 Dose: 100 mls/hr Milrinone Lactate/Dextrose (Primacor 20mg/100ml D5w) 100 mls @ 8.93 mls/hr IV .[id number] PRN; Protocol PRN Reason: TITRATE PER MD ORDER Last Admin: 12/26/18 05:21 Dose: 0.375 mcg/kg/min, 8.93 mls/hr Insulin Human Regular (Humulin R Med) 0 units SC ACHS [facility]; Protocol Last Admin: 12/25/18 21:46 Dose: Not Given Levalbuterol HCl (Xopenex) 0.63 mg IH [id number] PRN PRN Reason: Shortness of Breath Levalbuterol HCl (Xopenex) 0.63 mg IH Q8 [facility] Last Admin: 12/26/18 07:32 Dose: Not Given Levothyroxine Sodium (Synthroid) 25 mcg PO 0600 [facility] Last Admin: 12/26/18 05:23 Dose: 25 mcg Magnesium Oxide (Mag-Ox) 400 mg PO BID [facility] Last Admin: 12/25/18 17:11 Dose: 400 mg Ondansetron HCl (Zofran Inj) 4 mg IVP Q4H PRN PRN Reason: Nausea/Vomiting Pantoprazole Sodium (Protonix Inj) 40 mg IVP Q12 [facility] Last Admin: 12/25/18 21:36 Dose: 40 mg Potassium Chloride (Klor-Con 10) 10 meq PO BRK [facility] Ramipril (Altace) 10 mg PO DAILY [facility] Last Admin: 12/25/18 11:32 Dose: 10 mg Tramadol HCl (Ultram) 50 mg PO Q6 PRN PRN Reason: Pain, moderate (4-7) - Labs Labs: 12/26/18 05:40 12/26/18 05:40 PT 17.2 SECONDS (9.4-12.5) H 12/24/18 21:45 INR 1.55 12/24/18 21:45 APTT 37.8 Seconds (26.9-38.3) 12/24/18 21:45 - Additional Findings Additional findings: - Constitutional Appears: Non-toxic, No Acute Distress - Head Exam Head Exam: ATRAUMATIC, NORMOCEPHALIC - Eye Exam Eye Exam: EOMI, Normal appearance, PERRL - ENT Exam ENT Exam: Mucous Membranes Moist - Neck Exam Neck exam: Negative for: Lymphadenopathy - Respiratory Exam Respiratory Exam: Decreased Breath Sounds (on the left) . absent: Accessory Muscle Use, Rhonchi, Wheezes, Respiratory Distress - Cardiovascular Exam Cardiovascular Exam: REGULAR RHYTHM, +S1, +S2. absent: Systolic Murmur - GI/Abdominal Exam GI & Abdominal Exam: Soft, Tenderness. absent: Distended, Firm, Guarding, Rebound, Rigid Indirect inguinal hernia, nontender, reduced, nonbulging clinically - Extremities Exam Extremities exam: Positive for: normal capillary refill, pedal pulses present. Negative for: tenderness Additional comments: +1 pitting edema on LE b/l - Neurological Exam Neurological exam: Alert, CN II-XII Intact, Oriented x3 - Skin Skin Exam: Dry, Intact, noted midline incision on chest wall Assessment and Plan - Assessment and Plan (Free Text) Assessment: 83 M with PMHx CAD s/p CABG 1989, asthma, who presented with NSTEMI. Presently, doubt small bowel obstruction in light of tolerance of diet. 12/23/18 CT abd/pelvis: There is a right-sided inguinal hernia that contains a loop of bowel. This measures 3.4 x 5.2 cm. There is no associated obstruction. Re-evaluated patient for GI bleed. Transfer to ICU as per primary team. PLAN: Colonsocopy planned for 12/26 per GI team Patient VSS stable, no acute surgical intervention warranted currently On recent labs hgb stable Likely bleeding has stabilized in setting of stable hgb, hemodynamically stable, and no more bright red blood Continue IV protonix All other medical management as per ICU and primary team All further recs as per Dr. Watt PGY-1 Delma Guidry
[2018-12-26] MEDS ORDERED: Lidocaine 2% Jelly (30 ml) ONE (08:17)
[2018-12-26] MEDS ORDERED: Potassium Chloride 40 mEq/30 ml LIQ UD PO STA (08:51)
[2018-12-26] MEDS ORDERED: Etomidate 20 mg/10ml Inj IV ONE (08:54)
--- NOTE | 2018-12-26 09:43 | CP.PCM.PN ---
Subjective - Date & Time of Evaluation Date of Evaluation: 12/26/18 Time of Evaluation: 07:00 - Subjective Subjective: PGY-[address] Willian oR Mr Manuelito by bedside, help translation. 1 dark BM last night about 200-250cc. No other acute complaint per 12 pt ROS Objective - Vital Signs/Intake and Output Vital Signs (last 24 hours): Temp Pulse Resp BP Pulse Ox 97.4 F L 64 14 135/79 100 12/26/18 04:00 12/26/18 05:40 12/26/18 05:40 12/26/18 05:01 12/26/18 08:11 Intake and Output: 12/26/18 12/26/18 06:59 18:59 Intake Total 390 Output Total 750 Balance -360 - Medications Medications: Current Medications Acetaminophen (Tylenol 325mg Tab) 650 mg PO Q6 PRN PRN Reason: TEMP>=99.5F Acetaminophen (Tylenol 650 Mg Supp) 650 mg RC Q6H PRN PRN Reason: TEMP>=99.5F Acetylcysteine (Acetylcysteine 20%) 4 ml IH Q8 [facility] Last Admin: 12/26/18 07:32 Dose: Not Given Aspirin (Aspirin Chewable) 81 mg PO DAILY [facility] Atorvastatin Calcium (Lipitor) 40 mg PO DIN [facility] Last Admin: 12/25/18 16:50 Dose: Not Given Carvedilol (Coreg) 12.5 mg PO BID [facility] Last Admin: 12/25/18 11:11 Dose: 12.5 mg Dextrose (Dextrose 50% Inj) 0 ml IV STAT PRN; Protocol PRN Reason: Hypoglycemia Protocol Last Admin: 12/25/18 21:52 Dose: 50 ml Docusate Sodium (Colace) 100 mg PO TID [facility] Last Admin: 12/25/18 16:43 Dose: Not Given Famotidine (Pepcid) 40 mg PO HS [facility] Last Admin: 12/25/18 21:36 Dose: 40 mg Ferrous Sulfate (Feosol) 324 mg PO TID [facility] Furosemide (Lasix) 40 mg IVP DAILY [facility] Last Admin: 12/25/18 11:12 Dose: 40 mg Doxycycline Hyclate 100 mg/ (Sodium Chloride) 100 mls @ 100 mls/hr IVPB Q12 [facility]; Protocol Last Admin: 12/25/18 21:36 Dose: 100 mls/hr Ceftriaxone Sodium (Rocephin 1 Gram Ivpb) 1 gm in 100 mls @ 100 mls/hr IVPB DAILY [facility]; Protocol Last Admin: 12/25/18 11:25 Dose: 100 mls/hr Dextrose (Dextrose 5% In Water 1000 Ml) 1,000 mls @ 0 mls/hr IV .Q0M PRN; Protocol PRN Reason: Hypoglycemia Protocol Metronidazole (Flagyl) 500 mg in 100 mls @ 100 mls/hr IVPB Q8 [facility]; Protocol Last Admin: 12/26/18 05:20 Dose: 100 mls/hr Milrinone Lactate/Dextrose (Primacor 20mg/100ml D5w) 100 mls @ 8.93 mls/hr IV .[id number] PRN; Protocol PRN Reason: TITRATE PER MD ORDER Last Admin: 12/26/18 05:21 Dose: 0.375 mcg/kg/min, 8.93 mls/hr Insulin Human Regular (Humulin R Med) 0 units SC ACHS [facility]; Protocol Last Admin: 12/25/18 21:46 Dose: Not Given Levalbuterol HCl (Xopenex) 0.63 mg IH [id number] PRN PRN Reason: Shortness of Breath Levalbuterol HCl (Xopenex) 0.63 mg IH Q8 [facility] Last Admin: 12/26/18 07:32 Dose: Not Given Levothyroxine Sodium (Synthroid) 25 mcg PO 0600 [facility] Last Admin: 12/26/18 05:23 Dose: 25 mcg Magnesium Oxide (Mag-Ox) 400 mg PO BID [facility] Last Admin: 12/25/18 17:11 Dose: 400 mg Ondansetron HCl (Zofran Inj) 4 mg IVP Q4H PRN PRN Reason: Nausea/Vomiting Pantoprazole Sodium (Protonix Inj) 40 mg IVP Q12 [facility] Last Admin: 12/25/18 21:36 Dose: 40 mg Potassium Chloride (Klor-Con 10) 10 meq PO BRK [facility] Ramipril (Altace) 10 mg PO DAILY [facility] Last Admin: 12/25/18 11:32 Dose: 10 mg Tramadol HCl (Ultram) 50 mg PO Q6 PRN PRN Reason: Pain, moderate (4-7) - Labs Labs: 12/26/18 05:40 12/26/18 05:40 PT 17.2 SECONDS (9.4-12.5) H 12/24/18 21:45 INR 1.55 12/24/18 21:45 APTT 37.8 Seconds (26.9-38.3) 12/24/18 21:45 - Constitutional Appears: No Acute Distress - Head Exam Head Exam: ATRAUMATIC, NORMAL INSPECTION, NORMOCEPHALIC - Eye Exam Eye Exam: EOMI, Normal appearance, PERRL. absent: Scleral icterus Pupil Exam: NORMAL ACCOMODATION - ENT Exam ENT Exam: Mucous Membranes Moist - Neck Exam Additional comments: supple - Respiratory Exam Respiratory Exam: Decreased Breath Sounds (b/l lung bases), Clear to Ausculation Bilateral, NORMAL BREATHING PATTERN. absent: Rales, Rhonchi, Wheezes - Cardiovascular Exam Cardiovascular Exam: REGULAR RHYTHM, +S1, +S2 - GI/Abdominal Exam GI & Abdominal Exam: Soft, Normal Bowel Sounds. absent: Tenderness - Extremities Exam Extremities Exam: Normal Capillary Refill. absent: Calf Tenderness - Back Exam Back Exam: absent: CVA tenderness (L), CVA tenderness (R), paraspinal tenderness - Neurological Exam Neurological Exam: Alert, Awake - Psychiatric Exam Psychiatric exam: Normal Affect, Normal Mood - Skin Skin Exam: Dry, Warm Assessment and Plan - Assessment and Plan (Free Text) Plan: Mr Alfaro, 83M, with PMHx CAD s/p CABG in 1989 on ASA/Plavix, HTN/HLD, DM2 (A1C 7 .1), asthma c/o Chest pain onset at rest associated with nausea, vomiting, diaphoresis. Last bowel movement 6 days ago. He was found to have NSTEMI. Cath (12/24) revealed EF 20-25. Triple vessel disease (1) HANDY to LAD patent. (2) L Cir closed (3) RCA 99% block (4) bypass graft to RCA close. He receive PCI with 3 bare metal stent in RCA and started milrinone gtt. Overnight, he was found to have BRBPR. Colonoscopy (12/26) showed several non-bleeding diverticulosis and angiodysplasia. NSTEMI, Unstable angina Chest Pain - resolved Triple vessel disease s/p CABG, s/p PCI with 3 bare metal stents - ASA/Plavix/lipitor/coreg/ramipril. zofran prn - Milrinone gtt - Per cardio, no need for prison milrinone, no need for counter checker access for now - No need for life vest for now CHF acute on chronic Pleural effusion b/l (L > R) Hx CABG - lasix 40 iv QD Aspiration pnemonitis vs CAP Hx Asthma - Procalc is low 0.06 - Rocephin, doxy, flagyl (day 4) - Mucomyst/Xopenex [facility] Had ruled out UTI - Antibiotics covers possible UTI; urine cx negative Constipation - Colace TID, Dulcolax suppository. Surgery had ruled out obstruction or bowel incarceration. no plan for surgery Dysphagia - [ ] Pending swallow study/barium swallow. Aspiration precaution. pepsid Anemia - stable. work up outpatient DM, A1C 7.1 - ISSS hypothyrodism - synthroid Pain - tramadol PRN Imaging: CT abd/pelvis (12/23): There is a right-sided inguinal hernia that contains a loop of bowel. This measures 3.4 x 5.2 cm. There is no associated obstruction. CT chest (12/23): JAGDISH infiltrate, patchy POA: Mr Navid Cuadra Nephclotilde [phone] Dispo: [ ] PT agusto s/r/d/w Dr Dorsey
[2018-12-26 10:24] LABS: INR 1.4; PARTIAL THROMBOPLASTIN TIME 31.6 Seconds (26.9-38.3); PROTHROMBIN TIME 15.8 SECONDS (9.4-12.5)
[2018-12-26] MEDS: Insulin Reg-MEDIUM-Coverage SC SCH (10:27)
[2018-12-26] MEDS: Potassium Chloride 10 mEq ER Tab PO SCH (10:28)
[2018-12-26] MEDS: Magnesium Oxide 400 mg Tab UD PO SCH ×2 (10:29→17:07)
[2018-12-26] MEDS: cefTRIAXone 1 gm 1 GM/100 ML BAG IVPB SCH (10:30)
--- NOTE | 2018-12-26 10:32 | CP.CCUPN ---
<Concepción Donaldson - Last Filed: 12/26/18 11:38> CCU Subjective - Physician Review Subjective (Free Text): CRITICAL CARE PROGRESS NOTE FOR DR. MELVIN Donaldson PGY1 Pt seen and examined at bedside in ICU today after return from endoscopy suite post-colonoscopy. He is somnolent post-procedure. He is arousable, however does not provide ROS upon interview. CCU Objective - Vital Signs / Intake & Output Vital Signs (Last 4 hours): Vital Signs Pulse Ox 12/26/18 08:11 100 Intake and Output (Last 8hrs): Intake & Output 12/25/18 12/26/18 12/26/18 22:59 06:59 14:59 Intake Total 1785 390 Output Total 500 750 Balance 1285 -360 Weight 63.548 kg Intake: IV 5 390 Left Antecubital 300 Right Forearm 90 Oral 480 Blood Product 650 Red Blood Cells Cpd As1 325 Lr Unit [id number] Other 650 Output: Urine 500 750 2-way Urethral 750 Urine, Voided 500 Other: # Bowel Movements 5 4 - Physical Exam Head: Positive for: Atraumatic, Normocephalic Pupils: Positive for: PERRL Extroacular Muscles: Positive for: EOMI Conjunctiva: Positive for: Normal Mouth: Positive for: Moist Mucous Membranes Neck: Positive for: Normal Range of Motion Respiratory/Chest: Positive for: Clear to Auscultation, Good Air Exchange. Negative for: Respiratory Distress, Accessory Muscle Use Cardiovascular: Positive for: Regular Rate and Rhythm, Normal S1, S2. Negative for: Murmurs Abdomen: Positive for: Tenderness (LLQ tenderness), Distention. Negative for: Rebound, Guarding Back: Positive for: Normal Inspection Upper Extremity: Positive for: Normal Inspection. Negative for: Cyanosis, Edema Lower Extremity: Positive for: Edema (Pitting edema) Neurological: Positive for: GCS=15, Speech Normal Skin: Positive for: Warm, Dry, Normal Color. Negative for: Rashes Psychiatric: Positive for: Alert, Oriented x 3, Normal Insight, Normal Concentration - Medications Active Medications: Active Medications Generic Name Dose Route Start Last Admin Trade Name Freq PRN Reason Stop Dose Admin Acetaminophen 650 mg 12/23/18 11:06 Tylenol 325mg Tab PO Q6 PRN TEMP>=99.5F Acetaminophen 650 mg 12/23/18 11:06 Tylenol 650 Mg Supp RC Q6H PRN TEMP>=99.5F Acetylcysteine 4 ml 12/23/18 09:30 12/26/18 07:32 Acetylcysteine 20% IH Not Given Q8 SAMM Aspirin 81 mg 12/27/18 10:00 Aspirin Chewable PO DAILY SAMM Atorvastatin Calcium 40 mg 12/23/18 17:00 12/25/18 16:50 Lipitor PO Not Given DIN SAMM Carvedilol 12.5 mg 12/23/18 10:00 12/25/18 11:11 Coreg PO 12.5 mg BID SAMM Administration Dextrose 0 ml 12/23/18 11:06 12/25/18 21:52 Dextrose 50% Inj IV 50 ml STAT PRN Administration Hypoglycemia Protocol Protocol Docusate Sodium 100 mg 12/23/18 14:00 12/25/18 16:43 Colace PO Not Given TID SMAM Famotidine 40 mg 12/23/18 22:00 12/25/18 21:36 Pepcid PO 40 mg HS SAMM Administration Ferrous Sulfate 324 mg 12/26/18 10:00 Feosol PO TID SAMM Furosemide 40 mg 12/25/18 10:00 12/25/18 11:12 Lasix IVP 40 mg DAILY SAMM Administration Doxycycline Hyclate 100 mg/ 100 mls @ 100 mls/hr 12/23/18 10:00 12/25/18 21:36 Sodium Chloride IVPB 100 mls/hr Q12 SAMM Administration Protocol Ceftriaxone Sodium 1 gm in 100 mls @ 100 mls/hr 12/23/18 10:00 12/25/18 11:25 Rocephin 1 Gram Ivpb IVPB 100 mls/hr DAILY SAMM Administration Protocol Dextrose 1,000 mls @ 0 mls/hr 12/23/18 11:06 Dextrose 5% In Water 1000 Ml IV .Q0M PRN Hypoglycemia Protocol Protocol Per Protocol Metronidazole 500 mg in 100 mls @ 100 mls/hr 12/23/18 14:00 12/26/18 05:20 Flagyl IVPB 100 mls/hr Q8 SAMM Administration Protocol Milrinone Lactate/Dextrose 100 mls @ 8.93 mls/hr 12/24/18 14:33 12/26/18 05:21 Primacor 20mg/100ml D5w IV 0.375 mcg/kg/min .[id number] PRN 8.93 mls/hr TITRATE PER MD ORDER Administration Protocol 0.375 MCG/KG/MIN Insulin Human Regular 0 units 12/23/18 07:30 12/25/18 21:46 Humulin R Med SC Not Given ACHS [facility] Protocol Levalbuterol HCl 0.63 mg 12/22/18 23:24 Xopenex IH [id number] PRN Shortness of Breath Levalbuterol HCl 0.63 mg 12/23/18 09:30 12/26/18 07:32 Xopenex IH Not Given Q8 SAMM Levothyroxine Sodium 25 mcg 12/23/18 06:00 12/26/18 05:23 Synthroid PO 25 mcg 0600 SAMM Administration Magnesium Oxide 400 mg 12/25/18 10:00 12/25/18 17:11 Mag-Ox PO 400 mg BID SAMM Administration Ondansetron HCl 4 mg 12/23/18 11:06 Zofran Inj IVP Q4H PRN Nausea/Vomiting Pantoprazole Sodium 40 mg 12/25/18 10:00 12/25/18 21:36 Protonix Inj IVP 40 mg Q12 SAMM Administration Potassium Chloride 10 meq 12/26/18 08:00 Klor-Con 10 PO BRK SAMM Ramipril 10 mg 12/23/18 10:00 12/25/18 11:32 Altace PO 10 mg DAILY SAMM Administration Tramadol HCl 50 mg 12/22/18 23:39 Ultram PO Q6 PRN Pain, moderate (4-7) - Patient Studies Lab Studies: Microbiology Studies 12/23/18 10:30 Blood Culture - Preliminary Blood-Venous NO GROWTH AFTER 48 HOURS 12/23/18 10:00 Blood Culture - Preliminary Blood-Venous NO GROWTH AFTER 48 HOURS Lab Studies 12/26/18 12/26/18 12/26/18 Range/Units 10:00 07:06 05:40 WBC 4.3 L (4.5-11.0) 10^3/uL RBC 3.87 (3.5-6.1) 10^6/uL Hgb 11.9 L (14.0-18.0) g/dL Hct 36.0 L (42.0-52.0) % MCV 93.0 (80.0-105.0) fl MCH 30.7 (25.0-35.0) pg MCHC 33.1 (31.0-37.0) g/dl RDW 14.8 H (11.5-14.5) % Plt Count 123 (120.0-450.0) 10^3/uL MPV 10.0 (7.0-11.0) fl Neut % (Auto) 71.2 H (50.0-68.0) % Lymph % (Auto) 15.7 L (22.0-35.0) % Gila % (Auto) 8.3 H (1.0-6.0) % Eos % (Auto) 4.6 (1.5-5.0) % Baso % (Auto) 0.2 (0.0-3.0) % Lymph # (Auto) 0.7 L (1.2-3.4) Gila # (Auto) 0.4 (0.1-0.6) Eos # (Auto) 0.2 (0.0-0.7) Baso # (Auto) 0.01 (0.0-2.0) K/mm3 Absolute Neuts (auto) 3.08 (1.4-6.5) PT 15.8 H (9.4-12.5) SECONDS INR 1.40 APTT 31.6 (26.9-38.3) Seconds Sodium (132-148) mmol/L Potassium (3.6-5.0) mmol/L Chloride (98-107) mmol/L Carbon Dioxide (21-33) mmol/L Anion Gap (10-20) BUN (7-21) mg/dL Creatinine (0.8-1.5) mg/dl Est GFR ( Amer) Est GFR (Non-Af Amer) POC Glucose (mg/dL) 117 H (65-110) mg/dL Random Glucose (70-110) mg/dL Calcium (8.4-10.5) mg/dL Phosphorus (2.5-4.5) mg/dL Magnesium (1.7-2.2) mg/dL Total Bilirubin (0.2-1.3) mg/dL Direct Bilirubin (0.0-0.4) mg/dL AST (17-59) U/L ALT (7-56) U/L Alkaline Phosphatase (38-126) U/L NT-Pro-B Natriuret Pep (0-450) pg/mL Total Protein (5.8-8.3) g/dL Albumin (3.0-4.8) g/dL Globulin gm/dL Albumin/Globulin Ratio (1.1-1.8) Mycoplasma pneumon IgG (<=0.90) Mycoplasma pneumon IgM (<770) U/mL Ur Strep pneumoniae Ag (Not Detected) Blood Type Antibody Screen Crossmatch BBK History Checked 12/26/18 12/25/18 12/25/18 Range/Units 05:40 23:55 22:43 WBC (4.5-11.0) 10^3/uL RBC (3.5-6.1) 10^6/uL Hgb 11.6 L (14.0-18.0) g/dL Hct 35.4 L (42.0-52.0) % MCV (80.0-105.0) fl MCH (25.0-35.0) pg MCHC (31.0-37.0) g/dl RDW (11.5-14.5) % Plt Count (120.0-450.0) 10^3/uL MPV (7.0-11.0) fl Neut % (Auto) (50.0-68.0) % Lymph % (Auto) (22.0-35.0) % Gila % (Auto) (1.0-6.0) % Eos % (Auto) (1.5-5.0) % Baso % (Auto) (0.0-3.0) % Lymph # (Auto) (1.2-3.4) Gila # (Auto) (0.1-0.6) Eos # (Auto) (0.0-0.7) Baso # (Auto) (0.0-2.0) K/mm3 Absolute Neuts (auto) (1.4-6.5) PT (9.4-12.5) SECONDS INR APTT (26.9-38.3) Seconds Sodium 144 (132-148) mmol/L Potassium 3.5 L (3.6-5.0) mmol/L Chloride 110 H (98-107) mmol/L Carbon Dioxide 27 (21-33) mmol/L Anion Gap 11 (10-20) BUN 21 (7-21) mg/dL Creatinine 1.2 (0.8-1.5) mg/dl Est GFR ( Amer) > 60 Est GFR (Non-Af Amer) 58 POC Glucose (mg/dL) 139 H (65-110) mg/dL Random Glucose 119 H (70-110) mg/dL Calcium 8.4 (8.4-10.5) mg/dL Phosphorus 3.1 (2.5-4.5) mg/dL Magnesium 2.7 H (1.7-2.2) mg/dL Total Bilirubin 0.8 (0.2-1.3) mg/dL Direct Bilirubin 0.4 (0.0-0.4) mg/dL AST 23 (17-59) U/L ALT 23 (7-56) U/L Alkaline Phosphatase 55 (38-126) U/L NT-Pro-B Natriuret Pep 2330 H (0-450) pg/mL Total Protein 5.5 L (5.8-8.3) g/dL Albumin 2.9 L (3.0-4.8) g/dL Globulin 2.6 gm/dL Albumin/Globulin Ratio 1.1 (1.1-1.8) Mycoplasma pneumon IgG (<=0.90) Mycoplasma pneumon IgM (<770) U/mL Ur Strep pneumoniae Ag (Not Detected) Blood Type Antibody Screen Crossmatch BBK History Checked 12/25/18 12/25/18 12/25/18 Range/Units 21:39 19:11 16:03 WBC (4.5-11.0) 10^3/uL RBC (3.5-6.1) 10^6/uL Hgb 12.1 L (14.0-18.0) g/dL Hct 36.2 L (42.0-52.0) % MCV (80.0-105.0) fl MCH (25.0-35.0) pg MCHC (31.0-37.0) g/dl RDW (11.5-14.5) % Plt Count (120.0-450.0) 10^3/uL MPV (7.0-11.0) fl Neut % (Auto) (50.0-68.0) % Lymph % (Auto) (22.0-35.0) % Gila % (Auto) (1.0-6.0) % Eos % (Auto) (1.5-5.0) % Baso % (Auto) (0.0-3.0) % Lymph # (Auto) (1.2-3.4) Gila # (Auto) (0.1-0.6) Eos # (Auto) (0.0-0.7) Baso # (Auto) (0.0-2.0) K/mm3 Absolute Neuts (auto) (1.4-6.5) PT (9.4-12.5) SECONDS INR APTT (26.9-38.3) Seconds Sodium (132-148) mmol/L Potassium (3.6-5.0) mmol/L Chloride (98-107) mmol/L Carbon Dioxide (21-33) mmol/L Anion Gap (10-20) BUN (7-21) mg/dL Creatinine (0.8-1.5) mg/dl Est GFR ( Amer) Est GFR (Non-Af Amer) POC Glucose (mg/dL) 57 L 211 H (65-110) mg/dL Random Glucose (70-110) mg/dL Calcium (8.4-10.5) mg/dL Phosphorus (2.5-4.5) mg/dL Magnesium (1.7-2.2) mg/dL Total Bilirubin (0.2-1.3) mg/dL Direct Bilirubin (0.0-0.4) mg/dL AST (17-59) U/L ALT (7-56) U/L Alkaline Phosphatase (38-126) U/L NT-Pro-B Natriuret Pep (0-450) pg/mL Total Protein (5.8-8.3) g/dL Albumin (3.0-4.8) g/dL Globulin gm/dL Albumin/Globulin Ratio (1.1-1.8) Mycoplasma pneumon IgG (<=0.90) Mycoplasma pneumon IgM (<770) U/mL Ur Strep pneumoniae Ag (Not Detected) Blood Type Antibody Screen Crossmatch BBK History Checked 12/25/18 12/25/18 12/24/18 Range/Units 11:20 11:10 21:45 WBC (4.5-11.0) 10^3/uL RBC (3.5-6.1) 10^6/uL Hgb 10.9 L (14.0-18.0) g/dL Hct 33.0 L (42.0-52.0) % MCV (80.0-105.0) fl MCH (25.0-35.0) pg MCHC (31.0-37.0) g/dl RDW (11.5-14.5) % Plt Count (120.0-450.0) 10^3/uL MPV (7.0-11.0) fl Neut % (Auto) (50.0-68.0) % Lymph % (Auto) (22.0-35.0) % Gila % (Auto) (1.0-6.0) % Eos % (Auto) (1.5-5.0) % Baso % (Auto) (0.0-3.0) % Lymph # (Auto) (1.2-3.4) Gila # (Auto) (0.1-0.6) Eos # (Auto) (0.0-0.7) Baso # (Auto) (0.0-2.0) K/mm3 Absolute Neuts (auto) (1.4-6.5) PT (9.4-12.5) SECONDS INR APTT (26.9-38.3) Seconds Sodium (132-148) mmol/L Potassium (3.6-5.0) mmol/L Chloride (98-107) mmol/L Carbon Dioxide (21-33) mmol/L Anion Gap (10-20) BUN (7-21) mg/dL Creatinine (0.8-1.5) mg/dl Est GFR ( Amer) Est GFR (Non-Af Amer) POC Glucose (mg/dL) 165 H (65-110) mg/dL Random Glucose (70-110) mg/dL Calcium (8.4-10.5) mg/dL Phosphorus (2.5-4.5) mg/dL Magnesium (1.7-2.2) mg/dL Total Bilirubin (0.2-1.3) mg/dL Direct Bilirubin (0.0-0.4) mg/dL AST (17-59) U/L ALT (7-56) U/L Alkaline Phosphatase (38-126) U/L NT-Pro-B Natriuret Pep (0-450) pg/mL Total Protein (5.8-8.3) g/dL Albumin (3.0-4.8) g/dL Globulin gm/dL Albumin/Globulin Ratio (1.1-1.8) Mycoplasma pneumon IgG (<=0.90) Mycoplasma pneumon IgM (<770) U/mL Ur Strep pneumoniae Ag (Not Detected) Blood Type B POSITIVE Antibody Screen Negative Crossmatch See Detail BBK History Checked No verified bt 12/23/18 12/23/18 Range/Units 13:30 10:30 WBC (4.5-11.0) 10^3/uL RBC (3.5-6.1) 10^6/uL Hgb (14.0-18.0) g/dL Hct (42.0-52.0) % MCV (80.0-105.0) fl MCH (25.0-35.0) pg MCHC (31.0-37.0) g/dl RDW (11.5-14.5) % Plt Count (120.0-450.0) 10^3/uL MPV (7.0-11.0) fl Neut % (Auto) (50.0-68.0) % Lymph % (Auto) (22.0-35.0) % Gila % (Auto) (1.0-6.0) % Eos % (Auto) (1.5-5.0) % Baso % (Auto) (0.0-3.0) % Lymph # (Auto) (1.2-3.4) Gila # (Auto) (0.1-0.6) Eos # (Auto) (0.0-0.7) Baso # (Auto) (0.0-2.0) K/mm3 Absolute Neuts (auto) (1.4-6.5) PT (9.4-12.5) SECONDS INR APTT (26.9-38.3) Seconds Sodium (132-148) mmol/L Potassium (3.6-5.0) mmol/L Chloride (98-107) mmol/L Carbon Dioxide (21-33) mmol/L Anion Gap (10-20) BUN (7-21) mg/dL Creatinine (0.8-1.5) mg/dl Est GFR ( Amer) Est GFR (Non-Af Amer) POC Glucose (mg/dL) (65-110) mg/dL Random Glucose (70-110) mg/dL Calcium (8.4-10.5) mg/dL Phosphorus (2.5-4.5) mg/dL Magnesium (1.7-2.2) mg/dL Total Bilirubin (0.2-1.3) mg/dL Direct Bilirubin (0.0-0.4) mg/dL AST (17-59) U/L ALT (7-56) U/L Alkaline Phosphatase (38-126) U/L NT-Pro-B Natriuret Pep (0-450) pg/mL Total Protein (5.8-8.3) g/dL Albumin (3.0-4.8) g/dL Globulin gm/dL Albumin/Globulin Ratio (1.1-1.8) Mycoplasma pneumon IgG >5.00 H (<=0.90) Mycoplasma pneumon IgM 230 (<770) U/mL Ur Strep pneumoniae Ag Not detected (Not Detected) Blood Type Antibody Screen Crossmatch BBK History Checked Laboratory Results - last 24 hr 12/23/18 12/23/18 12/24/18 10:30 13:30 21:45 WBC RBC Hgb Hct MCV MCH MCHC RDW Plt Count MPV Neut % (Auto) Lymph % (Auto) Gila % (Auto) Eos % (Auto) Baso % (Auto) Lymph # (Auto) Gila # (Auto) Eos # (Auto) Baso # (Auto) Absolute Neuts (auto) PT INR APTT Sodium Potassium Chloride Carbon Dioxide Anion Gap BUN Creatinine Est GFR ( Amer) Est GFR (Non-Af Amer) POC Glucose (mg/dL) Random Glucose Calcium Phosphorus Magnesium Total Bilirubin Direct Bilirubin AST ALT Alkaline Phosphatase NT-Pro-B Natriuret Pep Total Protein Albumin Globulin Albumin/Globulin Ratio Mycoplasma pneumon IgG >5.00 H Mycoplasma pneumon IgM 230 Ur Strep pneumoniae Ag Not detected Blood Type B POSITIVE Antibody Screen Negative Crossmatch See Detail BBK History Checked No verified bt 12/25/18 12/25/18 12/25/18 11:10 11:20 16:03 WBC RBC Hgb 10.9 L Hct 33.0 L MCV MCH MCHC RDW Plt Count MPV Neut % (Auto) Lymph % (Auto) Gila % (Auto) Eos % (Auto) Baso % (Auto) Lymph # (Auto) Gila # (Auto) Eos # (Auto) Baso # (Auto) Absolute Neuts (auto) PT INR APTT Sodium Potassium Chloride Carbon Dioxide Anion Gap BUN Creatinine Est GFR ( Amer) Est GFR (Non-Af Amer) POC Glucose (mg/dL) 165 H 211 H Random Glucose Calcium Phosphorus Magnesium Total Bilirubin Direct Bilirubin AST ALT Alkaline Phosphatase NT-Pro-B Natriuret Pep Total Protein Albumin Globulin Albumin/Globulin Ratio Mycoplasma pneumon IgG Mycoplasma pneumon IgM Ur Strep pneumoniae Ag Blood Type Antibody Screen Crossmatch BBK History Checked 12/25/18 12/25/18 12/25/18 19:11 21:39 22:43 WBC RBC Hgb 12.1 L Hct 36.2 L MCV MCH MCHC RDW Plt Count MPV Neut % (Auto) Lymph % (Auto) Gila % (Auto) Eos % (Auto) Baso % (Auto) Lymph # (Auto) Gila # (Auto) Eos # (Auto) Baso # (Auto) Absolute Neuts (auto) PT INR APTT Sodium Potassium Chloride Carbon Dioxide Anion Gap BUN Creatinine Est GFR ( Amer) Est GFR (Non-Af Amer) POC Glucose (mg/dL) 57 L 139 H Random Glucose Calcium Phosphorus Magnesium Total Bilirubin Direct Bilirubin AST ALT Alkaline Phosphatase NT-Pro-B Natriuret Pep Total Protein Albumin Globulin Albumin/Globulin Ratio Mycoplasma pneumon IgG Mycoplasma pneumon IgM Ur Strep pneumoniae Ag Blood Type Antibody Screen Crossmatch BBK History Checked 12/25/18 12/26/18 12/26/18 23:55 05:40 05:40 WBC 4.3 L RBC 3.87 Hgb 11.6 L 11.9 L Hct 35.4 L 36.0 L MCV 93.0 MCH 30.7 MCHC 33.1 RDW 14.8 H Plt Count 123 MPV 10.0 Neut % (Auto) 71.2 H Lymph % (Auto) 15.7 L Gila % (Auto) 8.3 H Eos % (Auto) 4.6 Baso % (Auto) 0.2 Lymph # (Auto) 0.7 L Gila # (Auto) 0.4 Eos # (Auto) 0.2 Baso # (Auto) 0.01 Absolute Neuts (auto) 3.08 PT INR APTT Sodium 144 Potassium 3.5 L Chloride 110 H Carbon Dioxide 27 Anion Gap 11 BUN 21 Creatinine 1.2 Est GFR ( Amer) > 60 Est GFR (Non-Af Amer) 58 POC Glucose (mg/dL) Random Glucose 119 H Calcium 8.4 Phosphorus 3.1 Magnesium 2.7 H Total Bilirubin 0.8 Direct Bilirubin 0.4 AST 23 ALT 23 Alkaline Phosphatase 55 NT-Pro-B Natriuret Pep 2330 H Total Protein 5.5 L Albumin 2.9 L Globulin 2.6 Albumin/Globulin Ratio 1.1 Mycoplasma pneumon IgG Mycoplasma pneumon IgM Ur Strep pneumoniae Ag Blood Type Antibody Screen Crossmatch BBK History Checked 12/26/18 12/26/18 07:06 10:00 WBC RBC Hgb Hct MCV MCH MCHC RDW Plt Count MPV Neut % (Auto) Lymph % (Auto) Gila % (Auto) Eos % (Auto) Baso % (Auto) Lymph # (Auto) Gila # (Auto) Eos # (Auto) Baso # (Auto) Absolute Neuts (auto) PT 15.8 H INR 1.40 APTT 31.6 Sodium Potassium Chloride Carbon Dioxide Anion Gap BUN Creatinine Est GFR ( Amer) Est GFR (Non-Af Amer) POC Glucose (mg/dL) 117 H Random Glucose Calcium Phosphorus Magnesium Total Bilirubin Direct Bilirubin AST ALT Alkaline Phosphatase NT-Pro-B Natriuret Pep Total Protein Albumin Globulin Albumin/Globulin Ratio Mycoplasma pneumon IgG Mycoplasma pneumon IgM Ur Strep pneumoniae Ag Blood Type Antibody Screen Crossmatch BBK History Checked Radiology Impressions: Radiology Impressions GI Bleed Scan Nuclear Medicine 12/24/18 21:28 IMPRESSION: Positive examination for active gastrointestinal bleeding. The origin of the bleeding is in the rectosigmoid region. EKG/Cardiology Studies: Cardiology / EKG Studies 12/26/18 07:00 EKG [ELECTROCARDIOGRAM] DAILY Comment: Reason For Exam: ACS Fingerstick Blood Sugar Results: 139 Review of Systems - Review of Systems Review of Systems: per HPI Critical Care Progress Note - Nutrition Nutrition: Nutrition Category Date Time Status Liquid Diet [DIET] Diets 12/26/18 Lunch Ordered NPO Diet [DIET] Diets 12/25/18 Breakfast Ordered Assessment/Plan - Assessment and Plan (Free Text) Assessment: 83 yo M with PMH of HTN, CAD s/p CABG, T2DM, HLD, and asthma admitted to [facility] for NSTEMI and underwent cardiac catherization with 3 BMS placed in the mid and proximal RCA. Patient is transferred to the ICU due to active GI bleed. Patient currently hemodynamically stable, will continue to monitor. Plan: Neuro AOx3 Maintain normothermia CV HFrEF EF noted to be 20-25% during cath continue lasix CAD s/p stents Currently holding ACEi & b-ernestina d/t hypotension Hold DAPT due to GI bleed. Resume ASA 12/27, resume plavix 12/28 & 12/29 Pulmonary HTN Milrinone gtt Maintain MAP > 65 Cardiology following Pulm Maintain O2 sat > 92% GI Blood per rectum s/p colonoscopy revealing diverticula, internal hemorrhoids and AVMs with no active Hold DAPT. Resume ASA 12/27, resume plavix 12/28 / 12/29 per GI recs Protonix BID Clear liquid diet Renal Replete K Cont to monitor electrolytes, replete as needed Maintain euvolemia Heme Blood per rectum s/p 1u pRBC with goal Hgb >9 recheck coags monitor BP ID [id number] pneumonia IV abx per primary Endo DM2 ISS-Low Accuchecks Maintain euglycemia Case seen, examined and discussed with attending physician, Dr. Melvin Donaldson PGY1 <Kristal Charles - Last Filed: 12/26/18 18:20> CCU Objective - Vital Signs / Intake & Output Intake and Output (Last 8hrs): Intake & Output 12/26/18 12/26/18 12/26/18 06:59 14:59 22:59 Intake Total 390 Output Total 750 Balance -360 Weight 63.548 kg Intake: IV 390 Left Antecubital 300 Right Forearm 90 Output: Urine 750 2-way Urethral 750 Other: # Bowel Movements 4 - Medications Active Medications: Active Medications Generic Name Dose Route Start Last Admin Trade Name Freq PRN Reason Stop Dose Admin Acetaminophen 650 mg 12/23/18 11:06 Tylenol 325mg Tab PO Q6 PRN TEMP>=99.5F Acetaminophen 650 mg 12/23/18 11:06 Tylenol 650 Mg Supp RC Q6H PRN TEMP>=99.5F Acetylcysteine 4 ml 12/23/18 09:30 12/26/18 13:51 Acetylcysteine 20% IH 4 ml Q8 SAMM Administration Aspirin 81 mg 12/27/18 10:00 Aspirin Chewable PO DAILY SAMM Atorvastatin Calcium 40 mg 12/23/18 17:00 12/26/18 17:07 Lipitor PO 40 mg DIN SAMM Administration Carvedilol 12.5 mg 12/23/18 10:00 12/25/18 11:11 Coreg PO 12.5 mg BID SAMM Administration Dextrose 0 ml 12/23/18 11:06 12/25/18 21:52 Dextrose 50% Inj IV 50 ml STAT PRN Administration Hypoglycemia Protocol Protocol Docusate Sodium 100 mg 12/23/18 14:00 12/26/18 16:59 Colace PO Not Given TID SAMM Famotidine 40 mg 12/23/18 22:00 12/25/18 21:36 Pepcid PO 40 mg HS SAMM Administration Ferrous Sulfate 324 mg 12/26/18 10:00 12/26/18 17:08 Feosol PO 324 mg TID SAMM Administration Furosemide 40 mg 12/25/18 10:00 12/26/18 10:28 Lasix IVP 40 mg DAILY SAMM Administration Doxycycline Hyclate 100 mg/ 100 mls @ 100 mls/hr 12/23/18 10:00 12/26/18 10:31 Sodium Chloride IVPB 100 mls/hr Q12 SAMM Administration Protocol Ceftriaxone Sodium 1 gm in 100 mls @ 100 mls/hr 12/23/18 10:00 12/26/18 10:30 Rocephin 1 Gram Ivpb IVPB 100 mls/hr DAILY SAMM Administration Protocol Dextrose 1,000 mls @ 0 mls/hr 12/23/18 11:06 Dextrose 5% In Water 1000 Ml IV .Q0M PRN Hypoglycemia Protocol Protocol Per Protocol Metronidazole 500 mg in 100 mls @ 100 mls/hr 12/23/18 14:00 12/26/18 14:20 Flagyl IVPB 100 mls/hr Q8 SAMM Administration Protocol Milrinone Lactate/Dextrose 100 mls @ 8.93 mls/hr 12/24/18 14:33 12/26/18 05:21 Primacor 20mg/100ml D5w IV 0.375 mcg/kg/min .[id number] PRN 8.93 mls/hr TITRATE PER MD ORDER Administration Protocol 0.375 MCG/KG/MIN Insulin Human Regular 0 units 12/26/18 11:30 12/26/18 17:01 Humulin R Low SC 7 u ACHS SAMM Administration Protocol Levalbuterol HCl 0.63 mg 12/22/18 23:24 Xopenex IH [id number] PRN Shortness of Breath Levalbuterol HCl 0.63 mg 12/23/18 09:30 12/26/18 13:51 Xopenex IH 0.63 mg Q8 SAMM Administration Levothyroxine Sodium 25 mcg 12/23/18 06:00 12/26/18 05:23 Synthroid PO 25 mcg 0600 SAMM Administration Magnesium Oxide 400 mg 12/25/18 10:00 12/26/18 17:07 Mag-Ox PO 400 mg BID SAMM Administration Ondansetron HCl 4 mg 12/23/18 11:06 Zofran Inj IVP Q4H PRN Nausea/Vomiting Pantoprazole Sodium 40 mg 12/25/18 10:00 12/26/18 10:30 Protonix Inj IVP 40 mg Q12 SAMM Administration Potassium Chloride 10 meq 12/26/18 08:00 12/26/18 10:28 Klor-Con 10 PO 10 meq BRK SAMM Administration Ramipril 10 mg 12/23/18 10:00 12/25/18 11:32 Altace PO 10 mg DAILY SAMM Administration Tramadol HCl 50 mg 12/22/18 23:39 Ultram PO Q6 PRN Pain, moderate (4-7) - Patient Studies Lab Studies: Microbiology Studies 12/23/18 10:30 Blood Culture - Preliminary Blood-Venous NO GROWTH AFTER 3 DAYS 12/23/18 10:00 Blood Culture - Preliminary Blood-Venous NO GROWTH AFTER 3 DAYS Lab Studies 12/26/18 12/26/18 12/26/18 Range/Units 16:49 11:31 10:00 WBC (4.5-11.0) 10^3/uL RBC (3.5-6.1) 10^6/uL Hgb (14.0-18.0) g/dL Hct (42.0-52.0) % MCV (80.0-105.0) fl MCH (25.0-35.0) pg MCHC (31.0-37.0) g/dl RDW (11.5-14.5) % Plt Count (120.0-450.0) 10^3/uL MPV (7.0-11.0) fl Neut % (Auto) (50.0-68.0) % Lymph % (Auto) (22.0-35.0) % Gila % (Auto) (1.0-6.0) % Eos % (Auto) (1.5-5.0) % Baso % (Auto) (0.0-3.0) % Lymph # (Auto) (1.2-3.4) Gila # (Auto) (0.1-0.6) Eos # (Auto) (0.0-0.7) Baso # (Auto) (0.0-2.0) K/mm3 Absolute Neuts (auto) (1.4-6.5) PT 15.8 H (9.4-12.5) SECONDS INR 1.40 APTT 31.6 (26.9-38.3) Seconds Sodium (132-148) mmol/L Potassium (3.6-5.0) mmol/L Chloride (98-107) mmol/L Carbon Dioxide (21-33) mmol/L Anion Gap (10-20) BUN (7-21) mg/dL Creatinine (0.8-1.5) mg/dl Est GFR ( Amer) Est GFR (Non-Af Amer) POC Glucose (mg/dL) 304 H 129 H (65-110) mg/dL Random Glucose (70-110) mg/dL Calcium (8.4-10.5) mg/dL Phosphorus (2.5-4.5) mg/dL Magnesium (1.7-2.2) mg/dL Total Bilirubin (0.2-1.3) mg/dL Direct Bilirubin (0.0-0.4) mg/dL AST (17-59) U/L ALT (7-56) U/L Alkaline Phosphatase (38-126) U/L NT-Pro-B Natriuret Pep (0-450) pg/mL Total Protein (5.8-8.3) g/dL Albumin (3.0-4.8) g/dL Globulin gm/dL Albumin/Globulin Ratio (1.1-1.8) Mycoplasma pneumon IgM (<770) U/mL Ur Strep pneumoniae Ag (Not Detected) 12/26/18 12/26/18 12/26/18 Range/Units 07:06 05:40 05:40 WBC 4.3 L (4.5-11.0) 10^3/uL RBC 3.87 (3.5-6.1) 10^6/uL Hgb 11.9 L (14.0-18.0) g/dL Hct 36.0 L (42.0-52.0) % MCV 93.0 (80.0-105.0) fl MCH 30.7 (25.0-35.0) pg MCHC 33.1 (31.0-37.0) g/dl RDW 14.8 H (11.5-14.5) % Plt Count 123 (120.0-450.0) 10^3/uL MPV 10.0 (7.0-11.0) fl Neut % (Auto) 71.2 H (50.0-68.0) % Lymph % (Auto) 15.7 L (22.0-35.0) % Gila % (Auto) 8.3 H (1.0-6.0) % Eos % (Auto) 4.6 (1.5-5.0) % Baso % (Auto) 0.2 (0.0-3.0) % Lymph # (Auto) 0.7 L (1.2-3.4) Gila # (Auto) 0.4 (0.1-0.6) Eos # (Auto) 0.2 (0.0-0.7) Baso # (Auto) 0.01 (0.0-2.0) K/mm3 Absolute Neuts (auto) 3.08 (1.4-6.5) PT (9.4-12.5) SECONDS INR APTT (26.9-38.3) Seconds Sodium 144 (132-148) mmol/L Potassium 3.5 L (3.6-5.0) mmol/L Chloride 110 H (98-107) mmol/L Carbon Dioxide 27 (21-33) mmol/L Anion Gap 11 (10-20) BUN 21 (7-21) mg/dL Creatinine 1.2 (0.8-1.5) mg/dl Est GFR ( Amer) > 60 Est GFR (Non-Af Amer) 58 POC Glucose (mg/dL) 117 H (65-110) mg/dL Random Glucose 119 H (70-110) mg/dL Calcium 8.4 (8.4-10.5) mg/dL Phosphorus 3.1 (2.5-4.5) mg/dL Magnesium 2.7 H (1.7-2.2) mg/dL Total Bilirubin 0.8 (0.2-1.3) mg/dL Direct Bilirubin 0.4 (0.0-0.4) mg/dL AST 23 (17-59) U/L ALT 23 (7-56) U/L Alkaline Phosphatase 55 (38-126) U/L NT-Pro-B Natriuret Pep 2330 H (0-450) pg/mL Total Protein 5.5 L (5.8-8.3) g/dL Albumin 2.9 L (3.0-4.8) g/dL Globulin 2.6 gm/dL Albumin/Globulin Ratio 1.1 (1.1-1.8) Mycoplasma pneumon IgM (<770) U/mL Ur Strep pneumoniae Ag (Not Detected) 12/25/18 12/25/18 12/25/18 Range/Units 23:55 22:43 21:39 WBC (4.5-11.0) 10^3/uL RBC (3.5-6.1) 10^6/uL Hgb 11.6 L (14.0-18.0) g/dL Hct 35.4 L (42.0-52.0) % MCV (80.0-105.0) fl MCH (25.0-35.0) pg MCHC (31.0-37.0) g/dl RDW (11.5-14.5) % Plt Count (120.0-450.0) 10^3/uL MPV (7.0-11.0) fl Neut % (Auto) (50.0-68.0) % Lymph % (Auto) (22.0-35.0) % Gila % (Auto) (1.0-6.0) % Eos % (Auto) (1.5-5.0) % Baso % (Auto) (0.0-3.0) % Lymph # (Auto) (1.2-3.4) Gila # (Auto) (0.1-0.6) Eos # (Auto) (0.0-0.7) Baso # (Auto) (0.0-2.0) K/mm3 Absolute Neuts (auto) (1.4-6.5) PT (9.4-12.5) SECONDS INR APTT (26.9-38.3) Seconds Sodium (132-148) mmol/L Potassium (3.6-5.0) mmol/L Chloride (98-107) mmol/L Carbon Dioxide (21-33) mmol/L Anion Gap (10-20) BUN (7-21) mg/dL Creatinine (0.8-1.5) mg/dl Est GFR ( Amer) Est GFR (Non-Af Amer) POC Glucose (mg/dL) 139 H 57 L (65-110) mg/dL Random Glucose (70-110) mg/dL Calcium (8.4-10.5) mg/dL Phosphorus (2.5-4.5) mg/dL Magnesium (1.7-2.2) mg/dL Total Bilirubin (0.2-1.3) mg/dL Direct Bilirubin (0.0-0.4) mg/dL AST (17-59) U/L ALT (7-56) U/L Alkaline Phosphatase (38-126) U/L NT-Pro-B Natriuret Pep (0-450) pg/mL Total Protein (5.8-8.3) g/dL Albumin (3.0-4.8) g/dL Globulin gm/dL Albumin/Globulin Ratio (1.1-1.8) Mycoplasma pneumon IgM (<770) U/mL Ur Strep pneumoniae Ag (Not Detected) 12/25/18 12/23/18 12/23/18 Range/Units 19:11 13:30 10:30 WBC (4.5-11.0) 10^3/uL RBC (3.5-6.1) 10^6/uL Hgb 12.1 L (14.0-18.0) g/dL Hct 36.2 L (42.0-52.0) % MCV (80.0-105.0) fl MCH (25.0-35.0) pg MCHC (31.0-37.0) g/dl RDW (11.5-14.5) % Plt Count (120.0-450.0) 10^3/uL MPV (7.0-11.0) fl Neut % (Auto) (50.0-68.0) % Lymph % (Auto) (22.0-35.0) % Gila % (Auto) (1.0-6.0) % Eos % (Auto) (1.5-5.0) % Baso % (Auto) (0.0-3.0) % Lymph # (Auto) (1.2-3.4) Gila # (Auto) (0.1-0.6) Eos # (Auto) (0.0-0.7) Baso # (Auto) (0.0-2.0) K/mm3 Absolute Neuts (auto) (1.4-6.5) PT (9.4-12.5) SECONDS INR APTT (26.9-38.3) Seconds Sodium (132-148) mmol/L Potassium (3.6-5.0) mmol/L Chloride (98-107) mmol/L Carbon Dioxide (21-33) mmol/L Anion Gap (10-20) BUN (7-21) mg/dL Creatinine (0.8-1.5) mg/dl Est GFR ( Amer) Est GFR (Non-Af Amer) POC Glucose (mg/dL) (65-110) mg/dL Random Glucose (70-110) mg/dL Calcium (8.4-10.5) mg/dL Phosphorus (2.5-4.5) mg/dL Magnesium (1.7-2.2) mg/dL Total Bilirubin (0.2-1.3) mg/dL Direct Bilirubin (0.0-0.4) mg/dL AST (17-59) U/L ALT (7-56) U/L Alkaline Phosphatase (38-126) U/L NT-Pro-B Natriuret Pep (0-450) pg/mL Total Protein (5.8-8.3) g/dL Albumin (3.0-4.8) g/dL Globulin gm/dL Albumin/Globulin Ratio (1.1-1.8) Mycoplasma pneumon IgM 230 (<770) U/mL Ur Strep pneumoniae Ag Not detected (Not Detected) Laboratory Results - last 24 hr 12/23/18 12/23/18 12/25/18 10:30 13:30 19:11 WBC RBC Hgb 12.1 L Hct 36.2 L MCV MCH MCHC RDW Plt Count MPV Neut % (Auto) Lymph % (Auto) Gila % (Auto) Eos % (Auto) Baso % (Auto) Lymph # (Auto) Gila # (Auto) Eos # (Auto) Baso # (Auto) Absolute Neuts (auto) PT INR APTT Sodium Potassium Chloride Carbon Dioxide Anion Gap BUN Creatinine Est GFR ( Amer) Est GFR (Non-Af Amer) POC Glucose (mg/dL) Random Glucose Calcium Phosphorus Magnesium Total Bilirubin Direct Bilirubin AST ALT Alkaline Phosphatase NT-Pro-B Natriuret Pep Total Protein Albumin Globulin Albumin/Globulin Ratio Mycoplasma pneumon IgM 230 Ur Strep pneumoniae Ag Not detected 12/25/18 12/25/18 12/25/18 21:39 22:43 23:55 WBC RBC Hgb 11.6 L Hct 35.4 L MCV MCH MCHC RDW Plt Count MPV Neut % (Auto) Lymph % (Auto) Gila % (Auto) Eos % (Auto) Baso % (Auto) Lymph # (Auto) Gila # (Auto) Eos # (Auto) Baso # (Auto) Absolute Neuts (auto) PT INR APTT Sodium Potassium Chloride Carbon Dioxide Anion Gap BUN Creatinine Est GFR ( Amer) Est GFR (Non-Af Amer) POC Glucose (mg/dL) 57 L 139 H Random Glucose Calcium Phosphorus Magnesium Total Bilirubin Direct Bilirubin AST ALT Alkaline Phosphatase NT-Pro-B Natriuret Pep Total Protein Albumin Globulin Albumin/Globulin Ratio Mycoplasma pneumon IgM Ur Strep pneumoniae Ag 12/26/18 12/26/18 12/26/18 05:40 05:40 07:06 WBC 4.3 L RBC 3.87 Hgb 11.9 L Hct 36.0 L MCV 93.0 MCH 30.7 MCHC 33.1 RDW 14.8 H Plt Count 123 MPV 10.0 Neut % (Auto) 71.2 H Lymph % (Auto) 15.7 L Gila % (Auto) 8.3 H Eos % (Auto) 4.6 Baso % (Auto) 0.2 Lymph # (Auto) 0.7 L Gila # (Auto) 0.4 Eos # (Auto) 0.2 Baso # (Auto) 0.01 Absolute Neuts (auto) 3.08 PT INR APTT Sodium 144 Potassium 3.5 L Chloride 110 H Carbon Dioxide 27 Anion Gap 11 BUN 21 Creatinine 1.2 Est GFR ( Amer) > 60 Est GFR (Non-Af Amer) 58 POC Glucose (mg/dL) 117 H Random Glucose 119 H Calcium 8.4 Phosphorus 3.1 Magnesium 2.7 H Total Bilirubin 0.8 Direct Bilirubin 0.4 AST 23 ALT 23 Alkaline Phosphatase 55 NT-Pro-B Natriuret Pep 2330 H Total Protein 5.5 L Albumin 2.9 L Globulin 2.6 Albumin/Globulin Ratio 1.1 Mycoplasma pneumon IgM Ur Strep pneumoniae Ag 12/26/18 12/26/18 12/26/18 10:00 11:31 16:49 WBC RBC Hgb Hct MCV MCH MCHC RDW Plt Count MPV Neut % (Auto) Lymph % (Auto) Gila % (Auto) Eos % (Auto) Baso % (Auto) Lymph # (Auto) Gila # (Auto) Eos # (Auto) Baso # (Auto) Absolute Neuts (auto) PT 15.8 H INR 1.40 APTT 31.6 Sodium Potassium Chloride Carbon Dioxide Anion Gap BUN Creatinine Est GFR ( Amer) Est GFR (Non-Af Amer) POC Glucose (mg/dL) 129 H 304 H Random Glucose Calcium Phosphorus Magnesium Total Bilirubin Direct Bilirubin AST ALT Alkaline Phosphatase NT-Pro-B Natriuret Pep Total Protein Albumin Globulin Albumin/Globulin Ratio Mycoplasma pneumon IgM Ur Strep pneumoniae Ag EKG/Cardiology Studies: Cardiology / EKG Studies 12/26/18 07:00 EKG [ELECTROCARDIOGRAM] DAILY Comment: Reason For Exam: ACS Critical Care Progress Note - Nutrition Nutrition: Nutrition Category Date Time Status Liquid Diet [DIET] Diets 12/26/18 Lunch Ordered Addendum Addendum: 12/26/18 18:20 ICU Attending Addendum Patient seen and examined. Case reviewed on round with housestaff. Agree with resident note above with the following additions/exceptions 83M PMHx HTN, CAD s/p CABG, T2DM, HLD, and asthma found to have NSTEMI s/p placement of three bare-metal stent in the mid- and proximal RCA Complicated by lower gi bleed s/p colonscopy this AM CAD CABG s/p PCI DMII HLD Acute GIB, likely Lower hemodynamically stable holding ASA, Plavix GI consulted, Dr Villasenor Cardiology follow up doubt infection, woudl stop abx abx per ID Rest of care as above in housestaff note Kristal Charles MD Pulmonary Critical Care Attending
--- NOTE | 2018-12-26 14:18 | PN ---
DATE: 12/26/2018 SUBJECTIVE: The patient is an 83-year-old female. The patient is in the Intensive Care Unit. The patient was admitted after being examined in the emergency room a couple of days ago. She presented with shortness of breath, abdominal pain. The patient has history of coronary artery disease, shows evidence of CABG with a incision. The patient also has chronic lung disease and [id number] diabetes. The patient is seen this morning in the ICU awaiting to go for a colonoscopy by Dr. Ortega. PHYSICAL EXAMINATION VITAL SIGNS: Pulse is 64, blood pressure 110/74 and his respirations 15 per minute. HEENT: The patient's head is normocephalic. NECK: Thyroid is not enlarged. JVP is flat. LUNGS: Trachea is central. Breath sounds are diminished bilaterally. HEART: Normal sinus rhythm. S1 and S2 present. ABDOMEN: Soft, there is no localizing signs. The patient had bleeding scan that shows evidence of bleeding in the rectosigmoid area. CENTRAL NERVOUS SYSTEM: He has signs of dementia. No focal neurological deficit. MEDICATIONS: The patient's medications consist of respiratory treatment. The patient also gets Mucomyst with treatment. The patient is also taking Altace 10 mg daily, aspirin 81 mg daily, Coreg 12.5 mg b.i.d. The patient is on IV drip, doxycycline 100 mg IV every 12 hours. The patient is on ferrous sulfate p.o., metronidazole 500 mg IV every 8 hours, insulin coverage for elevated blood sugar. The patient is on Lasix 40 mg IV daily, Lipitor 40 mg daily, potassium chloride 10 mEq daily, magnesium oxide 400 mg b.i.d. LABORATORY DATA: The patient's blood work, the hemoglobin is 11.9 and white count is normal. Chemistry, the patient's BUN is 21, creatinine 1.2 and potassium is 3.5. The patient's blood sugar was 117 this morning. His BNP is elevated at 2330 consistent with congestive heart failure. The patient's condition is seem to be unstable. The patient is getting active treatment in the critical care unit and he is going to be examined by Dr. Ortega endoscopically and may be the patient needs sigmoidoscopy or colonoscopy to evaluate the bleeding site. Prognosis is guarded. Condition is . Vamsi Leon MD [facility] # [id number]
[2018-12-26] MEDS: Insulin Reg-LOW-Coverage SC SCH ×3 (17:00→22:22)
--- NOTE | 2018-12-26 18:41 | PN ---
DATE: 12/26/2018 SUBJECTIVE: The patient tolerated endoscopy, remains lethargic. PHYSICAL EXAMINATION: VITAL SIGNS: Blood pressure 118/47, heart rate in the 60s. NECK: Negative JVD. LUNGS: No rales noted. HEART: Reveal S1, S2. EXTREMITIES: Without edema. LABORATORY DATA: Hemoglobin is 11.9. Chemistries, BUN and creatinine unremarkable. The glucose is 119. IMPRESSION: 1. Status post percutaneous transluminal coronary angioplasty and stent of a 90% right coronary artery stenoses. 2. Ischemic dilated cardiomyopathy. 3. Status post coronary artery bypass surgery. 4. Gastrointestinal lower bleed, likely from his diverticula. 5. Diabetes mellitus. PLAN: I had an extensive discussion with Dr. Ortega, the culinary director, about the urgency of placing the patient back on antiplatelet drug. The risks, benefit, analysis of bleeding versus acute stent thrombosis were reviewed. We need to restart the patient back on his antiplatelet medication as soon as possible. Curtis Mckeon MD
[2018-12-26] MEDS: Dextrose 50% SYRINGE Inj (50 ml) IV PRN (21:50)
[2018-12-27] MEDS: metroNIDAZOLE IV 500 mg/100 ml 500 MG/100 ML BAG IVPB SCH ×3 (05:26→22:05)
[2018-12-27] MEDS: Levothyroxine 25 MCG TAB PO SCH (05:27)
[2018-12-27 06:07] LABS: BASO # 0.01 K/mm3 (0.0-2.0); BASO % 0.2 % (0.0-3.0); EOS # 0.3 (0.0-0.7); EOS % 5.6 % (1.5-5.0); HEMOGLOBIN 11.4 g/dL (14.0-18.0); LYMPH # 0.8 (1.2-3.4); LYMPH % 16.4 % (22.0-35.0); MEAN CELL VOLUME 94.1 fl (80.0-105.0); MEAN CORPUSCULAR HEMOGLOBIN 30.6 pg (25.0-35.0); MEAN CORPUSCULAR HGB CONC 32.6 g/dl (31.0-37.0); MEAN PLATELET VOLUME 9.6 fl (7.0-11.0); MONO # 0.4 (0.1-0.6); MONO % 8.3 % (1.0-6.0); RBC 3.72 10^6/uL (3.5-6.1); RED CELL DISTRIBUTION WIDTH 14.7 % (11.5-14.5); WHITE BLOOD COUNT 4.8 10^3/uL (4.5-11.0)
[2018-12-27 06:22] LABS: ALB/GLOB RATIO 1.1 (1.1-1.8); ALBUMIN 2.8 g/dL (3.0-4.8); ALT/SGPT 28 U/L (7-56); AST/SGOT 27 U/L (17-59); BILIRUBIN,DIRECT 0.4 mg/dL (0.0-0.4); BLOOD UREA NITROGEN 20 mg/dL (7-21); CALCIUM 8.5 mg/dL (8.4-10.5); GFR NON-AFRICAN AMERICAN 58
[2018-12-27 06:27] LABS: B-TYPE NATRIURETIC PEPTIDE 1580 pg/mL (0-450)
[2018-12-27] MEDS: Milrinone 20mg/100ml D5W 100 ML IV PRN ×2 (07:31→20:54)
[2018-12-27] MEDS: Levalbuterol 0.63 MG/3 ML Inhal Soln UD IH SCH ×3 (07:55→20:22)
[2018-12-27] MEDS: Acetylcysteine 20% Inhal Soln (4ml) IH SCH ×3 (07:55→20:22)
[2018-12-27] MEDS: Insulin Reg-LOW-Coverage SC SCH ×4 (08:04→22:10)
--- NOTE | 2018-12-27 08:08 | CP.PCM.PN ---
Subjective - Date & Time of Evaluation Date of Evaluation: 12/27/18 Time of Evaluation: 06:55 - Subjective Subjective: Surgery Progress note. Dr. Watt Pt seen and examined at bedside this morning. Nephew at bedside. Patient denies any complaints. Denies any more bloody or dark bowel movements. Had colonoscopy yesterday with evidence of angiodysplastic lesions, diverticuli, and hemorrhoids. No evidence of active bleeding. Objective - Vital Signs/Intake and Output Vital Signs (last 24 hours): Temp Pulse Resp BP Pulse Ox 98 F 70 29 H 129/68 100 12/27/18 04:00 12/27/18 07:31 12/27/18 02:40 12/27/18 07:31 12/27/18 02:40 Intake and Output: 12/27/18 12/27/18 06:59 18:59 Intake Total 390 Balance 390 - Medications Medications: Current Medications Acetaminophen (Tylenol 325mg Tab) 650 mg PO Q6 PRN PRN Reason: TEMP>=99.5F Acetaminophen (Tylenol 650 Mg Supp) 650 mg RC Q6H PRN PRN Reason: TEMP>=99.5F Acetylcysteine (Acetylcysteine 20%) 4 ml IH Q8 [facility] Last Admin: 12/27/18 07:55 Dose: 4 ml Aspirin (Aspirin Chewable) 81 mg PO DAILY [facility] Atorvastatin Calcium (Lipitor) 40 mg PO DIN [facility] Last Admin: 12/26/18 17:07 Dose: 40 mg Carvedilol (Coreg) 12.5 mg PO BID [facility] Last Admin: 12/25/18 11:11 Dose: 12.5 mg Dextrose (Dextrose 50% Inj) 0 ml IV STAT PRN; Protocol PRN Reason: Hypoglycemia Protocol Last Admin: 12/26/18 21:50 Dose: 50 ml Docusate Sodium (Colace) 100 mg PO TID [facility] Last Admin: 12/26/18 16:59 Dose: Not Given Famotidine (Pepcid) 40 mg PO HS [facility] Last Admin: 12/26/18 21:16 Dose: 40 mg Ferrous Sulfate (Feosol) 324 mg PO TID [facility] Last Admin: 12/26/18 17:08 Dose: 324 mg Furosemide (Lasix) 40 mg IVP DAILY [facility] Last Admin: 12/26/18 10:28 Dose: 40 mg Doxycycline Hyclate 100 mg/ (Sodium Chloride) 100 mls @ 100 mls/hr IVPB Q12 [facility]; Protocol Last Admin: 12/26/18 21:17 Dose: 100 mls/hr Ceftriaxone Sodium (Rocephin 1 Gram Ivpb) 1 gm in 100 mls @ 100 mls/hr IVPB DAILY [facility]; Protocol Last Admin: 12/26/18 10:30 Dose: 100 mls/hr Dextrose (Dextrose 5% In Water 1000 Ml) 1,000 mls @ 0 mls/hr IV .Q0M PRN; Protocol PRN Reason: Hypoglycemia Protocol Metronidazole (Flagyl) 500 mg in 100 mls @ 100 mls/hr IVPB Q8 [facility]; Protocol Last Admin: 12/27/18 05:26 Dose: 100 mls/hr Milrinone Lactate/Dextrose (Primacor 20mg/100ml D5w) 100 mls @ 8.93 mls/hr IV .[id number] PRN; Protocol PRN Reason: TITRATE PER MD ORDER Last Admin: 12/27/18 07:31 Dose: 0.375 mcg/kg/min, 8.93 mls/hr Insulin Human Regular (Humulin R Low) 0 units SC ACHS [facility]; Protocol Last Admin: 12/26/18 22:22 Dose: Not Given Levalbuterol HCl (Xopenex) 0.63 mg IH [id number] PRN PRN Reason: Shortness of Breath Levalbuterol HCl (Xopenex) 0.63 mg IH Q8 [facility] Last Admin: 12/27/18 07:55 Dose: 0.63 mg Levothyroxine Sodium (Synthroid) 25 mcg PO 0600 [facility] Last Admin: 12/27/18 05:27 Dose: 25 mcg Magnesium Oxide (Mag-Ox) 400 mg PO BID [facility] Last Admin: 12/26/18 17:07 Dose: 400 mg Ondansetron HCl (Zofran Inj) 4 mg IVP Q4H PRN PRN Reason: Nausea/Vomiting Pantoprazole Sodium (Protonix Inj) 40 mg IVP Q12 [facility] Last Admin: 12/26/18 21:15 Dose: 40 mg Potassium Chloride (Klor-Con 10) 10 meq PO BRK [facility] Last Admin: 12/26/18 10:28 Dose: 10 meq Ramipril (Altace) 10 mg PO DAILY [facility] Last Admin: 12/25/18 11:32 Dose: 10 mg Tramadol HCl (Ultram) 50 mg PO Q6 PRN PRN Reason: Pain, moderate (4-7) - Labs Labs: 12/27/18 05:30 12/27/18 05:30 PT 15.8 SECONDS (9.4-12.5) H 12/26/18 10:00 INR 1.40 12/26/18 10:00 APTT 31.6 Seconds (26.9-38.3) 12/26/18 10:00 - Constitutional Appears: Non-toxic, No Acute Distress - Head Exam Head Exam: ATRAUMATIC, NORMAL INSPECTION, NORMOCEPHALIC - Eye Exam Eye Exam: EOMI, Normal appearance. absent: Scleral icterus - ENT Exam ENT Exam: Mucous Membranes Moist - Respiratory Exam Respiratory Exam: NORMAL BREATHING PATTERN. absent: Accessory Muscle Use, Respiratory Distress - Cardiovascular Exam Cardiovascular Exam: absent: JVD - GI/Abdominal Exam GI & Abdominal Exam: Soft. absent: Distended, Firm, Guarding, Tenderness, Rebound - Extremities Exam Extremities Exam: Normal Inspection - Neurological Exam Neurological Exam: Alert, Awake - Skin Skin Exam: Dry, Intact, Normal Color, Warm Assessment and Plan - Assessment and Plan (Free Text) Assessment: 83yo M w GIB. No further episodes noted. s/p colonoscopy by GI on 12/26/18 and findings of angiodysplastic lesions, divertiulosis, and hemorrhoids noted. Patient remains hemodynamically stable. Plan: - No indication for any acute surgical intervention at this time - Monitor H/h - Continue GI recs - Medical management as per Primary and ICU teams Further recs as per Dr. Shukri Polanco PGY2 surgery
[2018-12-27] MEDS: Potassium Chloride 10 mEq ER Tab PO SCH (08:09)
[2018-12-27] MEDS: Magnesium Oxide 400 mg Tab UD PO SCH ×2 (10:02→17:14)
[2018-12-27] MEDS: cefTRIAXone 1 gm 1 GM/100 ML BAG IVPB SCH (10:03)
--- NOTE | 2018-12-27 11:06 | PN ---
DATE: 12/27/2018 SUBJECTIVE: The patient's hemoglobin remains stable. PHYSICAL EXAMINATION: VITAL SIGNS: Blood pressure is 129/68, heart rate is in the 70s. NECK: Negative JVD. LUNGS: Without rales. HEART: S1, S2. EXTREMITIES: Without edema. LABORATORY DATA: Hemoglobin is 11.4. Chemistries, BUN and creatinine is 20 and 1.2. IMPRESSION: 1. Recent gastrointestinal bleed. 2. Recent percutaneous transluminal coronary angioplasty and stent with bare-metal stent of the right coronary artery. 3. Anemia which is stable. 4. Diverticuli. 5. Diabetes mellitus. PLAN: Given these findings, it will be necessary to start the patient on antiplatelet therapy with to avoid thrombosis, which would lead to an acute NC. Aspirin will be started today. We would like to add Plavix as soon as possible. We will discuss with GI. Curtis Mckeon MD
--- NOTE | 2018-12-27 11:24 | CP.CCUPN ---
<Concepción Donaldson - Last Filed: 12/27/18 15:14> CCU Subjective - Physician Review Subjective (Free Text): CRITICAL CARE PROGRESS NOTE FOR DR. MELVIN Donaldson PGY1 Pt seen and examined at bedside in ICU this am. Pt is resting comfortably. Denies 12 point ROS Currently on Milrinone drip 0.3731 mcg/kg/min Rocephin CCU Objective - Vital Signs / Intake & Output Vital Signs (Last 4 hours): Vital Signs Pulse BP 12/27/18 10:01 141/64 12/27/18 07:31 70 129/68 Intake and Output (Last 8hrs): Intake & Output 12/26/18 12/27/18 12/27/18 22:59 06:59 14:59 Intake Total 1040 390 Output Total 750 Balance 290 390 Weight 63.503 kg Intake: IV 400 390 Left Antecubital 300 300 Right Forearm 90 Oral 640 Output: Urine 750 2-way Urethral 750 Other: # Bowel Movements 1 - Physical Exam Head: Positive for: Atraumatic, Normocephalic Pupils: Positive for: PERRL Extroacular Muscles: Positive for: EOMI Conjunctiva: Positive for: Normal Mouth: Positive for: Moist Mucous Membranes Neck: Positive for: Normal Range of Motion Respiratory/Chest: Positive for: Clear to Auscultation, Good Air Exchange. Negative for: Respiratory Distress, Accessory Muscle Use Cardiovascular: Positive for: Regular Rate and Rhythm, Normal S1, S2, Other. Negative for: Murmurs Abdomen: Positive for: Tenderness (LLQ tenderness), Distention. Negative for: Rebound, Guarding Back: Positive for: Normal Inspection Upper Extremity: Positive for: Normal Inspection. Negative for: Cyanosis, Edema Lower Extremity: Positive for: Edema (Pitting edema) Neurological: Positive for: GCS=15, Speech Normal Skin: Positive for: Warm, Dry, Normal Color. Negative for: Rashes Psychiatric: Positive for: Alert, Oriented x 3, Normal Insight, Normal Concentration - Medications Active Medications: Active Medications Generic Name Dose Route Start Last Admin Trade Name Freq PRN Reason Stop Dose Admin Acetaminophen 650 mg 12/23/18 11:06 Tylenol 325mg Tab PO Q6 PRN TEMP>=99.5F Acetaminophen 650 mg 12/23/18 11:06 Tylenol 650 Mg Supp RC Q6H PRN TEMP>=99.5F Acetylcysteine 4 ml 12/23/18 09:30 12/27/18 07:55 Acetylcysteine 20% IH 4 ml Q8 SAMM Administration Aspirin 81 mg 12/27/18 10:00 12/27/18 10:02 Aspirin Chewable PO 81 mg DAILY SAMM Administration Atorvastatin Calcium 40 mg 12/23/18 17:00 12/26/18 17:07 Lipitor PO 40 mg DIN SAMM Administration Carvedilol 12.5 mg 12/23/18 10:00 12/25/18 11:11 Coreg PO 12.5 mg BID SAMM Administration Dextrose 0 ml 12/23/18 11:06 12/26/18 21:50 Dextrose 50% Inj IV 50 ml STAT PRN Administration Hypoglycemia Protocol Protocol Docusate Sodium 100 mg 12/23/18 14:00 12/27/18 10:02 Colace PO 100 mg TID SAMM Administration Famotidine 40 mg 12/23/18 22:00 12/26/18 21:16 Pepcid PO 40 mg HS SAMM Administration Ferrous Sulfate 324 mg 12/26/18 10:00 12/27/18 10:02 Feosol PO 324 mg TID SAMM Administration Furosemide 40 mg 12/25/18 10:00 12/27/18 10:01 Lasix IVP 40 mg DAILY SAMM Administration Doxycycline Hyclate 100 mg/ 100 mls @ 100 mls/hr 12/23/18 10:00 12/27/18 10:04 Sodium Chloride IVPB 100 mls/hr Q12 SAMM Administration Protocol Ceftriaxone Sodium 1 gm in 100 mls @ 100 mls/hr 12/23/18 10:00 12/27/18 10:03 Rocephin 1 Gram Ivpb IVPB 100 mls/hr DAILY SAMM Administration Protocol Dextrose 1,000 mls @ 0 mls/hr 12/23/18 11:06 Dextrose 5% In Water 1000 Ml IV .Q0M PRN Hypoglycemia Protocol Protocol Per Protocol Metronidazole 500 mg in 100 mls @ 100 mls/hr 12/23/18 14:00 12/27/18 05:26 Flagyl IVPB 100 mls/hr Q8 SAMM Administration Protocol Milrinone Lactate/Dextrose 100 mls @ 8.93 mls/hr 12/24/18 14:33 12/27/18 07:31 Primacor 20mg/100ml D5w IV 0.375 mcg/kg/min .[id number] PRN 8.93 mls/hr TITRATE PER MD ORDER Administration Protocol 0.375 MCG/KG/MIN Insulin Human Regular 0 units 12/26/18 11:30 12/27/18 08:04 Humulin R Low SC Not Given ACHS SAMM Protocol Levalbuterol HCl 0.63 mg 12/22/18 23:24 Xopenex IH [id number] PRN Shortness of Breath Levalbuterol HCl 0.63 mg 12/23/18 09:30 12/27/18 07:55 Xopenex IH 0.63 mg Q8 SAMM Administration Levothyroxine Sodium 25 mcg 12/23/18 06:00 12/27/18 05:27 Synthroid PO 25 mcg 0600 SAMM Administration Magnesium Oxide 400 mg 12/25/18 10:00 12/27/18 10:02 Mag-Ox PO 400 mg BID SAMM Administration Ondansetron HCl 4 mg 12/23/18 11:06 Zofran Inj IVP Q4H PRN Nausea/Vomiting Pantoprazole Sodium 40 mg 12/25/18 10:00 12/27/18 10:01 Protonix Inj IVP 40 mg Q12 SAMM Administration Potassium Chloride 10 meq 12/26/18 08:00 12/27/18 08:09 Klor-Con 10 PO 10 meq BRK SAMM Administration Ramipril 10 mg 12/23/18 10:00 12/25/18 11:32 Altace PO 10 mg DAILY SAMM Administration Tramadol HCl 50 mg 12/22/18 23:39 Ultram PO Q6 PRN Pain, moderate (4-7) - Patient Studies Lab Studies: Microbiology Studies 12/23/18 10:30 Blood Culture - Preliminary Blood-Venous NO GROWTH AFTER 4 DAYS 12/23/18 10:00 Blood Culture - Preliminary Blood-Venous NO GROWTH AFTER 4 DAYS 12/25/18 11:15 MRSA Culture (Admit) - Final Naris MRSA NOT DETECTED Lab Studies 12/27/18 12/27/18 12/27/18 Range/Units 05:30 05:30 00:08 WBC 4.8 (4.5-11.0) 10^3/uL RBC 3.72 (3.5-6.1) 10^6/uL Hgb 11.4 L (14.0-18.0) g/dL Hct 35.0 L (42.0-52.0) % MCV 94.1 (80.0-105.0) fl MCH 30.6 (25.0-35.0) pg MCHC 32.6 (31.0-37.0) g/dl RDW 14.7 H (11.5-14.5) % Plt Count 131 (120.0-450.0) 10^3/uL MPV 9.6 (7.0-11.0) fl Neut % (Auto) 69.5 H (50.0-68.0) % Lymph % (Auto) 16.4 L (22.0-35.0) % [place] % (Auto) 8.3 H (1.0-6.0) % Eos % (Auto) 5.6 H (1.5-5.0) % Baso % (Auto) 0.2 (0.0-3.0) % Lymph # (Auto) 0.8 L (1.2-3.4) [place] # (Auto) 0.4 (0.1-0.6) Eos # (Auto) 0.3 (0.0-0.7) Baso # (Auto) 0.01 (0.0-2.0) K/mm3 Absolute Neuts (auto) 3.35 (1.4-6.5) Sodium 141 (132-148) mmol/L Potassium 3.7 (3.6-5.0) mmol/L Chloride 110 H (98-107) mmol/L Carbon Dioxide 28 (21-33) mmol/L Anion Gap 7 L (10-20) BUN 20 (7-21) mg/dL Creatinine 1.2 (0.8-1.5) mg/dl Est GFR ( Amer) > 60 Est GFR (Non-Af Amer) 58 POC Glucose (mg/dL) 109 (65-110) mg/dL Random Glucose 99 (70-110) mg/dL Calcium 8.5 (8.4-10.5) mg/dL Phosphorus 2.6 (2.5-4.5) mg/dL Magnesium 2.3 H (1.7-2.2) mg/dL Total Bilirubin 0.6 (0.2-1.3) mg/dL Direct Bilirubin 0.4 (0.0-0.4) mg/dL AST 27 (17-59) U/L ALT 28 (7-56) U/L Alkaline Phosphatase 54 (38-126) U/L NT-Pro-B Natriuret Pep 1580 H (0-450) pg/mL Total Protein 5.5 L (5.8-8.3) g/dL Albumin 2.8 L (3.0-4.8) g/dL Globulin 2.6 gm/dL Albumin/Globulin Ratio 1.1 (1.1-1.8) 12/26/18 12/26/18 12/26/18 Range/Units 21:46 16:49 11:31 WBC (4.5-11.0) 10^3/uL RBC (3.5-6.1) 10^6/uL Hgb (14.0-18.0) g/dL Hct (42.0-52.0) % MCV (80.0-105.0) fl MCH (25.0-35.0) pg MCHC (31.0-37.0) g/dl RDW (11.5-14.5) % Plt Count (120.0-450.0) 10^3/uL MPV (7.0-11.0) fl Neut % (Auto) (50.0-68.0) % Lymph % (Auto) (22.0-35.0) % [place] % (Auto) (1.0-6.0) % Eos % (Auto) (1.5-5.0) % Baso % (Auto) (0.0-3.0) % Lymph # (Auto) (1.2-3.4) [place] # (Auto) (0.1-0.6) Eos # (Auto) (0.0-0.7) Baso # (Auto) (0.0-2.0) K/mm3 Absolute Neuts (auto) (1.4-6.5) Sodium (132-148) mmol/L Potassium (3.6-5.0) mmol/L Chloride (98-107) mmol/L Carbon Dioxide (21-33) mmol/L Anion Gap (10-20) BUN (7-21) mg/dL Creatinine (0.8-1.5) mg/dl Est GFR ( Amer) Est GFR (Non-Af Amer) POC Glucose (mg/dL) 68 304 H 129 H (65-110) mg/dL Random Glucose (70-110) mg/dL Calcium (8.4-10.5) mg/dL Phosphorus (2.5-4.5) mg/dL Magnesium (1.7-2.2) mg/dL Total Bilirubin (0.2-1.3) mg/dL Direct Bilirubin (0.0-0.4) mg/dL AST (17-59) U/L ALT (7-56) U/L Alkaline Phosphatase (38-126) U/L NT-Pro-B Natriuret Pep (0-450) pg/mL Total Protein (5.8-8.3) g/dL Albumin (3.0-4.8) g/dL Globulin gm/dL Albumin/Globulin Ratio (1.1-1.8) Laboratory Results - last 24 hr 12/26/18 12/26/18 12/26/18 11:31 16:49 21:46 WBC RBC Hgb Hct MCV MCH MCHC RDW Plt Count MPV Neut % (Auto) Lymph % (Auto) [place] % (Auto) Eos % (Auto) Baso % (Auto) Lymph # (Auto) [place] # (Auto) Eos # (Auto) Baso # (Auto) Absolute Neuts (auto) Sodium Potassium Chloride Carbon Dioxide Anion Gap BUN Creatinine Est GFR ( Amer) Est GFR (Non-Af Amer) POC Glucose (mg/dL) 129 H 304 H 68 Random Glucose Calcium Phosphorus Magnesium Total Bilirubin Direct Bilirubin AST ALT Alkaline Phosphatase NT-Pro-B Natriuret Pep Total Protein Albumin Globulin Albumin/Globulin Ratio 12/27/18 12/27/18 12/27/18 00:08 05:30 05:30 WBC 4.8 RBC 3.72 Hgb 11.4 L Hct 35.0 L MCV 94.1 MCH 30.6 MCHC 32.6 RDW 14.7 H Plt Count 131 MPV 9.6 Neut % (Auto) 69.5 H Lymph % (Auto) 16.4 L [place] % (Auto) 8.3 H Eos % (Auto) 5.6 H Baso % (Auto) 0.2 Lymph # (Auto) 0.8 L [place] # (Auto) 0.4 Eos # (Auto) 0.3 Baso # (Auto) 0.01 Absolute Neuts (auto) 3.35 Sodium 141 Potassium 3.7 Chloride 110 H Carbon Dioxide 28 Anion Gap 7 L BUN 20 Creatinine 1.2 Est GFR ( Amer) > 60 Est GFR (Non-Af Amer) 58 POC Glucose (mg/dL) 109 Random Glucose 99 Calcium 8.5 Phosphorus 2.6 Magnesium 2.3 H Total Bilirubin 0.6 Direct Bilirubin 0.4 AST 27 ALT 28 Alkaline Phosphatase 54 NT-Pro-B Natriuret Pep 1580 H Total Protein 5.5 L Albumin 2.8 L Globulin 2.6 Albumin/Globulin Ratio 1.1 Fingerstick Blood Sugar Results: 107 Critical Care Progress Note - Nutrition Nutrition: Nutrition Category Date Time Status Liquid Diet [DIET] Diets 12/26/18 Lunch Ordered Assessment/Plan - Assessment and Plan (Free Text) Assessment: 83 yo M with PMH of HTN, CAD s/p CABG, T2DM, HLD, and asthma admitted to [facility] for NSTEMI and underwent cardiac catherization with 3 BMS placed in the mid and proximal RCA. Patient is transferred to the ICU due to active GI bleed. Patient currently hemodynamically stable, will continue to monitor. Plan: Neuro AOx3 Maintain normothermia CV HFrEF EF noted to be 20-25% during cath continue lasix CAD s/p stents Will restart b-ernestina today and restart [place] at Will resume ASA today, hold plavix for today, resume tomorrow 12/28 resume plavix 12/28 & 12/29 (per GI recs) Continue to monitor closely for signs of STEMI as pt is not on DAPT currently Pulmonary HTN currently on Milrinone gtt Maintain MAP > 65 Cardiology following Pulm Maintain O2 sat > 92% GI Blood per rectum s/p colonoscopy revealing diverticula, internal hemorrhoids and AVMs with no active per GI, bleeding may be 2/2 DAPT initially Hold DAPT. Resume ASA 12/27, resume plavix 12/28 / 12/29 per GI recs Protonix BID Clear liquid diet Renal Replete K Cont to monitor electrolytes, replete as needed Maintain euvolemia Heme Blood per rectum hemodynamically stable recheck coags monitor BP ID [id number] pneumonia IV abx per primary Endo DM2 ISS-Low Accuchecks Maintain euglycemia Case seen, examined and discussed with attending physician, Dr. Melvin Donaldson PGY1 <Kristal Charles - Last Filed: 12/27/18 16:49> CCU Objective - Vital Signs / Intake & Output Vital Signs (Last 4 hours): Vital Signs Pulse Resp BP Pulse Ox 12/27/18 14:40 142/65 12/27/18 14:10 77 46 H 100 12/27/18 14:00 78 52 H 142/65 100 12/27/18 13:50 71 33 H 100 12/27/18 13:40 79 35 H 100 12/27/18 13:30 79 40 H 100 12/27/18 13:20 79 42 H 100 12/27/18 13:10 78 43 H 100 12/27/18 13:00 91 H 42 H 136/86 100 12/27/18 12:50 80 22 100 Intake and Output (Last 8hrs): Intake & Output 12/27/18 12/27/18 12/27/18 06:59 14:59 22:59 Intake Total 390 Balance 390 Weight 63.503 kg Intake: IV 390 Left Antecubital 300 Right Forearm 90 - Medications Active Medications: Active Medications Generic Name Dose Route Start Last Admin Trade Name Freq PRN Reason Stop Dose Admin Acetaminophen 650 mg 12/23/18 11:06 Tylenol 325mg Tab PO Q6 PRN TEMP>=99.5F Acetaminophen 650 mg 12/23/18 11:06 Tylenol 650 Mg Supp RC Q6H PRN TEMP>=99.5F Acetylcysteine 4 ml 12/23/18 09:30 12/27/18 14:34 Acetylcysteine 20% IH 4 ml Q8 SAMM Administration Aspirin 81 mg 12/27/18 10:00 12/27/18 10:02 Aspirin Chewable PO 81 mg DAILY SAMM Administration Atorvastatin Calcium 40 mg 12/23/18 17:00 12/26/18 17:07 Lipitor PO 40 mg DIN SAMM Administration Carvedilol 12.5 mg 12/23/18 10:00 12/25/18 11:11 Coreg PO 12.5 mg BID SAMM Administration Dextrose 0 ml 12/23/18 11:06 12/26/18 21:50 Dextrose 50% Inj IV 50 ml STAT PRN Administration Hypoglycemia Protocol Protocol Docusate Sodium 100 mg 12/23/18 14:00 12/27/18 14:36 Colace PO 100 mg TID SAMM Administration Famotidine 40 mg 12/23/18 22:00 12/26/18 21:16 Pepcid PO 40 mg HS SAMM Administration Ferrous Sulfate 324 mg 12/26/18 10:00 12/27/18 14:35 Feosol PO 324 mg TID SAMM Administration Furosemide 40 mg 12/25/18 10:00 12/27/18 10:01 Lasix IVP 40 mg DAILY SAMM Administration Doxycycline Hyclate 100 mg/ 100 mls @ 100 mls/hr 12/23/18 10:00 12/27/18 1 0:04 Sodium Chloride IVPB 100 mls/hr Q12 SAMM Administration Protocol Ceftriaxone Sodium 1 gm in 100 mls @ 100 mls/hr 12/23/18 10:00 12/27/18 10:03 Rocephin 1 Gram Ivpb IVPB 100 mls/hr DAILY SAMM Administration Protocol Dextrose 1,000 mls @ 0 mls/hr 12/23/18 11:06 Dextrose 5% In Water 1000 Ml IV .Q0M PRN Hypoglycemia Protocol Protocol Per Protocol Metronidazole 500 mg in 100 mls @ 100 mls/hr 12/23/18 14:00 12/27/18 14:35 Flagyl IVPB 100 mls/hr Q8 SAMM Administration Protocol Milrinone Lactate/Dextrose 100 mls @ 8.93 mls/hr 12/24/18 14:33 12/27/18 07:31 Primacor 20mg/100ml D5w IV 0.375 mcg/kg/min .[id number] PRN 8.93 mls/hr TITRATE PER MD ORDER Administration Protocol 0.375 MCG/KG/MIN Insulin Human Regular 0 units 12/26/18 11:30 12/27/18 11:45 Humulin R Low SC Not Given ACHS SAMM Protocol Levalbuterol HCl 0.63 mg 12/22/18 23:24 Xopenex IH [id number] PRN Shortness of Breath Levalbuterol HCl 0.63 mg 12/23/18 09:30 12/27/18 14:34 Xopenex IH 0.63 mg Q8 SAMM Administration Levothyroxine Sodium 25 mcg 12/23/18 06:00 12/27/18 05:27 Synthroid PO 25 mcg 0600 SAMM Administration Magnesium Oxide 400 mg 12/25/18 10:00 12/27/18 10:02 Mag-Ox PO 400 mg BID SAMM Administration Ondansetron HCl 4 mg 12/23/18 11:06 Zofran Inj IVP Q4H PRN Nausea/Vomiting Pantoprazole Sodium 40 mg 12/25/18 10:00 12/27/18 10:01 Protonix Inj IVP 40 mg Q12 SAMM Administration Potassium Chloride 10 meq 12/26/18 08:00 12/27/18 08:09 Klor-Con 10 PO 10 meq BRK SAMM Administration Ramipril 5 mg 12/27/18 14:00 12/27/18 14:40 Altace PO 5 mg DAILY SAMM Administration Tramadol HCl 50 mg 12/22/18 23:39 Ultram PO Q6 PRN Pain, moderate (4-7) - Patient Studies Lab Studies: Microbiology Studies 12/23/18 10:30 Blood Culture - Preliminary Blood-Venous NO GROWTH AFTER 4 DAYS 12/23/18 10:00 Blood Culture - Preliminary Blood-Venous NO GROWTH AFTER 4 DAYS 12/25/18 11:15 MRSA Culture (Admit) - Final Naris MRSA NOT DETECTED Lab Studies 12/27/18 12/27/18 12/27/18 Range/Units 11:28 07:42 05:30 WBC 4.8 (4.5-11.0) 10^3/uL RBC 3.72 (3.5-6.1) 10^6/uL Hgb 11.4 L (14.0-18.0) g/dL Hct 35.0 L (42.0-52.0) % MCV 94.1 (80.0-105.0) fl MCH 30.6 (25.0-35.0) pg MCHC 32.6 (31.0-37.0) g/dl RDW 14.7 H (11.5-14.5) % Plt Count 131 (120.0-450.0) 10^3/uL MPV 9.6 (7.0-11.0) fl Neut % (Auto) 69.5 H (50.0-68.0) % Lymph % (Auto) 16.4 L (22.0-35.0) % [place] % (Auto) 8.3 H (1.0-6.0) % Eos % (Auto) 5.6 H (1.5-5.0) % Baso % (Auto) 0.2 (0.0-3.0) % Lymph # (Auto) 0.8 L (1.2-3.4) [place] # (Auto) 0.4 (0.1-0.6) Eos # (Auto) 0.3 (0.0-0.7) Baso # (Auto) 0.01 (0.0-2.0) K/mm3 Absolute Neuts (auto) 3.35 (1.4-6.5) Sodium (132-148) mmol/L Potassium (3.6-5.0) mmol/L Chloride (98-107) mmol/L Carbon Dioxide (21-33) mmol/L Anion Gap (10-20) BUN (7-21) mg/dL Creatinine (0.8-1.5) mg/dl Est GFR ( Amer) Est GFR (Non-Af Amer) POC Glucose (mg/dL) 122 H 107 (65-110) mg/dL Random Glucose (70-110) mg/dL Calcium (8.4-10.5) mg/dL Phosphorus (2.5-4.5) mg/dL Magnesium (1.7-2.2) mg/dL Total Bilirubin (0.2-1.3) mg/dL Direct Bilirubin (0.0-0.4) mg/dL AST (17-59) U/L ALT (7-56) U/L Alkaline Phosphatase (38-126) U/L NT-Pro-B Natriuret Pep (0-450) pg/mL Total Protein (5.8-8.3) g/dL Albumin (3.0-4.8) g/dL Globulin gm/dL Albumin/Globulin Ratio (1.1-1.8) 12/27/18 12/27/18 12/26/18 Range/Units 05:30 00:08 21:46 WBC (4.5-11.0) 10^3/uL RBC (3.5-6.1) 10^6/uL Hgb (14.0-18.0) g/dL Hct (42.0-52.0) % MCV (80.0-105.0) fl MCH (25.0-35.0) pg MCHC (31.0-37.0) g/dl RDW (11.5-14.5) % Plt Count (120.0-450.0) 10^3/uL MPV (7.0-11.0) fl Neut % (Auto) (50.0-68.0) % Lymph % (Auto) (22.0-35.0) % [place] % (Auto) (1.0-6.0) % Eos % (Auto) (1.5-5.0) % Baso % (Auto) (0.0-3.0) % Lymph # (Auto) (1.2-3.4) [place] # (Auto) (0.1-0.6) Eos # (Auto) (0.0-0.7) Baso # (Auto) (0.0-2.0) K/mm3 Absolute Neuts (auto) (1.4-6.5) Sodium 141 (132-148) mmol/L Potassium 3.7 (3.6-5.0) mmol/L Chloride 110 H (98-107) mmol/L Carbon Dioxide 28 (21-33) mmol/L Anion Gap 7 L (10-20) BUN 20 (7-21) mg/dL Creatinine 1.2 (0.8-1.5) mg/dl Est GFR ( Amer) > 60 Est GFR (Non-Af Amer) 58 POC Glucose (mg/dL) 109 68 (65-110) mg/dL Random Glucose 99 (70-110) mg/dL Calcium 8.5 (8.4-10.5) mg/dL Phosphorus 2.6 (2.5-4.5) mg/dL Magnesium 2.3 H (1.7-2.2) mg/dL Total Bilirubin 0.6 (0.2-1.3) mg/dL Direct Bilirubin 0.4 (0.0-0.4) mg/dL AST 27 (17-59) U/L ALT 28 (7-56) U/L Alkaline Phosphatase 54 (38-126) U/L NT-Pro-B Natriuret Pep 1580 H (0-450) pg/mL Total Protein 5.5 L (5.8-8.3) g/dL Albumin 2.8 L (3.0-4.8) g/dL Globulin 2.6 gm/dL Albumin/Globulin Ratio 1.1 (1.1-1.8) 12/26/18 Range/Units 16:49 WBC (4.5-11.0) 10^3/uL RBC (3.5-6.1) 10^6/uL Hgb (14.0-18.0) g/dL Hct (42.0-52.0) % MCV (80.0-105.0) fl MCH (25.0-35.0) pg MCHC (31.0-37.0) g/dl RDW (11.5-14.5) % Plt Count (120.0-450.0) 10^3/uL MPV (7.0-11.0) fl Neut % (Auto) (50.0-68.0) % Lymph % (Auto) (22.0-35.0) % [place] % (Auto) (1.0-6.0) % Eos % (Auto) (1.5-5.0) % Baso % (Auto) (0.0-3.0) % Lymph # (Auto) (1.2-3.4) [place] # (Auto) (0.1-0.6) Eos # (Auto) (0.0-0.7) Baso # (Auto) (0.0-2.0) K/mm3 Absolute Neuts (auto) (1.4-6.5) Sodium (132-148) mmol/L Potassium (3.6-5.0) mmol/L Chloride (98-107) mmol/L Carbon Dioxide (21-33) mmol/L Anion Gap (10-20) BUN (7-21) mg/dL Creatinine (0.8-1.5) mg/dl Est GFR ( Amer) Est GFR (Non-Af Amer) POC Glucose (mg/dL) 304 H (65-110) mg/dL Random Glucose (70-110) mg/dL Calcium (8.4-10.5) mg/dL Phosphorus (2.5-4.5) mg/dL Magnesium (1.7-2.2) mg/dL Total Bilirubin (0.2-1.3) mg/dL Direct Bilirubin (0.0-0.4) mg/dL AST (17-59) U/L ALT (7-56) U/L Alkaline Phosphatase (38-126) U/L NT-Pro-B Natriuret Pep (0-450) pg/mL Total Protein (5.8-8.3) g/dL Albumin (3.0-4.8) g/dL Globulin gm/dL Albumin/Globulin Ratio (1.1-1.8) Laboratory Results - last 24 hr 12/26/18 12/26/18 12/27/18 16:49 21:46 00:08 WBC RBC Hgb Hct MCV MCH MCHC RDW Plt Count MPV Neut % (Auto) Lymph % (Auto) [place] % (Auto) Eos % (Auto) Baso % (Auto) Lymph # (Auto) [place] # (Auto) Eos # (Auto) Baso # (Auto) Absolute Neuts (auto) Sodium Potassium Chloride Carbon Dioxide Anion Gap BUN Creatinine Est GFR ( Amer) Est GFR (Non-Af Amer) POC Glucose (mg/dL) 304 H 68 109 Random Glucose Calcium Phosphorus Magnesium Total Bilirubin Direct Bilirubin AST ALT Alkaline Phosphatase NT-Pro-B Natriuret Pep Total Protein Albumin Globulin Albumin/Globulin Ratio 12/27/18 12/27/18 12/27/18 05:30 05:30 07:42 WBC 4.8 RBC 3.72 Hgb 11.4 L Hct 35.0 L MCV 94.1 MCH 30.6 MCHC 32.6 RDW 14.7 H Plt Count 131 MPV 9.6 Neut % (Auto) 69.5 H Lymph % (Auto) 16.4 L [place] % (Auto) 8.3 H Eos % (Auto) 5.6 H Baso % (Auto) 0.2 Lymph # (Auto) 0.8 L [place] # (Auto) 0.4 Eos # (Auto) 0.3 Baso # (Auto) 0.01 Absolute Neuts (auto) 3.35 Sodium 141 Potassium 3.7 Chloride 110 H Carbon Dioxide 28 Anion Gap 7 L BUN 20 Creatinine 1.2 Est GFR ( Amer) > 60 Est GFR (Non-Af Amer) 58 POC Glucose (mg/dL) 107 Random Glucose 99 Calcium 8.5 Phosphorus 2.6 Magnesium 2.3 H Total Bilirubin 0.6 Direct Bilirubin 0.4 AST 27 ALT 28 Alkaline Phosphatase 54 NT-Pro-B Natriuret Pep 1580 H Total Protein 5.5 L Albumin 2.8 L Globulin 2.6 Albumin/Globulin Ratio 1.1 12/27/18 11:28 WBC RBC Hgb Hct MCV MCH MCHC RDW Plt Count MPV Neut % (Auto) Lymph % (Auto) [place] % (Auto) Eos % (Auto) Baso % (Auto) Lymph # (Auto) [place] # (Auto) Eos # (Auto) Baso # (Auto) Absolute Neuts (auto) Sodium Potassium Chloride Carbon Dioxide Anion Gap BUN Creatinine Est GFR ( Amer) Est GFR (Non-Af Amer) POC Glucose (mg/dL) 122 H Random Glucose Calcium Phosphorus Magnesium Total Bilirubin Direct Bilirubin AST ALT Alkaline Phosphatase NT-Pro-B Natriuret Pep Total Protein Albumin Globulin Albumin/Globulin Ratio Critical Care Progress Note - Nutrition Nutrition: Nutrition Category Date Time Status Liquid Diet [DIET] Diets 12/26/18 Lunch Ordered Addendum Addendum: 12/27/18 16:47 ICU Attending Addendum Patient seen and examined. Case reviewed on round with housestaff. Agree with resident note above with the following additions/exceptions 83M PMHx HTN, CAD s/p CABG, T2DM, HLD, and asthma found to have NSTEMI s/p placement of three bare-metal stent in the mid- and proximal RCA Complicated by lower gi bleed s/p colonscopy yesterday AM 12/26 showing diverticulosis and AVM CAD CABG s/p PCI DMII HLD lower gibleed hemodynamically stable resume asa today holding Plavix resume BB coreg 12.5 BID resume ramoirpil at lower dose 5mg for now GI consulted, Dr Villasenor Cardiology follow up doubt infection, woudl stop abx abx per ID Rest of care as above in housestaff note Kristal Charles MD Pulmonary Critical Care Attending
--- NOTE | 2018-12-28 05:50 | PN ---
DATE: 12/27/2018SUBJECTIVE: The patient is seen lying in the CCU bed 1. Overnight nurse's notes were reviewed. The patient yesterday was found to have a large amount of black bowel movement. The patient had episode of hypoglycemia. The patient slept well overnight. PHYSICAL EXAMINATION: GENERAL: The patient was seen lying in the bed. The patient was not in any distress. VITAL SIGNS: T-max in the last 24-48 hours 98.6 and 98.7. Telemetry shows sinus rhythm. Heart rate 70s to 80s. Blood pressure 124/54, 142/65, 136/86, 131/57, 138/64, 136/65, 141/64. Respiration has been in mid 20s. O2 sat 100%. Intake and output: Today's output is 1250. HEAD: Normocephalic and atraumatic. HEENT: Shows pinkish pale conjunctivae, anicteric sclerae, dry oral mucosa. NECK: No neck rigidity. CHEST: Kyphosis. LUNGS: Show positive rhonchi bilaterally. Decreased breath sounds at the bases. CARDIOVASCULAR: S1 and S2, regular rhythm. Positive systolic murmur in left sternal border, right second intercostal space, left second intercostal space. ABDOMEN: Soft. Positive bowel sounds. No palpable hepatosplenomegaly. GENITALIA: Male. RECTAL: Deferred. EXTREMITIES: Show no pitting edema, no calf tenderness, no Homans' sign. NEUROLOGICAL: The patient is alert, awake, responsive. He is able to move upper and lower extremities without assistance. Gait examination is not tested. DIAGNOSTIC DATA: From 12/27/2018, hemoglobin and hematocrit 11.4 and 35, platelet 131, granulocytes 69. The patient's hemoglobin and hematocrit in the last 24-48 hours have been averaging around 11.5 g and hematocrit around 35 to 36. Platelet count is also in 130s to 140s. PT yesterday was 15.8. Fingerstick blood sugars 122, 107, 99, 109, 68, 304. Chemistry shows sodium of 141, potassium 3.7, chloride 110, CO2 of 28, anion gap 7, BUN 20, creatinine 1.2, GFR greater than 60, glucose 99, calcium 8.5, phosphorus 2.6, magnesium 2.3. LFTs are normal. ProBNP is down to 1580. Highest ProBNP was 13,700, down to 1580. Total protein 5.5, albumin 2.8. Blood, urine, MRSA cultures are negative. The patient received 1 unit of PRBC. The patient had an endoscopy result which was reviewed. IMPRESSION AND PLAN: 1. Acute non-ST elevation myocardial infarction with elevated troponin. 2. Status post cardiac catheterization, percutaneous transluminal coronary angioplasty, and bare-metal stent of the right coronary artery. 3. Dilated ischemic cardiomyopathy with left ventricular ejection fraction of 25% with diffusely dilated and diffusely hypokinetic left ventricle. 4. A 70% to 80% stenosis of the proximal right coronary artery extending into the midportion. 5. A 99% stenosis of the mid right coronary artery. 6. Long critical 80% to 90% stenosis of the diffusely diseased posterior descending artery. 7. Proximal occlusion of left anterior descending artery. 8. Subtotal proximal occlusion of left circumflex artery. 9. Left internal mammary artery to left anterior descending artery patent and antegrade flow to the mid and distal left anterior descending artery. 10. Diffuse atherosclerosis and long 50% to 60% stenosis of the midportion of the left anterior descending artery after the anastomotic site. 11. Saphenous vein graft to right coronary artery occluded. 12. Status post successful angioplasty and three bare-metal stent placements of the mid right coronary artery and proximal right coronary artery. 13. Status post successful angioplasty and stent placement of the multiple lesions of the right coronary artery with bare-metal stent placement. 14. Severe triple-vessel coronary artery disease. 15. Acute systolic and diastolic congestive heart failure with elevated ProBNP. 16. Acute blood loss anemia with lower gastrointestinal bleeding and bright red blood per rectum and hypotension. 17. Transient hypovolemic hypotensive shock secondary to acute blood loss anemia secondary to gastrointestinal bleeding. 18. Leukopenia. 19. Acute blood loss anemia with decreasing hemoglobin from 14.4 to 11.4. 20. Mild coagulopathy. 21. Lactic acidosis. 22. Hypokalemia. 23. Uncontrolled non-insulin requiring diabetes mellitus with hemoglobin A1c of 7.1 and elevated fructosamine of 290. 24. Mild protein malnutrition and hypoalbuminemia. 25. Uncontrolled non-insulin requiring diabetes mellitus with elevated hemoglobin A1c . 26. Microscopic hematuria and bacteriuria. 27. Status post packed red blood cell transfusion x1. 28. Rectosigmoid colon active gastrointestinal bleeding. 29. Left sided multilobar pneumonia. 30. Cardiomegaly with coronary artery calcification. 31. Aortic calcification. 32. Moderate bilateral pleural effusion, left more than the right. 33. 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 34. Questionable delirium. 35. 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 36. Gait dysfunction. 37. Deconditioning. 38. Right inguinal hernia containing bowel loop. 39. Prostatomegaly. 40. L4-L5 calcification. 41. Concentric left ventricular hypertrophy. 42. Hypertensive cardiovascular disease. 43. Lateral coronary ischemic changes. 44. Left ventricular ejection fraction of 20% to 25% with right ventricular systolic pressure of 70 mmHg. 45. Severe pulmonary hypertension with severe tricuspid regurgitation and right ventricular systolic pressure of 70 mmHg. 46. Severely impaired left ventricular ejection fraction and global left ventricular hypokinesis. 47. Mildly dilated right ventricle. 48. Severely dilated left and right atrium. 49. Moderate aortic regurgitation and mildly sclerotic aortic valve. 50. Reduced mitral valve leaflet separation and decreased flow through the mitral valve. 51. Mildly thickened mitral valve. 52. Severe mitral regurgitation. 53. Mild pulmonic regurgitation. 54. Large left pleural effusion. 55. Dilated cardiomyopathy with four-chamber dilatation. 56. Severe left ventricular systolic dysfunction and global hypokinesis. 57. Status post colonoscopy. 58. Sigmoid colonic diverticulosis. 59. Descending colon and cecum multiple large angiodysplastic lesions without bleeding. 60. Internal hemorrhoid. 61. History of coronary artery disease, coronary artery bypass graft. 62. Neurosis. 63. Intravenous milrinone requiring dilated ischemic cardiomyopathy and congestive heart failure. 64. Hypothyroidism. PLAN: At this time, the patient is awaiting evaluation by Cardiology for clearance for transfer out of the ICU. Serial labs have been ordered for the morning. Current consultation: Cardiology, Surgery, Gastroenterology. The patient has been ordered Mucomyst and Xopenex nebulizers, Altace 5 mg daily, aspirin 81 mg daily, Colace 100 mg three times a day, Coreg 12.5 mg twice a day, doxycycline 100 mg IV every 12 hours, ferrous sulfate 324 mg three times a day, Flagyl 500 mg IV every 8 hours, regular insulin sliding scale coverage before meals and at bedtime, potassium increased to 20 mEq daily because of low normal potassium, Lasix 40 mg IV daily, Lipitor 40 mg daily, magnesium oxide 400 mg twice a day, Pepcid 40 mg at bedtime, Rocephin 1 g IV daily, milrinone drip at 0.375 mcg/kg per minute, Protonix 40 mg IV every 12 hours, Rocephin 1 g IV daily, Synthroid 25 mcg daily, Tylenol 650 mg p.o. suppository every 6 hours. The patient's IV Protonix will be stopped. The patient will be continued on Pepcid 40 mg daily, Rocephin 1 g IV daily, Synthroid 25 mcg daily. The patient is on Xopenex nebulizer, Zofran 4 mg IV every 4 hours. The patient has been ordered chest PT, incentive spirometry, oxygen nasal cannula. The patient has been ordered out of bed, physical therapy, occupational therapy. At present, the patient will be continued to be monitored very closely. We will await further cardiology recommendations regarding transferring of the patient to the telemetry floor. GI recommends holding Plavix for 72 hours. We will leave the decision about resuming Plavix up to Cardiology and Gastroenterology. Overall, the patient's prognosis is guarded secondary to advanced age and multiple comorbidities and acute deterioration of the patient's medical condition. The patient's family and the next of kin, the patient's nephew, Navid Cuadra, have been updated about the patient's condition and overall guarded prognosis which he acknowledged understanding. All questions concerned were answered. Dictated and electronically signed, not read. Jameson Dorsey MD
[2018-12-28 05:59] LABS: BASO # 0.01 K/mm3 (0.0-2.0); BASO % 0.2 % (0.0-3.0); EOS # 0.2 (0.0-0.7); EOS % 4.3 % (1.5-5.0); HEMOGLOBIN 11.2 g/dL (14.0-18.0); LYMPH # 0.8 (1.2-3.4); MEAN CELL VOLUME 94.8 fl (80.0-105.0); MEAN CORPUSCULAR HEMOGLOBIN 30.7 pg (25.0-35.0); MEAN CORPUSCULAR HGB CONC 32.4 g/dl (31.0-37.0); MONO # 0.3 (0.1-0.6); MONO % 6.9 % (1.0-6.0); RBC 3.65 10^6/uL (3.5-6.1); RED CELL DISTRIBUTION WIDTH 14.2 % (11.5-14.5); WHITE BLOOD COUNT 4.2 10^3/uL (4.5-11.0)
[2018-12-28 06:00] LABS: ALBUMIN 2.7 g/dL (3.0-4.8); ALT/SGPT 29 U/L (7-56); AST/SGOT 31 U/L (17-59); BILIRUBIN,DIRECT 0.4 mg/dL (0.0-0.4); BLOOD UREA NITROGEN 19 mg/dL (7-21); CALCIUM 8.5 mg/dL (8.4-10.5); GFR NON-AFRICAN AMERICAN > 60
[2018-12-28 06:07] LABS: B-TYPE NATRIURETIC PEPTIDE 2280 pg/mL (0-450)
[2018-12-28] MEDS: Levothyroxine 25 MCG TAB PO SCH (06:19)
[2018-12-28] MEDS: metroNIDAZOLE IV 500 mg/100 ml 500 MG/100 ML BAG IVPB SCH ×2 (06:19→14:26)
[2018-12-28] MEDS: Levalbuterol 0.63 MG/3 ML Inhal Soln UD IH SCH ×3 (07:51→20:40)
[2018-12-28] MEDS: Acetylcysteine 20% Inhal Soln (4ml) IH SCH ×3 (07:51→20:40)
[2018-12-28] MEDS ORDERED: Potassium Chloride 20 mEq ER Tab PO SCH (08:00)
--- NOTE | 2018-12-28 09:44 | CP.CCUPN ---
<Chen Morrison - Last Filed: 12/28/18 13:27> CCU Subjective - Physician Review Subjective (Free Text): 12/28/18 09:39 Chen Contreras PGY1, ICU Progress Note for Dr. Charles: Pt seen and examined at bedside in ICU this AM. Pt is resting comfortably. Pt had 1 BM yesterday and denies it being bloody or dark, confirmed with nursing. Pt denies any lightheadedness, dizziness, SOB, chest pain, hematemsis, hematochezia or melena. No other acute complaints at this time. CCU Objective - Vital Signs / Intake & Output Vital Signs (Last 4 hours): Vital Signs Temp Pulse Resp BP Pulse Ox 12/28/18 08:00 97.4 F L 73 18 122/48 L 95 12/28/18 06:00 65 Intake and Output (Last 8hrs): Intake & Output 12/27/18 12/28/18 12/28/18 22:59 06:59 14:59 Intake Total 1130 Output Total 500 Balance 630 Weight 138 lb 14.259 oz Intake: IV 490 Left Antecubital 300 Right Forearm 90 Oral 640 Output: Urine 500 Urine, Voided 500 Other: # Bowel Movements 1 - Physical Exam Head: Positive for: Atraumatic, Normocephalic Pupils: Positive for: PERRL Extroacular Muscles: Positive for: EOMI Conjunctiva: Positive for: Normal Mouth: Positive for: Moist Mucous Membranes Neck: Positive for: Normal Range of Motion Respiratory/Chest: Positive for: Clear to Auscultation, Good Air Exchange. Negative for: Respiratory Distress, Accessory Muscle Use Cardiovascular: Positive for: Regular Rate and Rhythm, Normal S1, S2, Other. Negative for: Murmurs Abdomen: Positive for: Tenderness (LLQ tenderness), Distention. Negative for: Rebound, Guarding Back: Positive for: Normal Inspection Upper Extremity: Positive for: Normal Inspection. Negative for: Cyanosis, Edema Lower Extremity: Positive for: Edema (Pitting edema) Neurological: Positive for: GCS=15, Speech Normal Skin: Positive for: Warm, Dry, Normal Color. Negative for: Rashes Psychiatric: Positive for: Alert, Oriented x 3, Normal Insight, Normal Con centration - Medications Active Medications: Active Medications Generic Name Dose Route Start Last Admin Trade Name Freq PRN Reason Stop Dose Admin Acetaminophen 650 mg 12/23/18 11:06 Tylenol 325mg Tab PO Q6 PRN TEMP>=99.5F Acetaminophen 650 mg 12/23/18 11:06 Tylenol 650 Mg Supp RC Q6H PRN TEMP>=99.5F Acetylcysteine 4 ml 12/23/18 09:30 12/28/18 07:51 Acetylcysteine 20% IH 4 ml Q8 SAMM Administration Aspirin 81 mg 12/27/18 10:00 12/27/18 10:02 Aspirin Chewable PO 81 mg DAILY SAMM Administration Atorvastatin Calcium 40 mg 12/23/18 17:00 12/27/18 17:12 Lipitor PO 40 mg DIN SAMM Administration Carvedilol 12.5 mg 12/23/18 10:00 12/27/18 17:14 Coreg PO 12.5 mg BID SAMM Administration Dextrose 0 ml 12/23/18 11:06 12/26/18 21:50 Dextrose 50% Inj IV 50 ml STAT PRN Administration Hypoglycemia Protocol Protocol Docusate Sodium 100 mg 12/23/18 14:00 12/27/18 17:12 Colace PO 100 mg TID SAMM Administration Famotidine 40 mg 12/23/18 22:00 12/27/18 22:25 Pepcid PO 40 mg HS SAMM Administration Ferrous Sulfate 324 mg 12/26/18 10:00 12/27/18 17:13 Feosol PO 324 mg TID SAMM Administration Furosemide 40 mg 12/25/18 10:00 12/27/18 10:01 Lasix IVP 40 mg DAILY SAMM Administration Doxycycline Hyclate 100 mg/ 100 mls @ 100 mls/hr 12/23/18 10:00 12/27/18 22:35 Sodium Chloride IVPB 100 mls/hr Q12 SAMM Administration Protocol Ceftriaxone Sodium 1 gm in 100 mls @ 100 mls/hr 12/23/18 10:00 12/27/18 10:03 Rocephin 1 Gram Ivpb IVPB 100 mls/hr DAILY SAMM Administration Protocol Dextrose 1,000 mls @ 0 mls/hr 12/23/18 11:06 Dextrose 5% In Water 1000 Ml IV .Q0M PRN Hypoglycemia Protocol Protocol Per Protocol Metronidazole 500 mg in 100 mls @ 100 mls/hr 12/23/18 14:00 12/28/18 06:19 Flagyl IVPB 100 mls/hr Q8 SAMM Administration Protocol Milrinone Lactate/Dextrose 100 mls @ 8.93 mls/hr 12/24/18 14:33 12/27/18 20:54 Primacor 20mg/100ml D5w IV 0.375 mcg/kg/min .[id number] PRN 8.93 mls/hr TITRATE PER MD ORDER Administration Protocol 0.375 MCG/KG/MIN Insulin Human Regular 0 units 12/26/18 11:30 12/27/18 22:10 Humulin R Low SC Not Given ACHS SAMM Protocol Levalbuterol HCl 0.63 mg 12/22/18 23:24 Xopenex IH [id number] PRN Shortness of Breath Levalbuterol HCl 0.63 mg 12/28/18 01:26 12/28/18 07:51 Xopenex IH 0.63 mg TIDRESP SAMM Administration Levothyroxine Sodium 25 mcg 12/23/18 06:00 12/28/18 06:19 Synthroid PO 25 mcg 0600 SAMM Administration Magnesium Oxide 400 mg 12/25/18 10:00 12/27/18 17:14 Mag-Ox PO 400 mg BID SAMM Administration Ondansetron HCl 4 mg 12/23/18 11:06 Zofran Inj IVP Q4H PRN Nausea/Vomiting Potassium Chloride 20 meq 12/28/18 08:00 K-Dur 20 Meq Er Tab PO BRK SAMM Ramipril 5 mg 12/27/18 14:00 12/27/18 14:40 Altace PO 5 mg DAILY SAMM Administration - Patient Studies Lab Studies: Microbiology Studies 12/23/18 10:30 Blood Culture - Preliminary Blood-Venous NO GROWTH AFTER 4 DAYS 12/23/18 10:00 Blood Culture - Preliminary Blood-Venous NO GROWTH AFTER 4 DAYS Lab Studies 12/28/18 12/28/18 12/27/18 Range/Units 05:15 05:15 22:04 WBC 4.2 L (4.5-11.0) 10^3/uL RBC 3.65 (3.5-6.1) 10^6/uL Hgb 11.2 L (14.0-18.0) g/dL Hct 34.6 L (42.0-52.0) % MCV 94.8 (80.0-105.0) fl MCH 30.7 (25.0-35.0) pg MCHC 32.4 (31.0-37.0) g/dl RDW 14.2 (11.5-14.5) % Plt Count 134 (120.0-450.0) 10^3/uL MPV 10.0 (7.0-11.0) fl Neut % (Auto) 69.6 H (50.0-68.0) % Lymph % (Auto) 19.0 L (22.0-35.0) % [place] % (Auto) 6.9 H (1.0-6.0) % Eos % (Auto) 4.3 (1.5-5.0) % Baso % (Auto) 0.2 (0.0-3.0) % Lymph # (Auto) 0.8 L (1.2-3.4) [place] # (Auto) 0.3 (0.1-0.6) Eos # (Auto) 0.2 (0.0-0.7) Baso # (Auto) 0.01 (0.0-2.0) K/mm3 Absolute Neuts (auto) 2.92 (1.4-6.5) Sodium 141 (132-148) mmol/L Potassium 3.8 (3.6-5.0) mmol/L Chloride 107 (98-107) mmol/L Carbon Dioxide 29 (21-33) mmol/L Anion Gap 9 L (10-20) BUN 19 (7-21) mg/dL Creatinine 1.1 (0.8-1.5) mg/dl Est GFR ( Amer) > 60 Est GFR (Non-Af Amer) > 60 POC Glucose (mg/dL) 86 (65-110) mg/dL Random Glucose 93 (70-110) mg/dL Calcium 8.5 (8.4-10.5) mg/dL Phosphorus 2.7 (2.5-4.5) mg/dL Magnesium 2.1 (1.7-2.2) mg/dL Total Bilirubin 0.6 (0.2-1.3) mg/dL Direct Bilirubin 0.4 (0.0-0.4) mg/dL AST 31 (17-59) U/L ALT 29 (7-56) U/L Alkaline Phosphatase 48 (38-126) U/L NT-Pro-B Natriuret Pep 2280 H (0-450) pg/mL Total Protein 5.3 L (5.8-8.3) g/dL Albumin 2.7 L (3.0-4.8) g/dL Globulin 2.6 gm/dL Albumin/Globulin Ratio 1.0 L (1.1-1.8) Crossmatch 12/27/18 12/27/18 12/27/18 Range/Units 16:22 11:28 07:42 WBC (4.5-11.0) 10^3/uL RBC (3.5-6.1) 10^6/uL Hgb (14.0-18.0) g/dL Hct (42.0-52.0) % MCV (80.0-105.0) fl MCH (25.0-35.0) pg MCHC (31.0-37.0) g/dl RDW (11.5-14.5) % Plt Count (120.0-450.0) 10^3/uL MPV (7.0-11.0) fl Neut % (Auto) (50.0-68.0) % Lymph % (Auto) (22.0-35.0) % [place] % (Auto) (1.0-6.0) % Eos % (Auto) (1.5-5.0) % Baso % (Auto) (0.0-3.0) % Lymph # (Auto) (1.2-3.4) [place] # (Auto) (0.1-0.6) Eos # (Auto) (0.0-0.7) Baso # (Auto) (0.0-2.0) K/mm3 Absolute Neuts (auto) (1.4-6.5) Sodium (132-148) mmol/L Potassium (3.6-5.0) mmol/L Chloride (98-107) mmol/L Carbon Dioxide (21-33) mmol/L Anion Gap (10-20) BUN (7-21) mg/dL Creatinine (0.8-1.5) mg/dl Est GFR ( Amer) Est GFR (Non-Af Amer) POC Glucose (mg/dL) 172 H 122 H 107 (65-110) mg/dL Random Glucose (70-110) mg/dL Calcium (8.4-10.5) mg/dL Phosphorus (2.5-4.5) mg/dL Magnesium (1.7-2.2) mg/dL Total Bilirubin (0.2-1.3) mg/dL Direct Bilirubin (0.0-0.4) mg/dL AST (17-59) U/L ALT (7-56) U/L Alkaline Phosphatase (38-126) U/L NT-Pro-B Natriuret Pep (0-450) pg/mL Total Protein (5.8-8.3) g/dL Albumin (3.0-4.8) g/dL Globulin gm/dL Albumin/Globulin Ratio (1.1-1.8) Crossmatch 12/24/18 Range/Units 21:45 WBC (4.5-11.0) 10^3/uL RBC (3.5-6.1) 10^6/uL Hgb (14.0-18.0) g/dL Hct (42.0-52.0) % MCV (80.0-105.0) fl MCH (25.0-35.0) pg MCHC (31.0-37.0) g/dl RDW (11.5-14.5) % Plt Count (120.0-450.0) 10^3/uL MPV (7.0-11.0) fl Neut % (Auto) (50.0-68.0) % Lymph % (Auto) (22.0-35.0) % [place] % (Auto) (1.0-6.0) % Eos % (Auto) (1.5-5.0) % Baso % (Auto) (0.0-3.0) % Lymph # (Auto) (1.2-3.4) [place] # (Auto) (0.1-0.6) Eos # (Auto) (0.0-0.7) Baso # (Auto) (0.0-2.0) K/mm3 Absolute Neuts (auto) (1.4-6.5) Sodium (132-148) mmol/L Potassium (3.6-5.0) mmol/L Chloride (98-107) mmol/L Carbon Dioxide (21-33) mmol/L Anion Gap (10-20) BUN (7-21) mg/dL Creatinine (0.8-1.5) mg/dl Est GFR ( Amer) Est GFR (Non-Af Amer) POC Glucose (mg/dL) (65-110) mg/dL Random Glucose (70-110) mg/dL Calcium (8.4-10.5) mg/dL Phosphorus (2.5-4.5) mg/dL Magnesium (1.7-2.2) mg/dL Total Bilirubin (0.2-1.3) mg/dL Direct Bilirubin (0.0-0.4) mg/dL AST (17-59) U/L ALT (7-56) U/L Alkaline Phosphatase (38-126) U/L NT-Pro-B Natriuret Pep (0-450) pg/mL Total Protein (5.8-8.3) g/dL Albumin (3.0-4.8) g/dL Globulin gm/dL Albumin/Globulin Ratio (1.1-1.8) Crossmatch See Detail Laboratory Results - last 24 hr 12/24/18 12/27/18 12/27/18 21:45 07:42 11:28 WBC RBC Hgb Hct MCV MCH MCHC RDW Plt Count MPV Neut % (Auto) Lymph % (Auto) [place] % (Auto) Eos % (Auto) Baso % (Auto) Lymph # (Auto) [place] # (Auto) Eos # (Auto) Baso # (Auto) Absolute Neuts (auto) Sodium Potassium Chloride Carbon Dioxide Anion Gap BUN Creatinine Est GFR ( Amer) Est GFR (Non-Af Amer) POC Glucose (mg/dL) 107 122 H Random Glucose Calcium Phosphorus Magnesium Total Bilirubin Direct Bilirubin AST ALT Alkaline Phosphatase NT-Pro-B Natriuret Pep Total Protein Albumin Globulin Albumin/Globulin Ratio Crossmatch See Detail 12/27/18 12/27/18 12/28/18 16:22 22:04 05:15 WBC RBC Hgb Hct MCV MCH MCHC RDW Plt Count MPV Neut % (Auto) Lymph % (Auto) [place] % (Auto) Eos % (Auto) Baso % (Auto) Lymph # (Auto) [place] # (Auto) Eos # (Auto) Baso # (Auto) Absolute Neuts (auto) Sodium 141 Potassium 3.8 Chloride 107 Carbon Dioxide 29 Anion Gap 9 L BUN 19 Creatinine 1.1 Est GFR ( Amer) > 60 Est GFR (Non-Af Amer) > 60 POC Glucose (mg/dL) 172 H 86 Random Glucose 93 Calcium 8.5 Phosphorus 2.7 Magnesium 2.1 Total Bilirubin 0.6 Direct Bilirubin 0.4 AST 31 ALT 29 Alkaline Phosphatase 48 NT-Pro-B Natriuret Pep 2280 H Total Protein 5.3 L Albumin 2.7 L Globulin 2.6 Albumin/Globulin Ratio 1.0 L Crossmatch 12/28/18 05:15 WBC 4.2 L RBC 3.65 Hgb 11.2 L Hct 34.6 L MCV 94.8 MCH 30.7 MCHC 32.4 RDW 14.2 Plt Count 134 MPV 10.0 Neut % (Auto) 69.6 H Lymph % (Auto) 19.0 L [place] % (Auto) 6.9 H Eos % (Auto) 4.3 Baso % (Auto) 0.2 Lymph # (Auto) 0.8 L [place] # (Auto) 0.3 Eos # (Auto) 0.2 Baso # (Auto) 0.01 Absolute Neuts (auto) 2.92 Sodium Potassium Chloride Carbon Dioxide Anion Gap BUN Creatinine Est GFR ( Amer) Est GFR (Non-Af Amer) POC Glucose (mg/dL) Random Glucose Calcium Phosphorus Magnesium Total Bilirubin Direct Bilirubin AST ALT Alkaline Phosphatase NT-Pro-B Natriuret Pep Total Protein Albumin Globulin Albumin/Globulin Ratio Crossmatch Fingerstick Blood Sugar Results: 86 Critical Care Progress Note - Nutrition Nutrition: Nutrition Category Date Time Status Liquid Diet [DIET] Diets 12/26/18 Lunch Ordered Assessment/Plan - Assessment and Plan (Free Text) Assessment: 83 yo M with PMH of HTN, CAD s/p CABG, T2DM, HLD, and asthma [place] [facility] [place] and underwent cardiac catherization with 3 BMS placed in the mid and proximal RCA. Patient is transferred to the ICU due to active GI bleed. Patient currently hemodynamically stable, will continue to monitor. Plan: Neuro - AOx3 - Maintain normothermia Cardio: HFrEF - EF noted to be 20-25% during cath - continue lasix CAD s/p stents - B-zana and ACEi restarted - Asa resumed yesterday, plavix resumed today per GI recs - Continue to monitor closely for signs of GI bleed as now DAPT is resumed. Pulmonary HTN - currently on Milrinone gtt - Maintain MAP > 65 - Cardiology following Pulm Maintain O2 sat > 92% GI Blood per rectum s/p colonoscopy - Scope revealed diverticula, internal hemorrhoids and AVMs with no active bleed - per GI, bleeding may be 2/2 DAPT initially - Resume ASA 12/27, resume plavix 12/28 - 12/29 per GI recs - Protonix BID - Clear liquid diet, advance per GI recs Renal Replete K Cont to monitor electrolytes, replete as needed Maintain euvolemia Heme Blood per rectum hemodynamically stable recheck coags monitor BP ID [id number] pneumonia IV abx per primary Endo DM2 ISS-Low Accuchecks Maintain euglycemia Case seen, examined and discussed with attending physician, Dr. Melvin Morrison PGY1 <Kristal Charles - Last Filed: 12/28/18 17:00> CCU Objective - Vital Signs / Intake & Output Vital Signs (Last 4 hours): Vital Signs Pulse 12/28/18 14:00 81 Intake and Output (Last 8hrs): Intake & Output 12/28/18 12/28/18 12/28/18 06:59 14:59 22:59 Intake Total 100 300 Balance 100 300 Weight 63 kg Intake: IV 100 300 Left Antecubital 300 - Medications Active Medications: Active Medications Generic Name Dose Route Start Last Admin Trade Name Freq PRN Reason Stop Dose Admin Acetaminophen 650 mg 12/23/18 11:06 Tylenol 325mg Tab PO Q6 PRN TEMP>=99.5F Acetaminophen 650 mg 12/23/18 11:06 Tylenol 650 Mg Supp RC Q6H PRN TEMP>=99.5F Acetylcysteine 4 ml 12/23/18 09:30 12/28/18 13:18 Acetylcysteine 20% IH 4 ml Q8 SAMM Administration Aspirin 81 mg 12/27/18 10:00 12/28/18 10:18 Aspirin Chewable PO 81 mg DAILY SAMM Administration Atorvastatin Calcium 40 mg 12/23/18 17:00 12/27/18 17:12 Lipitor PO 40 mg DIN SAMM Administration Carvedilol 12.5 mg 12/23/18 10:00 12/28/18 10:18 Coreg PO 12.5 mg BID SAMM Administration Clopidogrel Bisulfate 75 mg 12/28/18 13:30 12/28/18 15:19 Plavix PO 75 mg DAILY SAMM Administration Dextrose 0 ml 12/23/18 11:06 12/26/18 21:50 Dextrose 50% Inj IV 50 ml STAT PRN Administration Hypoglycemia Protocol Protocol Docusate Sodium 100 mg 12/23/18 14:00 12/28/18 14:25 Colace PO 100 mg TID SAMM Administration Famotidine 40 mg 12/23/18 22:00 12/27/18 22:25 Pepcid PO 40 mg HS SAMM Administration Ferrous Sulfate 324 mg 12/26/18 10:00 12/28/18 14:25 Feosol PO 324 mg TID SAMM Administration Furosemide 40 mg 12/25/18 10:00 12/28/18 10:15 Lasix IVP 40 mg DAILY SAMM Administration Dextrose 1,000 mls @ 0 mls/hr 12/23/18 11:06 Dextrose 5% In Water 1000 Ml IV .Q0M PRN Hypoglycemia Protocol Protocol Per Protocol Milrinone Lactate/Dextrose 100 mls @ 8.93 mls/hr 12/24/18 14:33 12/28/18 10:31 Primacor 20mg/100ml D5w IV 0.375 mcg/kg/min .[id number] PRN 8.93 mls/hr TITRATE PER MD ORDER Administration Protocol 0.375 MCG/KG/MIN Insulin Human Regular 0 units 12/26/18 11:30 12/28/18 12:00 Humulin R Low SC 2 u ACHS SAMM Administration Protocol Levalbuterol HCl 0.63 mg 12/22/18 23:24 Xopenex IH [id number] PRN Shortness of Breath Levalbuterol HCl 0.63 mg 12/28/18 01:26 12/28/18 13:18 Xopenex IH 0.63 mg TIDRESP SAMM Administration Levothyroxine Sodium 25 mcg 12/23/18 06:00 12/28/18 06:19 Synthroid PO 25 mcg 0600 SAMM Administration Magnesium Oxide 400 mg 12/25/18 10:00 12/28/18 10:18 Mag-Ox PO 400 mg BID SAMM Administration Ondansetron HCl 4 mg 12/23/18 11:06 Zofran Inj IVP Q4H PRN Nausea/Vomiting Potassium Chloride 20 meq 12/28/18 08:00 12/28/18 10:23 K-Dur 20 Meq Er Tab PO 20 meq BRK SAMM Administration Ramipril 5 mg 12/27/18 14:00 12/28/18 10:39 Altace PO 5 mg DAILY SAMM Administration Ramipril 10 mg 12/29/18 10:00 Altace PO DAILY SAMM - Patient Studies Lab Studies: Microbiology Studies 12/23/18 10:30 Blood Culture - Final Blood-Venous NO GROWTH AFTER 5 DAYS Gram Stain - Final TEST NOT PERFORMED 12/23/18 10:00 Blood Culture - Final Blood-Venous NO GROWTH AFTER 5 DAYS Gram Stain - Final TEST NOT PERFORMED Lab Studies 12/28/18 12/28/18 12/28/18 Range/Units 11:18 07:37 05:15 WBC 4.2 L (4.5-11.0) 10^3/uL RBC 3.65 (3.5-6.1) 10^6/uL Hgb 11.2 L (14.0-18.0) g/dL Hct 34.6 L (42.0-52.0) % MCV 94.8 (80.0-105.0) fl MCH 30.7 (25.0-35.0) pg MCHC 32.4 (31.0-37.0) g/dl RDW 14.2 (11.5-14.5) % Plt Count 134 (120.0-450.0) 10^3/uL MPV 10.0 (7.0-11.0) fl Neut % (Auto) 69.6 H (50.0-68.0) % Lymph % (Auto) 19.0 L (22.0-35.0) % [place] % (Auto) 6.9 H (1.0-6.0) % Eos % (Auto) 4.3 (1.5-5.0) % Baso % (Auto) 0.2 (0.0-3.0) % Lymph # (Auto) 0.8 L (1.2-3.4) [place] # (Auto) 0.3 (0.1-0.6) Eos # (Auto) 0.2 (0.0-0.7) Baso # (Auto) 0.01 (0.0-2.0) K/mm3 Absolute Neuts (auto) 2.92 (1.4-6.5) Sodium (132-148) mmol/L Potassium (3.6-5.0) mmol/L Chloride (98-107) mmol/L Carbon Dioxide (21-33) mmol/L Anion Gap (10-20) BUN (7-21) mg/dL Creatinine (0.8-1.5) mg/dl Est GFR ( Amer) Est GFR (Non-Af Amer) POC Glucose (mg/dL) 226 H 95 (65-110) mg/dL Random Glucose (70-110) mg/dL Calcium (8.4-10.5) mg/dL Phosphorus (2.5-4.5) mg/dL Magnesium (1.7-2.2) mg/dL Total Bilirubin (0.2-1.3) mg/dL Direct Bilirubin (0.0-0.4) mg/dL AST (17-59) U/L ALT (7-56) U/L Alkaline Phosphatase (38-126) U/L NT-Pro-B Natriuret Pep (0-450) pg/mL Total Protein (5.8-8.3) g/dL Albumin (3.0-4.8) g/dL Globulin gm/dL Albumin/Globulin Ratio (1.1-1.8) Crossmatch 12/28/18 12/27/18 12/27/18 Range/Units 05:15 22:04 16:22 WBC (4.5-11.0) 10^3/uL RBC (3.5-6.1) 10^6/uL Hgb (14.0-18.0) g/dL Hct (42.0-52.0) % MCV (80.0-105.0) fl MCH (25.0-35.0) pg MCHC (31.0-37.0) g/dl RDW (11.5-14.5) % Plt Count (120.0-450.0) 10^3/uL MPV (7.0-11.0) fl Neut % (Auto) (50.0-68.0) % Lymph % (Auto) (22.0-35.0) % [place] % (Auto) (1.0-6.0) % Eos % (Auto) (1.5-5.0) % Baso % (Auto) (0.0-3.0) % Lymph # (Auto) (1.2-3.4) [place] # (Auto) (0.1-0.6) Eos # (Auto) (0.0-0.7) Baso # (Auto) (0.0-2.0) K/mm3 Absolute Neuts (auto) (1.4-6.5) Sodium 141 (132-148) mmol/L Potassium 3.8 (3.6-5.0) mmol/L Chloride 107 (98-107) mmol/L Carbon Dioxide 29 (21-33) mmol/L Anion Gap 9 L (10-20) BUN 19 (7-21) mg/dL Creatinine 1.1 (0.8-1.5) mg/dl Est GFR ( Amer) > 60 Est GFR (Non-Af Amer) > 60 POC Glucose (mg/dL) 86 172 H (65-110) mg/dL Random Glucose 93 (70-110) mg/dL Calcium 8.5 (8.4-10.5) mg/dL Phosphorus 2.7 (2.5-4.5) mg/dL Magnesium 2.1 (1.7-2.2) mg/dL Total Bilirubin 0.6 (0.2-1.3) mg/dL Direct Bilirubin 0.4 (0.0-0.4) mg/dL AST 31 (17-59) U/L ALT 29 (7-56) U/L Alkaline Phosphatase 48 (38-126) U/L NT-Pro-B Natriuret Pep 2280 H (0-450) pg/mL Total Protein 5.3 L (5.8-8.3) g/dL Albumin 2.7 L (3.0-4.8) g/dL Globulin 2.6 gm/dL Albumin/Globulin Ratio 1.0 L (1.1-1.8) Crossmatch 12/24/18 Range/Units 21:45 WBC (4.5-11.0) 10^3/uL RBC (3.5-6.1) 10^6/uL Hgb (14.0-18.0) g/dL Hct (42.0-52.0) % MCV (80.0-105.0) fl MCH (25.0-35.0) pg MCHC (31.0-37.0) g/dl RDW (11.5-14.5) % Plt Count (120.0-450.0) 10^3/uL MPV (7.0-11.0) fl Neut % (Auto) (50.0-68.0) % Lymph % (Auto) (22.0-35.0) % [place] % (Auto) (1.0-6.0) % Eos % (Auto) (1.5-5.0) % Baso % (Auto) (0.0-3.0) % Lymph # (Auto) (1.2-3.4) [place] # (Auto) (0.1-0.6) Eos # (Auto) (0.0-0.7) Baso # (Auto) (0.0-2.0) K/mm3 Absolute Neuts (auto) (1.4-6.5) Sodium (132-148) mmol/L Potassium (3.6-5.0) mmol/L Chloride (98-107) mmol/L Carbon Dioxide (21-33) mmol/L Anion Gap (10-20) BUN (7-21) mg/dL Creatinine (0.8-1.5) mg/dl Est GFR ( Amer) Est GFR (Non-Af Amer) POC Glucose (mg/dL) (65-110) mg/dL Random Glucose (70-110) mg/dL Calcium (8.4-10.5) mg/dL Phosphorus (2.5-4.5) mg/dL Magnesium (1.7-2.2) mg/dL Total Bilirubin (0.2-1.3) mg/dL Direct Bilirubin (0.0-0.4) mg/dL AST (17-59) U/L ALT (7-56) U/L Alkaline Phosphatase (38-126) U/L NT-Pro-B Natriuret Pep (0-450) pg/mL Total Protein (5.8-8.3) g/dL Albumin (3.0-4.8) g/dL Globulin gm/dL Albumin/Globulin Ratio (1.1-1.8) Crossmatch See Detail Laboratory Results - last 24 hr 12/24/18 12/27/18 12/27/18 21:45 16:22 22:04 WBC RBC Hgb Hct MCV MCH MCHC RDW Plt Count MPV Neut % (Auto) Lymph % (Auto) [place] % (Auto) Eos % (Auto) Baso % (Auto) Lymph # (Auto) [place] # (Auto) Eos # (Auto) Baso # (Auto) Absolute Neuts (auto) Sodium Potassium Chloride Carbon Dioxide Anion Gap BUN Creatinine Est GFR ( Amer) Est GFR (Non-Af Amer) POC Glucose (mg/dL) 172 H 86 Random Glucose Calcium Phosphorus Magnesium Total Bilirubin Direct Bilirubin AST ALT Alkaline Phosphatase NT-Pro-B Natriuret Pep Total Protein Albumin Globulin Albumin/Globulin Ratio Crossmatch See Detail 12/28/18 12/28/18 12/28/18 05:15 05:15 07:37 WBC 4.2 L RBC 3.65 Hgb 11.2 L Hct 34.6 L MCV 94.8 MCH 30.7 MCHC 32.4 RDW 14.2 Plt Count 134 MPV 10.0 Neut % (Auto) 69.6 H Lymph % (Auto) 19.0 L [place] % (Auto) 6.9 H Eos % (Auto) 4.3 Baso % (Auto) 0.2 Lymph # (Auto) 0.8 L [place] # (Auto) 0.3 Eos # (Auto) 0.2 Baso # (Auto) 0.01 Absolute Neuts (auto) 2.92 Sodium 141 Potassium 3.8 Chloride 107 Carbon Dioxide 29 Anion Gap 9 L BUN 19 Creatinine 1.1 Est GFR ( Amer) > 60 Est GFR (Non-Af Amer) > 60 POC Glucose (mg/dL) 95 Random Glucose 93 Calcium 8.5 Phosphorus 2.7 Magnesium 2.1 Total Bilirubin 0.6 Direct Bilirubin 0.4 AST 31 ALT 29 Alkaline Phosphatase 48 NT-Pro-B Natriuret Pep 2280 H Total Protein 5.3 L Albumin 2.7 L Globulin 2.6 Albumin/Globulin Ratio 1.0 L Crossmatch 12/28/18 11:18 WBC RBC Hgb Hct MCV MCH MCHC RDW Plt Count MPV Neut % (Auto) Lymph % (Auto) [place] % (Auto) Eos % (Auto) Baso % (Auto) Lymph # (Auto) [place] # (Auto) Eos # (Auto) Baso # (Auto) Absolute Neuts (auto) Sodium Potassium Chloride Carbon Dioxide Anion Gap BUN Creatinine Est GFR ( Amer) Est GFR (Non-Af Amer) POC Glucose (mg/dL) 226 H Random Glucose Calcium Phosphorus Magnesium Total Bilirubin Direct Bilirubin AST ALT Alkaline Phosphatase NT-Pro-B Natriuret Pep Total Protein Albumin Globulin Albumin/Globulin Ratio Crossmatch Critical Care Progress Note - Nutrition Nutrition: Nutrition Category Date Time Status Altered GI/Hepatic Diet [DIET] Diets 12/28/18 Dinner Ordered Addendum Addendum: 12/28/18 16:59 ICU Attending Addendum Patient seen and examined. Case reviewed on round with housestaff. Agree with resident note above with the following additions/exceptions 83M PMHx HTN, CAD s/p CABG, T2DM, HLD, and asthma found to have NSTEMI s/p placement of three bare-metal stent in the mid- and proximal RCA Complicated by lower gi bleed s/p colonscopy yesterday AM 12/26 showing diverticulosis and AVM CAD CABG s/p PCI DMII HLD lower gibleed hemodynamically stable resume asa yesterday - no signs of bleeding resume plavix today on BB coreg 12.5 BID resume ramirpil at lower dose 5mg yest, tolerated now will increase to 10mg starting today GI consulted, Dr Villasenor Cardiology follow up doubt infection, woudl stop abx abx per ID monitor for any bleeding and hemopdynamics if stable will transfer out of ICU tomorrow Rest of care as above in housestaff note Kristal Charles MD Pulmonary Critical Care Attending
[2018-12-28] MEDS: cefTRIAXone 1 gm 1 GM/100 ML BAG IVPB SCH (10:17)
[2018-12-28] MEDS: Magnesium Oxide 400 mg Tab UD PO SCH ×2 (10:18→18:07)
[2018-12-28] MEDS: Insulin Reg-LOW-Coverage SC SCH ×4 (10:20→21:59)
[2018-12-28] MEDS: Milrinone 20mg/100ml D5W 100 ML IV PRN (10:31)
--- NOTE | 2018-12-28 15:41 | PN ---
DATE: 12/28/2018 COVERING FOR: Curtis Mckeon MD. SUBJECTIVE: No report bleeding today. The patient is noted to have frequent PVCs. PHYSICAL EXAMINATION: VITAL SIGNS: Blood pressure 154/84, heart rate 91, temperature 97.4, respirations 18. HEENT: Normocephalic. CHEST: Clear. HEART: S1, S2. Regular. ABDOMEN: Soft. EXTREMITIES: Trace leg edema. LABORATORY DATA: EKG on the of this month revealed sinus bradycardia at a rate of 57, consider bilateral ischemia. The patient's most recent cardiac catheterization on the four days ago revealed patent HANDY to LAD, occluded saphenous vein graft to RCA, occluded circumflex artery, ejection fraction 25. The patient underwent PCI with bare metal stent to the mid RCA and proximal RCA. ASSESSMENT: 1. Recent gastrointestinal bleeding. 2. Status post recent percutaneous coronary intervention to the right coronary artery with bare metal stent. 3. Diabetes mellitus. 4. Systolic heart failure. RECOMMENDATIONS: Continue Altace 5 mg in a.m. and 10 mg in p.m., continue aspirin 81 mg once a day, Coreg 12.5 mg once a day, doxycycline 100 mg intravenously every 12 hours, IV Flagyl 500 mg every 8 hours, K-Dur 20 mEq daily, Lipitor 40 mg once a day, Synthroid 25 mcg once a day, milrinone infusion. Resume Plavix if the patient is cleared from the GI point of view. Greg Isaac MD
--- NOTE | 2018-12-28 20:34 | PN ---
DATE: 12/28/2018 SUBJECTIVE: The patient is seen in ICU, bed 1. The patient is seen lying in the bed with the patient's nephew at bedside. The patient is alert, awake, responsive, and in no distress. Most of the history was through the patient's nephew. The patient denies any chest pain. Denies shortness of breath. Denies nausea. Denies vomiting. Denies hemoptysis. Denies rectal bleeding. Denies palpitations. Denies chest pain. The patient's overnight nurse's notes were reviewed. OBJECTIVE: VITAL SIGNS: T-max 98.3, telemetry shows sinus rhythm, heart rate 81 and 89, blood pressure 122/72, 154/84, 122/48, 134/67, 120/56, 124/54, and 142/65, respiratory rate averaging around mid-to-high 20s per minute, and average O2 sat is mid-to-high 90s. Intake and output, output is only 500 as per the intake output chart. GENERAL: The patient is seen sitting up in the bed. HEENT: Head; normocephalic and atraumatic. HEENT examination shows pinkish pale conjunctivae. Anicteric sclerae. No oropharyngeal lesion. NECK: No neck rigidity. CHEST: Kyphosis. LUNGS: Positive median sternotomy surgical scar noted. No audible crackle, rales or wheezing. Decreased breath sound at the bases. Positive rhonchi bilaterally, left more than the right. CARDIOVASCULAR: S1 and S2, regular rhythm. Questionable positive murmur left sternal border, right second intercostal space, left second intercostal space. ABDOMEN: Soft. Positive bowel sounds. No palpable hepatosplenomegaly. GENITALIA: Male. RECTAL: Deferred. EXTREMITIES: Shows no pitting edema. No calf tenderness. No Federico's signs. MUSCULOSKELETAL: Shows a body mass index of 20. Cranial nerves II through XII limited. Gait examination is not tested. DIAGNOSTIC DATA: On 12/28/2018; WBC 4.2, hemoglobin and hematocrit 11.2 and 34.6, and platelet 134. Granulocytes 69%segs. CMP and LFTs shows glucose of 226, rest of the CMP and LFTs are normal. BNP is 2280. Total protein 5.3 and albumin 2.7. BNP has gone up from 1580 to 2280 today. MRSA cultures nondetected. The patient received 1 unit of PRBC. IMPRESSION AND PLAN: 1. Acute non-ST elevation myocardial infarction. 2. Status post cardiac catheterization and status post successful angioplasty and bare-metal stent placement of the multiple right coronary artery lesions. 3. Multivessel coronary artery disease. 4. Dilated ischemic cardiomyopathy. 5. Left ventricular ejection fraction of 25%. 6. Systolic congestive heart failure. 7. Lower gastrointestinal bleeding. 8. Acute blood loss anemia. 9. Sigmoid colon diverticulosis. 10. Cecal and descending colon, multiple large angiodysplastic lesion without bleeding. 11. Internal hemorrhoids. 12. Leukopenia. 13. Granulocytosis. 14. Mild coagulopathy. 15. Transient lactic acidosis. 16. Hypokalemia. 17. Hypomagnesemia. 18. Acute systolic congestive heart failure with elevated ProBNP. 19. Mild protein malnutrition and hypoalbuminemia. 20. Hypovitaminosis D. 21. Microscopic hematuria. 22. Bacteriuria. 23. Status post packed red blood cell transfusion x1. 24. Left upper lobe and left lower lobe infiltrate and consolidation with small effusion. 25. Cardiomegaly. 26. Coronary artery calcification. 27. Moderate left pleural effusion and small right pleural effusion. 28. Anterior longitudinal ligament, degenerative changes . 29. Hypothyroidism. 30. History of hypertension. 31. Hyperlipidemia. 32. IV milrinone-dependent dilated ischemic cardiomyopathy and acute systolic congestive heart failure. Plan at this time, the patient was seen in ICU. The patient has been ordered serial labs. The patient has been requested by Gastroenterology and Cardiology for clearance for transfer out of ICU. Repeat labs ordered. CURRENT CONSULTATIONS: 1. Cardiology. 2. Surgery. 3. GI. CURRENT MEDICATIONS: Mucomyst nebulizer 20% 4 mL every 8 hours, ramipril dose was increased from 5 mg to 10 mg by the endless bed drum sander, aspirin 81 mg daily, Colace 100 mg three times a day, Coreg 12.5 twice a day, hypoglycemia protocol, ferrous sulfate 324 three times a day, Humulin low-dose sliding scale coverage a.c. and at bedtime, K-Dur 20 mEq daily, Lasix 40 mg IV daily, Lipitor 40 mg daily, magnesium oxide 400 mg twice a day, Pepcid 40 mg at bedtime, Plavix 75 mg daily, Primacor, milrinone drip at 0.375 mcg/kg/minute, Synthroid 25 mcg daily, Tylenol p.r.n., Xopenex nebulizer every 6 hours and every 3 hours has been ordered, and Zofran 4 mg IV every 4 hours p.r.n. Liquid diet has been ordered by GI, out of bed to chair, physical therapy, and occupational therapy ordered. The patient's next of kin Navid and the patient's nephew updated about the patient's condition, diagnosis, test results, recommendation by all physician involved in the care of the patient and overall guarded prognosis was discussed and explained to the patient's nephew, Navid at length and all questions concerned answered at length. Dictated and electronically signed, not read. Jameson Dorsey MD
[2018-12-29] MEDS: Milrinone 20mg/100ml D5W 100 ML IV PRN (00:30)
[2018-12-29] MEDS: Levothyroxine 25 MCG TAB PO SCH (05:44)
[2018-12-29 06:57] LABS: EOS # 0.2 (0.0-0.7); HEMOGLOBIN 12.2 g/dL (14.0-18.0); LYMPH # 0.7 (1.2-3.4); MEAN CORPUSCULAR HEMOGLOBIN 30.6 pg (25.0-35.0); MEAN CORPUSCULAR HGB CONC 32.9 g/dl (31.0-37.0); MEAN PLATELET VOLUME 9.9 fl (7.0-11.0); MONO # 0.4 (0.1-0.6); MONO % 8.6 % (1.0-6.0); RBC 3.99 10^6/uL (3.5-6.1); WHITE BLOOD COUNT 4.6 10^3/uL (4.5-11.0)
[2018-12-29 07:10] LABS: B-TYPE NATRIURETIC PEPTIDE 2120 pg/mL (0-450)
[2018-12-29 07:17] LABS: ALB/GLOB RATIO 1.1 (1.1-1.8); ALBUMIN 3.1 g/dL (3.0-4.8); ALT/SGPT 24 U/L (7-56); AST/SGOT 24 U/L (17-59); BILIRUBIN,DIRECT 0.6 mg/dL (0.0-0.4); BLOOD UREA NITROGEN 19 mg/dL (7-21); CALCIUM 8.8 mg/dL (8.4-10.5); GFR NON-AFRICAN AMERICAN > 60
[2018-12-29] MEDS: Insulin Reg-LOW-Coverage SC SCH ×3 (07:30→17:00)
[2018-12-29] MEDS ORDERED: Potassium & Sodium Phosphate PO STA (07:40)
[2018-12-29] MEDS ORDERED: Potassium Phosphate 15 MMOLE in Dextrose 5% In Water 250 ML IVPB ONE (08:12)
--- NOTE | 2018-12-29 08:25 | CP.PCM.PN ---
Subjective - Date & Time of Evaluation Date of Evaluation: 12/29/18 Time of Evaluation: 08:24 - Subjective Subjective: PGY-[address] Willian DEVI no blood. No acute complaint Objective - Vital Signs/Intake and Output Vital Signs (last 24 hours): Temp Pulse Resp BP Pulse Ox 98.8 F 64 18 126/74 100 12/29/18 04:00 12/29/18 06:00 12/28/18 16:00 12/29/18 00:30 12/28/18 16:00 Intake and Output: 12/29/18 12/29/18 06:59 18:59 Intake Total 448 Output Total 400 Balance 48 - Medications Medications: Current Medications Acetaminophen (Tylenol 325mg Tab) 650 mg PO Q6 PRN PRN Reason: TEMP>=99.5F Acetaminophen (Tylenol 650 Mg Supp) 650 mg RC Q6H PRN PRN Reason: TEMP>=99.5F Acetylcysteine (Acetylcysteine 20%) 4 ml IH BIDRESP [facility] Aspirin (Aspirin Chewable) 81 mg PO DAILY [facility] Last Admin: 12/28/18 10:18 Dose: 81 mg Atorvastatin Calcium (Lipitor) 40 mg PO DIN [facility] Last Admin: 12/28/18 18:07 Dose: 40 mg Carvedilol (Coreg) 12.5 mg PO BID [facility] Last Admin: 12/28/18 18:07 Dose: 12.5 mg Clopidogrel Bisulfate (Plavix) 75 mg PO DAILY [facility] Last Admin: 12/28/18 15:19 Dose: 75 mg Dextrose (Dextrose 50% Inj) 0 ml IV STAT PRN; Protocol PRN Reason: Hypoglycemia Protocol Last Admin: 12/26/18 21:50 Dose: 50 ml Docusate Sodium (Colace) 100 mg PO TID [facility] Last Admin: 12/28/18 18:07 Dose: 100 mg Famotidine (Pepcid) 40 mg PO HS [facility] Last Admin: 12/28/18 21:48 Dose: 40 mg Ferrous Sulfate (Feosol) 324 mg PO TID [facility] Last Admin: 12/28/18 18:07 Dose: 324 mg Furosemide (Lasix) 40 mg IVP DAILY [facility] Last Admin: 12/28/18 10:15 Dose: 40 mg Dextrose (Dextrose 5% In Water 1000 Ml) 1,000 mls @ 0 mls/hr IV .Q0M PRN; Protocol PRN Reason: Hypoglycemia Protocol Milrinone Lactate/Dextrose (Primacor 20mg/100ml D5w) 100 mls @ 8.93 mls/hr IV .[id number] PRN; Protocol PRN Reason: TITRATE PER MD ORDER Last Admin: 12/29/18 00:30 Dose: 0.375 mcg/kg/min, 8.93 mls/hr Potassium Phosphate 15 mmole/ (Dextrose) 255 mls @ 42.5 mls/hr IVPB ONCE ONE Stop: 12/29/18 14:11 Insulin Human Regular (Humulin R Low) 0 units SC ACHS [facility]; Protocol Last Admin: 12/28/18 21:59 Dose: Not Given Levalbuterol HCl (Xopenex) 0.63 mg IH [id number] PRN PRN Reason: Shortness of Breath Levalbuterol HCl (Xopenex) 0.63 mg IH TIDRESP [facility] Last Admin: 12/28/18 20:40 Dose: 0.63 mg Levothyroxine Sodium (Synthroid) 25 mcg PO 0600 [facility] Last Admin: 12/29/18 05:44 Dose: 25 mcg Magnesium Oxide (Mag-Ox) 400 mg PO BID [facility] Last Admin: 12/28/18 18:07 Dose: 400 mg Ondansetron HCl (Zofran Inj) 4 mg IVP Q4H PRN PRN Reason: Nausea/Vomiting Potassium Chloride (K-Dur 20 Meq Er Tab) 20 meq PO BID [facility] Ramipril (Altace) 5 mg PO DAILY [facility] Last Admin: 12/28/18 10:39 Dose: 5 mg Ramipril (Altace) 10 mg PO DAILY [facility] - Labs Labs: 12/29/18 06:35 12/29/18 06:35 PT 15.8 SECONDS (9.4-12.5) H 12/26/18 10:00 INR 1.40 12/26/18 10:00 APTT 31.6 Seconds (26.9-38.3) 12/26/18 10:00 - Constitutional Appears: No Acute Distress - Head Exam Head Exam: ATRAUMATIC, NORMAL INSPECTION, NORMOCEPHALIC - Eye Exam Eye Exam: EOMI, Normal appearance, PERRL. absent: Scleral icterus Pupil Exam: NORMAL ACCOMODATION - ENT Exam ENT Exam: Mucous Membranes Moist - Neck Exam Additional comments: supple - Respiratory Exam Respiratory Exam: Clear to Ausculation Bilateral, NORMAL BREATHING PATTERN - Cardiovascular Exam Cardiovascular Exam: REGULAR RHYTHM, +S1, +S2. absent: Murmur - GI/Abdominal Exam GI & Abdominal Exam: Soft, Normal Bowel Sounds. absent: Tenderness Additional comments: Slight suprapubic tenderness - Extremities Exam Extremities Exam: absent: Calf Tenderness Additional comments: L arm swollne - Back Exam Back Exam: absent: CVA tenderness (L), CVA tenderness (R) - Neurological Exam Neurological Exam: Alert, Awake, CN II-XII Intact - Psychiatric Exam Psychiatric exam: Normal Affect, Normal Mood - Skin Skin Exam: Dry, Warm Assessment and Plan - Assessment and Plan (Free Text) Plan: Mr Alfaro, 83M, with PMHx CAD s/p CABG in 1989 on ASA/Plavix, HTN/HLD, DM2 (A1C 7.1), asthma c/o Chest pain onset at rest associated with nausea, vomiting, diaphoresis. Last bowel movement 6 days ago. He was found to have NSTEMI. Cath (12/24) revealed EF 20-25. Triple vessel disease (1) HANDY to LAD patent. (2) L Cir closed (3) RCA 99% block (4) bypass graft to RCA close. He receive PCI with 3 bare metal stent in RCA and started milrinone gtt. Overnight, he was found to have BRBPR with active GI bleed upgraded to ICU. Colonoscopy (12/26) showed several non-bleeding diverticulosis and angiodysplasia. He was downgraded to t elemetry on 12/28/17 L arm swollen - [ ] doppler to r/o DVT NSTEMI, Unstable angina Chest Pain - resolved Triple vessel disease s/p CABG, s/p PCI with 3 bare metal stents - ASA/Plavix resumed per GI/cardio - Continue lipitor/coreg/ramipril. zofran prn [ ] Milrinone gtt just turned off - Per cardio, no need for group home milrinone, no need for watermelon inspector access for now - No need for life vest for now CHF acute on chronic Pleural effusion b/l (L > R) Hx CABG - lasix 40 iv QD Lower GI bleed - s/p 1u pRBC. H/H stable Aspiration pnemonitis vs CAP - resolved, completed rocephin/doxy/flagyl Hx Asthma - Procalc is low 0.06 - Mucomyst/Xopenex SAMM Had ruled out UTI - Antibiotics covered possible UTI; urine cx negative Constipation - Colace TID, Dulcolax suppository. Surgery had ruled out obs truction or bowel incarceration. no plan for surgery Dysphagia - [ ] Pending swallow study/barium swallow. Aspiration precaution. pepsid Anemia - stable. work up outpatient DM, A1C 7.1 - ISSS hypothyrodism - synthroid Pain - tramadol PRN Prophylaxis - pepcid, scd Imaging: CT abd/pelvis (12/23): There is a right-sided inguinal hernia that contains a loop of bowel. This measures 3.4 x 5.2 cm. There is no associated obstruction. CT chest (12/23): JAGDISH infiltrate, patchy POA: Mr Navid CuadraJia [phone] Dispo: TCU s/r/d/w Dr Dorsey
[2018-12-29] MEDS: Potassium Chloride 20 mEq ER Tab PO SCH ×3 (08:44→17:40)
[2018-12-29] MEDS: Magnesium Oxide 400 mg Tab UD PO SCH ×2 (09:03→17:42)
[2018-12-29] MEDS: Levalbuterol 0.63 MG/3 ML Inhal Soln UD IH SCH ×4 (11:12→21:20)
[2018-12-29] MEDS: Acetylcysteine 20% Inhal Soln (4ml) IH SCH ×3 (11:14→21:20)
--- NOTE | 2018-12-29 12:12 | PN ---
DATE: 12/29/2018 SUBJECTIVE: The patient is lying in bed comfortable. He has not had any further rectal bleeding. He denies chest pain, shortness of breath or abdominal pain. PHYSICAL EXAMINATION: VITAL SIGNS: Reveal temperature of 97.5, blood pressure 138/59, heart rate of 69. HEENT: Reveal sclerae to be white. Conjunctivae pink. NECK: Supple. CHEST: Reveal lungs to be clear. HEART: Exam reveals an irregular rate. He has a 2/6 systolic murmur. ABDOMEN: Soft, nontender. He has a reducible right inguinal hernia. EXTREMITIES: Show no edema. LABORATORY DATA: Reveal white blood cell count 4.6, hemoglobin 12.2, platelet count of 138,000. Chemistries reveal potassium 3.5, blood sugar 127. BNP 2120. IMPRESSION: 1. An 83-year-old male status post recent myocardial infarction with coronary artery stent placement followed by lower gastrointestinal bleed with a drop in his hemoglobin. Colonoscopy revealed no active bleeding, diverticulosis in the sigmoid colon, and nonbleeding arteriovenous malformations in the cecum. His blood count has remained stable. 2. Cardiomyopathy. 3. Congestive heart failure. RECOMMENDATIONS: The patient was started on Plavix by the medical team yesterday, will need to observe the patient closely for recurrent GI bleeding. I will stop the aspirin due to the high risk of GI bleeding. Follow serial hematocrits. Aguilar Ortega MD
--- NOTE | 2018-12-29 14:06 | CP.CCUPN ---
<Concepción Donaldson - Last Filed: 12/29/18 13:54> CCU Subjective - Physician Review Subjective (Free Text): CRITICAL CARE PROGRESS NOTE FOR DR. MELVIN Donaldson PGY1 Pt seen and examined at bedside in ICU this am. No evidence of blood per rectum. Pt is resting comfortably. Denies 12 point ROS Currently on Milrinone drip 0.3731 mcg/kg/min CCU Objective - Vital Signs / Intake & Output Vital Signs (Last 4 hours): Vital Signs Pulse 12/29/18 10:00 69 Intake and Output (Last 8hrs): Intake & Output 12/28/18 12/29/18 12/29/18 22:59 06:59 14:59 Intake Total 507 348 Output Total 575 400 Balance -68 -52 Weight 63.004 kg Intake: IV 507 108 Left Antecubital 300 Right distal forearm 107 108 Oral 240 Output: Urine 575 400 2-way Urethral 575 Urine, Voided 400 Other: # Bowel Movements 1 1 - Physical Exam Head: Positive for: Atraumatic, Normocephalic Pupils: Positive for: PERRL Extroacular Muscles: Positive for: EOMI Conjunctiva: Positive for: Normal Mouth: Positive for: Moist Mucous Membranes Neck: Positive for: Normal Range of Motion Respiratory/Chest: Positive for: Clear to Auscultation, Good Air Exchange. Negative for: Respiratory Distress, Accessory Muscle Use Cardiovascular: Positive for: Regular Rate and Rhythm, Normal S1, S2, Other. Negative for: Murmurs Abdomen: Positive for: Tenderness, Distention. Negative for: Rebound, Guarding Back: Positive for: Normal Inspection Upper Extremity: Positive for: Normal Inspection. Negative for: Cyanosis, Edema Lower Extremity: Positive for: Edema (Pitting edema) Neurological: Positive for: GCS=15, Speech Normal Skin: Positive for: Warm, Dry, Normal Color. Negative for: Rashes Psychiatric: Positive for: Alert, Oriented x 3, Normal Insight, Normal Concentration - Medications Active Medications: Active Medications Generic Name Dose Route Start Last Admin Trade Name Freq PRN Reason Stop Dose Admin Acetaminophen 650 mg 12/23/18 11:06 Tylenol 325mg Tab PO Q6 PRN TEMP>=99.5F Acetaminophen 650 mg 12/23/18 11:06 Tylenol 650 Mg Supp RC Q6H PRN TEMP>=99.5F Acetylcysteine 4 ml 12/29/18 08:00 12/29/18 11:21 Acetylcysteine 20% IH Not Given BIDRESP SAMM Atorvastatin Calcium 40 mg 12/23/18 17:00 12/28/18 18:07 Lipitor PO 40 mg DIN SAMM Administration Carvedilol 12.5 mg 12/23/18 10:00 12/29/18 09:01 Coreg PO 12.5 mg BID SAMM Administration Clopidogrel Bisulfate 75 mg 12/28/18 13:30 12/29/18 09:03 Plavix PO 75 mg DAILY SAMM Administration Dextrose 0 ml 12/23/18 11:06 12/26/18 21:50 Dextrose 50% Inj IV 50 ml STAT PRN Administration Hypoglycemia Protocol Protocol Docusate Sodium 100 mg 12/23/18 14:00 12/29/18 09:01 Colace PO 100 mg TID SAMM Administration Famotidine 40 mg 12/23/18 22:00 12/28/18 21:48 Pepcid PO 40 mg HS SAMM Administration Ferrous Sulfate 324 mg 12/26/18 10:00 12/29/18 09:02 Feosol PO 324 mg TID SAMM Administration Furosemide 40 mg 12/25/18 10:00 12/29/18 09:39 Lasix IVP 40 mg DAILY SAMM Administration Dextrose 1,000 mls @ 0 mls/hr 12/23/18 11:06 Dextrose 5% In Water 1000 Ml IV .Q0M PRN Hypoglycemia Protocol Protocol Per Protocol Potassium Phosphate 15 mmole/ 255 mls @ 42.5 mls/hr 12/29/18 08:12 12/29/18 08:44 Dextrose IVPB 12/29/18 14:11 42.5 mls/hr ONCE ONE Administration Insulin Human Regular 0 units 12/26/18 11:30 12/29/18 11:14 Humulin R Low SC 2 u ACHS SAMM Administration Protocol Levalbuterol HCl 0.63 mg 12/22/18 23:24 Xopenex IH [id number] PRN Shortness of Breath Levalbuterol HCl 0.63 mg 12/28/18 01:26 12/29/18 11:21 Xopenex IH Not Given TIDRESP SAMM Levothyroxine Sodium 25 mcg 12/23/18 06:00 12/29/18 05:44 Synthroid PO 25 mcg 0600 SAMM Administration Magnesium Oxide 400 mg 12/25/18 10:00 12/29/18 09:03 Mag-Ox PO 400 mg BID SAMM Administration Ondansetron HCl 4 mg 12/23/18 11:06 Zofran Inj IVP Q4H PRN Nausea/Vomiting Potassium Chloride 20 meq 12/29/18 08:30 12/29/18 10:00 K-Dur 20 Meq Er Tab PO Not Given BID SAMM Ramipril 10 mg 12/29/18 10:00 12/29/18 09:40 Altace PO 10 mg DAILY SAMM Administration - Patient Studies Lab Studies: Microbiology Studies 12/23/18 10:30 Blood Culture - Final Blood-Venous NO GROWTH AFTER 5 DAYS Gram Stain - Final TEST NOT PERFORMED 12/23/18 10:00 Blood Culture - Final Blood-Venous NO GROWTH AFTER 5 DAYS Gram Stain - Final TEST NOT PERFORMED Lab Studies 12/29/18 12/29/18 12/29/18 Range/Units 07:33 06:35 06:35 WBC 4.6 (4.5-11.0) 10^3/uL RBC 3.99 (3.5-6.1) 10^6/uL Hgb 12.2 L (14.0-18.0) g/dL Hct 37.1 L (42.0-52.0) % MCV 93.0 (80.0-105.0) fl MCH 30.6 (25.0-35.0) pg MCHC 32.9 (31.0-37.0) g/dl RDW 14.0 (11.5-14.5) % Plt Count 138 (120.0-450.0) 10^3/uL MPV 9.9 (7.0-11.0) fl Neut % (Auto) 72.4 H (50.0-68.0) % Lymph % (Auto) 14.0 L (22.0-35.0) % [place] % (Auto) 8.6 H (1.0-6.0) % Eos % (Auto) 5.0 (1.5-5.0) % Baso % (Auto) 0.0 (0.0-3.0) % Lymph # (Auto) 0.7 L (1.2-3.4) [place] # (Auto) 0.4 (0.1-0.6) Eos # (Auto) 0.2 (0.0-0.7) Baso # (Auto) 0.00 (0.0-2.0) K/mm3 Absolute Neuts (auto) 3.36 (1.4-6.5) Sodium 139 (132-148) mmol/L Potassium 3.5 L (3.6-5.0) mmol/L Chloride 104 (98-107) mmol/L Carbon Dioxide 27 (21-33) mmol/L Anion Gap 12 (10-20) BUN 19 (7-21) mg/dL Creatinine 1.0 (0.8-1.5) mg/dl Est GFR ( Amer) > 60 Est GFR (Non-Af Amer) > 60 POC Glucose (mg/dL) 128 H (65-110) mg/dL Random Glucose 127 H (70-110) mg/dL Calcium 8.8 (8.4-10.5) mg/dL Phosphorus 2.4 L (2.5-4.5) mg/dL Magnesium 2.2 (1.7-2.2) mg/dL Total Bilirubin 0.9 (0.2-1.3) mg/dL Direct Bilirubin 0.6 H (0.0-0.4) mg/dL AST 24 (17-59) U/L ALT 24 (7-56) U/L Alkaline Phosphatase 57 (38-126) U/L NT-Pro-B Natriuret Pep 2120 H (0-450) pg/mL Total Protein 5.9 (5.8-8.3) g/dL Albumin 3.1 (3.0-4.8) g/dL Globulin 2.8 gm/dL Albumin/Globulin Ratio 1.1 (1.1-1.8) 12/28/18 12/28/18 Range/Units 21:18 16:16 WBC (4.5-11.0) 10^3/uL RBC (3.5-6.1) 10^6/uL Hgb (14.0-18.0) g/dL Hct (42.0-52.0) % MCV (80.0-105.0) fl MCH (25.0-35.0) pg MCHC (31.0-37.0) g/dl RDW (11.5-14.5) % Plt Count (120.0-450.0) 10^3/uL MPV (7.0-11.0) fl Neut % (Auto) (50.0-68.0) % Lymph % (Auto) (22.0-35.0) % [place] % (Auto) (1.0-6.0) % Eos % (Auto) (1.5-5.0) % Baso % (Auto) (0.0-3.0) % Lymph # (Auto) (1.2-3.4) [place] # (Auto) (0.1-0.6) Eos # (Auto) (0.0-0.7) Baso # (Auto) (0.0-2.0) K/mm3 Absolute Neuts (auto) (1.4-6.5) Sodium (132-148) mmol/L Potassium (3.6-5.0) mmol/L Chloride (98-107) mmol/L Carbon Dioxide (21-33) mmol/L Anion Gap (10-20) BUN (7-21) mg/dL Creatinine (0.8-1.5) mg/dl Est GFR ( Amer) Est GFR (Non-Af Amer) POC Glucose (mg/dL) 155 H 344 H (65-110) mg/dL Random Glucose (70-110) mg/dL Calcium (8.4-10.5) mg/dL Phosphorus (2.5-4.5) mg/dL Magnesium (1.7-2.2) mg/dL Total Bilirubin (0.2-1.3) mg/dL Direct Bilirubin (0.0-0.4) mg/dL AST (17-59) U/L ALT (7-56) U/L Alkaline Phosphatase (38-126) U/L NT-Pro-B Natriuret Pep (0-450) pg/mL Total Protein (5.8-8.3) g/dL Albumin (3.0-4.8) g/dL Globulin gm/dL Albumin/Globulin Ratio (1.1-1.8) Laboratory Results - last 24 hr 12/28/18 12/28/18 12/29/18 16:16 21:18 06:35 WBC RBC Hgb Hct MCV MCH MCHC RDW Plt Count MPV Neut % (Auto) Lymph % (Auto) [place] % (Auto) Eos % (Auto) Baso % (Auto) Lymph # (Auto) [place] # (Auto) Eos # (Auto) Baso # (Auto) Absolute Neuts (auto) Sodium 139 Potassium 3.5 L Chloride 104 Carbon Dioxide 27 Anion Gap 12 BUN 19 Creatinine 1.0 Est GFR ( Amer) > 60 Est GFR (Non-Af Amer) > 60 POC Glucose (mg/dL) 344 H 155 H Random Glucose 127 H Calcium 8.8 Phosphorus 2.4 L Magnesium 2.2 Total Bilirubin 0.9 Direct Bilirubin 0.6 H AST 24 ALT 24 Alkaline Phosphatase 57 NT-Pro-B Natriuret Pep 2120 H Total Protein 5.9 Albumin 3.1 Globulin 2.8 Albumin/Globulin Ratio 1.1 12/29/18 12/29/18 06:35 07:33 WBC 4.6 RBC 3.99 Hgb 12.2 L Hct 37.1 L MCV 93.0 MCH 30.6 MCHC 32.9 RDW 14.0 Plt Count 138 MPV 9.9 Neut % (Auto) 72.4 H Lymph % (Auto) 14.0 L [place] % (Auto) 8.6 H Eos % (Auto) 5.0 Baso % (Auto) 0.0 Lymph # (Auto) 0.7 L [place] # (Auto) 0.4 Eos # (Auto) 0.2 Baso # (Auto) 0.00 Absolute Neuts (auto) 3.36 Sodium Potassium Chloride Carbon Dioxide Anion Gap BUN Creatinine Est GFR ( Amer) Est GFR (Non-Af Amer) POC Glucose (mg/dL) 128 H Random Glucose Calcium Phosphorus Magnesium Total Bilirubin Direct Bilirubin AST ALT Alkaline Phosphatase NT-Pro-B Natriuret Pep Total Protein Albumin Globulin Albumin/Globulin Ratio Fingerstick Blood Sugar Results: 241 Review of Systems - Review of Systems Review of Systems: per HPI Critical Care Progress Note - Nutrition Nutrition: Nutrition Category Date Time Status Altered GI/Hepatic Diet [DIET] Diets 12/28/18 Dinner Ordered Assessment/Plan - Assessment and Plan (Free Text) Assessment: 62 yo F with PMH of migraines presents to [facility] for left-sided deficits. Will admit to the ICU for close monitoring due to parenchymal hematoma in the right frontal parietal lobe with midline shift. Plan: Neuro AOx3 Maintain normothermia Cardio: HFrEF EF noted to be 20-25% during cath continue lasix CAD s/p stents continue B-ernestina and ACEi Asa/plavix resume yesterday. ASA held by GI. Continue to monitor closely for signs of GI bleed Pulmonary HTN currently on Milrinone gtt Maintain MAP > 65 Cardiology following Pulm Maintain O2 sat > 92% GI Blood per rectum s/p colonoscopy colonoscopy revealed diverticula, internal hemorrhoids and AVMs with no active bleed per GI, bleeding may be 2/2 DAPT initially resume DAPT per GI/cardio recs Protonix BID Advance diet as tolerated per GI recs Renal Replete K Cont to monitor electrolytes, replete as needed Maintain euvolemia Heme Blood per rectum hemodynamically stable monitor BP ID No longer on abx Endo DM2 ISS-Low Accuchecks Maintain euglycemia Dispo: Pt is feeling better. No reports of blood per rectum. He is hemodynamically stable. He no longer requires ICU care. He will be transferred to remote telemetry. Please re-consult as necessary. Case seen, examined and discussed with attending physician, Dr. Melvin Donaldson PGY1 <Kristal Charles - Last Filed: 12/29/18 16:00> CCU Objective - Vital Signs / Intake & Output Vital Signs (Last 4 hours): Vital Signs Temp Pulse Resp Pulse Ox 12/29/18 14:00 69 12/29/18 12:00 97.8 F 68 22 95 Intake and Output (Last 8hrs): Intake & Output 12/29/18 12/29/18 12/29/18 06:59 14:59 22:59 Intake Total 348 Output Total 400 Balance -52 Weight 63.004 kg Intake: IV 108 Right distal forearm 108 Oral 240 Output: Urine 400 Urine, Voided 400 Other: # Bowel Movements 1 - Medications Active Medications: Active Medications Generic Name Dose Route Start Last Admin Trade Name Freq PRN Reason Stop Dose Admin Acetaminophen 650 mg 12/23/18 11:06 Tylenol 325mg Tab PO Q6 PRN TEMP>=99.5F Acetaminophen 650 mg 12/23/18 11:06 Tylenol 650 Mg Supp RC Q6H PRN TEMP>=99.5F Acetylcysteine 4 ml 12/29/18 08:00 12/29/18 11:21 Acetylcysteine 20% IH Not Given BIDRESP SAMM Atorvastatin Calcium 40 mg 12/23/18 17:00 12/28/18 18:07 Lipitor PO 40 mg DIN SAMM Administration Carvedilol 12.5 mg 12/23/18 10:00 12/29/18 09:01 Coreg PO 12.5 mg BID SAMM Administration Clopidogrel Bisulfate 75 mg 12/28/18 13:30 12/29/18 09:03 Plavix PO 75 mg DAILY SAMM Administration Dextrose 0 ml 12/23/18 11:06 12/26/18 21:50 Dextrose 50% Inj IV 50 ml STAT PRN Administration Hypoglycemia Protocol Protocol Docusate Sodium 100 mg 12/23/18 14:00 12/29/18 14:14 Colace PO 100 mg TID SAMM Administration Famotidine 40 mg 12/23/18 22:00 12/28/18 21:48 Pepcid PO 40 mg HS SAMM Administration Ferrous Sulfate 324 mg 12/26/18 10:00 12/29/18 14:14 Feosol PO 324 mg TID SAMM Administration Furosemide 40 mg 12/25/18 10:00 12/29/18 09:39 Lasix IVP 40 mg DAILY SAMM Administration Dextrose 1,000 mls @ 0 mls/hr 12/23/18 11:06 Dextrose 5% In Water 1000 Ml IV .Q0M PRN Hypoglycemia Protocol Protocol Per Protocol Insulin Human Regular 0 units 12/26/18 11:30 12/29/18 11:14 Humulin R Low SC 2 u ACHS SAMM Administration Protocol Levalbuterol HCl 0.63 mg 12/22/18 23:24 Xopenex IH [id number] PRN Shortness of Breath Levalbuterol HCl 0.63 mg 12/28/18 01:26 12/29/18 11:21 Xopenex IH Not Given TIDRESP [facility] Levothyroxine Sodium 25 mcg 12/23/18 06:00 12/29/18 05:44 Synthroid PO 25 mcg 0600 SAMM Administration Magnesium Oxide 400 mg 12/25/18 10:00 12/29/18 09:03 Mag-Ox PO 400 mg BID SAMM Administration Ondansetron HCl 4 mg 12/23/18 11:06 Zofran Inj IVP Q4H PRN Nausea/Vomiting Polyethylene Glycol 17 gm 12/29/18 18:00 Miralax PO BID [facility] Potassium Chloride 20 meq 12/29/18 08:30 12/29/18 10:00 K-Dur 20 Meq Er Tab PO Not Given BID SAMM Ramipril 10 mg 12/29/18 10:00 12/29/18 09:40 Altace PO 10 mg DAILY SAMM Administration - Patient Studies Lab Studies: Lab Studies 12/29/18 12/29/18 12/29/18 Range/Units 07:33 06:35 06:35 WBC 4.6 (4.5-11.0) 10^3/uL RBC 3.99 (3.5-6.1) 10^6/uL Hgb 12.2 L (14.0-18.0) g/dL Hct 37.1 L (42.0-52.0) % MCV 93.0 (80.0-105.0) fl MCH 30.6 (25.0-35.0) pg MCHC 32.9 (31.0-37.0) g/dl RDW 14.0 (11.5-14.5) % Plt Count 138 (120.0-450.0) 10^3/uL MPV 9.9 (7.0-11.0) fl Neut % (Auto) 72.4 H (50.0-68.0) % Lymph % (Auto) 14.0 L (22.0-35.0) % [place] % (Auto) 8.6 H (1.0-6.0) % Eos % (Auto) 5.0 (1.5-5.0) % Baso % (Auto) 0.0 (0.0-3.0) % Lymph # (Auto) 0.7 L (1.2-3.4) [place] # (Auto) 0.4 (0.1-0.6) Eos # (Auto) 0.2 (0.0-0.7) Baso # (Auto) 0.00 (0.0-2.0) K/mm3 Absolute Neuts (auto) 3.36 (1.4-6.5) Sodium 139 (132-148) mmol/L Potassium 3.5 L (3.6-5.0) mmol/L Chloride 104 (98-107) mmol/L Carbon Dioxide 27 (21-33) mmol/L Anion Gap 12 (10-20) BUN 19 (7-21) mg/dL Creatinine 1.0 (0.8-1.5) mg/dl Est GFR ( Amer) > 60 Est GFR (Non-Af Amer) > 60 POC Glucose (mg/dL) 128 H (65-110) mg/dL Random Glucose 127 H (70-110) mg/dL Calcium 8.8 (8.4-10.5) mg/dL Phosphorus 2.4 L (2.5-4.5) mg/dL Magnesium 2.2 (1.7-2.2) mg/dL Total Bilirubin 0.9 (0.2-1.3) mg/dL Direct Bilirubin 0.6 H (0.0-0.4) mg/dL AST 24 (17-59) U/L ALT 24 (7-56) U/L Alkaline Phosphatase 57 (38-126) U/L NT-Pro-B Natriuret Pep 2120 H (0-450) pg/mL Total Protein 5.9 (5.8-8.3) g/dL Albumin 3.1 (3.0-4.8) g/dL Globulin 2.8 gm/dL Albumin/Globulin Ratio 1.1 (1.1-1.8) 12/28/18 12/28/18 Range/Units 21:18 16:16 WBC (4.5-11.0) 10^3/uL RBC (3.5-6.1) 10^6/uL Hgb (14.0-18.0) g/dL Hct (42.0-52.0) % MCV (80.0-105.0) fl MCH (25.0-35.0) pg MCHC (31.0-37.0) g/dl RDW (11.5-14.5) % Plt Count (120.0-450.0) 10^3/uL MPV (7.0-11.0) fl Neut % (Auto) (50.0-68.0) % Lymph % (Auto) (22.0-35.0) % [place] % (Auto) (1.0-6.0) % Eos % (Auto) (1.5-5.0) % Baso % (Auto) (0.0-3.0) % Lymph # (Auto) (1.2-3.4) [place] # (Auto) (0.1-0.6) Eos # (Auto) (0.0-0.7) Baso # (Auto) (0.0-2.0) K/mm3 Absolute Neuts (auto) (1.4-6.5) Sodium (132-148) mmol/L Potassium (3.6-5.0) mmol/L Chloride (98-107) mmol/L Carbon Dioxide (21-33) mmol/L Anion Gap (10-20) BUN (7-21) mg/dL Creatinine (0.8-1.5) mg/dl Est GFR ( Amer) Est GFR (Non-Af Amer) POC Glucose (mg/dL) 155 H 344 H (65-110) mg/dL Random Glucose (70-110) mg/dL Calcium (8.4-10.5) mg/dL Phosphorus (2.5-4.5) mg/dL Magnesium (1.7-2.2) mg/dL Total Bilirubin (0.2-1.3) mg/dL Direct Bilirubin (0.0-0.4) mg/dL AST (17-59) U/L ALT (7-56) U/L Alkaline Phosphatase (38-126) U/L NT-Pro-B Natriuret Pep (0-450) pg/mL Total Protein (5.8-8.3) g/dL Albumin (3.0-4.8) g/dL Globulin gm/dL Albumin/Globulin Ratio (1.1-1.8) Laboratory Results - last 24 hr 12/28/18 12/28/18 12/29/18 16:16 21:18 06:35 WBC RBC Hgb Hct MCV MCH MCHC RDW Plt Count MPV Neut % (Auto) Lymph % (Auto) [place] % (Auto) Eos % (Auto) Baso % (Auto) Lymph # (Auto) [place] # (Auto) Eos # (Auto) Baso # (Auto) Absolute Neuts (auto) Sodium 139 Potassium 3.5 L Chloride 104 Carbon Dioxide 27 Anion Gap 12 BUN 19 Creatinine 1.0 Est GFR ( Amer) > 60 Est GFR (Non-Af Amer) > 60 POC Glucose (mg/dL) 344 H 155 H Random Glucose 127 H Calcium 8.8 Phosphorus 2.4 L Magnesium 2.2 Total Bilirubin 0.9 Direct Bilirubin 0.6 H AST 24 ALT 24 Alkaline Phosphatase 57 NT-Pro-B Natriuret Pep 2120 H Total Protein 5.9 Albumin 3.1 Globulin 2.8 Albumin/Globulin Ratio 1.1 12/29/18 12/29/18 06:35 07:33 WBC 4.6 RBC 3.99 Hgb 12.2 L Hct 37.1 L MCV 93.0 MCH 30.6 MCHC 32.9 RDW 14.0 Plt Count 138 MPV 9.9 Neut % (Auto) 72.4 H Lymph % (Auto) 14.0 L [place] % (Auto) 8.6 H Eos % (Auto) 5.0 Baso % (Auto) 0.0 Lymph # (Auto) 0.7 L [place] # (Auto) 0.4 Eos # (Auto) 0.2 Baso # (Auto) 0.00 Absolute Neuts (auto) 3.36 Sodium Potassium Chloride Carbon Dioxide Anion Gap BUN Creatinine Est GFR ( Amer) Est GFR (Non-Af Amer) POC Glucose (mg/dL) 128 H Random Glucose Calcium Phosphorus Magnesium Total Bilirubin Direct Bilirubin AST ALT Alkaline Phosphatase NT-Pro-B Natriuret Pep Total Protein Albumin Globulin Albumin/Globulin Ratio Critical Care Progress Note - Nutrition Nutrition: Nutrition Category Date Time Status Altered GI/Hepatic Diet [DIET] Diets 12/28/18 Dinner Ordered Addendum Addendum: 12/29/18 15:58 ICU Attending Addendum Patient seen and examined. Case reviewed on round with housestaff. Agree with resident note above with the following additions/exceptions 83M PMHx HTN, CAD s/p CABG, T2DM, HLD, and asthma found to have NSTEMI s/p placement of three bare-metal stent in the mid- and proximal RCA Complicated by lower gi bleed s/p colonoscopy on 12/26 showing diverticulosis and AVM no signs of bleeding after restarting asa and plavix CAD CABG s/p PCI DMII HLD lower gibleed hemodynamically stable resume asa 12/27 - no signs of bleeding resume plavix 12/28 on BB coreg 12.5 BID cont ramirpil at 10mg GI consulted, Dr Villasenor Cardiology follow up doubt infection, woudl stop abx abx per ID monitor for any bleeding and hemopdynamics stable for transfer out of ICU Rest of care as above in housestaff note Kristal Charles MD Pulmonary Critical Care Attending
--- NOTE | 2018-12-29 14:20 | PN ---
DATE: 12/29/2018 CARDIOLOGY FOLLOWUP SUBJECTIVE: The patient is awake, alert. No chest pain noted. PHYSICAL EXAMINATION VITAL SIGNS: Blood pressure 135/50 and the heart rate in the 80s. NECK: Negative JVD. LUNGS: Without rales. HEART: Reveal S1 and S2. EXTREMITIES: Without edema. LABORATORY DATA: Hemoglobin is 12.2. Chemistries, BUN and creatinine unremarkable. Glucose 127. IMPRESSION: 1. Status post percutaneous transluminal coronary angioplasty and stent. 2. Coronary artery disease. 3. Status post gastrointestinal bleed. 4. Dilated cardiomyopathy. 5. Resolution of congestive heart failure. Given these findings, we will continue on the aspirin and Plavix. We will discontinue the milrinone today. The patient can be transferred to telemetry. Curtis Mckeon MD
--- NOTE | 2018-12-29 15:11 | PN ---
DATE: 12/29/2018 LOCATION: The patient is in CCU, bed 1. SUBJECTIVE: The patient is seen lying in the bed. Overnight nurse's notes were reviewed. No adverse events were documented, reported or notified. PHYSICAL EXAMINATION VITAL SIGNS: In the last 12-24 hours T-max 98.8, telemetry shows sinus rhythm, heart rate 64-67, blood pressure 126/74 respirations 20-30 and O2 sat 100%. HEENT: Head examination normocephalic and atraumatic. HEENT examination shows pinkish pale conjunctivae. Anicteric sclerae. No oropharyngeal lesion. No neck rigidity. CHEST: Kyphosis. Positive median sternotomy surgical scar. LUNGS: Shows positive rhonchi bilaterally, left more than the right. Decreased breath sound at the bases, left more than the right. CARDIOVASCULAR: Shows S1 and S2, regular rhythm. Questionable soft systolic murmur left sternal border, right second intercostal space, left second intercostal space. ABDOMEN: Soft. Positive bowel sounds. No palpable hepatosplenomegaly. GENITALIA: Male. RECTAL: Deferred. EXTREMITIES: Shows no pitting edema, no calf tenderness, no Federico's signs. NEUROLOGIC: The patient is alert, awake, responsive, is able to move upper and lower extremity without assistance. Gait examination is not tested. VASCULAR: Palpable pulses. DIAGNOSTIC DATA: December 29, 2018; WBC 4.6, hemoglobin/hematocrit 12.2 and 37.1 with platelet 138. Granulocytes 72% segs. Potassium 3.5 and phosphorus 2.4. ProBNP 2120. IMPRESSION: 1. Acute non-ST elevation myocardial infarction with elevated troponin. 2. Status post angioplasty and stent placement of the right coronary artery. 3. Acute blood loss anemia secondary to lower gastrointestinal bleeding. 4. Descending and sigmoid colon angiectasia, nonbleeding. 5. Colonic diverticulosis large . 6. Internal hemorrhoid. 7. Anemia. 8. Acute systolic congestive heart failure. 9. Dilated ischemic cardiomyopathy. 10. Multivessel coronary artery disease. 11. History of hypothyroidism. 12. Normocytic anemia. 13. Granulocytosis. 14. Relative thrombocytopenia. 15. Hypokalemia. 16. Hypophosphatemia. 17. Acute systolic congestive heart failure, IV milrinone dependent with elevated proBNP. 18. Deconditioning. 19. Gait dysfunction. 20. Hyperlipidemia. PLAN: At this time, the patient has been ordered to be transferred out of the ICU to telemetry. The patient's IV milrinone drip will be continued as per the cardiology recommendation. The patient will be continued on GI and DVT prophylaxis. The patient is currently being followed by Gastroenterology and Hematology. The patient will be continued on broad-spectrum IV antibiotic and bronchodilators for pneumonia. The patient will be continued on all the medications as per the MAR of today which was reviewed and revised and updated. The patient will be continued on bronchodilators and respiratory treatment. Once the patient is out of the ICU, the patient will be started on physical therapy, occupational therapy, ambulation therapy and gait training. Overall, the patient's prognosis is guarded secondary to advanced age and multiple complicated comorbidity which has been explained to the patient's next of kin, nephew, Navid. Dictated and electronically signed, not read. Signing off Jameson Dorsey MD. Jameson Dorsey MD
[2018-12-29] MEDS: POLYETHYLENE GLYCOL 3350 17 GM/Dose PACKET PO SCH (17:41)
--- NOTE | 2018-12-29 19:59 | US ---
PROCEDURE: Left upper extremity venous ultrasound HISTORY: Arm pain and swelling. Evaluate for deep venous thrombosis. PHYSICIAN(S): Curtis Uribe MD. FINDINGS: The visualized leftinternal jugular vein is sonographically normal and compressible. No evidence of obstruction or thrombus is seen. The visualized segments of the left subclavian vein are patent with normal waveforms. No sonographic evidence of obstruction or thrombosis is seen. The visualized deep venous system of the proximal leftupper extremity is sonographically normal and compressible. IMPRESSION: 1. No sonographic evidence for deep venous thrombosis in the visualized segments of the left upper extremity.
[2018-12-30] MEDS: Levothyroxine 25 MCG TAB PO SCH (05:19)
[2018-12-30 07:13] LABS: BASO # 0.01 K/mm3 (0.0-2.0); BASO % 0.2 % (0.0-3.0); EOS # 0.2 (0.0-0.7); HEMOGLOBIN 13.2 g/dL (14.0-18.0); LYMPH # 0.8 (1.2-3.4); LYMPH % 14.6 % (22.0-35.0); MEAN CELL VOLUME 94.6 fl (80.0-105.0); MEAN CORPUSCULAR HEMOGLOBIN 31.2 pg (25.0-35.0); MEAN PLATELET VOLUME 10.2 fl (7.0-11.0); MONO # 0.6 (0.1-0.6); MONO % 9.9 % (1.0-6.0); RBC 4.23 10^6/uL (3.5-6.1); RED CELL DISTRIBUTION WIDTH 14.5 % (11.5-14.5); WHITE BLOOD COUNT 5.7 10^3/uL (4.5-11.0)
[2018-12-30 07:25] LABS: ALB/GLOB RATIO 1.2 (1.1-1.8); ALBUMIN 3.2 g/dL (3.0-4.8); ALT/SGPT 23 U/L (7-56); AST/SGOT 25 U/L (17-59); BILIRUBIN,DIRECT 0.3 mg/dL (0.0-0.4); BLOOD UREA NITROGEN 18 mg/dL (7-21); CALCIUM 8.9 mg/dL (8.4-10.5); GFR NON-AFRICAN AMERICAN > 60
[2018-12-30] MEDS: Acetylcysteine 20% Inhal Soln (4ml) IH SCH ×4 (07:46→20:00)
[2018-12-30] MEDS: Levalbuterol 0.63 MG/3 ML Inhal Soln UD IH SCH ×4 (07:46→20:00)
[2018-12-30] MEDS ORDERED: Levalbuterol 0.63 MG/3 ML Inhal Soln UD IH PRN (08:38)
[2018-12-30] MEDS: Insulin Reg-LOW-Coverage SC SCH ×4 (08:57→21:51)
[2018-12-30] MEDS: Potassium & Sodium Phosphate PO SCH ×3 (08:58→20:49)
[2018-12-30] MEDS: POLYETHYLENE GLYCOL 3350 17 GM/Dose PACKET PO SCH ×2 (09:00→17:14)
[2018-12-30] MEDS: Potassium Chloride 20 mEq ER Tab PO SCH ×2 (09:00→17:22)
[2018-12-30] MEDS: Magnesium Oxide 400 mg Tab UD PO SCH ×2 (09:00→17:22)
--- NOTE | 2018-12-30 11:20 | PN ---
DATE: 12/30/2018 SUBJECTIVE: The patient is seen in ICU, bed 1. The patient's nephew is at bedside. The patient is awake, responsive. The patient is off the Primacor drip. Overnight nurse's notes were reviewed. PHYSICAL EXAMINATION GENERAL: The patient was found to be alert, awake, oriented x2. The patient is seen sitting up in the bed. VITAL SIGNS: T-max 98.7, heart rate 70, 75, 79, blood pressure 117/78, 138/59, 135/49, 113/64, respiration 18 to 22, O2 sat is 95% to 100%. HEENT: Head is normocephalic, atraumatic. HEENT examination shows pinkish conjunctivae. Anicteric sclerae. No oropharyngeal lesion. NECK: No neck rigidity. CHEST: Shows median sternotomy surgical scar. LUNGS: Shows positive rhonchi, left more than the right, questionable decreased breath sound at the left base. CARDIOVASCULAR: S1, S2, regular rhythm. Positive systolic murmur at left sternal border, right second intercostal space, left second intercostal space. ABDOMEN: Soft. Positive bowel sound. No palpable hepatosplenomegaly. GENITALIA: Male. RECTAL: Deferred. EXTREMITIES: Shows no pitting edema, no calf tenderness, no Homans' sign. NEUROLOGIC: The patient is alert, awake, responsive. He is able to move upper and lower extremity without assistance. Gait examination not tested. DIAGNOSTICS: On 12/30/2018, hemoglobin/hematocrit 13.2, 40.0. CMP, LFT shows a glucose of 155, phosphorus is 2.3. Rest of the CMP, LFTs are negative. Microbiology, MRSA, urine cultures, blood cultures all negative. The patient received 1 unit of PRBC. The patient's left upper extremity ultrasound was done because of the swelling of the left extremity which was negative for the DVT of the left upper extremity. IMPRESSION: 1. Acute non-ST elevation myocardial infarction with elevated troponin. 2. History of coronary artery disease, coronary artery bypass graft. 3. Status post successful angioplasty and stent placement of the multiple lesions of the right coronary artery using bare-metal stent. 4. 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 5. Diffusely dilated and diffusely hypokinetic left ventricle. 6. Multivessel coronary artery disease. 7. 70% to 80% stenosis of the proximal right coronary artery extending into the midportion with 99% stenosis of the mid right coronary artery with diffuse disease of the long critical 80% to 90% stenosis of the patent ductus arteriosus. 8. Proximal occlusion of the left anterior descending. 9. Subtotal occlusion of the proximal left circumflex. 10. Patent left internal mammary artery to left anterior descending with antegrade flow to mid and distal left anterior descending. 11. 50% to 60% stenosis of the mid left anterior descending. 12. Occluded saphenous vein graft to the right coronary artery. 13. Acute blood loss anemia with lower gastrointestinal bleeding. 14. Sigmoid colon diverticulosis. 15. 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 16. Internal hemorrhoids. 17. Multiple nonbleeding colonic angiodysplastic lesion. 18. Granulocytosis. 19. Leukopenia. 20. Anemia. 21. Lactic acidosis. 22. Hypokalemia. 23. Xwa-piumway-ysxzkirhh diabetes mellitus with hemoglobin A1c of 7.1 and hyperfructosemia. 24. Hypomagnesemia, hypokalemia, hypophosphatemia. 25. Hypovitaminosis D. 26. Pulmonary hypertension with right ventricular systolic pressure of 70 mmHg and severe tricuspid regurgitation, onset of severe pulmonary hypertension. 27. Global left ventricular hypokinesis and severely impaired left ventricular ejection fraction and mildly dilated right atrium. 28. Severely dilated left and right atrium. 29. Moderate aortic regurgitation with mildly sclerotic aortic valve. 30. Severe mitral regurgitation. 31. Mild pulmonic regurgitation. 32. Large left pleural effusion. 33. Dilated ischemic cardiomyopathy. PLAN: At this time, the patient will be considered for transfer out of the ICU. The patient has been ordered repeat labs. The patient has been ordered TCU evaluation. Diabetic education evaluation has been ordered. CURRENT MEDICATIONS: Mucomyst nebulizer with Xopenex nebulizer every 6 hours. The patient has been ordered Xopenex and Mucomyst nebulizer in combination. The patient has been ordered Altace 10 mg daily, Colace 100 mg three times a day, Coreg 12.5 twice a day, ferrous sulfate 324 three times a day, Humulin low-dose sliding scale coverage, K-Dur 20 mEq twice a day, Lasix 40 IV daily, Lipitor 40 mg daily, MiraLax 17 g twice a day, Neutra-Phos 1 packet every 6 hours, 8 doses, Pepcid 40 mg at bedtime, Plavix 75 mg daily, Synthroid 25 mcg daily, Zofran 4 IV every 4 p.r.n. The patient's condition, diagnosis, treatment options, recommendation by all physician, diagnostic test results, all discussed and explained to the patient's nephew at length. All questions concerned answered to his satisfaction. The patient has been ordered out of bed to chair, physical therapy, occupational therapy has been ordered. Dictated and electronically signed, not read. Jameson Dorsey MD
--- NOTE | 2018-12-30 18:58 | PN ---
DATE: 12/30/2018 CARDIOLOGY FOLLOWUP SUBJECTIVE: The patient is asymptomatic. PHYSICAL EXAMINATION: VITAL SIGNS: Revealed blood pressure of 157/75, heart rate in the 70s. NECK: Negative JVD. LUNGS: Without rales. HEART: S1, S2. EXTREMITIES: Without edema. LABORATORY DATA: BUN and creatinine are unremarkable. Glucose 155. Hemoglobin is stable at 13.2. IMPRESSION: 1. Status post non-STEMI. 2. Coronary artery disease. 3. Status post percutaneous transluminal coronary angioplasty and stent of two lesions in the right coronary artery with bare-metal stents. 4. History of coronary bypass surgery. 5. Ischemic dilated cardiomyopathy. 6. Anemia. PLAN: Given these findings, the patient is tolerating baby aspirin and Plavix with no evidence for bleeding. From a cardiac perspective, the patient can be transferred to subacute rehab. The patient will need to remain on Plavix for 1 month. Curtis Mckeon MD
[2018-12-31] MEDS: Acetylcysteine 20% Inhal Soln (4ml) IH SCH ×3 (02:15→13:42)
[2018-12-31] MEDS: Levalbuterol 0.63 MG/3 ML Inhal Soln UD IH SCH ×3 (02:16→13:42)
[2018-12-31] MEDS: Potassium & Sodium Phosphate PO SCH ×2 (02:58→10:03)
[2018-12-31] MEDS: Levothyroxine 25 MCG TAB PO SCH (05:36)
[2018-12-31 06:48] LABS: BASO # 0.01 K/mm3 (0.0-2.0); BASO % 0.2 % (0.0-3.0); EOS # 0.3 (0.0-0.7); EOS % 5.3 % (1.5-5.0); HEMOGLOBIN 12.9 g/dL (14.0-18.0); LYMPH # 0.9 (1.2-3.4); LYMPH % 15.8 % (22.0-35.0); MEAN CELL VOLUME 94.8 fl (80.0-105.0); MEAN CORPUSCULAR HEMOGLOBIN 30.4 pg (25.0-35.0); MEAN PLATELET VOLUME 9.6 fl (7.0-11.0); MONO # 0.7 (0.1-0.6); MONO % 11.4 % (1.0-6.0); RBC 4.25 10^6/uL (3.5-6.1); RED CELL DISTRIBUTION WIDTH 14.6 % (11.5-14.5); WHITE BLOOD COUNT 5.9 10^3/uL (4.5-11.0)
[2018-12-31 07:20] LABS: ALB/GLOB RATIO 1.1 (1.1-1.8); ALBUMIN 3.4 g/dL (3.0-4.8); ALT/SGPT 20 U/L (7-56); AST/SGOT 27 U/L (17-59); BILIRUBIN,DIRECT 0.1 mg/dL (0.0-0.4); BLOOD UREA NITROGEN 20 mg/dL (7-21); GFR NON-AFRICAN AMERICAN > 60
[2018-12-31] MEDS: Insulin Reg-LOW-Coverage SC SCH ×2 (07:42→12:24)
--- NOTE | 2018-12-31 09:36 | CP.PCM.DIS ---
Provider - Provider Date of Admission: 12/22/18 21:51 Attending physician: Jameson Dorsey MD Primary care physician: Rafia Whalen MD Consults: 12/22/18 23:45 Cardiology Consult Routine Comment: Consulting Provider: Greg Isaac Consulting Physician: Greg Isaac Reason for Consult: NSTEMI 12/23/18 01:36 Social Work Referral Routine Comment: Loreta score Physician Instructions: Reason For Exam: Protocol 12/23/18 01:54 Nursing Referral for Wound Care Routine Comment: Sacral redness Physician Instructions: Reason For Exam: Protocol 12/23/18 09:17 Consult [Physician Consult] Routine Comment: Consulting Provider: Santos Watt Consulting Physician: Santos Watt Reason for Consult: Hernia with rule out SBO 12/23/18 11:05 Physiatry Consult Routine Comment: Consulting Provider: Curtis Mckeon Consulting Physician: Curtis Mckeon Reason for Consult: NSTEMI 12/23/18 11:15 Diabetic Education Referral DAILY Comment: DIABETIC EDUCATION Physician Instructions: DIABETIC EDUCATION Reason For Exam: [facility] TCU [Evaluation for TRCU] DAILY Comment: TCU Physician Instructions: TCU Reason For Exam: TCU 12/24/18 11:15 Diabetic Education Referral DAILY Comment: DIABETIC EDUCATION Physician Instructions: DIABETIC EDUCATION Reason For Exam: [facility] TCU [Evaluation for TRCU] DAILY Comment: TCU Physician Instructions: TCU Reason For Exam: TCU 12/25/18 01:53 Physician Consult Routine Comment: rectal bleeding Consulting Provider: Aguilar Ortega Consulting Physician: Aguilar Ortega Reason for Consult: rectal bleeding 12/25/18 11:15 Diabetic Education Referral DAILY Comment: DIABETIC EDUCATION Physician Instructions: DIABETIC EDUCATION Reason For Exam: [facility] TCU [Evaluation for TRCU] DAILY Comment: TCU Physician Instructions: TCU Reason For Exam: TCU 12/26/18 11:15 Diabetic Education Referral DAILY Comment: DIABETIC EDUCATION Physician Instructions: DIABETIC EDUCATION Reason For Exam: [facility] TCU [Evaluation for TRCU] DAILY Comment: TCU Physician Instructions: TCU Reason For Exam: TCU 12/27/18 11:15 Diabetic Education Referral DAILY Comment: DIABETIC EDUCATION Physician Instructions: DIABETIC EDUCATION Reason For Exam: [facility] TCU [Evaluation for TRCU] DAILY Comment: TCU Physician Instructions: TCU Reason For Exam: TCU 12/28/18 11:15 Diabetic Education Referral DAILY Comment: DIABETIC EDUCATION Physician Instructions: DIABETIC EDUCATION Reason For Exam: [facility] TCU [Evaluation for TRCU] DAILY Comment: TCU Physician Instructions: TCU Reason For Exam: TCU 12/29/18 11:15 Diabetic Education Referral DAILY Comment: DIABETIC EDUCATION Physician Instructions: DIABETIC EDUCATION Reason For Exam: [facility]CU [Evaluation for TRCU] DAILY Comment: TCU Physician Instructions: TCU Reason For Exam: TCU 12/30/18 11:15 Diabetic Education Referral DAILY Comment: DIABETIC EDUCATION Physician Instructions: DIABETIC EDUCATION Reason For Exam: [facility] TCU [Evaluation for TRCU] DAILY Comment: TCU Physician Instructions: TCU Reason For Exam: TCU 12/31/18 11:15 Diabetic Education Referral DAILY Comment: DIABETIC EDUCATION Physician Instructions: DIABETIC EDUCATION Reason For Exam: [facility]CU [Evaluation for TRCU] DAILY Comment: TCU Physician Instructions: TCU Reason For Exam: TCU 01/01/19 11:15 Diabetic Education Referral DAILY Comment: DIABETIC EDUCATION Physician Instructions: DIABETIC EDUCATION Reason For Exam: [facility] TCU [Evaluation for TRCU] DAILY Comment: TCU Physician Instructions: TCU Reason For Exam: TCU 01/02/19 11:15 Diabetic Education Referral DAILY Comment: DIABETIC EDUCATION Physician Instructions: DIABETIC EDUCATION Reason For Exam: [facility] TCU [Evaluation for TRCU] DAILY Comment: TCU Physician Instructions: TCU Reason For Exam: TCU 01/03/19 11:15 Diabetic Education Referral DAILY Comment: DIABETIC EDUCATION Physician Instructions: DIABETIC EDUCATION Reason For Exam: [facility] TCU [Evaluation for TRCU] DAILY Comment: TCU Physician Instructions: TCU Reason For Exam: TCU 01/04/19 11:15 Diabetic Education Referral DAILY Comment: DIABETIC EDUCATION Physician Instructions: DIABETIC EDUCATION Reason For Exam: [facility] TCU [Evaluation for TRCU] DAILY Comment: TCU Physician Instructions: TCU Reason For Exam: TCU 01/05/19 11:15 Diabetic Education Referral DAILY Comment: DIABETIC EDUCATION Physician Instructions: DIABETIC EDUCATION Reason For Exam: [facility]CU [Evaluation for TRCU] DAILY Comment: TCU Physician Instructions: TCU Reason For Exam: TCU 01/06/19 11:15 Diabetic Education Referral DAILY Comment: DIABETIC EDUCATION Physician Instructions: DIABETIC EDUCATION Reason For Exam: [facility] TCU [Evaluation for TRCU] DAILY Comment: TCU Physician Instructions: TCU Reason For Exam: TCU 01/07/19 11:15 Diabetic Education Referral DAILY Comment: DIABETIC EDUCATION Physician Instructions: DIABETIC EDUCATION Reason For Exam: [facility] [Evaluation for TRCU] DAILY Comment: TCU Physician Instructions: TCU Reason For Exam: TCU 01/08/19 11:15 Diabetic Education Referral DAILY Comment: DIABETIC EDUCATION Physician Instructions: DIABETIC EDUCATION Reason For Exam: [facility] [Evaluation for TRCU] DAILY Comment: TCU Physician Instructions: TCU Reason For Exam: TCU 01/09/19 11:15 Diabetic Education Referral DAILY Comment: DIABETIC EDUCATION Physician Instructions: DIABETIC EDUCATION Reason For Exam: [facility] [Evaluation for TRCU] DAILY Comment: TCU Physician Instructions: TCU Reason For Exam: TCU Time Spent in preparation of Discharge (in minutes): 40 Diagnosis - Discharge Diagnosis (1) Lower GI bleed Status: Acute (2) CHF (congestive heart failure) Status: Acute (3) NSTEMI (non-ST elevated myocardial infarction) Status: Acute (4) Pneumonia Status: Acute (5) Constipation Status: Acute Hospital Course - Lab Results Lab Results: Micro Results 12/23/18 10:30 Blood-Venous Blood Culture - Final NO GROWTH AFTER 5 DAYS 12/23/18 10:30 Blood-Venous Gram Stain - Final TEST NOT PERFORMED 12/23/18 10:00 Blood-Venous Blood Culture - Final NO GROWTH AFTER 5 DAYS 12/23/18 10:00 Blood-Venous Gram Stain - Final TEST NOT PERFORMED 12/25/18 11:15 Naris MRSA Culture (Admit) - Final MRSA NOT DETECTED 12/23/18 13:30 [facility] MRSA Culture (Admit) - Final MRSA NOT DETECTED 12/23/18 13:30 Urine Random Urine Culture - Final No Growth (<1,000 CFU/ML) Most Recent Lab Values WBC 5.9 10^3/uL (4.5-11.0) 12/31/18 05:30 RBC 4.25 10^6/uL (3.5-6.1) 12/31/18 05:30 Hgb 12.9 g/dL (14.0-18.0) L 12/31/18 05:30 Hct 40.3 % (42.0-52.0) L 12/31/18 05:30 MCV 94.8 fl (80.0-105.0) 12/31/18 05:30 MCH 30.4 pg (25.0-35.0) 12/31/18 05:30 MCHC 32.0 g/dl (31.0-37.0) 12/31/18 05:30 RDW 14.6 % (11.5-14.5) H 12/31/18 05:30 Plt Count 154 10^3/uL (120.0-450.0) 12/31/18 05:30 MPV 9.6 fl (7.0-11.0) 12/31/18 05:30 Neut % (Auto) 67.3 % (50.0-68.0) 12/31/18 05:30 Lymph % (Auto) 15.8 % (22.0-35.0) L 12/31/18 05:30 [place] % (Auto) 11.4 % (1.0-6.0) H 12/31/18 05:30 Eos % (Auto) 5.3 % (1.5-5.0) H 12/31/18 05:30 Baso % (Auto) 0.2 % (0.0-3.0) 12/31/18 05:30 Lymph # (Auto) 0.9 (1.2-3.4) L 12/31/18 05:30 [place] # (Auto) 0.7 (0.1-0.6) H 12/31/18 05:30 Eos # (Auto) 0.3 (0.0-0.7) 12/31/18 05:30 Baso # (Auto) 0.01 K/mm3 (0.0-2.0) 12/31/18 05:30 Absolute Neuts (auto) 3.97 (1.4-6.5) 12/31/18 05:30 PT 15.8 SECONDS (9.4-12.5) H 12/26/18 10:00 INR 1.40 12/26/18 10:00 APTT 31.6 Seconds (26.9-38.3) 12/26/18 10:00 pCO2 39 mm/Hg (35-45) 12/22/18 23:59 pO2 155 mm/Hg (30-55) H 12/23/18 10:30 HCO3 25.3 mmol/L (21-28) 12/22/18 23:59 ABG pH 7.42 (7.35-7.45) 12/22/18 23:59 ABG Total CO2 26.5 mmol.L (22-28) 12/22/18 23:59 ABG O2 Saturation 99.1 % (95-98) H 12/22/18 23:59 ABG Base Excess 0.8 mmol/L (-2.0-3.0) 12/22/18 23:59 ABG Potassium 2.6 mmol/L (3.6-5.2) L 12/22/18 23:59 VBG pH 7.45 (7.32-7.43) H 12/23/18 10:30 VBG pCO2 40.0 (40-60) 12/23/18 10:30 VBG HCO3 27.8 mmol/l (21-28) 12/23/18 10:30 VBG Total CO2 29.0 mmol.L (22-28) H 12/23/18 10:30 VBG O2 Sat (Calc) 100.0 % (40-65) H 12/23/18 10:30 VBG Base Excess 3.5 mmol/L (0.0-2.0) H 12/23/18 10:30 VBG Potassium 3.2 mmol/L (3.6-5.2) L 12/23/18 10:30 Sodium 138.0 mmol/L (132-148) 12/23/18 10:30 Chloride 104.0 mmol/L (98-107) 12/23/18 10:30 Glucose 254 mg/dl (75-110) H 12/23/18 10:30 Lactate 1.2 mmol/L (0.7-2.1) 12/23/18 10:30 FiO2 21.0 % 12/23/18 10:30 Crit Value Called To Betsy 12/23/18 06:50 Crit Value Called By 12/23/18 06:50 Blood Gas Notified Time 708 12/23/18 06:50 Sodium 137 mmol/L (132-148) 12/31/18 05:30 Potassium 4.1 mmol/L (3.6-5.0) 12/31/18 05:30 Chloride 99 mmol/L (98-107) 12/31/18 05:30 Carbon Dioxide 31 mmol/L (21-33) 12/31/18 05:30 Anion Gap 12 (10-20) 12/31/18 05:30 BUN 20 mg/dL (7-21) 12/31/18 05:30 Creatinine 1.0 mg/dl (0.8-1.5) 12/31/18 05:30 Est GFR ( Amer) > 60 12/31/18 05:30 Est GFR (Non-Af Amer) > 60 12/31/18 05:30 POC Glucose (mg/dL) 237 mg/dL (65-110) H 12/30/18 21:42 Random Glucose 160 mg/dL (70-110) H 12/31/18 05:30 Hemoglobin A1c 7.1 % (4.2-6.5) H 12/23/18 07:30 Fructosamine 290 umol/L (190-270) H 12/23/18 10:30 Uric Acid 7.0 mg/dL (3.5-8.5) 12/25/18 07:25 Calcium 9.0 mg/dL (8.4-10.5) 12/31/18 05:30 Phosphorus 2.8 mg/dL (2.5-4.5) 12/31/18 05:30 Magnesium 1.9 mg/dL (1.7-2.2) 12/31/18 05:30 Total Bilirubin 0.7 mg/dL (0.2-1.3) 12/31/18 05:30 Direct Bilirubin 0.1 mg/dL (0.0-0.4) 12/31/18 05:30 AST 27 U/L (17-59) 12/31/18 05:30 ALT 20 U/L (7-56) 12/31/18 05:30 Alkaline Phosphatase 63 U/L (38-126) 12/31/18 05:30 Troponin I 0.33 ng/mL H* 12/23/18 18:22 NT-Pro-B Natriuret Pep 2120 pg/mL (0-450) H 12/29/18 06:35 Total Protein 6.5 g/dL (5.8-8.3) 12/31/18 05:30 Albumin 3.4 g/dL (3.0-4.8) 12/31/18 05:30 Globulin 3.0 gm/dL 12/31/18 05:30 Albumin/Globulin Ratio 1.1 (1.1-1.8) 12/31/18 05:30 Triglycerides 69 mg/dL (35-160) 12/23/18 06:50 Cholesterol 93 mg/dL (130-200) L 12/23/18 06:50 LDL Cholesterol Direct 49 mg/dL (0-129) 12/23/18 06:50 HDL Cholesterol 33 mg/dL (29-60) 12/23/18 06:50 25-OH Vitamin D Total 28.0 NG/ML (30.0-100.0) L 12/23/18 10:30 Procalcitonin 0.06 NG/ML (0.19-0.49) L 12/23/18 00:45 TSH 3rd Generation 3.04 mIU/mL (0.46-4.68) 12/23/18 06:50 Arterial Blood Potassium 2.6 mmol/L (3.6-5.2) L 12/22/18 23:59 Venous Blood Potassium 3.2 mmol/L (3.6-5.2) L 12/23/18 10:30 Urine Color Yellow (YELLOW) 12/23/18 13:30 Urine Appearance Clear (CLEAR) 12/23/18 13:30 Urine pH 6.0 (4.7-8.0) 12/23/18 13:30 Ur Specific [place] 1.020 (1.005-1.035) 12/23/18 13:30 Urine Protein Negative mg/dL (<30 mg/dL) 12/23/18 13:30 Urine Glucose (UA) Negative mg/dL (NEGATIVE) 12/23/18 13:30 Urine Ketones Negative mg/dL (NEGATIVE) 12/23/18 13:30 Urine Blood Large (NEGATIVE) H 12/23/18 13:30 Urine Nitrate Negative (NEGATIVE) 12/23/18 13:30 Urine Bilirubin Negative (NEGATIVE) 12/23/18 13:30 Urine Urobilinogen 1.0 E.U./dL (<1 E.U./dL) H 12/23/18 13:30 Ur Leukocyte Esterase Negative Chas/uL (NEGATIVE) 12/23/18 13:30 Urine RBC 10 - 15 /hpf (0-2) H 12/23/18 13:30 Urine WBC 0 - 2 /hpf (0-6) 12/23/18 13:30 Ur Epithelial Cells None /hpf (0-5) 12/23/18 13:30 Urine Bacteria Few /hpf (NONE) 12/23/18 13:30 HIV 1&2 Ag/Ab, 4th Gen Nonreactive (Nonreactive) 12/23/18 10:30 Influenza Typ A,B (EIA) Negative for flu a/b (NEGATIVE) 12/23/18 13:30 Ur L.pneumophila Ag Negative (NEGATIVE) 12/23/18 13:30 Mycoplasma pneumon IgG >5.00 (<=0.90) H 12/23/18 10:30 Mycoplasma pneumon IgM 230 U/mL (<770) 12/23/18 10:30 Ur Strep pneumoniae Ag Not detected (Not Detected) 12/23/18 13:30 Blood Type B POSITIVE 12/24/18 21:45 Blood Type Confirm B POSITIVE 12/24/18 22:17 Antibody Screen Negative 12/24/18 21:45 Crossmatch See Detail 12/24/18 21:45 BBK History Checked No verified bt 12/24/18 21:45 - Hospital Course Hospital Course: Mr Alfaro, 83M, with PMHx CAD s/p CABG in 1989 on ASA/Plavix, HTN/HLD, DM2 (A1C 7.1), asthma c/o Chest pain onset at rest associated with nausea, vomiting, diaphoresis. He was admitted on 12/23 for chest pain, found to have NSTEMI. Cath (12/24) revealed EF 20-25 and Triple vessel disease (1) HANDY to LAD patent. (2) L Cir closed (3) RCA 99% block (4) bypass graft to RCA close. He receive PCI with 3 bare metal stents in [place] RCA and started milrinone gtt. Post-cath was complicated by lower GI bleed with BRBPR. He is s/p 1u pRBC for active bleeding. He was transferred to ICU. Colonoscopy (12/26) showed several non-bleeding diverticulosis and angiodysplasia. GI bleed resolves the following days, H/H stable at 11 and he was off milronone gtt. He resumed on ASA/plavix, tolerating well, no signs of bleeding. He was downgraded to telemetry. He had acute on chronic CHF with bilateral Pleural effusion (L > R). [place] [address] on admission. He was managed by lasix s/p milrinone gtt. He was found to have pneumonia, likely due to Aspiration pnemonitis vs CAP. Procalcitonin is low 0.06. He completed a 5 days course on Rocephin, doxy, flagyl. He was on Mucomyst/Xopenex SAMM CT abd/pelvis on admission (12/23) revealed a right-sided inguinal hernia that contains a loop of bowel. Surgery had ruled out obstruction or bowel incarceration. no plan for surgery. Last bowel movement 6 days prior to admission. Laxative was administered and constipation resolved. At discharge, Hb is stable at 12-13. Vital sign stable. Discharge instructions provided to patient and LOU Baumann. Discharge Exam - Head Exam Head Exam: ATRAUMATIC, NORMAL INSPECTION, NORMOCEPHALIC - Eye Exam Eye Exam: EOMI, Normal appearance, PERRL. absent: Scleral icterus Pupil Exam: NORMAL ACCOMODATION - ENT Exam ENT Exam: Mucous Membranes Moist - Neck Exam Additional comments: supple - Respiratory Exam Respiratory Exam: Clear to PA & Lateral, NORMAL BREATHING PATTERN. absent: Rales, Rhonchi, Wheezes - Cardiovascular Exam Cardiovascular Exam: REGULAR RHYTHM, +S1, +S2 - GI/Abdominal Exam GI & Abdominal Exam: Normal Bowel Sounds, Unremarkable - Extremities Exam Extremities exam: normal capillary refill, pedal edema (slight), pedal pulses present - Back Exam Back exam: absent: CVA tenderness (L), CVA tenderness (R) - Neurological Exam Neurological exam: Alert, CN II-XII Intact, Oriented x3 - Psychiatric Exam Psychiatric exam: Normal Affect, Normal Mood - Skin Skin Exam: Dry, Warm Discharge Plan - Discharge Medications Prescriptions: Clopidogrel [Plavix] 75 mg PO DAILY #30 tab Furosemide [Lasix] 40 mg PO BID #60 tablet Nateglinide [Starlix] 120 mg PO TID #90 tab Potassium Chloride [K-Dur 20] 20 meq PO DAILY #30 tab - Follow Up Plan Condition: GUARDED Disposition: REHAB FACILITY/REHAB UNIT Instructions: Heart Healthy Diet, Heart Attack (DC), What Can Go Wrong After a Heart Attack?, Myocardial Infarction (GEN) Additional Instructions: MAY DISCHARGE TO [facility] UNDER SERVICE DISCHARGE MEDICATIONS PER UPDATED AMBULATORY ORDERS Patient needs to remain on Plavix for 1 month and custodial aspirin Follow up with Dr Dorsey, Primary care doctor, 1 week after discharge from rehab Follow up with GI doctor, Dr Ortega, 1 week after discharge from rehab Follow up with Dr Mckeon, radiology resident, 1 week after discharge from rehab Referrals: Curtis Mckeon MD [Staff Provider] - 1 Week Jameson Dorsey MD [Staff Provider] - 1 Week (MAY DISCHARGE TO [facility] UNDER SERVICE DISCHARGE MEDICATIONS PER UPDATED AMBULATORY ORDERS ) Aguilar Ortega MD [Staff Provider] - 1 Week
[2018-12-31] MEDS: POLYETHYLENE GLYCOL 3350 17 GM/Dose PACKET PO SCH (10:02)
[2018-12-31] MEDS: Magnesium Oxide 400 mg Tab UD PO SCH (10:02)
[2018-12-31] MEDS: Potassium Chloride 20 mEq ER Tab PO SCH (10:02)
[2018-12-31] MEDS ORDERED: Influenza Vaccine 60 mcg/0.5 mL SYR (4YR UP) IM ONE (11:53)
[2018-12-31 11:55] VITALS: TEMP 97.9
--- NOTE | 2018-12-31 12:46 | PN ---
DATE: 12/31/2018 SUBJECTIVE: The patient is lying in bed. He is sleeping. According to nursing, there has been no further rectal bleeding. There is no chest pain or shortness of breath. PHYSICAL EXAMINATION VITAL SIGNS: Reveal temperature of 97.8, blood pressure 122/77, heart rate 69. HEENT: Reveal sclerae to be white. Conjunctivae pale. NECK: Supple. CHEST: Lungs are clear. HEART: Reveals a regular rate and rhythm. ABDOMEN: Soft, nontender. EXTREMITIES: Show no edema. LABORATORY DATA: Reveals hemoglobin 12.9 which is stable, white blood cell count 5.9. Chemistries reveal normal electrolytes. IMPRESSION: An 83-year-old male with lower gastrointestinal bleed with stable blood count for the last 76 hours. Colonoscopy did show sigmoid diverticulosis and cecal arteriovenous malformations. The patient had recent bare-metal coronary artery stent placed for coronary artery disease. He is currently on Plavix. There has been no sign of re-bleed at this time. Aguilar Ortega MD
[2018-12-31 14:57] VITALS: BP 145/91; PULSE 63; RESP 38; O2SAT 100
--- NOTE | 2018-12-31 16:27 | PN ---
DATE: 12/31/2018 CARDIOLOGY FOLLOWUP SUBJECTIVE: The patient is sitting in bed, awake, alert, eating, without chest pain. PHYSICAL EXAMINATION: VITAL SIGNS: Blood pressure is 136/63, heart rates in the 70s. NECK: Negative JVD. LUNGS: Without rales. HEART: S1, S2. EXTREMITIES: Without edema. LABORATORY DATA: Hemoglobin is 12.9. BUN and creatinine are unremarkable. Glucose is 160. IMPRESSION: 1. Stable post multivessel percutaneous transluminal coronary angioplasty and stent. 2. Coronary artery disease. 3. Recent ST elevation myocardial infarction 4. History of coronary bypass surgery. 5. Ischemic dilated cardiomyopathy. 6. Anemia. Given these findings, the patient is hemodynamically stable. The patient is scheduled for transfer to senior living facility today. Curtis Mckeon MD
--- NOTE | 2018-12-31 19:55 | DS ---
FINAL PROGRESS NOTE AND DISCHARGE SUMMARY LOCATION: The patient is seen in ICU, Bed 1. HISTORY OF PRESENT ILLNESS: The patient is seen lying in the bed. The patient is comfortable, in no distress. REVIEW OF SYSTEMS: A 14-system review of systems was negative. PHYSICAL EXAMINATION VITAL SIGNS: T-max is 97.8. Telemetry shows sinus rhythm, heart rate 69 to 74, blood pressure is 132/67, 128/67, 122/83, 116/67; respirations 18 to 20; O2 sat is 94% to 97%. Blood pressure 116/70, 132/67, 128/67, 122/83. Intake and output. HEENT: Head examination is normocephalic, atraumatic. HEENT examination shows pinkish pale conjunctiva. Anicteric sclerae. No oropharyngeal lesion. NECK:: No neck rigidity. CHEST: Kyphosis. Positive median sternotomy surgical scar. LUNGS: Occasional rhonchi left more than the right. CARDIOVASCULAR: S1 and S2. Positive systolic murmur at left sternal border, right second intercostal space, left second intercostal space. ABDOMEN: Soft. Positive bowel sounds. No palpable hepatosplenomegaly. GENITALIA: Male. RECTAL: Deferred. EXTREMITIES: Shows no pitting edema, no calf tenderness, no Homans' sign. NEUROLOGIC: The patient is alert, awake, responsive. He is able to move upper and lower extremity without assistance. Gait examination not tested. Vascular examination, palpable pulses. Cranial nerves II through XII intact and limited. DIAGNOSTIC DATA: On 12/31/2018, hemoglobin and hematocrit 12.9 and 40.3, platelet 154. CMP and LFTs are within normal limit with random glucose of 160. FINAL IMPRESSION, PLAN, AND DISCHARGE DIAGNOSES: 1. Acute non-ST elevation myocardial infarction with elevated troponin. 2. Status post successful angioplasty and bare-metal stent placement of the multiple lesions of the right coronary artery. 3. Dilated ischemic cardiomyopathy. 4. Acute blood loss anemia with lower gastrointestinal bleeding and bright red blood per rectum. 5. Sigmoid colon medium sized mouthed diverticulosis. 6. Descending colon and cecum, large angiodysplastic lesion without bleeding. 7. Internal hemorrhoids. 8. Hypertension. 9. Coronary artery disease, coronary artery bypass graft. 10. Non-insulin requiring diabetes mellitus. 11. Iron deficiency anemia. 12. Hypokalemia. 13. Hyperlipidemia. 14. Hypomagnesemia. 15. Constipation. 16. Hypophosphatemia. 17. Hypothyroidism. 18. Dilated ischemic cardiomyopathy. 19. Acute systolic congestive heart failure. 20. Severe pulmonary hypertension with right ventricular systolic pressure of 70 mmHg and severe tricuspid regurgitation. 21. Left upper lobe, left lower lobe healthcare-associated versus community-acquired pneumonia and effusion. 22. Cardiomegaly. 23. Coronary artery calcification. 24. Moderate left pleural effusion and small right pleural effusion. 25. Anterior longitudinal ligament degenerative changes. At this time, the patient's nephewNavid has agreed the patient to be transferred to [facility] under Dr. Dorsey's service. The patient has been cleared for discharge. The patient is to be discharged. DISCHARGE MEDICATIONS: Tylenol 650 mg every 6 hours p.r.n., Mucomyst nebulizer 4 mL 20% every 6 hours with Xopenex nebulizer 0.63 mg every 6 hours, Ecotrin 81 mg daily, Lipitor 40 mg daily, Coreg 12.5 twice a day, Pepcid 40 mg at bedtime, Lasix 40 mg p.o. b.i.d., Xopenex nebulizer 0.63 mg every 6 hours [id number] every 12 hours p.r.n., Synthroid 25 mcg daily, magnesium oxide 400 mg twice a day, Starlix 120 mg three times a day, Neutra-Phos discontinued, MiraLax 17 g twice a day, K-Dur 20 mEq twice a day, Altace 10 mg daily. The patient's revised discharge medications; the patient's potassium is decreased to 20 mEq p.o. daily as compared to twice a day. The patient's Plavix has been ordered 75 mg daily for one month as per Cardiology recommendation. Tylenol 650 mg p.o. every 6 hours, Mucomyst nebulizer 4 mL every 6 hours 20% with Xopenex nebulizer 0.63 mg every 6 hours,Ecotrin 81 mg daily, Lipitor 40 mg daily, Coreg 12.5 twice a day, Plavix 75 mg daily for one month, Pepcid 40 mg at bedtime, Lasix 40 mg twice a day, Synthroid 25 mcg daily, magnesium oxide 400 mg twice a day, Starlix 120 mg three times a day, MiraLax 17 g twice a day, K-Dur 20 mEq once a day, Altace 10 mg daily. ADDENDUM: GI recommends to hold aspirin, so the patient's aspirin will be discontinued and the patient will stay only on Plavix 75 mg daily. Cardiology recommends Plavix one month. GI recommends no aspirin at present. Watch the patient closely for GI bleeding. The patient 's condition, diagnosis, treatment plan, all details discussed and explained to the patient's nephew at length and all questions and concerned answered. Time spent in the entire discharge process more than 45 minutes. Dictated and electronically signed, not read. Jameson Dorsey MD
== END 2018-12-31 15:45 | DRG 248 ==
LOC: ED 20:07 → ERH 21:51 → 2RSO 23:07 → CCU 12-25 10:26
PROVIDERS: ADMIT Hospitalist; ATTEND Internal Medicine
PROC: 02703FZ Dilation of Coronary Artery, One Artery with Three Intraluminal Devices, Percutaneous Approach (ICD-10-PCS; principal; 2018-12-24)
PROC: 4A023N7 Measurement of Cardiac Sampling and Pressure, Left Heart, Percutaneous Approach (ICD-10-PCS; 2018-12-24)
PROC: 3E073KZ Introduction of Other Diagnostic Substance into Coronary Artery, Percutaneous Approach (ICD-10-PCS; 2018-12-24)
PROC: B2111ZZ Fluoroscopy of Multiple Coronary Arteries using Low Osmolar Contrast (ICD-10-PCS; 2018-12-24)
PROC: B2181ZZ Fluoroscopy of Left Internal Mammary Bypass Graft using Low Osmolar Contrast (ICD-10-PCS; 2018-12-24)
PROC: B21F1ZZ Fluoroscopy of Other Bypass Graft using Low Osmolar Contrast (ICD-10-PCS; 2018-12-24)
PROC: B2151ZZ Fluoroscopy of Left Heart using Low Osmolar Contrast (ICD-10-PCS; 2018-12-24)
PROC: 3E02340 Introduction of Influenza Vaccine into Muscle, Percutaneous Approach (ICD-10-PCS; 2018-12-31)
DX: I21.4 Non-ST elevation (NSTEMI) myocardial infarction (principal); J18.1 Lobar pneumonia, unspecified organism; R57.1 Hypovolemic shock; I50.41 Acute combined systolic (congestive) and diastolic (congestive) heart failure; E87.2 Acidosis; I42.0 Dilated cardiomyopathy; K92.2 Gastrointestinal hemorrhage, unspecified; D62 Acute posthemorrhagic anemia; J98.11 Atelectasis; E44.1 Mild protein-calorie malnutrition; D68.9 Coagulation defect, unspecified; K56.7 Ileus, unspecified; N39.0 Urinary tract infection, site not specified; Q25.0 Patent ductus arteriosus; Q27.30 Arteriovenous malformation, site unspecified; I25.110 Atherosclerotic heart disease of native coronary artery with unstable angina pectoris; I11.0 Hypertensive heart disease with heart failure; E03.9 Hypothyroidism, unspecified; R11.2 Nausea with vomiting, unspecified; K59.00 Constipation, unspecified; K40.90 Unilateral inguinal hernia, without obstruction or gangrene, not specified as recurrent; E11.65 Type 2 diabetes mellitus with hyperglycemia; I87.8 Other specified disorders of veins; E87.6 Hypokalemia; I25.5 Ischemic cardiomyopathy; Z79.84 Long term (current) use of oral hypoglycemic drugs; I27.20 Pulmonary hypertension, unspecified; E11.649 Type 2 diabetes mellitus with hypoglycemia without coma; D50.9 Iron deficiency anemia, unspecified; D69.6 Thrombocytopenia, unspecified; D72.819 Decreased white blood cell count, unspecified; E55.9 Vitamin D deficiency, unspecified; E78.00 Pure hypercholesterolemia, unspecified; E78.5 Hyperlipidemia, unspecified; G93.89 Other specified disorders of brain; I08.3 Combined rheumatic disorders of mitral, aortic and tricuspid valves; I25.2 Old myocardial infarction; I49.3 Ventricular premature depolarization; I70.0 Atherosclerosis of aorta; I99.8 Other disorder of circulatory system; J45.909 Unspecified asthma, uncomplicated; K44.9 Diaphragmatic hernia without obstruction or gangrene; K55.20 Angiodysplasia of colon without hemorrhage; K57.30 Diverticulosis of large intestine without perforation or abscess without bleeding; K64.8 Other hemorrhoids; K80.20 Calculus of gallbladder without cholecystitis without obstruction; M47.9 Spondylosis, unspecified; N40.0 Benign prostatic hyperplasia without lower urinary tract symptoms; N42.89 Other specified disorders of prostate; R09.02 Hypoxemia; R31.29 Other microscopic hematuria; Z79.02 Long term (current) use of antithrombotics/antiplatelets; Z79.82 Long term (current) use of aspirin; Z79.890 Hormone replacement therapy; Z79.899 Other long term (current) drug therapy; Z23 Encounter for immunization

== ENCOUNTER 2019-03-04 14:18 | Outpatient (CLI) | payer MEDICARE, OTHER | END 2019-03-04 14:19 | disposition home or self-care (01) | LOC: RAD 14:18 | DX: K59.09 Other constipation (principal); K92.2 Gastrointestinal hemorrhage, unspecified ==